=== PATIENT | female | born 1950 | race Caucasian/White ===

== ENCOUNTER → 2020-10-07 | Outpatient (CLI) | payer MEDICARE ==
--- NOTE | 2020-10-07 12:42 | US ---
EXAMINATION TYPE: US kidneys/renal and bladder DATE OF EXAM: 10/07/2020 COMPARISON: NONE CLINICAL HISTORY: R94.4 Abnormal results of kidney function studies. EXAM MEASUREMENTS: Right Kidney: 8.7 x 3.2 x 3.6 cm Left Kidney: 9.3 x 4.3 x 3.4 cm *Technical limitations due to large amount of overlying bowel content Right Kidney: atrophic, no evidence of hydronephrosis Left Kidney: no evidence of hydronephrosis Bladder: appears wnl Bilateral Jets seen: no There is no evidence for hydronephrosis at this point in time. No nephrolithiasis is seen. No tereso s are identified. The urinary bladder is anechoic. Bilateral ureteral jets are seen. IMPRESSION: Mild atrophic changes. No evidence for hydronephrosis or mass.
== END | disposition home or self-care (01) ==
LOC: RADUSWWP 11:47
PROVIDERS: ATTEND Family Medicine
DX: R94.4 Abnormal results of kidney function studies (principal)
CPT/HCPCS: 76770

== ENCOUNTER → 2020-12-06 | Outpatient (CLI) | payer MEDICARE ==
--- NOTE | 2020-12-06 10:51 | XR ---
EXAMINATION TYPE: XR lumbar spine 2 or 3V DATE OF EXAM: 12/06/2020 Comparison: 05/09/2015 Clinical History: 70-year-old female G89.29 chronic pain Findings: Moderately advanced disc/endplate degenerative change L4-S1 levels with disc space narrowing, endplat e sclerosis, and vacuum phenomenon. Facet arthropathy mid to lower lumbar spine. Trace grade 1 retrol isthesis L3-L4. There is inferior endplate deformity L1-L2 which was present back to 2016 as well. Atherosclerotic calcifications throughout the abdominal aorta and common iliac arteries. Impression: 1. Moderate to advanced disc/endplate degenerative change from L4 through S1 levels appears to have p rogressed from 2016. 2. Hypertrophic facet arthropathy mid to lower lumbar spine with degenerative trace grade 1 retrolist hesis L3-L4. 3. Unchanged, chronic inferior endplate compression deformity.
== END | disposition home or self-care (01) ==
LOC: RADXRMAIN 10:00
PROVIDERS: ATTEND Family Medicine
DX: M43.16 Spondylolisthesis, lumbar region (principal); M47.817 Spondylosis without myelopathy or radiculopathy, lumbosacral region
CPT/HCPCS: 72100

== ENCOUNTER → 2021-06-19 | Outpatient (CLI) | payer MEDICARE ==
--- NOTE | 2021-06-19 12:40 | CT ---
EXAMINATION TYPE: CT sinus wo con DATE OF EXAM: 06/19/2021 COMPARISON: None HISTORY: Sinusitis CT DLP: 515 mGycm. Automated Exposure Control for Dose Reduction was Utilized. TECHNIQUE: CT scan of the sinuses is performed without contrast, axial images are obtained, coronal r eformatted images are also reviewed. FINDINGS: The paranasal sinuses including the frontal, ethmoid, sphenoid, and maxillary sinuses bila terally are well-aerated mild mucosal thickening involving the right inferior maxillary sinus. There is a large jamie bullosa on the right is stable. Nasal septal deviation noted.. The ostiomeat al complex is patent bilaterally on the coronal images. Visualized portion of mastoid air cells show no abnormal opacification. The globes are intact bilate rally. IMPRESSION: 1. Mild left maxillary sinusitis.
== END | disposition home or self-care (01) ==
LOC: RADCTMAIN 11:26
PROVIDERS: ATTEND Otolaryngology
DX: J32.0 Chronic maxillary sinusitis (principal)
CPT/HCPCS: 70486

== ENCOUNTER → 2021-12-07 | Outpatient (CLI) | payer MEDICARE ==
[2021-12-07 11:30] LABS: African American GFR (CKD) 36 (>60 ml/min/1.73 sqM); Anion Gap 12 mmol/L; Blood Urea Nitrogen 35 mg/dL (7-17); Calcium 9.5 mg/dL (8.4-10.2); Carbon Dioxide 27 mmol/L (22-30); Chloride 102 mmol/L (98-107); Glucose 90 mg/dL (74-99); Non-African American GFR(CKD) 31 (>60 ml/min/1.73 sqM); Potassium 5.2 mmol/L (3.5-5.1); Sodium 141 mmol/L (137-145)
== END | disposition home or self-care (01) ==
LOC: RADCTMAIN 10:44
PROVIDERS: ATTEND Family Medicine
DX: I73.9 Peripheral vascular disease, unspecified (principal)
CPT/HCPCS: 80048

== ENCOUNTER → 2022-01-16 | Outpatient (CLI) | payer MEDICARE ==
--- NOTE | 2022-01-16 11:42 | MM ---
Reason for Exam: Hx of breast cancer, mastectomy. Last mammogram was performed 3 year(s) and 1 month(s) ago. Patient History: Menarche at age 15. First Full-Term at age 21. Postmenopausal. Breast cancer, right, age 50. 11/09/2000, Mastectomy on the Right side. Prior Study Comparison: 12/29/2018 Left MG diagnostic mammo LT w CAD - 2, Unknown. Tissue Density: Left: There are scattered fibroglandular densities. Findings: Analyzed By CAD. There is been a prior right mastectomy. Parenchymal pattern appears stable from comparison. No suspicious groups of microcalcifications, spiculated or lobular masses, architectural distortion or other secondary signs of malignancy are mammographically apparent. Overall Assessment: Benign, BI-RAD 2 Management: Screening Mammogram of the left breast in 1 year. A negative mammogram report should not preclude additional follow up of suspicious palpable abnormalities. Patient should continue monthly self breast exam. A clinical breast exam by your physician is recommended on an annual basis and results should be correlated with mammographic findings. Electronically signed and approved by: Julio César Zamarripa D.O. Radiologis
== END | disposition home or self-care (01) ==
LOC: RADMAMWWP 09:33
PROVIDERS: ATTEND Family Medicine
DX: N64.4 Mastodynia (principal); Z78.0 Asymptomatic menopausal state; Z85.3 Personal history of malignant neoplasm of breast; Z90.11 Acquired absence of right breast and nipple; C50.911 Malignant neoplasm of unspecified site of right female breast
CPT/HCPCS: 77065

== ENCOUNTER → 2022-07-04 | Outpatient (CLI) | payer MEDICARE, OTHER ==
--- NOTE | 2022-07-04 13:04 | CT ---
EXAMINATION TYPE: CT cervical spine wo con CT DLP: 281.7 mGycm, Automated exposure control for dose reduction was used. DATE OF EXAM: 07/04/2022 12:55 PM COMPARISON: MR 05/02/2022. CLINICAL INDICATION:Female, 72 years old with history of M54.12, neck pain TECHNIQUE: Axial CT images from the skull base to the inferior aspect of T2 we obtained without intra venous contrast. Coronal and sagittal reformatted images were also reviewed. FINDINGS: Fracture: None. Osseous structures: Multilevel degenerative disc disease changes with endplate spurring and disc oste ophyte complex's. Scattered disc space narrowing throughout the spine. Vertebral alignment: Alignment within normal limits. Spinal canal/Neural Foramina: Disc osteophyte complexes at C5-C6 and C6-C7 with at least mild spinal canal stenosis. Facet joint uncovertebral joint arthropathy scattered throughout the cervical spine w ith varying degrees of neural foraminal stenosis. Neck soft tissues: Prevertebral soft tissues are within normal limits. Bilateral carotid artery ather osclerosis at the bifurcations. Other: The airway is patent. Centrilobular emphysema changes in lung apices with some pleural calcifi cations.1 IMPRESSION: 1. No evidence of cervical spine fracture. 2. Moderate multilevel degenerative disc disease with associated arthropathy.
== END | disposition home or self-care (01) ==
LOC: RADCTMAIN 12:34
PROVIDERS: ATTEND Orthopaedic Surgery
DX: M43.12 Spondylolisthesis, cervical region (principal); M50.10 Cervical disc disorder with radiculopathy, unspecified cervical region; M47.22 Other spondylosis with radiculopathy, cervical region
CPT/HCPCS: 72125

== ENCOUNTER → 2022-08-13 | Outpatient (CLI) | payer MEDICARE, OTHER ==
--- NOTE | 2022-08-13 15:21 | NM ---
EXAMINATION TYPE: NM hepatobiliary w EF DATE OF EXAM: 08/13/2022 COMPARISON: NONE CLINICAL INDICATION: Female, 72 years old with history of R110; TECHNIQUE: After the intravenous administration of 5.2 mCi Tc 99m Mebrofenin hepatobiliary scintigrap hy is performed. Immediate images post injection. FINDINGS: There is satisfactory initial accumulation of tracer by the liver. The gallbladder is visualized wit hin 8 minutes. The small bowel activity is noted within 16 minutes. At one hour 8 ounces of oral en sure plus is given to mimic CCK and gallbladder ejection fraction is calculated at 83 %, in the kenny l range. Therefore there is no scintigraphic evidence of cystic or common bile duct obstruction to s uggest acute cholecystitis or gallbladder dyskinesia. IMPRESSION: Exam is within normal limits.
== END | disposition home or self-care (01) ==
LOC: RADNMMAIN 12:36
PROVIDERS: ATTEND Family Medicine
DX: R11.0 Nausea (principal)
CPT/HCPCS: 78226; A9537

== ENCOUNTER → 2022-09-06 | Outpatient (CLI) | payer MEDICARE, OTHER ==
[2022-09-06 12:02] LABS: INR 0.9 (<1.2)
[2022-09-06 17:10] LABS: BUN/Creat Ratio 20.38 Ratio (12.00-20.00); Blood Urea Nitrogen 26.5 mg/dL (9.0-27.0); Calcium 9.3 mg/dL (8.7-10.3); Carbon Dioxide 26.4 mmol/L (21.6-31.8); Chloride 105 mmol/L (96-109); Glucose 98 mg/dL (70-110); Potassium 4.5 mmol/L (3.5-5.5); Sodium 141 mmol/L (135-145)
[2022-09-06 17:17] LABS: Basophils # (A) 0.11 X 10*3/uL (0.00-0.10); Basophils % (A) 1.3 %; Eosinophils # (A) 0.14 X 10*3/uL (0.04-0.35); Eosinophils % (A) 1.7 %; HCT 41.2 % (37.2-46.3); HGB 12.6 d/dL (12.0-15.0); Lymphocytes # (A) 1.34 X 10*3/uL (0.90-5.00); MCH 30.7 pg (27.0-32.0); MCHC 30.6 d/dL (32.0-37.0); MCV 100.5 FL (80.0-97.0); Mean Platelet Volume 12.1 FL (9.5-12.2); Monocytes # (A) 0.53 X 10*3/uL (0.20-1.00); Monocytes % (A) 6.3 %; NRBC Per 100 WBC 0 X 10*3/uL (0.00-0.01); Neutrophils % (A) 74.3 %; Platelet Count 241 X 10*3/uL (140-440); RDW 15.1 % (11.5-14.5); WBC 8.35 X 10*3/uL (4.50-10.00)
== END | disposition home or self-care (01) ==
LOC: LABPAT 10:07
PROVIDERS: ATTEND Orthopaedic Surgery
DX: Z01.812 Encounter for preprocedural laboratory examination (principal); Z22.322 Carrier or suspected carrier of Methicillin resistant Staphylococcus aureus; R94.31 Abnormal electrocardiogram [ECG] [EKG]; I45.10 Unspecified right bundle-branch block
CPT/HCPCS: 80048; 85025; 85610; 87070; 93005

== ENCOUNTER → 2022-10-30 | Outpatient (CLI) | payer MEDICARE, OTHER ==
[2022-10-30 15:42] LABS: HCT 46.5 % (37.2-46.3); HGB 14.2 d/dL (12.0-15.0); MCH 30.5 pg (27.0-32.0); MCHC 30.5 d/dL (32.0-37.0); Mean Platelet Volume 11.5 FL (9.5-12.2); NRBC Per 100 WBC 0 X 10*3/uL (0.00-0.01); Platelet Count 257 X 10*3/uL (140-440); RBC 4.65 X 10*6/uL (4.10-5.20); RDW 14.6 % (11.5-14.5); WBC 3.79 X 10*3/uL (4.50-10.00)
[2022-10-30 16:16] LABS: % Iron Saturation 14.47 (12.00-45.00); ALT 16 U/L (8-44); AST 26 U/L (13-35); Albumin 4.1 d/dL (3.8-4.9); Albumin/Globulin Ratio 1.58 Ratio (1.60-3.17); Alkaline Phosphatase 66 U/L (41-126); BUN/Creat Ratio 15.15 Ratio (12.00-20.00); Blood Urea Nitrogen 19.7 mg/dL (9.0-27.0); Calcium 9.6 mg/dL (8.7-10.3); Carbon Dioxide 25.5 mmol/L (21.6-31.8); Chloride 106 mmol/L (96-109); Globulin 2.6 d/dL (1.6-3.3); Glucose 87 mg/dL (70-110); Iron 44 UG/DL (50-170); Magnesium 2.2 mg/dL (1.5-2.4); Phosphorus 3.1 mg/dL (2.4-5.1); Potassium 4.4 mmol/L (3.5-5.5); Sodium 142 mmol/L (135-145); Total Bilirubin 0.2 mg/dL (0.3-1.2); Total Iron Binding Capacity 304 UG/DL (228-460); Total Protein 6.7 d/dL (6.2-8.2); Uric Acid 5.6 mg/dL (2.9-7.7)
[2022-10-30 16:23] LABS: Appearance,Urine Cloudy (Clear); Bilirubin,Urine Small (Negative); Blood,Urine Trace (Negative); Color,Urine Dark Yellow (Yellow); Ketones,Urine Trace (Negative); Nitrite,Urine Negative (Negative); PH, Urine 5.5; Specific Gravity,Urine 1.021 (1.001-1.030)
[2022-10-30 16:48] LABS: Bacteria,Urine 3+ (None Seen)
== END | disposition home or self-care (01) ==
LOC: LABWHC1 08:57
PROVIDERS: ATTEND Internal Medicine
DX: E55.9 Vitamin D deficiency, unspecified (principal); N18.32 Chronic kidney disease, stage 3b; N39.0 Urinary tract infection, site not specified; N25.81 Secondary hyperparathyroidism of renal origin; D63.1 Anemia in chronic kidney disease; M10.9 Gout, unspecified; R80.9 Proteinuria, unspecified
CPT/HCPCS: 36415; 80053; 81001; 82043; 82306; 82570; 82728; 83540; 83550; 83735; 83970; 84100; 84550; 85027

== ENCOUNTER → 2022-10-31 | Outpatient (CLI) | payer MEDICARE, OTHER ==
--- NOTE | 2022-10-31 22:52 | US ---
EXAMINATION TYPE: US kidneys/renal and bladder DATE OF EXAM: 10/31/2022 COMPARISON: CLINICAL INDICATION: Female, 72 years old with history of N18.32 chronic kidney disease, stage 3b; Ab normal labs. No pain. EXAM MEASUREMENTS: Right Kidney: 8.1 x 3.5 x 3.4 cm Left Kidney: 9.0 x 4.1 x 4.8 cm Right Kidney: No hydronephrosis or masses seen. Renal cortex appears lobular in appearance. Left Kidney: No hydronephrosis or masses seen. Renal cortex appears lobular in appearance. Bladder: Not well distended Bilateral Jets not seen IMPRESSION: 1. No suspicious acute ultrasound abnormality bilateral kidneys.
== END | disposition home or self-care (01) ==
LOC: RADUSWWP 08:08
PROVIDERS: ATTEND Internal Medicine
DX: N18.32 Chronic kidney disease, stage 3b (principal)
CPT/HCPCS: 76770

== ENCOUNTER → 2022-10-31 | Outpatient (CLI) | payer MEDICARE, OTHER ==
[~2022-10-31] MED LIST: DENOSUMAB 60 MG/ML 1 ML SYRINGE SQ ONE
[2022-10-31 08:48] VITALS: BP 107/65; PULSE 67; RESP 15; TEMP 96
== END ==
LOC: PROCWHC3 08:31
PROVIDERS: ATTEND Family Medicine
DX: M81.0 Age-related osteoporosis without current pathological fracture (principal)
CPT/HCPCS: 96372; J0897

== ENCOUNTER → 2022-12-13 | Outpatient (CLI) | payer MEDICARE, OTHER ==
[2022-12-13 15:55] LABS: INR <0.93 sec (0.93-1.11); Prothrombin Time 10.2 sec (9.9-11.9)
[2022-12-13 16:34] LABS: BUN/Creat Ratio 11.21 Ratio (12.00-20.00); Blood Urea Nitrogen 15.7 mg/dL (9.0-27.0); Calcium 9.3 mg/dL (8.7-10.3); Carbon Dioxide 26.7 mmol/L (21.6-31.8); Chloride 104 mmol/L (96-109); Glucose 103 mg/dL (70-110); Potassium 4.5 mmol/L (3.5-5.5); Sodium 142 mmol/L (135-145)
[2022-12-13 17:13] LABS: Basophils # (A) 0.06 X 10*3/uL (0.00-0.10); Basophils % (A) 0.9 %; Eosinophils # (A) 0.18 X 10*3/uL (0.04-0.35); Eosinophils % (A) 2.7 %; HCT 43.8 % (37.2-46.3); HGB 13.5 d/dL (12.0-15.0); Lymphocytes # (A) 1.15 X 10*3/uL (0.90-5.00); Lymphocytes % (A) 17.2 %; MCH 30.5 pg (27.0-32.0); MCHC 30.8 d/dL (32.0-37.0); MCV 98.9 FL (80.0-97.0); Mean Platelet Volume 11.3 FL (9.5-12.2); Monocytes # (A) 0.38 X 10*3/uL (0.20-1.00); Monocytes % (A) 5.7 %; NRBC Per 100 WBC 0 X 10*3/uL (0.00-0.01); Neutrophils # (A) 4.91 X 10*3/uL (1.80-7.70); Neutrophils % (A) 73.2 %; Platelet Count 240 X 10*3/uL (140-440); RBC 4.43 X 10*6/uL (4.10-5.20); RDW 14.6 % (11.5-14.5)
== END | disposition home or self-care (01) ==
LOC: LABPAT 11:56
PROVIDERS: ATTEND Orthopaedic Surgery
DX: Z01.812 Encounter for preprocedural laboratory examination (principal); M48.02 Spinal stenosis, cervical region; M47.812 Spondylosis without myelopathy or radiculopathy, cervical region; M43.12 Spondylolisthesis, cervical region
CPT/HCPCS: 80048; 85025; 85610; 86850; 86900; 86901

== ENCOUNTER 2022-12-17 07:30 | Inpatient (IN) | payer MEDICARE, OTHER ==
--- NOTE | 2022-12-17 07:21 | P.HPOR ---
History of Present Illness H&P Date: 12/07/22 .D:Date: 12/07/22 : 12:52pm .T:Title: *[facility]... COPY... Date of :[birth year] R14 Allergies: Age: 72 year Height: 5' Weight: 143 lbs BP:/ BMI: 27.93 kg/m2 Occupation: Retired VAS: 6 CHIEF COMPLAINT: Pre-operative appointment for C2-T2 decompression and fusion DOS: n/a Duration of current treatment regiment:> 6 months HISTORY : Xrays New xrays taken in office Trauma or injury No Work-Related No Pain description Aching Location Posterior Patient notes that their pain radiates to left upper extremity Activity Modification Yes Hand Dominance Right TREATMENTS COMPLETED: 6 weeks of PT completed? Month and Year of last PT date? Yes, Cervical, completed 05/03 12 sessions temp relief Physician directed home exercise completed? Yes Medications Yes; List: Aspirin, Flexeril, & Gabapentin Alternative interventions Chiropractic:No Massage therapy: No R.I.C.E:Yes Brace:No Injections No RFA:No SUBJECTIVE: Ms. Reyes returns to the office today for a pre-operative appointment preceding her C2-T2 decompression and fusion. Since her last visit patient states she has been experiencing a whooshing/buzzing sound in her ears. The patient notes a continued ache-like neck pain that radiates down into the bilateral shoulders and upper extremities. The patient also notes continued pain into the mid back as well. The patient notes that her upper extremity pain is associated with numbness, tingling, and weakness. The patient also notes continued dizziness and imbalance. The patient states her symptoms have become debilitating. The patient notes that her symptoms are exacerbated by all activity, which makes it very difficult for her to complete her activities of daily living. The patient is having severe sleep disturbances due to her ongoing pain and associated symptoms . The patient has trialed conservative treatment in the form of at home stretches/exercises, at home heat/ice therapies, physical therapy, activity modification, and medication management, all with no significant relief. The patient is currently taking Flexeril, gabapentin, and Aspirin without resolution of symptoms. Otherwise the patient denies any f/c/sob/cp, perineal numbness or tingling, bladder or bowel incontinence and ambulates independently. HPI: Ms. Reyes returns to the office on 09/24/22 for a re-check on her neck pain and to reschedule surgical intervention in the form of a C2-T2 decompression and fusion. The patient decided to cancel surgery as she did not feel mentally prepared yet. The patient notes a continued ache-like neck pain that radiates down into the left shoulder and upper extremity. The patient notes pain radiating down into the mid back as well. The patient notes that her upper extremity pain is associated with numbness, tingling, and weakness. The patient also notes continued dizziness and imbalance. The patient states her symptoms have been worsening over the last several weeks and have become debilitating. The patient notes that her symptoms are exacerbated by all activity, which makes it very difficult for her to complete any of her activities of daily living. The patient is having severe sleep disturbances due to her ongoing pain and associated symptoms. The patient has trialed conservative treatment in the form of at home stretches/exercises, at home heat/ice therapies, physical therapy, activity modification, and medication management, all with no significant relief. The patient is currently taking Flexeril, gabapentin, and Tylenol, with minimal relief of pain. The patient is requesting to reschedule her previously scheduled C2-T2 decompression and fusion, due to her symptoms affecting her overall quality of life. Otherwise the patient denies any f/c/sob/cp, perineal numbness or tingling, bladder or bowel incontinence and ambulates independently. Ms. Reyes returns to the office on 09/06/2022 for a preoperative evaluation preceeding her previously scheduled C2-T2 decompression and fusion. The patient reports continued ache-like pain throughout the neck that radiates down into the left shoulder and upper extremity. The patient notes that their left upper extremity pain is associated with numbness and tingling. The patient notes a new onset of right upper extremity pain, also associated with mild numbness and tingling. She states that the left upper extremity pain is much more severe than the right at this time. The patient reports increased upper extremity weakness and issues with imbalance. The patient notes that her symptoms have continued to worsen over the last 2 months. The patient notes that her symptoms are exacerbated by all activity, which makes it very difficult for her to complete many of her daily tasks. Ms. Reyes notes severe sleep disturbances at this time due to her ongoing symptoms. The patient has trialed conservative treatment measures in the form of physical therapy, at home stretches/exercises, activity modification, at home heat/ice therapies, and medication management, all with no significant or sustained relief. The patient notes that her symptoms have become intractable. She is currently taking Tylenol Arthritis, Flexeril, and Gabapentin with very minimal relief. Otherwise the patient denies any f/c/sob/cp, perineal numbness or tingling, bladder or bowel incontinence and ambulates independently. Ms. Reyes presents to the office on 06/20/2022 for recheck of her cervical pain. Patient continues to report a cosmetic aching cervical pain that radiates into her left shoulder, associated with numbness and tingling.Patient also describes a constant throbbing lumbar pain that radiates into her bilateral lower extremities, associated with numbness and tingling. For her symptoms patient continues to take tylenol and Flexeril.Patient has done physical therapy with no relief. MRI results of that are reviewed and discussed. When asked patient which region is worse patient does state cervical due to the significant pain and burning radiating to her left shoulder. Otherwise the patient denies any f/c/sob/cp, perineal numbness or tingling, bladder or bowel incontinence and ambulates independently. Ms. Reyes presents to the office on 05/09/2022 for recheck of her cervical and lumbar pain and her MRI results. Since her last office visit patient states she had a fall down her stairs on 05/06/2022. She states she had landed on her tailbone. New x-rays obtained. Patient continues to report a cosmetic aching cervical pain that radiates into her left shoulder, associated without numbness and tingling. Patient also describes a constant throbbing lumbar pain that radiates into her bilateral lower extremities, associated with numbness and tingling. For her symptoms patient continues to take tylenol and Flexeril. When asked patient which region is worse patient does state cervical due to the significant pain and burning radiating to her left shoulder. Otherwise the patient denies any f/c/sob/cp, perineal numbness or tingling, bladder or bowel incontinence and ambulates independently. Ms. Reyes was last seen on 04/24/22 regarding a recheck of her cervical pain. Since the last office visit patient has completed physical therapy in which provided some relief. Patient continues to report a constant aching cervical pain that radiates into the left shoulder, associated with out numbness and tingling. Patient has completed a Medrol Dosepak with good relief. Patient would also like to be evaluated for her low back pain. Patient describes a constant throbbing lumbar pain that radiates into her bilateral lower extremities, associated with numbness and tingling. Patient states her symptoms are exacerbated with any activity. Patient is having moderate sleep disturbances. She states with her overall symptoms she is having difficulty completing her daily tasks. For her symptoms, patient is taking cyclobenzaprine and Tylenol. Patient again reports that she does have stage III chronic kidney disease, so she is limited in what medication she can take. Otherwise the patient denies any f/c/sob/cp, perineal numbness or tingling, bladder or bowel incontinence and ambulates independently. Ms. Reyes was last seen on 03/14/22 regarding an evaluation of their cervical pain. Patient reports a constant aching cervical pain ongoing for a few months, but has worsened over the past week with no known injury or trauma to indicate an exact onset of their symptoms. In addition to their cervicalpain, they do report that it radiates into the left shoulder blade, associatedwithout numbness and tingling. Patient states she is having frequent headaches and has grinding noises in her neck. Overall the patient has seen a progressive increase in symptoms since their onset. Ms. Reyes symptoms are exacerbated with over compensating, due to this they notes that it is increasingly difficult for Ms. Reyes to complete many of their daily tasks. Patient is having moderate sleep disturbances as well due to their ongoing pain and associated symptoms. Regarding treatments, the patient has previously trialed the above listed modalities. Patient denies trialing any other modalities at this time. For their symptoms, the patient has been taking Tylenol without relief. She reports that she does have stage 3 chronic kidney disease, so she is limited on what medications she can take. Otherwise the patient denies any f/c/sob/cp and ambulates independently. The patients' past social, medical, family, surgical history, as well as review of systems, have been reviewed. Please refer to the Neurosurgery History and Physical form that has been scanned in to our electronic medical record system. 14 points review of systems completed and as stated in HPI, all other systems reviewed are negative. Social History: Reviewed, see appropriate section of the chart for details. P3 Family History: Reviewed, see appropriate section of the chart for details. P2 Past Medical History: Reviewed, see appropriate section of the chart for details. [id number] Medications: Rx: aspirin 81 mg tablet,delayed release Ref: 0 Rx: atorvastatin 20 mg tablet Ref: 0 Rx: esomeprazole magnesium 40 mg capsule,delayed release Ref: 0 Rx: ferrous sulfate 325 mg (65 mg iron) tablet Ref: 0 Rx: ibandronate 150 mg tablet Ref: 0 Rx: metoprolol succinate ER 25 mg tablet,extended release 24 hr Ref: 0 Rx: montelukast 10 mg tablet Ref: 0 Rx: Trelegy Ellipta 200 mcg-62.5 mcg-25 mcg powder for inhalation Ref: 0 Rx: Vitamin D3 50 mcg (2,000 unit) tablet Ref: 0 Rx: cyclobenzaprine 5 mg tablet Ref: 0 Rx: TylenoL Ref: 0 Rx: gabapentin 100 mg capsule Ref: 0 P1 PHYSICAL EXAMINATION: General:Awake, alert, appropriate for age, in no acute distress. HEENT:No unusual neck masses around region of lateral neck triangle, thyroid, supraclavicular groove Extremities:Skin warm and dry without acute lesions, coloration, temperature, skin intact, no tenderness or erythema Integument: Hairy patches:ABSENT Dorsal skin dimples:ABSENT Cafe au lait spots:ABSENT Surgical incisions:n/a Palpation: Please see Pain drawing on Intake sheet for further detail. Midline spinal tenderness: No E6 Cervical Tenderness: Yes E6 Paralumbar tenderness:No E6 Parathoracic tenderness: No E6 Buttocks tenderness: No E6 POSTURAL and MUSCULO-SKELETAL EVALUATION: Coronal Balance: NEUTRAL Recumbent testing: Patient isable to lay flat on back Sagittal Balance: NEUTRAL Shoulder Profile: LEVEL Pelvic Girdle: LEVEL Neck ROM: RESTRICTED Lumbar ROM: RESTRICTED Shoulder ROM: Symmetrical Hip ROM: Symmetrical Knee ROM: Symmetrical Hands: Normal appearance, symmetrical Feet: Normal appearance, Symmetrical VASCULAR STATUS : LEFT RIGHT Wrist Pulses INTACT INTACT Pedal Pulses (Dors. pedis & post.tibialis) INTACT INTACT Color NORMAL NORMAL Edema Absent Absent NEUROLOGICEXAMINATION: Mental Status:Awake and alert, fully oriented, with normal attention, concentration and memory, and fluent, appropriate speech. Cranial Nerves: I: Olfactory not tested. II: Visual acuity normal, no visual field deficit noted with confrontation. III,IV: Normal pupillary reflexes & intact extraocular movements without nystagmus. V,: Intact symmetrical facial sensation. VII: Intact symmetrical facial motor movement VIII: Hearing intact. IX,X: Intact gag, swallow, & normal voice. XI: Sternocleidomastoid, trapezius function intact. XII: Tongue midline with normal movements. L'hermitte's Sign:Negative / absent Spurling'Sign:Absent bilaterally. Cubital percussion test:Absent bilaterally. Son-Tinel sign - Carpal region:Absent bilaterally. Straight Leg Raising:Absent bilaterally. Crossed straight leg raise:negative O8 MOTOR EXAM (0-5/5, N/T Muscle appearance: Symmetrical, without signs of atrophy or dystrophy UPPER EXTREMITY RIGHT LEFT Shoulder Abduction 4/5 4/5 Biceps 4/5 4/5 Triceps 4/5 4/5 Wrist Extension 4/5 4/5 Hand Intrinsic 4/5 4/5 Pile Driving Setter 4/5 4/5 Hand and finger dexterity intact bilaterally?NO Disdiadochokinesis examination negative bilaterally? NO LOWER EXTREMITY RIGHT LEFT Hip Flexion 5/5 5/5 Knee Extension 5/5 5/5 Knee Flexion 5/5 5/5 Dorsiflexion 5/5 5/5 Plantarflexion 5/5 5/5 EHL 5/5 5/5 FHL 5/5 5/5 Toe heel walk / heel-toe walk intact while maintaining satisfactory balance? NO Squatting/straightening w/o assistance to a min of 60 degree knee flexion? NO Single leg stance:intact Trendelenburg sign negative bilaterally REFLEXES(0-4/2, NT)Upper Extremity Lower Extremity Right 3 2 Left 3 2 Pathological Reflexes RIGHT LEFT Son's present present Clonus Absent Absent Babinski Absent Absent Sensory system (0-4, N/T) Test type RU VERNON RL LL Joint-Position 2 2 2 2 Vibration 2 2 2 2 Pain & LT sense 2 2 2 2 Dermatomal Deficit: Global C4-6 None None Gait and Functional Evaluation: Ambulatory aids:Independent Romberg's test:Intact bilaterally Unsteady Gait RADIOGRAPHIC STUDIES: XRay Lumbar AP/lateral 2 views taken at [facility] on 05/09/22 of Spine: - Reviewed with the patient today. No changes in lumbar compared to previous films taken on 04/24/22, stable chronic L1 compression fracture. Spondylosis with likely stenosis at multilevels noted. Overall alignment stable for age. No new fractures. No lesions. MRI of the Cervical and Lumbar Spine taken at [facility] on 05/02/22: Cervical spine: - Reviewed with the patient today. FINDINGS: Sagittal images of the cervical spine show the craniocervical junction to appear within normal limits. There is grade 1 retrolisthesis C3 on C4, C4 on C5, and C5 on C6. The cervical and upper thoracic spinal cord is normal in caliber and signal. The vertebral body height are normal. There is moderate disc space narrowing C3-C4 through the C5-C6 level and mild disc space narrowing C6- C7 level. The bone marrow signal intensity is within normal limits. Axial images show C2-C3 level to appear within normal limits. Axial images at C3-C4 level show broad-based posterior disc protrusion mildly effacing the anterior thecal sac, patent bilateral neural foramina. Axial images at C4-C5 level shows broad-based right paracentral disc protrusion effacing the anterolateral thecal sac and uncovertebral facet degenerative changes causing moderate bilateral neural foraminal narrowing. Axial images at C5-C6 level broad-based posterior disc protrusion effacing the anterior thecal sac and causing moderate to advanced left and [id number] right-sided neural foraminal narrowing. Axial images at C6-C7 levels with broad-based posterior disc protrusion effaces the anterior thecal sac and causing moderate left and mild right-sided neural foraminal narrowing. Axial images at C7-T1 level appear within normal limits. IMPRESSION: Multilevel spondylolisthesis and degenerative change in the cervical spine as detailed above. Lumbar spine: - Reviewed with the patient today. Sagittal images of the lumbar spine show moderate height loss estimated at just over 50% anterior L1 level. No suspicious edema to suggest acute compression typ e fracture. Persistent grade 1 retrolisthesis of L3 on L4. Multilevel disc desiccation redemonstrated. There is moderate to advanced disc space narrowing L4-L5 level more prominent from prior. There is moderate disc space narrowing L5-S1 level redemonstrated but stable. There is mild disc space narrowing with annular tear at the L3-L4 level on current study.. The conus medullaris remains normal in position and signal ending mid L1 level. Axial images show T12-L1 through the L2-L3 level to appear within normal limits. Axial images at L3-L4 level shows moderate broad-based disc bulge with posterior annular tear mildly effacing the anterior thecal sac with patent bilateral neural foramina. Axial images at L4-L5 level show mild broad disc bulge minimally effacing the anterior thecal sac and causing mild bilateral anterior inferior neural foraminal narrowing. Axial images at L5-S1 level shows moderate broad-based disc bulge and mild facet arthropathy bilaterally. Spinal canal is minimally effaced anteriorly. There is moderate bilateral neural foraminal narrowing noted. Some cortical thinning of both kidneys is seen. IMPRESSION: Moderate chronic compression type fracture at L1 level. Finding has been present since 2020 x-ray. Multilevel degenerative changes in lumbar spine as detailed above. IMPRESSION: It was my pleasure to have seen and examined Jessica. I reviewed the patient's clinical syndrome, physical findings, and imaging studies during the appointment today. It is my impression that the patient has a diagnosis of. 1. 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 Grade 1 retrolisthesis C3 onto C4, C4 onto C5, C5 onto C6 3. Bilateral upper extremity radiculopathy 4. Lumbar spondylosis with stenosis 5. Grade 1 retrolisthesis L3 onto L4 6. Chronic L1 compression fracture 7. Bilateral lower extremity radiculopathy 8. Bilateral upper extremity weakness I outlined the natural course history without intervention and various interventional options. PLAN All options were reviewed today, we decided the best course of action would be: -Advised patient to continue with supplements, health maintenance, and home exercise programs. Patient expressed understanding and will continue with these modalities. -I discussed treatment options with the patient, including operative and non- operative options, and they have elected to proceed with the following surgical procedure: C2-T2 decompression and fusion The indications, risks, benefits, and alternatives to surgery were discussed with the patient and family at length. Specifically (but not limited to) the ris ks of infection, stiffness, recurrence of symptoms, need for revision surgery, local numbness, neurovascular injury, and blood clots were discussed. The patient's questions were answered. The decision to proceed was made. Consent will be obtained for the procedure. - I have sent prescriptions to the patient's pharmacy today for Flexeril 5 mg, Gabapentin 300 mg, and a 4 mg Medrol Dosepak. - Ambulate daily. - Take pain medications and post op medications as needed and as directed. - Ice and rest for pain and swelling control. Spine Surgery Risk Review and Patient Summary Ms. Reyes is presenting for evaluation of Cervical pain, UE weakness, numbness, and tingling, unsteady gait, and dizziness. It was my pleasure to have seen and examined Ms. Reyes. In our visit today we have had a chance to go over subjective complaints, physical examination findings and treatments including the natural course history without intervention and various interventional options. The patients imaging demonstrates: XRay Lumbar AP/lateral 2 views taken at [facility] on 05/09/22 of Spine: No changes in lumbar compared to previous films taken on 04/24/22, stable chronic L1 compression fracture. MRI of the Cervical and Lumbar Spine taken at [facility] on 05/02/22: Cervical spine: FINDINGS: Sagittal images of the cervical spine show the craniocervical junction to appear within normal limits. There is grade 1 retrolisthesis C3 on C4, C4 on C5, and C5 on C6. The cervical and upper thoracic spinal cord is normal in caliber and signal. The vertebral body height are normal. There is moderate disc space narrowing C3-C4 through the C5-C6 level and mild disc space narrowing C6- C7 level. The bone marrow signal intensity is within normal limits. Axial images show C2-C3 level to appear within normal limits. Axial images at C3-C4 level show broad-based posterior disc protrusion mildly effacing the anterior thecal sac, patent bilateral neural foramina. Axial images at C4-C5 level shows broad-based right paracentral disc protrusion effacing the anterolateral thecal sac and uncovertebral facet degenerative changes causing moderate bilateral neural foraminal narrowing. Axial images at C5-C6 level broad-based posterior disc protrusion effacing the anterior thecal sac and causing moderate to advanced left and [id number] right-sided neural foraminal narrowing. Axial images at C6-C7 levels with broad-based posterior disc protrusion effaces the anterior thecal sac and causing moderate left and mild right-sided neural foraminal narrowing. Axial images at C7-T1 level appear within normal limits. IMPRESSION: Multilevel spondylolisthesis and degenerative change in the cervical spine as detailed above with stenosis moderate to severe. Lumbar spine: Sagittal images of the lumbar spine show moderate height loss estimated at just over 50% anterior L1 level. No suspicious edema to suggest acute compression type fracture. Persistent grade 1 retrolisthesis of L3 on L4. Multilevel disc desiccation redemonstrated. There is moderate to advanced disc space narrowing L4-L5 level more prominent from prior. There is moderate disc space narrowing L5-S1 level redemonstrated but stable. There is mild disc space narrowing with annular tear at the L3-L4 level on current study.. The conus medullaris remains normal in position and signal ending mid L1 level. Axial images show T12-L1 through the L2-L3 level to appear within normal limits. Axial images at L3-L4 level shows moderate broad-based disc bulge with posterior annular tear mildly effacing the anterior thecal sac with patent bilateral neural foramina. Axial images at L4-L5 level show mild broad disc bulge minimally effacing the anterior thecal sac and causing mild bilateral anterior inferior neural foraminal narrowing. Axial images at L5-S1 level shows moderate broad-based disc bulge and mild facet arthropathy bilaterally. Spinal canal is minimally effaced anteriorly. There is moderate bilateral neural foraminal narrowing noted. Some cortical thinning of both kidneys is seen. IMPRESSION: Moderate chronic compression type fracture at L1 level. Finding has been present since 2020 x-ray. Multilevel degenerative changes in lumbar spine as detailed above. On physical exam, Ms. Reyes demonstrates: The patient reports continued ache- like pain throughout the neck that radiates down into the left shoulder and uppe r extremity. The patient notes that their left upper extremity pain is associated with numbness and tingling. The patient notes a new onset of right upper extremity pain, also associated with mild numbness and tingling. She states that the left upper extremity pain is much more severe than the right at this time. The patient reports increased upper extremity weakness and issues with imbalance. The patient notes that her symptoms have continued to worsen over the last 2 months. The patient notes that her symptoms are exacerbated by all activity, which makes it very difficult for her to complete many of her daily tasks. Ms. Reyes notes severe sleep disturbances at this time due to her ongoing symptoms. I have explained to the patient that as their condition progresses it will cause further neurological deficits and eventual paralysis. Based on the patients imaging, physical exam, and the rapid progression and disabling nature of their symptoms, at this time I recommend surgery in the form of a: C2-T2 decompression and fusion . I discussed the risk and benefits of this procedure at length with Ms. Reyes. The patient He spouse agreed to considered pursuing the procedure above mentioned. Prior to surgery, she should follow up with her PCP (Cardio, ID, IM etc) for clearance. Questions were invited and answered, and the patient wishes to proceed as outlined below. Currently, I am recommendin. C2-T2 decompression and fusion 2.Follow up with PCP for surgical clearance 3.Review of surgical risks and benefits as well as an educational packet on the proposed surgical procedure. Risks: All surgical procedures come with inherent risks, including those related to positioning, anesthesia, intraoperative findings, and postoperative complications. It is important to understand that surgery does not come with any guarantee of a successful outcome as complications and adverse events are always possible. The patient was given a handout in office today discussing the surgical procedure and risks associated with the intervention, both of which were discussed with the patient. These risks include but are not limited to the following: * Experiencing same, different or even worse symptoms in back, neck, arms, or legs compared to before surgery. Requiring further surgery or other forms of treatment presently or at some time in the future at same or other levels of the intended spine surgery. On an extreme but fortunately relatively rare basis severe complication such as blindness, stroke, heart attack, temporary and/or permanent nerve injury, paralysis, coma, or may occur, sometimes without known explanat ion. Surgical complications may include but are not limited to risk of infection, fluid accumulation in the surgical dissection site, including a seroma or hematoma, that requires additional surgery, wound drainage, bleeding, new numbness or weakness, vision changes/loss, spinal fluid leakage, non-healing and/or infected incision, headaches, difficulty or inability to swallow, hoarseness, hemopneumothorax, pneumothorax, impotence, retrograde ejaculation, vaginal dryness; injury to nerves, spinal cord, blood vessels, lymphatics or other vital organs (i.e., bowel injury, injury to the great vessels); heterotopic bone formation; complications related to the hardware such as screws, rods, cages including misplaced hardware, device failure, instrumentation at the wrong spine level, hardware fracture/breakage, or hardware loosening; vertebral failure of the spinal column above or below the newly placed hardware; retained surgical instrumentations or devices and the need for further surgery. * Medical risks of the planned spine surgery include but are not limited to generalized Infections to the whole body or local areas outside of the surgical site (sepsis), heart attack, bleeding, anaphylaxis, meningitis, seizure, epilepsy, hearing loss, burn luna, laceration of the head or other areas of the body, bruising, hypersensitivity of the skin, bladder over distension; allergic reaction; shoulder injury related to positioning; fat, blood and air clots to other areas of the body like heart, lungs, brain; failure of internal organs such as lungs, kidneys, liver and excessive bleeding. If blood transfusions are necessary, note that transfusions may cause intolerance reactions such as anaphylaxis or other complex reactions. Despite best efforts, the results of spine surgery might not heal in terms of bone, soft tissues such as skin, fascia, ligaments, and joints. Additionally, in order to achieve best possible results, spine surgery may be carried out beyond the initially planned levels and involve decompression, fusion including insertion of hardware at levels other than the original intended area of surgical interest change some portions of the procedure in order to ensure the best possible outcomes. With spine surgery and spinal fusion, there are different off label uses of instrumentation (devices, implants and hardware) as well as biological substanc es (bone morphogenic proteins, demineralized bone matrix) as well as using extra bone from allograft sources (i.e. cadaver bone) or autograft (iliac crest bone, ribs, or the spine itself). The patient has been given information about these practices and their inherent risks and benefits. [facility] is an educational center that serves as a training facility for neurosurgical and orthopedic CHOIR DIRECTOR and Nursing students. Physician assistants are medically trained surgical providers who function in the outpatient, inpatient, and operating room setting under the direct supervision of the a ttending surgeon. [facility] has multiple operating rooms with single and overlapping rooms running daily. They currently function under the required guidelines as produced by the [facility] with regards to the overlapping rooms and will continue to comply with changes to this policy as they occur. The requirements include and are complied with as follows: (1) the critical portions of the overlapping rooms will not occur at the same time, (2) the attending physician will be physically present during the critical portions of the procedure and immediately available during the entire case, and (3) a back-up attending is designated should the primary attending not be immediately available. The patient has had a chance to review all the listed information, has been g iven print outs detailing this information, and has had all his/her questions answered to their satisfaction. It was my pleasure to have seen and examined Ms. Reyes. In our visit today we have had a chance to go over my understanding of our patient's current condition, the natural course history without intervention and various interventional options. Questions were invited and answered, and the patient wishes to proceed as outlined above. I have seen and examined the patient for 25 minutes and we have spent more than 50% of the time in repeat and detailed counseling about the patient's condition, its natural course history with out and as much as can be predicted with surgery and re-review of various surgical treatment options. In conclusion, Ms. Reyes and spouse requested we proceed with the above suggested surgery and are willing to accept risks and limitations of the suggested surgery as nature of the disease process and our best attempts at treatment for the condition. Thank you again for allowing us to be part of your patient's care. Please don't hesitate to contact me if you have any further questions. Follow- up: DEL Post procedure 1month 6wks 3 months 6 months 1 year Patient Education: (Informational booklet, instructions, etc) given at today's appointment: DEL Yes .ED:Patient Education: Y Medications Reviewed: YES In our visit today Ms. Reyes and I have had a chance to go over my understanding of the patient's current condition, the natural course history without intervention and various interventional options. Questions were invited and answered, and the patient wishes to proceed as outlined above. I will be sure to keep you updated afterMs. Reyes returns here for further follow-up. Thank you again for your referral. Please do not hesitate to contact me if you have any further questions. Signed and authenticated by: KAYLEE [facility] [address] [facility], [address] [address] This message is confidential, intended only for the named recipient(s) and may contain information that is privileged or exempt from disclosure under applicable law. If you are not the intended recipient(s), you are notified that the dissemination, distribution or copying of this information is strictly prohibited. If you received this message in error, please notify the sender then delete this message. Patient verbalizes understanding of the information discussed. The above note was initiated by Marty Chen, physician recording surgical assistant for Dr. Ravin Butt. This note has been reviewed by Dr. Butt, who has made his personal changes and impressions for this document. CC: Booker Ochoa D.O. Past Medical History Past Medical History: Cancer, GERD/Reflux, Hyperlipidemia, Hypertension, Musculoskeletal Disorder, Osteoarthritis (OA) Additional Past Medical History / Comment(s): Right breast cancer, back pain - steroid injections, hiatal hernia - not repaired. stage 3 vulva cancer-seeing oncologist in [facility]surg. could possibly be postponed, gets SOB w/exertion, stage 3 kidney disease History of Any Multi-Drug Resistant Organisms: None Reported Past Surgical History: Breast Surgery, Joint Replacement, Tonsillectomy, Tubal Ligation Additional Past Surgical History / Comment(s): Right breast mastectomy 2000, artificial vance. thumb joint (3 surgeries), left hand surgery, EGD 2010. back injections for pain, left cataract removed Past Anesthesia/Blood Transfusion Reactions: Postoperative Nausea & Vomiting (PONV) Additional Past Anesthesia/Blood Transfusion Reaction / Comment(s): only happened once years ago Smoking Status: Former smoker - Past Family History Mother Family Medical History: Cancer Additional Family Medical History / Comment(s): Stomach cancer Sister(s) Family Medical History: Cancer Additional Family Medical History / Comment(s): Lung cancer mets to brain Brother(s) Family Medical History: Cancer Additional Family Medical History / Comment(s): multiple cancers Medications and Allergies Home Medications Medication Instructions Recorded Confirmed Type Cholecalciferol [Vitamin D3] 2,000 unit PO DAILY 06/22/14 12/12/22 History Aspirin 81 mg PO DAILY 05/01/22 12/12/22 History Atorvastatin [Lipitor] 20 mg PO AC-SUPPER 05/01/22 12/11/22 History Ferrous Sulfate [Feosol] 325 mg PO DAILY 05/01/22 12/11/22 History Fluticasone/Umeclidin/Vilanter 200 mcg INHALATION DAILY 05/01/22 12/11/22 History [Trelegy Ellipta 100-62.5-25] Famotidine [Pepcid] 40 mg PO BID 09/04/22 12/11/22 History Prolia(Unk) 1 dose INJ DIRECTED 09/04/22 12/11/22 History Albuterol Inhaler [Ventolin Hfa 1 - 2 puff INHALATION Q6H PRN 10/31/22 12/11/22 History Inhaler] Metoprolol Succinate (ER) [Toprol 25 mg PO AC-SUPPER 10/31/22 12/11/22 History Xl] calcitrioL [Calcitriol] 0.25 mcg PO WEEKLY 10/31/22 12/11/22 History Loratadine [Claritin] 10 mg PO DAILY 12/12/22 12/12/22 History Allergies Allergy/AdvReac Type Severity Reaction Status Date / Time No Known Allergies Allergy Verified 12/11/22 12:19 Physical Examination Osteopathic Statement: *. No significant issues noted on an osteopathic structural exam other than those noted in the History and Physical/Consult.
[~2022-12-17 07:30] MED LIST changes: +ACETAMINOPHEN TAB 500 MG TAB PO PRN; -DENOSUMAB 60 MG/ML 1 ML SYRINGE SQ ONE; +GABAPENTIN 300 MG CAP PO PRN; +ONDANSETRON 4 MG/2 ML VIAL IVP PRN; +TRANEXAMIC 1,000 MG/100ML-NACL 1,000 MG in SALINE 1 100ML.BAG IVPB PRN
[2022-12-17] MEDS ORDERED: HYDROmorphone 0.5 MG/0.5 ML SYRINGE IVP PRN (08:09)
[2022-12-17] MEDS ORDERED: LIDOCAINE 1% (10MG/ML) FOR IV START INTRADERMA PRN (08:09)
[2022-12-17] MEDS ORDERED: DEXAMETHASONE SOD PHOSPHATE 4 MG/ML 1 ML VIAL IV ONE (08:09)
[2022-12-17] MEDS ORDERED: ONDANSETRON 4 MG/2 ML VIAL IVP ONE (08:09)
[2022-12-17] MEDS ORDERED: METOCLOPRAMIDE 5 MG/ML 2 ML VIAL IVP PRN (08:09)
[2022-12-17] MEDS: LACTATED RINGERS 1,000 ML IV SCH ×2 (11:47→12:45)
[2022-12-17] MEDS ORDERED: NEOSTIGMINE 1 MG/ML 10 ML VIAL ONE (12:45)
[2022-12-17] MEDS ORDERED: HYDROmorphone (PF) 1 MG/ML ONE (12:45)
[2022-12-17] MEDS ORDERED: MIDAZOLAM 2 MG/2 ML VIAL ONE (12:45)
[2022-12-17] MEDS ORDERED: ROCURONIUM 10 MG/ML (5 ML VIAL) IV ONE (12:45)
[2022-12-17] MEDS ORDERED: LIDOCAINE 1% INJ 10MG/ML (20 ML MDV) ONE (12:45)
[2022-12-17] MEDS ORDERED: PHENYLEPHRINE-0.9% NACL SYG 1,000 MCG/10 ML SYRINGE ONE (12:45)
[2022-12-17] MEDS ORDERED: GLYCOPYRROLATE 0.2 MG/ML 2 ML VIAL ONE (12:45)
[2022-12-17] MEDS ORDERED: fentaNYL (PF) 50 MCG/ML 2 ML AMP ONE (12:45)
[2022-12-17] MEDS ORDERED: PROPOFOL 10 MG/ML 20 ML VIAL IV ONE (12:45)
[2022-12-17] MEDS ORDERED: TRANEXAMIC 1,000 MG/100ML-NACL PREMIX BAG ONE (12:45)
[2022-12-17] MEDS ORDERED: SUCCINYLCHOLINE CHLORIDE 200 MG/10 ML VIAL IV ONE (12:45)
--- NOTE | 2022-12-17 13:24 | P.ANPRN ---
Procedure Note - Anesthesia - Invasive Line Left Arterial Line Time Out Performed: Yes (1231) Date of Procedure: 12/17/22 Time of Procedure: 12:32 Location of Patient: PreOp Preparation: Sterile Prep, Sterile Dressing Arterial Line Location: Radial (left) Ultrasound Used: No Purpose - Visualization and Identification of Vasculature: No Needle Guage: 20g Image Stored and Saved: No Narrative: Central line placement per sterile protocol utilized.
[2022-12-17] MEDS ORDERED: THROMBIN (BOVINE) 5,000 UNIT VIAL TOPICAL ONE (13:52)
[2022-12-17] MEDS ORDERED: VANCOMYCIN 1,000 MG VIAL MISCELLANE ONE ×2 (13:52→14:40)
[2022-12-17] MEDS ORDERED: GELATIN SPONGE,ABSORB (LARGE) 1 EACH SPONGE TOPICAL ONE (13:52)
[2022-12-17] MEDS ORDERED: MAGNESIUM HYDROXIDE 2,400 MG/30 ML CUP PO PRN (15:31)
[2022-12-17] MEDS ORDERED: HYDROcodone/APAP 10-325MG 1 EACH TAB PO PRN (15:31)
[2022-12-17] MEDS ORDERED: SENNOSIDES-DOCUSATE SODIUM 1 EACH TAB PO PRN (15:31)
--- NOTE | 2022-12-17 15:44 | XR ---
Intraoperative/procedural fluoroscopic services were provided for posterior cervical fusion. Total fl uoroscopy time is 38.3 seconds with a total of 11 submitted images to PACS. Total DAP 0.4355 Gycm2. Please see the operative note for further details. spine.
[2022-12-17] MEDS: HYDROmorphone 1 MG/ML 1 ML SYRINGE IVP PRN (18:09)
[2022-12-17] MEDS: ACETAMINOPHEN TAB 325 MG TAB PO SCH (18:14)
[2022-12-17] MEDS: GABAPENTIN 300 MG CAP PO SCH ×2 (18:14→22:49)
--- NOTE | 2022-12-17 20:14 | P.OP ---
Date of Procedure: 12/17/22 Preoperative Diagnosis: 1. CERVICAL STENOSIS WITH RADICULOPATHY 2. UE WEAKNESS 3. NECK PAIN 4. UE RADICULOPATHY Postoperative Diagnosis: 1. CERVICAL STENOSIS WITH RADICULOPATHY 2. UE WEAKNESS 3. NECK PAIN 4. UE RADICULOPATHY Procedure(s) Performed: 1. C2-T2 POSTERIOLATERAL ARTHRODESIS (76596, 12447, [id number]) 2. INSTRUMENTATION C2-T2 (67897) 3. BILATERAL LAMINECTOMY, PARTIAL MEDIAL FACETECTOMY AND FORAMINOTOMIES C2-T1 (70724, [id number]) USE OF IONM Implants: -ANDREY POSTERIOR CERVICAL SYSTEM -MAGNATOS, AUTOGRAFT Anesthesia: GETA Surgeon: Ravin Butt Supply Chain Consultant #1: Mac Shaw (EMBER Swift Was present and assisted with all aspects of the case from positioning to dressing placement) Estimated Blood Loss (ml): 100 IV fluids (ml): 1,200 Urine output (ml): 330 Pathology: none sent Condition: stable Disposition: PACU Indications for Procedure: Ms. Reyes is presenting for evaluation of Cervical pain, UE weakness, numbness, and tingling, unsteady gait, and dizziness. It was my pleasure to have seen and examined Ms. Reyes. In our visit today we have had a chance to go over subjective complaints, phy sical examination findings and treatments including the natural course history without intervention and various interventional options. The patients imaging demonstrates: XRay Lumbar AP/lateral 2 views taken at [facility] on 05/09/22 of Spine: No changes in lumbar compared to previous films taken on 04/24/22, stable chronic L1 compression fracture. MRI of the Cervical and Lumbar Spine taken at [facility] on 05/02/22: Cervical spine: FINDINGS: Sagittal images of the cervical spine show the craniocervical junction to appear within normal limits. There is grade 1 retrolisthesis C3 on C4, C4 on C5, and C5 on C6. The cervical and upper thoracic spinal cord is normal in caliber and signal. The vertebral body height are normal. There is moderate disc space narrowing C3-C4 through the C5-C6 level and mild disc space narrowing C6- C7 level. The bone marrow signal intensity is within normal limits. Axial images show C2-C3 level to appear within normal limits. Axial images at C3-C4 level show broad-based posterior disc protrusion mildly effacing the anterior thecal sac, patent bilateral neural foramina. Axial images at C4-C5 level shows broad-based right paracentral disc protrusion effacing the anterolateral thecal sac and uncovertebral facet degenerative changes causing moderate bilateral neural foraminal narrowing. Axial images at C5-C6 level broad-based posterior disc protrusion effacing the anterior thecal sac and causing moderate to advanced left and [id number] right-sided neural foraminal narrowing. Axial images at C6-C7 levels with broad-based posterior disc protrusion effaces the anterior thecal sac and causing moderate left and mild right-sided neural foraminal narrowing. Axial images at C7-T1 level appear within normal limits. IMPRESSION: Multilevel spondylolisthesis and degenerative change in the cervical spine as detailed above with stenosis moderate to severe. Lumbar spine: Sagittal images of the lumbar spine show moderate height loss estimated at just over 50% anterior L1 level. No suspicious edema to suggest acute compression type fracture. Persistent grade 1 retrolisthesis of L3 on L4. Multilevel disc desiccation redemonstrated. There is moderate to advanced disc space narrowing L4-L5 level more prominent from prior. There is moderate disc space narrowing L5-S1 level redemonstrated but stable. There is mild disc space narrowing with annular tear at the L3-L4 level on current study.. The conus medullaris remains normal in position and signal ending mid L1 level. Axial images show T12-L1 through the L2-L3 level to appear within normal limits. Axial images at L3-L4 level shows moderate broad-based disc bulge with posterior annular tear mildly effacing the anterior thecal sac with patent bilateral neural foramina. Axial images at L4-L5 level show mild broad disc bulge minimally effacing the anterior thecal sac and causing mild bilateral anterior inferior neural foraminal narrowing. Axial images at L5-S1 level shows moderate broad-based disc bulge and mild facet arthropathy bilaterally. Spinal canal is minimally effaced anteriorly. There is moderate bilateral neural foraminal narrowing noted. Some cortical thinning of both kidneys is seen. IMPRESSION: Moderate chronic compression type fracture at L1 level. Finding has been present since 2020 x-ray. Multilevel degenerative changes in lumbar spine as detailed above. On physical exam, Ms. Reyes demonstrates: The patient reports continued ache- like pain throughout the neck that radiates down into the left shoulder and upper extremity. The patient notes that their left upper extremity pain is associated with numbness and tingling. The patient notes a new onset of right upper extremity pain, also associated with mild numbness and tingling. She states that the left upper extremity pain is much more severe than the right at this time. The patient reports increased upper extremity weakness and issues with imbalance. The patient notes that her symptoms have continued to worsen over the last 2 months. The patient notes that her symptoms are exacerbated by all activity, which makes it very difficult for her to complete many of her daily tasks. Ms. Reyes notes severe sleep disturbances at this time due to her ongoing symptoms. I have explained to the patient that as their condition progresses it will cause further neurological deficits and eventual paralysis. Based on the patients imaging, physical exam, and the rapid progression and disabling nature of their symptoms, at this time I recommend surgery in the form of a: C2-T2 decompression and fusion . I discussed the risk and benefits of this procedure at length with Ms. Reyes. The patient He spouse agreed to considered pursuing the procedure above mentioned. Prior to surgery, she should follow up with her PCP (Cardio, ID, IM etc) for clearance. Questions were invited and answered, and the patient wishes to proceed as outlined below. Currently, I am recommendin. C2-T2 decompression and fusion Description of Procedure: C2-T2 decompression and fusion The patient was seen and examined in the preoperative area. All preoperative protocols were followed. Informed consent was obtained, risks and benefits of the procedure were discussed at length. Risks including bleeding infection damage to the surrounding tissue and risk of reoperation were discussed with the patient. Risk of anesthesia up to and including was discussed with the patient. These are outlined in the risk review. They were willing to accept these risks and all of the risks of surgery. The patient was given a weight- based dose of antibiotics in the form of 2 g Ancef. The patient was seen and evaluated by the anesthesia team who deemed them fit for surgery. The site was marked, the patient was willing to proceed with the procedure. The patient was transferred to the operative suite by the Department of anesthesia. They were then drifted off to sleep by the department anesthesia and GETA was performed. The patient tolerated this well. pre-positioning motors were obtained.Razo in place from the floor. Once confirmation of lines and ventilation Amin head clamp was placed on the patient and secured and the patient was transferred to a [prone Ian table very carefully] with the Amin headline writer the head was secured and placed into an optimal position x- ray confirmed this position. Post-positioning motors remained stable. All bony prominences including wrists, elbows, axilla, chest, hips, and thighs, and feet were padded very well. Special attention was paid to the genitalia and these were padded accordingly. SCDs were placed on bilateral lower extremities and were connected. Arms were well padded and placed tucked at his side thumbs down. Shoulders were gently taped down to the table.. Once in position, again we confirmed good ventilation capabilities and that lines were running appropriately. The patient's posterior cervical spine was then exposed. 1010s were placed outlining the incision site. Standard alcohol was used to clean the incision site and allowed to dry. C-arm was used to biomark the patient and confirm level for incision which was marked with a skin marker. Operative briefing was performed with all teams and everyone in agreement to proceed. The patient was then prepped and draped in a normal sterile fashion. Timeout was then performed and all parties were in agreement with the procedure to be performed. Midline skin incision made over the previously bio-marked area and dissection taken down midline to the SP of C2-T2. Subperiosteal dissection taken out over the lamina and lateral masses of C2-C7 and TVP of T1 and T2. Once exposure complete, the wound was irrigated and the C-arm brought in for imaging. A penfield 4 was used to bluntly dissect the medial border of C2 pedicle and placed for guidance. C arm used and a mohit hole made for the starting point. The C2 pedicle was then drilled in 2 mm increments to 18 mm using a ball tip feeler in between each drill session to make sure within the 4 bloom with a good bottom. Once this was accomplished a screw was selected and placed under lateral fluoroscopic guidance. Screw had a good purchase. This was then repeated on the contralateral side. AP confirmed good placement of both screws. We then proceeded to the T1 and T2 screws bilaterally; a mohit was used to remove the facet joint of C7 and to create a starting point for T1 and T2. Pedicle finder was then passed into T1 and T2 and imaging taken to confirm pl acement this was then removed and a tap placed ball-tipped probe was then placed and 4 bloom of pedicle fell with good bottom. Screw was then measured and placed intoT1 and T2. This is repeated on the contralateral side. The wound was then irrigated. Lateral mass screws were then drilled to 12 mm and placed at each level. Each had a good bite. Rods were then sized and selected and cut to length. They were bent accordingly and lordosis. There is secured into C2 bilaterally and then sequentially her diet reduced into T1 and T2. All set screws were placed and were then final tightened and the position. Laminectomy was then performed using Ronjair followed by mohit bilateral laminotomies and laminectomy was performed using high-speed bur Kerrison Rongeur and up-biting curette. Motors were run before and after decompression and they remain stable. Good pulsations of the cord were noted after decompression. The wound was then copiously irrigated with 3 L of Ancef irrigation followed by 3 L of gentamicin irrigation followed by 3 L of normal sterile saline. Facet joints were drilled at each level to allow for fusion Surgicel was placed over the dura. MagnetOs were placed in the posterior lateral gutters along with Nena and DBM. This was impacted into position for fusion. 2 g of powdered bank was not placed deep within the wound and a deep drain was placed. A cross-link was placed and final tightened. We then proceeded with layered closure first in the deep fascia with #1 PDS then in the middle fascia with 0 Vicryl superficial fascia was closed with 2-0 Vicryl and skin closed with skin alice. The wound edges approximated very well. The wound was then cleaned and dressed sterilely with an operative foam dressing 4 x 4 and Tegaderm. The drain had good suction. The patient was placed in a hard cervical collar. The patient was transferred back to their hospital bed atraumatically. Amin head clamp was removed and pin sites were clear. Drain continued to hold suction. Patient was then awakened and extubated by the department of anesthesia having tolerated the procedure very well with no complications. They were transferred to the postoperative care unit in stable condition.
[2022-12-18] MEDS: ACETAMINOPHEN TAB 325 MG TAB PO SCH ×5 (00:28→23:56)
--- NOTE | 2022-12-18 06:59 | CT ---
EXAMINATION TYPE: CT cervical spine wo con CT DLP: 311.8 mGycm, Automated exposure control for dose reduction was used. DATE OF EXAM: 12/17/2022 10:49 PM COMPARISON: 07/04/2022. CLINICAL INDICATION:Female, 72 years old with history of s/p C2-T2 decompr fusion; PHH, S/P C2-T2 DEC OMPRESSION FUSION TECHNIQUE: Axial CT images from the skull base to the inferior aspect of T2 we obtained without intra venous contrast. Coronal and sagittal reformatted images were also reviewed. Contrast used: mL of , (if blank None) Oral contrast used: (if blank None) FINDINGS: Postsurgical changes with hardware extending from C2 to T8 2. Hardware appears intact. No evidence of fracture. Drainage catheter terminates in the surgical bed. Skin alice and subcutaneous gas compat ible with recent surgery. Mild emphysema changes in lung apices. Streaky atelectasis along the left m ajor fissure. Retained secretions within the trachea along the nondependent portion. IMPRESSION: Postsurgical changes without evidence of immediate postsurgical complication.
[2022-12-18] MEDS: GABAPENTIN 300 MG CAP PO SCH ×3 (08:20→21:40)
[2022-12-18] MEDS: SENNOSIDES-DOCUSATE SODIUM 1 EACH TAB PO SCH (08:20)
[2022-12-18] MEDS: HYDROcodone/APAP 10-325MG 1 EACH TAB PO PRN ×2 (08:20→12:03)
[2022-12-18] MEDS: CYCLOBENZAPRINE 5 MG TAB PO PRN (08:28)
[2022-12-18] MEDS ORDERED: ALBUTEROL NEBULIZED 2.5 MG/3 ML INHALATION PRN (09:52)
[2022-12-18] MEDS ORDERED: NON FORMULARY DRUG (Fluticasone/Umeclidin/Vilanter [Trelegy Ellipta 100-62.5-25] 1 EACH Bl INHALATION SCH (10:00)
[2022-12-18] MEDS ORDERED: FAMOTIDINE 20 MG TAB PO SCH (10:00)
[2022-12-18] MEDS: CHOLECALCIFEROL 25 MCG (1000 IU) TABLET PO SCH (10:05)
[2022-12-18] MEDS: LORATADINE 10 MG TAB PO SCH (10:06)
[2022-12-18] MEDS: FERROUS SULFATE 325 MG TAB PO SCH (10:06)
[2022-12-18] MEDS: HYDROmorphone 1 MG/ML 1 ML SYRINGE IVP PRN (10:06)
--- NOTE | 2022-12-18 10:08 | P.PN ---
Subjective Progress Note Date: 12/18/22 Principal diagnosis: 1. 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 Grade 1 retrolisthesis C3 onto C4, C4 onto C5, C5 onto C6 3. Bilateral upper extremity radiculopathy 4. Lumbar spondylosis with stenosis 5. Grade 1 retrolisthesis L3 onto L4 6. Chronic L1 compression fracture 7. Bilateral lower extremity radiculopathy 8. Bilateral upper extremity weakness Patient seen and examined this morning. Patient is resting comfortably in bed. She does report that it is more comfortable for her to lay onto her right side. Patient does have complained of moderate amount of pain to the posterior cervical spine and across bilateral shoulders. She does report that she feels her pain could be managed a little better. Medications have been adjusted. Encouraged patient to utilize ice packs. Patient is looking forward to working with physical therapy later today. Surgical incision to the posterior cervical spine, dressing is clean dry and intact. Hemovac is present with 0 mL output overnight. Patient does report improved symptoms of her bilateral upper extremities. She states she continues to have some numbness to her bilateral hands which was present prior to procedure. No acute events or concerns. Objective - Vital Signs Vital signs: Vital Signs Temp 97.5 F L 12/18/22 01:44 Pulse 83 12/18/22 01:44 Resp 16 12/17/22 20:00 BP 158/79 12/18/22 01:44 Pulse Ox 100 12/18/22 01:44 FiO2 Intake & Output 12/17/22 12/18/22 12/18/22 18:59 06:59 18:59 Intake Total 1750 Output Total 300 500 Balance 1450 -500 Weight 64.5 kg Intake: IV 1750 Output: Drainage 0 Back 0 Urine 200 500 Estimated Blood Loss 100 Other: Voiding Method Indwelling Catheter - Exam Physical Examination General: The patient is awake and alert, in no acute distress Skin: Skin is warm and dry with no obvious rashes or lesions. Surgical incision to the posterior cervical spine, dressing is clean dry and intact with Hemovac present with 0 mL output overnight Eye: Pupils are equal, round and reactive to light, extra-ocular movements are intact; there is normal conjunctiva bilaterally. Neck: The neck is supple, there is no tenderness and ROM intact. Cardiovascular: There is a regular rate and rhythm. No murmur, rub or gallop is appreciated. Respiratory: Lungs are clear to auscultation, respirations are non-labored, breath sounds are equal. Gastrointestinal: Soft, non-distended, non-tender abdomen. Back: There is no tenderness to palpation in the midline, paralumbar, parathoracic or buttocks region. There is no obvious deformity . Musculoskeletal: ROM limited secondary to pain and stiffness from surgical procedure. Muscle strength in all major muscle groups of bilateral upper extremities 4/5, bilateral lower extremities 5/5. Neurological: CN 2-12 intact. There are no obvious motor or sensory deficits. Movement and coordination equal and intact. Sensory exam to light touch intact C5-T1 and intact from L2-S1. Reflexes 2/4 in bilateral upper and lower extremities. Negative Hoffmans, babinski, and clonus signs. Psychiatric: Cooperative, appropriate mood & affect, normal judgment. Assessment and Plan Assessment: Postop day 1: C2-T2 decompression and fusion 1. 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 Grade 1 retrolisthesis C3 onto C4, C4 onto C5, C5 onto C6 3. Bilateral upper extremity radiculopathy 4. Lumbar spondylosis with stenosis 5. Grade 1 retrolisthesis L3 onto L4 6. Chronic L1 compression fracture 7. Bilateral lower extremity radiculopathy 8. Bilateral upper extremity weakness Plan: -Appreciate hospice consultant and team management. -Activity: Ambulate QID, OOB all meals, up and about, limit lifting bending twisting to less than 5 lbs. Use walker or cane if needed for stability. -Daily PT/OT, increase ambulation strength and balance. -Hard cervical collar at all times, patient may remove for showers. -Pain control: Adequate at this time -Meds: reviewed -GI ppx: senna, Miralax -DC barboza when up and about, bedside commode if needed -DVT PPX: OK to restart Heparin tonight -Hygiene: Shower today. Maintain dressing clean and dry. -Drains: Maintain for now. Continue to monitor and record output q shift. -Encourage IS 10x/hr -Dispo: Clinically pending *I reviewed and discussed this case with my attending Dr. Butt, whom has reviewed this chart and films and is in agreement with assessment and plan of care as outlined above. I have personally seen and examined the patient, performed the documentation and the assessment and plan as written. Number of minutes spent on the visit: 10m.
--- NOTE | 2022-12-18 10:32 | XR ---
EXAMINATION TYPE: XR chest 1V DATE OF EXAM: 12/18/2022 10:28 AM COMPARISON: Chest radiographs from 06/29/2014 TECHNIQUE: XR chest 1V Frontal view of the chest. CLINICAL INDICATION:Female, 72 years old with history of Hypoxia; FINDINGS: Lungs/Pleura: There is flattening of the diaphragm with increased lucency of the lungs. Chronic senes cent parenchymal change. No evidence of pneumothorax, pleural effusion or focal consolidation. Pulmonary vascularity: Unremarkable. Heart/mediastinum: Cardiomediastinal silhouette is unremarkable. Atherosclerotic calcifications are seen in the aorta. Musculoskeletal: Postsurgical changes from posterior cervicothoracic fusion. Midline back skin staple s identified. IMPRESSION: 1. No acute cardiopulmonary disease/process. 2. COPD changes. 3. Postoperative changes of cervicothoracic fusion.
[2022-12-18 11:17] LABS: Basophils # (A) 0.04 X 10*3/uL (0.00-0.10); Basophils % (A) 0.3 %; Eosinophils # (A) 0 X 10*3/uL (0.04-0.35); Eosinophils % (A) 0 %; HCT 45.2 % (37.2-46.3); Lymphocytes # (A) 1.24 X 10*3/uL (0.90-5.00); Lymphocytes % (A) 8.7 %; MCH 30.7 pg (27.0-32.0); MCV 99.1 FL (80.0-97.0); Mean Platelet Volume 11.6 FL (9.5-12.2); Monocytes # (A) 0.88 X 10*3/uL (0.20-1.00); Monocytes % (A) 6.2 %; NRBC Per 100 WBC 0 X 10*3/uL (0.00-0.01); Neutrophils # (A) 11.97 X 10*3/uL (1.80-7.70); Neutrophils % (A) 84.2 %; Platelet Count 252 X 10*3/uL (140-440); RBC 4.56 X 10*6/uL (4.10-5.20); RDW 14.3 % (11.5-14.5); WBC 14.21 X 10*3/uL (4.50-10.00)
[2022-12-18 11:33] LABS: BUN/Creat Ratio 17.83 Ratio (12.00-20.00); Blood Urea Nitrogen 21.4 mg/dL (9.0-27.0); Calcium 9.4 mg/dL (8.7-10.3); Carbon Dioxide 25.4 mmol/L (21.6-31.8); Chloride 103 mmol/L (96-109); Glucose 93 mg/dL (70-110); Sodium 142 mmol/L (135-145)
[2022-12-18] MEDS: IPRATROPIUM 0.5 MG/2.5 ML NEBU INHALATION SCH ×3 (11:57→20:22)
[2022-12-18] MEDS: SYMBICORT 160-4.5 MCG INHALER INHALATION SCH ×2 (11:57→20:22)
--- NOTE | 2022-12-18 12:55 | P.CONS ---
History of Present Illness - Reason for Consult Consult date: 12/18/22 - Chief Complaint Cervical spine surgery medical management - History of Present Illness * 72-year-old patient with past medical history significant for hypertension, hyperlipidemia, COPD ,history of breast cancer, was admitted for C2-T2 decompression and fusion. Patient has been having back pain and paresthesia for which surgical team had planned intervention * Patient is seen postoperative day one, CT C-spine postprocedure completed which showed postsurgical changes without evidence of any acute complications * Postprocedure revealed mitral does show patient is hypoxic requiring 3 L of ox ygen * She denies chest pain, fever, chills, abdominal pain, paresthesia any focal deficits * Postprocedure chest x-ray obtained no acute cardiopulmonary process changes of COPD noted * Serum chemistry showed WBC of 14, hemoglobin 14 platelet count of 252. Serum chemistry shows sodium 142 potassium 5 chloride 103 BUN 21 1.2 REVIEW OF SYSTEMS: CONSTITUTIONAL: No fever, no malaise, no fatigue. HEENT: No recent visual problems or hearing problems. Denied any sore throat. CARDIOVASCULAR: No chest pain, orthopnea, PND, no palpitations, no syncope. PULMONARY: No shortness of breath, no cough, no hemoptysis. GASTROINTESTINAL: No diarrhea, no nausea, no vomiting, no abdominal pain. NEUROLOGICAL: No headaches, no weakness, no numbness. HEMATOLOGICAL: Denies any bleeding or petechiae. GENITOURINARY: Denies any burning micturition, frequency, or urgency. MUSCULOSKELETAL/RHEUMATOLOGICAL: Mild to comfort site of surgery ENDOCRINE: Denies any polyuria or polydipsia. PHYSICAL EXAMINATION: GENERAL: The patient is alert and oriented x3, nasal cannula in place, c-collar in place HEENT: Pupils are round and equally reacting to light. EOMI. CARDIOVASCULAR: S1 and S2 present. PULMONARY: Chest is clear to auscultation, no wheezing or crackles. ABDOMEN: Soft, nontender, nondistended, normoactive bowel sounds. No palpable organomegaly. MUSCULOSKELETAL: No joint swelling or deformity. EXTREMITIES: No cyanosis, clubbing, or pedal edema. NEUROLOGICAL: Gross neurological examination did not reveal any focal deficits. Motor strength is 5 x 5 bilateral upper and lower extremity Past Medical History Past Medical History: Cancer, GERD/Reflux, Hyperlipidemia, Hypertension, Musculoskeletal Disorder, Osteoarthritis (OA), Renal Disease Additional Past Medical History / Comment(s): Right breast cancer, back pain - steroid injections, hiatal hernia - not repaired. stage 3 vulva cancer-seeing oncologist in [facility].-surg. could possibly be postponed, gets SOB w/exertion, stage 3 kidney disease. History of Any Multi-Drug Resistant Organisms: None Reported Past Surgical History: Breast Surgery, Joint Replacement, Tonsillectomy, Tubal Ligation Additional Past Surgical History / Comment(s): Right breast mastectomy 2000, artificial vance. thumb joint (3 surgeries), left hand surgery, EGD 2010. back injections for pain, left cataract removed Past Anesthesia/Blood Transfusion Reactions: Postoperative Nausea & Vomiting (PONV) Additional Past Anesthesia/Blood Transfusion Reaction / Comm: only happened once years ago Past Psychological History: Depression Additional Psychological History / Comment(s): depressed due to back issue Smoking Status: Former smoker Past Alcohol Use History: Rare Additional Past Alcohol Use History / Comment(s): quit smoking 4 yrs. ago, smoked 20-30 yrs., 1ppd or more Past Drug Use History: None Reported Additional Drug Use History / Comment(s): occasional use - Past Family History Mother Family Medical History: Cancer Additional Family Medical History / Comment(s): Stomach cancer Sister(s) Family Medical History: Cancer Additional Family Medical History / Comment(s): Lung cancer mets to brain Brother(s) Family Medical History: Cancer Additional Family Medical History / Comment(s): multiple cancers Medications and Allergies Home Medications Medication Instructions Recorded Confirmed Type Cholecalciferol [Vitamin D3] 2,000 unit PO DAILY 06/22/14 12/12/22 History Aspirin 81 mg PO DAILY 05/01/22 12/12/22 History Atorvastatin [Lipitor] 20 mg PO AC-SUPPER 05/01/22 12/11/22 History Ferrous Sulfate [Feosol] 325 mg PO DAILY 05/01/22 12/11/22 History Fluticasone/Umeclidin/Vilanter 200 mcg INHALATION DAILY 05/01/22 12/11/22 History [Trelegy Ellipta 100-62.5-25] Famotidine [Pepcid] 40 mg PO BID 09/04/22 12/11/22 History Prolia(Unk) 1 dose INJ DIRECTED 09/04/22 12/11/22 History Albuterol Inhaler [Ventolin Hfa 1 - 2 puff INHALATION Q6H PRN 10/31/22 12/11/22 History Inhaler] Metoprolol Succinate (ER) [Toprol 25 mg PO AC-SUPPER 10/31/22 12/11/22 History Xl] calcitrioL [Calcitriol] 0.25 mcg PO WEEKLY 10/31/22 12/11/22 History Loratadine [Claritin] 10 mg PO DAILY 12/12/22 12/12/22 History Allergies Allergy/AdvReac Type Severity Reaction Status Date / Time No Known Allergies Allergy Verified 12/17/22 11:58 Physical Exam Vitals: Vital Signs Temp Pulse Resp BP Pulse Ox 12/18/22 06:07 98.0 F 68 16 137/76 90 L 12/18/22 01:44 97.5 F L 83 158/79 100 12/17/22 20:00 97.9 F 63 16 112/73 90 L 12/17/22 17:30 66 16 145/65 98 12/17/22 17:00 55 L 16 166/67 98 12/17/22 16:30 61 16 149/67 98 12/17/22 16:15 59 L 16 154/67 96 12/17/22 16:00 63 16 162/66 100 12/17/22 15:45 64 14 148/67 100 12/17/22 15:30 97 F L 59 L 12 139/63 100 12/17/22 11:48 97.1 F L 65 16 155/67 94 L Intake and Output 12/17/22 12/18/22 12/18/22 22:59 06:59 14:59 Intake Total 200 Output Total 300 500 Balance -100 -500 Intake: IV 200 Output: Drainage 0 0 Back 0 0 Urine 200 500 Estimated Blood Loss 100 Other: Voiding Method Indwelling Catheter Weight 64.5 kg Results CBC & Chem 7: 12/18/22 07:30 12/18/22 07:30 Assessment and Plan Assessment: Assessment and plan * Degenerative disease of cervical spine status post C2 T1 decompression and fusion * Acute on chronic hypoxic respiratory failure * Hypertension * History of COPD * Hyperlipidemia * History of vulvar lesion , high-grade vulvar intraepithelial neoplasia * Patient seen postoperatively, postoperative day one continue with pain control, use incentive spirometer * In regards to hypoxia, encourage use of incentive spirometer, chest x-ray negative, patient does have chronic hypoxia follows up with Dr. Dempsey, he is prescribed 2 L of oxygen at home however she has been noncompliant * In regards to hypertension continue patient on metoprolol * In regards to COPD continue breathing treatments, continue albuterol,trellegy * Regards to vulvar lesion will need outpatient follow-up with gynecology
[2022-12-18] MEDS: METOPROLOL SUCCINATE (ER) 25 MG TAB.ER.24H PO SCH (17:54)
[2022-12-18] MEDS: ATORVASTATIN 20 MG TAB PO SCH (17:55)
[2022-12-18] MEDS: polyethylene glycoL 3350 17 GM POWD.PACK PO SCH (21:40)
[2022-12-19] MEDS: HYDROcodone/APAP 10-325MG 1 EACH TAB PO PRN ×2 (01:52→08:51)
[2022-12-19] MEDS: HYDROmorphone 1 MG/ML 1 ML SYRINGE IVP PRN (04:45)
[2022-12-19] MEDS: ACETAMINOPHEN TAB 325 MG TAB PO SCH ×4 (05:46→23:55)
[2022-12-19] MEDS: SYMBICORT 160-4.5 MCG INHALER INHALATION SCH ×2 (08:02→20:53)
[2022-12-19] MEDS: IPRATROPIUM 0.5 MG/2.5 ML NEBU INHALATION SCH ×4 (08:02→20:53)
[2022-12-19] MEDS: FERROUS SULFATE 325 MG TAB PO SCH (08:51)
[2022-12-19] MEDS: CHOLECALCIFEROL 25 MCG (1000 IU) TABLET PO SCH (08:51)
[2022-12-19] MEDS: SENNOSIDES-DOCUSATE SODIUM 1 EACH TAB PO SCH (08:51)
[2022-12-19 08:52] LABS: African American GFR (CKD) 80 (>60 ml/min/1.73 sqM); Anion Gap 5 mmol/L; Blood Urea Nitrogen 23 mg/dL (7-17); Calcium 8.6 mg/dL (8.4-10.2); Carbon Dioxide 29 mmol/L (22-30); Chloride 103 mmol/L (98-107); Glucose 106 mg/dL (74-99); Non-African American GFR(CKD) 69 (>60 ml/min/1.73 sqM); Potassium 4.9 mmol/L (3.5-5.1); Sodium 137 mmol/L (137-145)
[2022-12-19] MEDS: LORATADINE 10 MG TAB PO SCH (08:55)
[2022-12-19] MEDS: FAMOTIDINE 20 MG TAB PO SCH (08:56)
[2022-12-19] MEDS: LACTATED RINGERS 1,000 ML IV SCH (08:56)
[2022-12-19] MEDS: GABAPENTIN 300 MG CAP PO SCH ×3 (08:56→21:50)
--- NOTE | 2022-12-19 09:08 | P.PN ---
Subjective Progress Note Date: 12/19/22 Principal diagnosis: 1. 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 Grade 1 retrolisthesis C3 onto C4, C4 onto C5, C5 onto C6 3. Bilateral upper extremity radiculopathy 4. Lumbar spondylosis with stenosis 5. Grade 1 retrolisthesis L3 onto L4 6. Chronic L1 compression fracture 7. Bilateral lower extremity radiculopathy 8. Bilateral upper extremity weakness Patient seen and examined this morning. Patient is resting comfortably in bed. Patient continues to have moderate amount of pain to the posterior cervical spine and across bilateral shoulders. Medications have been adjusted. Assisted patient to sit at bedside. Patient was moderate assist from supine to sitting position. Surgical incision to the posterior cervical spine is well approximated with alice intact. Hemovac drain has been removed with 0 mL output overnight. New dressing has been applied. Hard cervical collar is not properly fitting the patient, soft cervical collar has been ordered. Patient is to wear soft collar at all times, may remove for showers. Patient was assisted to chair for breakfast, x1 assist with walker. Patient tolerated activity well. No acute events or concerns. Objective - Vital Signs Vital signs: Vital Signs Temp 98.3 F 12/19/22 07:12 Pulse 87 12/19/22 07:12 Resp 15 12/19/22 07:12 BP 100/62 12/19/22 07:12 Pulse Ox 100 12/19/22 08:04 FiO2 Intake & Output 12/18/22 12/19/22 12/19/22 18:59 06:59 18:59 Output Total 350 380 Balance -350 -380 Output: Drainage 0 0 Back 0 0 Urine 350 380 Other: Voiding Method Indwelling Catheter Indwelling Catheter - Exam Physical Examination General: The patient is awake and alert, in no acute distress Skin: Skin is warm and dry with no obvious rashes or lesions. Surgical incision to the posterior cervical spine as well as approximately with alice intact. Hemovac drain has been removed. New dressing applied. Eye: Pupils are equal, round and reactive to light, extra-ocular movements are intact; there is normal conjunctiva bilaterally. Neck: The neck is supple, there is no tenderness and ROM intact. Cardiovascular: There is a regular rate and rhythm. No murmur, rub or gallop is appreciated. Respiratory: Lungs are clear to auscultation, respirations are non-labored, breath sounds are equal. Gastrointestinal: Soft, non-distended, non-tender abdomen. Back: There is no tenderness to palpation in the midline, paralumbar, parathoracic or buttocks region. There is no obvious deformity . Musculoskeletal: ROM limited secondary to pain and stiffness from surgical procedure. Muscle strength in all major muscle groups of bilateral upper extremities 4/5, bilateral lower extremities 5/5. Neurological: CN 2-12 intact. There are no obvious motor or sensory deficits. Movement and coordination equal and intact. Sensory exam to light touch intact C5-T1 and intact from L2-S1. Reflexes 2/4 in bilateral upper and lower extremities. Negative Hoffmans, babinski, and clonus signs. Psychiatric: Cooperative, appropriate mood & affect, normal judgment. - Labs CBC & Chem 7: 12/18/22 07:30 12/19/22 07:37 Labs: Abnormal Lab Results - Last 24 Hours (Table) 12/18/22 12/18/22 Range/Units 07:30 07:30 WBC 14.21 H (4.50-10.00) X 10*3/uL MCV 99.1 H (80.0-97.0) FL MCHC 31.0 L (32.0-37.0) d/dL Neutrophils # 11.97 H (1.80-7.70) X 10*3/uL Eosinophils # 0 L (0.04-0.35) X 10*3/uL Anion Gap 13.60 H (4.00-12.00) mmol/L Est GFR (CKD-EPI) 49 L (>=60) Assessment and Plan Assessment: Postop day 2: C2-T2 decompression and fusion 1. 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 Grade 1 retrolisthesis C3 onto C4, C4 onto C5, C5 onto C6 3. Bilateral upper extremity radiculopathy 4. Lumbar spondylosis with stenosis 5. Grade 1 retrolisthesis L3 onto L4 6. Chronic L1 compression fracture 7. Bilateral lower extremity radiculopathy 8. Bilateral upper extremity weakness Plan: -Appreciate dairy consultant and team management. -Activity: Ambulate QID, OOB all meals, up and about, limit lifting bending twisting to less than 5 lbs. Use walker or cane if needed for stability. -Daily PT/OT, increase ambulation strength and balance. -Soft cervical collar at all times, patient may remove for showers. -Order placed for soft cervical collar -Pain control: Adequate at this time -Meds: reviewed -GI ppx: senna, Miralax -DC barboza -DVT PPX: Heparin -Hygiene: Shower today. Maintain dressing clean and dry. -Encourage IS 10x/hr -Dispo: Clinically pending *I reviewed and discussed this case with my attending Dr. Butt, whom has reviewed this chart and films and is in agreement with assessment and plan of care as outlined above. I have personally seen and examined the patient, performed the documentation and the assessment and plan as written. Number of minutes spent on the visit: 10m.
[2022-12-19] MEDS: CYCLOBENZAPRINE 5 MG TAB PO PRN (11:01)
[2022-12-19] MEDS: HEPARIN SODIUM,PORCINE 5,000 UNIT/ML 1 ML VIAL SQ SCH ×2 (11:10→21:50)
[2022-12-19 11:11] LABS: HCT 40.6 % (37.2-46.3); HGB 12.3 d/dL (12.0-15.0); MCH 31.1 pg (27.0-32.0); MCHC 30.3 d/dL (32.0-37.0); MCV 102.8 FL (80.0-97.0); NRBC Per 100 WBC 0 X 10*3/uL (0.00-0.01); Platelet Count 194 X 10*3/uL (140-440); RBC 3.95 X 10*6/uL (4.10-5.20); RDW 14.6 % (11.5-14.5); WBC 11.49 X 10*3/uL (4.50-10.00)
--- NOTE | 2022-12-19 13:33 | P.PN ---
Subjective Progress Note Date: 12/19/22 72-year-old patient with past medical history significant for hypertension, hyperlipidemia, COPD ,history of breast cancer, was admitted for C2-T2 decompression and fusion. Patient has been having back pain and paresthesia for which surgical team had planned intervention * Patient is seen postoperative day one, CT C-spine postprocedure completed which showed postsurgical changes without evidence of any acute complications * Postprocedure revealed mitral does show patient is hypoxic requiring 3 L of ox ygen * She denies chest pain, fever, chills, abdominal pain, paresthesia any focal deficits * Postprocedure chest x-ray obtained no acute cardiopulmonary process changes of COPD noted * Serum chemistry showed WBC of 14, hemoglobin 14 platelet count of 252. Serum chemistry shows sodium 142 potassium 5 chloride 103 BUN 21 1.2 12/19. Patient seen and examined. Patient stated she has having increased weakness of his upper extremities, states she is unable to hold objects. Has a hard time feeding herself. REVIEW OF SYSTEMS: CONSTITUTIONAL: No fever, no malaise,. CARDIOVASCULAR: No chest pain, no palpitations, no syncope. PULMONARY: No shortness of breath, no cough, GASTROINTESTINAL: No diarrhea, no nausea, no vomiting, no abdominal pain. NEUROLOGICAL: No headaches, no weakness, PHYSICAL EXAMINATION: GENERAL: The patient is alert and oriented x3, not in any acute distress. Well developed, well nourished. HEENT: Pupils are round and equally reacting to light. EOMI. No scleral icterus. No conjunctival pallor. Normocephalic, atraumatic. No pharyngeal erythema. No thyromegaly. CARDIOVASCULAR: S1 and S2 present. No murmurs, rubs, or gallops. PULMONARY: Chest is clear to auscultation, no wheezing or crackles. ABDOMEN: Soft, nontender, nondistended, normoactive bowel sounds. No palpable organomegaly. MUSCULOSKELETAL: No joint swelling or deformity. EXTREMITIES: No cyanosis, clubbing, or pedal edema. NEUROLOGICAL: Gross neurological examination did not reveal any focal deficits. SKIN: Cervical area surgical incision seen Assessment and plan * Degenerative disease of cervical spine status post C2 T1 decompression and fusion * Acute on chronic hypoxic respiratory failure * Hypertension * History of COPD * Hyperlipidemia * History of vulvar lesion , high-grade vulvar intraepithelial neoplasia * Continue postop care per orthopedics. Discussed with nursing staff, orthopedics will decide about ordering further imaging * In regards to hypoxia, encourage use of incentive spirometer, chest x-ray negative, patient does have chronic hypoxia follows up with Dr. Dempsey, he is prescribed 2 L of oxygen at home however she has been noncompliant * In regards to hypertension continue patient on metoprolol * In regards to COPD continue breathing treatments, continue albuterol,trellegy * Regards to vulvar lesion will need outpatient follow-up with gynecology * Labs and medication were reviewed.. Continue same treatment. Continue with symptomatic treatment. Resume home medication. Monitor labs and vitals. DVT and GI prophylaxis. Further recommendations as per clinical course of the patient Dictation was produced using [employer] dictation software. please excuse any grammatical, word or spelling errors. Objective - Vital Signs Vital signs: Vital Signs Temp 98.6 F 12/19/22 13:25 Pulse 90 12/19/22 13:25 Resp 15 12/19/22 13:25 BP 100/61 12/19/22 13:25 Pulse Ox 100 12/19/22 08:04 FiO2 Intake & Output 12/18/22 12/19/22 12/19/22 18:59 06:59 18:59 Output Total 350 380 325 Balance -350 -380 -325 Output: Drainage 0 0 Back 0 0 Urine 350 380 325 Uretheral (Razo) 75 Other: Voiding Method Indwelling Catheter Indwelling Catheter Indwelling Catheter - Labs CBC & Chem 7: 12/19/22 07:37 12/19/22 07:37 Labs: Abnormal Lab Results - Last 24 Hours (Table) 12/19/22 12/19/22 Range/Units 07:37 07:37 WBC 11.49 H (4.50-10.00) X 10*3/uL RBC 3.95 L (4.10-5.20) X 10*6/uL MCV 102.8 H (80.0-97.0) FL MCHC 30.3 L (32.0-37.0) d/dL RDW 14.6 H (11.5-14.5) % BUN 23 H (7-17) mg/dL Glucose 106 H (74-99) mg/dL
[2022-12-19] MEDS: METOPROLOL SUCCINATE (ER) 25 MG TAB.ER.24H PO SCH (17:59)
[2022-12-19] MEDS: ATORVASTATIN 20 MG TAB PO SCH (18:00)
[2022-12-19] MEDS: polyethylene glycoL 3350 17 GM POWD.PACK PO SCH (21:50)
[2022-12-20] MEDS: HYDROcodone/APAP 5-325MG 1 EACH TAB PO PRN ×2 (01:15→06:35)
[2022-12-20] MEDS: ACETAMINOPHEN TAB 325 MG TAB PO SCH ×2 (05:34→11:48)
[2022-12-20 07:26] VITALS: BP 119/70; PULSE 83; RESP 17; TEMP 98.2
[2022-12-20] MEDS: IPRATROPIUM 0.5 MG/2.5 ML NEBU INHALATION SCH ×3 (08:45→16:39)
[2022-12-20] MEDS: SYMBICORT 160-4.5 MCG INHALER INHALATION SCH (08:45)
[2022-12-20] MEDS: LORATADINE 10 MG TAB PO SCH (08:51)
[2022-12-20] MEDS: CHOLECALCIFEROL 25 MCG (1000 IU) TABLET PO SCH (08:51)
[2022-12-20] MEDS: SENNOSIDES-DOCUSATE SODIUM 1 EACH TAB PO SCH (08:51)
[2022-12-20] MEDS: GABAPENTIN 300 MG CAP PO SCH ×2 (08:51→16:35)
[2022-12-20] MEDS: HYDROcodone/APAP 7.5-325MG 1 EACH TAB PO SCH ×3 (08:51→16:35)
[2022-12-20] MEDS: FERROUS SULFATE 325 MG TAB PO SCH (08:51)
[2022-12-20] MEDS: HEPARIN SODIUM,PORCINE 5,000 UNIT/ML 1 ML VIAL SQ SCH (08:51)
[2022-12-20] MEDS: FAMOTIDINE 20 MG TAB PO SCH (08:51)
[2022-12-20] MEDS: LACTATED RINGERS 1,000 ML IV SCH (08:52)
--- NOTE | 2022-12-20 09:09 | P.PN ---
Subjective Progress Note Date: 12/20/22 Principal diagnosis: 1. 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 Grade 1 retrolisthesis C3 onto C4, C4 onto C5, C5 onto C6 3. Bilateral upper extremity radiculopathy 4. Lumbar spondylosis with stenosis 5. Grade 1 retrolisthesis L3 onto L4 6. Chronic L1 compression fracture 7. Bilateral lower extremity radiculopathy 8. Bilateral upper extremity weakness Patient seen and examined this morning. Patient is resting comfortably in bed. Patient reports that her pain is managed on current regimen. Encourage patient to be up in chair for all meals. Surgical incision to the posterior cervical spine, dressing is clean dry and intact. Soft cervical collar is present. Patient reports that she is having some mild difficulty with maintaining her balance and ambulating independently with walker. Patient is in agreement to subacute rehab at discharge. Patient is cleared from orthopedic standpoint for discharge when bed available. Objective - Vital Signs Vital signs: Vital Signs Temp 98.2 F 12/20/22 07:20 Pulse 83 12/20/22 07:20 Resp 17 12/20/22 07:20 BP 119/70 12/20/22 07:20 Pulse Ox 97 12/20/22 07:20 FiO2 Intake & Output 12/19/22 12/20/22 12/20/22 18:59 06:59 18:59 Output Total 325 Balance -325 Output: Urine 325 Uretheral (Razo) 75 Other: Voiding Method Indwelling Catheter # Voids 4 - Exam Physical Examination General: The patient is awake and alert, in no acute distress Skin: Skin is warm and dry with no obvious rashes or lesions. Surgical incision to the posterior cervical spine, dressing is clean dry and intact. Eye: Pupils are equal, round and reactive to light, extra-ocular movements are intact; there is normal conjunctiva bilaterally. Neck: The neck is supple, there is no tenderness and ROM intact. Cardiovascular: There is a regular rate and rhythm. No murmur, rub or gallop is appreciated. Respiratory: Lungs are clear to auscultation, respirations are non-labored, breath sounds are equal. Gastrointestinal: Soft, non-distended, non-tender abdomen. Back: There is no tenderness to palpation in the midline, paralumbar, parathoracic or buttocks region. There is no obvious deformity . Musculoskeletal: ROM limited secondary to pain and stiffness from surgical procedure. Muscle strength in all major muscle groups of bilateral upper extremities 4/5, bilateral lower extremities 5/5. Neurological: CN 2-12 intact. There are no obvious motor or sensory deficits. Movement and coordination equal and intact. Sensory exam to light touch intact C5-T1 and intact from L2-S1. Reflexes 2/4 in bilateral upper and lower extremities. Negative Hoffmans, babinski, and clonus signs. Psychiatric: Cooperative, appropriate mood & affect, normal judgment. - Labs CBC & Chem 7: 12/19/22 07:37 12/19/22 07:37 Labs: Abnormal Lab Results - Last 24 Hours (Table) 12/19/22 12/19/22 Range/Units 07:37 07:37 WBC 11.49 H (4.50-10.00) X 10*3/uL RBC 3.95 L (4.10-5.20) X 10*6/uL MCV 102.8 H (80.0-97.0) FL MCHC 30.3 L (32.0-37.0) d/dL RDW 14.6 H (11.5-14.5) % BUN 23 H (7-17) mg/dL Glucose 106 H (74-99) mg/dL Assessment and Plan Assessment: Postop day 3: C2-T2 decompression and fusion 1. 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 Grade 1 retrolisthesis C3 onto C4, C4 onto C5, C5 onto C6 3. Bilateral upper extremity radiculopathy 4. Lumbar spondylosis with stenosis 5. Grade 1 retrolisthesis L3 onto L4 6. Chronic L1 compression fracture 7. Bilateral lower extremity radiculopathy 8. Bilateral upper extremity weakness Plan: -Appreciate identity management consultant and team management. -Activity: Ambulate QID, OOB all meals, up and about, limit lifting bending twisting to less than 5 lbs. Use walker or cane if needed for stability. -Daily PT/OT, increase ambulation strength and balance. -Soft cervical collar at all times, patient may remove for showers. -Pain control: Adequate at this time -Meds: reviewed -GI ppx: senna, Miralax -DVT PPX: Heparin -Hygiene: Shower today. Maintain dressing clean and dry. -Encourage IS 10x/hr -Dispo: Patient is cleared from orthopedic standpoint for discharge to subacute rehab when available *I reviewed and discussed this case with my attending Dr. Butt, whom has reviewed this chart and films and is in agreement with assessment and plan of care as outlined above. I have personally seen and examined the patient, performed the documentation and the assessment and plan as written. Number of minutes spent on the visit: 10m.
--- NOTE | 2022-12-20 13:43 | P.PN ---
Subjective Progress Note Date: 12/20/22 * 72-year-old patient with past medical history significant for hypertension, hyperlipidemia, COPD ,history of breast cancer, was admitted for C2-T2 decompression and fusion. Patient has been having back pain and paresthesia for which surgical team had planned intervention * Patient is seen postoperative day one, CT C-spine postprocedure completed which showed postsurgical changes without evidence of any acute complications * Postprocedure revealed mitral does show patient is hypoxic requiring 3 L of oxygen * She denies chest pain, fever, chills, abdominal pain, paresthesia any focal deficits * Postprocedure chest x-ray obtained no acute cardiopulmonary process changes of COPD noted * Serum chemistry showed WBC of 14, hemoglobin 14 platelet count of 252. Serum chemistry shows sodium 142 potassium 5 chloride 103 BUN 21 1.2 * 12/19. Patient seen and examined. Patient stated she has having increased weakness of his upper extremities, states she is unable to hold objects. Has a hard time feeding herself. * 12/20: Patient seen and evaluated bedside, daughter at bedside patient in soft collar does complain of occasional weakness in upper extremities however during my exam strength was at least 4 x 5 bilateral upper extremity does complain of constipation on bowel regimen already Objective - Vital Signs Vital signs: Vital Signs Temp 98.2 F 12/20/22 07:20 Pulse 83 12/20/22 12:30 Resp 17 12/20/22 07:20 BP 119/70 12/20/22 07:20 Pulse Ox 97 12/20/22 08:45 FiO2 Intake & Output 12/19/22 12/20/22 12/20/22 18:59 06:59 18:59 Output Total 325 Balance -325 Output: Urine 325 Uretheral (Razo) 75 Other: Voiding Method Indwelling Catheter # Voids 4 - Exam PHYSICAL EXAMINATION: PHYSICAL EXAMINATION: GENERAL: The patient is alert and oriented x3, nasal cannula in place, c-collar in place HEENT: Pupils are round and equally reacting to light. EOMI. CARDIOVASCULAR: S1 and S2 present. PULMONARY: Chest is clear to auscultation, no wheezing or crackles. ABDOMEN: Soft, nontender, nondistended, normoactive bowel sounds. No palpable organomegaly. MUSCULOSKELETAL: No joint swelling or deformity. EXTREMITIES: No cyanosis, clubbing, or pedal edema. NEUROLOGICAL: Gross neurological examination did not reveal any focal deficits. Motor strength is 5 x 5 bilateral upper and lower extremity - Labs CBC & Chem 7: 12/19/22 07:37 12/19/22 07:37 Assessment and Plan Assessment: Assessment and plan * Degenerative disease of cervical spine status post C2 T1 decompression and fusion * Acute on chronic hypoxic respiratory failure * Hypertension * History of COPD * Hyperlipidemia * History of vulvar lesion , high-grade vulvar intraepithelial neoplasia * Patient seen postoperatively, postoperative day 3 continue with pain control, use incentive spirometer * In regards to hypoxia, encourage use of incentive spirometer, chest x-ray negative, patient does have chronic hypoxia follows up with Dr. Dempsey, he is prescribed 2 L of oxygen at home however she has been noncompliant * In regards to hypertension continue patient on metoprolol * In regards to COPD continue breathing treatments, continue albuterol,trellegy * Regards to vulvar lesion will need outpatient follow-up with gynecology * Plan to discharge to rehab
--- NOTE | 2022-12-20 13:59 | P.DS ---
Providers Date of admission: 12/17/22 10:29 Expected date of discharge: 12/20/22 Attending physician: Ravin Butt DO Consults: 12/17/22 18:20 Consult Physician Routine Consulting Provider: Damaso Santiago Reason/Comments: Medical Management s/p C2-T2 decompr fusion Do you want consulting provider notified?: Yes Primary care physician: [facility] Course: Hospital Course: The patient was evaluated preoperatively and found to have the diagnosis of cervical spondylosis with stenosis, bilateral upper extremity radiculopathy with weakness. They underwent appropriate preoperative care and were willing to undergo the intended procedure. They underwent a successful C2-T2 decompression and fusion, were recovered appropriately and sent to the floor. While on the floor they worked with physical therapy, occupational therapy and nursing to enhance their recovery experience. Their pain was well controlled through their stay and they were started on appropriate medications, DVT ppx modalities, activity and dietary needs. Daily labs were monitored closely, and transfusions were only used when necessary. Medicine as well as other consulting services have made their input and have helped with our team approach and multidisciplinary care. PT milestones have been met and passed and they have made the recommendation of subacute rehab for this patient and treating providers agree with this care path. The patient will be discharged home with appropriate medications, instructions and follow-up information and in stable condition. Patient Condition at Discharge: Stable Plan - Discharge Summary Discharge Rx Participant: Yes New Discharge Prescriptions: New Gabapentin 300 mg PO TID 3 Days #90 cap HYDROcodone/APAP 7.5-325MG [Timewell 7.5] 1 each PO Q4HR PRN #42 tab PRN Reason: Pain Sennosides/Docusate Sodium [Senna Plus 8.6-50 mg Tablet] 1 each PO DAILY PRN #20 tablet PRN Reason: Constipation cefaDROXiL [Duricef] 500 mg PO Q12HR #10 cap Cyclobenzaprine [Flexeril] 5 mg PO TID PRN #40 tablet PRN Reason: Muscle Spasm No Action Cholecalciferol [Vitamin D3] 2,000 unit PO DAILY Ferrous Sulfate [Feosol] 325 mg PO DAILY Aspirin 81 mg PO DAILY Fluticasone/Umeclidin/Vilanter [Trelegy Ellipta 100-62.5-25] 200 mcg INHALATION DAILY Prolia(Unk) 1 dose INJ DIRECTED Metoprolol Succinate (ER) [Toprol Xl] 25 mg PO AC-SUPPER Albuterol Inhaler [Ventolin Hfa Inhaler] 1 - 2 puff INHALATION Q6H PRN PRN Reason: Bronchodilation Loratadine [Claritin] 10 mg PO DAILY Atorvastatin [Lipitor] 20 mg PO AC-SUPPER Famotidine [Pepcid] 40 mg PO BID calcitrioL [Calcitriol] 0.25 mcg PO WEEKLY Discharge Medication List Cholecalciferol [Vitamin D3] 2,000 unit PO DAILY 06/22/14 [History] Aspirin 81 mg PO DAILY 05/01/22 [History] Atorvastatin [Lipitor] 20 mg PO AC-SUPPER 05/01/22 [History] Ferrous Sulfate [Feosol] 325 mg PO DAILY 05/01/22 [History] Fluticasone/Umeclidin/Vilanter [Trelegy Ellipta 100-62.5-25] 200 mcg INHALATION DAILY 05/01/22 [History] Famotidine [Pepcid] 40 mg PO BID 09/04/22 [History] Prolia(Unk) 1 dose INJ DIRECTED 09/04/22 [History] Albuterol Inhaler [Ventolin Hfa Inhaler] 1 - 2 puff INHALATION Q6H PRN 10/31/22 [History] Metoprolol Succinate (ER) [Toprol Xl] 25 mg PO AC-SUPPER 10/31/22 [History] calcitrioL [Calcitriol] 0.25 mcg PO WEEKLY 10/31/22 [History] Loratadine [Claritin] 10 mg PO DAILY 12/12/22 [History] Cyclobenzaprine [Flexeril] 5 mg PO TID PRN #40 tablet 12/20/22 [Rx] Gabapentin 300 mg PO TID 3 Days #90 cap 12/20/22 [Rx] HYDROcodone/APAP 7.5-325MG [Timewell 7.5] 1 each PO Q4HR PRN #42 tab 12/20/22 [Rx] Sennosides/Docusate Sodium [Senna Plus 8.6-50 mg Tablet] 1 each PO DAILY PRN #20 tablet 12/20/22 [Rx] cefaDROXiL [Duricef] 500 mg PO Q12HR #10 cap 12/20/22 [Rx] Follow up Appointment(s)/Referral(s): Ravin Butt DO [Doctor of Osteopathic Medicine] - 10 Days Activity/Diet/Wound Care/Special Instructions: Spine Discharge and Recovery Instructions Date of Surgery: 12/17/2022 Diagnosis: Cervical spondylosis with stenosis Procedure: C2-T2 decompression and fusion Medications: See medication list All medication refills should be obtained through your primary care doctor or your clinic spine surgeon. Please discuss prescription refills at your follow up appointment. Do not call the hospital for medication refills. Dressing: Leave your dressing in place for a total of 5 days post operatively. Then you may remove your dressing and leave open to air. Keep the area clean and if not able to keep area clean, then cover with sterile gauze and tape. Showering: You may shower 3 days after your procedure allowing soap and water to run over incision. Do not scrub. Do not soak. Blot dry. Follow up: Please confirm a follow up appointment with your surgeon 3 weeks post operatively. Please make an appointment to follow up with your PCP in 1-2 weeks after surgery for evaluation 3 phase, 3-week plan POST OP WEEKS 1-3 1. Lifting/carrying/pushing/pulling limited to less than 5 pounds. 2. Do not sit for longer than 15 minutes at one time. Get up and walk around. Prolonged sitting is NOT advised. If you lay down, see if you can tolerate laying down on you front (belly side) 3. Walk for periods of 15 minutes = 1 mile but no longer; do it multiple times times each day. 4. Ice your low back after activity. POST OP WEEKS 3-6 1. Lifting limited to less than 20 pounds. 2. Do not sit for longer than 30 minutes at a time. Frequently change positions. Use a sit-to stand workstation or take frequent breaks from sitting if you have returned to work. 3. Walk for 30 minutes each day. If possible, do these three or more times a day POST OP WEEKS 6+ At your 6-week appointment we will give you a physical therapy referral to focus on a core stabilization and strengthening program. You should also work on leg & buttock strengthening, hamstring & quadriceps stretching, and continue a low impact aerobic activity program such as swimming, walking, or riding a stationary bicycle. During the initial 6 weeks after your surgery, you are at the highest risk of re-injuring your spine. You should generally avoid BLTs (bending, lifting and twisting combination motions) and follow the above guidelines to reduce the chance of reinjury. You can anticipate post op appointments in our office at approximately 3 weeks and 6 weeks after your surgery. INCISION CARE: If your incision is not draining you do NOT need to cover it with a dressing. Keep your incision clean, dry and intact. In most cases, we apply skin glue, alice or sutures to the incision at the time of surgery. This will be like a crust or have the appearance of a scab and will fall off in time on its own. The stitches or alice need to be removed at 3 weeks post op appointment. You may begin to shower 3 days after surgery (this allows the glue to lopes well). However, please avoid scrubbing the incision site or peeling off any of the skin glue. This will ensure optimal healing of your incision. Also, during this time avoid soaking the incision area in water - this includes swimming pools, hot tubs or baths. No ointments, lotions or oils on the incision until your surgeon allows. Leave alice, sutures or glue in place. Neurological dysfunction that comes on suddenly can also be a sign of a stroke. Below some common symptoms of a stroke are listed: B - balance difficulty such as sudden onset walking or leaning to one side - NEW E - eye problem such as sudden double vision or trouble seeing on one side - NEW F - Facial weakness or numbness on one side - NEW A - Arm or leg weakness or numbness on one side - NEW S - Slurred speech or difficulty with word finding - NEW T - Time is BRAIN! Call 911 as soon as you recognize these symptoms Diet: Consume a regular diet rich in vegetables and lean protein such as chicken or fish. You should consume in a ratio of approximately 20% fats|40% carbohydrates|40%protein. Vegetables, sweet potatoes, brown rice or quinoa are examples of good carbohydrates. Chips, white bread, cookies and sweets/sugar are examples of bad carbohydrates. Limit your bad carbs, go wild with good carbs. "Life's Simple 7" Guidelines as per [place] [employer] These will help you reclaim your life after surgery and brass molder helper in your recovery, keeping in mind your restrictions. (1) Get Active. Physical activity can help people lose weight, control high blood pressure and cholesterol, feel emotionally better, and sleep better. (2) Control Cholesterol. Avoid a diet high in saturated fat, trans fat, & cholesterol. Limit whole milk & cream, ice cream, butter, egg yolks, processed meats (like sausage and hot dogs), and fatty meats. Choose healthy foods that are low in saturated fat, trans fat and cholesterol which include: Fruits and vegetables, fiber rich grain products (like whole grain pasta and brown rice), lean meat such as chicken, fish, nuts, seeds, and legumes. (3) Eat Better. Eat small portions. Shop at the grocery with a list and do not stray from it. Tips for a healthy diet include: Limit sodium intake to less than 1500mg daily, avoid prepackaged, processed, and fast foods, choose a diet rich in fruits, vegetables, and whole grain, high fiber foods, and limit saturated & cholesterol in your diet. (4) Manage Blood Pressure. If you have high blood pressure, you should have a cuff at home so that you can check your blood pressure regularly. Be sure you have a good cuff. An arm one is generally better than a wrist one. Bring the cuff to a doctor's appointment to validate that the measurements that your cuff are taking are accurate. Take your blood pressure twice daily when you are sitting down and relaxing. Record the numbers in a log and bring this log with you to your doctors' appointments. (5) Lose Weight if your BMI is above 25. A healthy BMI is between 19-25. To calculate Your BMI, you may use a Standard BMI Calculator on the NIH BMI website: <www.nhlbi.nih.gov/guidelines/obesity/BMI/bmicalc.htm>. Weigh oneself daily. If you are overweight, set a goal to lose weight. A pound a week loss if needed is a good target. (6) Reduce Blood Sugar. Limit foods and liquids with "added sugars." (Added sugars include sucrose, fructose, glucose, maltose, dextrose, high fructose corn syrup, corn syrup, concentrated fruit juice and honey). (7) Stop Smoking. If you smoke, quitting smoking is one of the best things that you can do for your health. Smoking increases your risk of heart attack, stroke, and peripheral vascular disease, which is a build-up of plaque in your arteries. Please discard all the cigarettes and lighters in your house. Have a plan for what you will do when you have the urge to smoke. Direct and second- hand smoke shortens your life as well as the lives of your family, friends and others around you. For your health and the health of those around you, please consider quitting! Proper Bending Body Mechanics: Maintain a wide stance with one foot slightly in front of the other. Keep your back straight. Bend utilizing the strength in your hips and knees. Do not bend at the waist. Maintain the lifted object at your waist-level close to your body. Avoid lifting weight that causes immediately pain or pain anywhere in the body afterwards. Smoking/Nicotine If there was ever one thing that you could do to increase your overall health, decrease your risk of cardiovascular problems by about 39% the second you make the choice, it is to STOP SMOKING. Your body's most instant gratification is the second you stop smoking. We have all heard the studies, read the articles but it is true, smoking is extremely bad for your overall health, and moreover it is detrimental to your bone health. Nicotine, IN ANY FORM, kills bone cells, prevents your body from healing fractures, and significantly prolongs healing after surgery. In spine surgery specifically, it increases your risk of not healing your bones to create a fusion and increases your risk of having a revision surgery due to this up to 60%. I know it is hard. I know it feels impossible. But there are ways. Take control of your life. We are here to help you through it. And when you are donald dy, ask us and we can direct you to help if you desire. Use the START Plan to Quit Smoking (please visit the Helpguide.org website listed below for more information): S = Set a quit date. Choose a date within the next 2 weeks, so you have enough time to prepare without losing your motivation to quit. If you mainly smoke at work, quit on the weekend, so you have a few days to adjust to the change. T = Tell family, friends, and co-workers that you plan to quit. Let your friends and family in on your plan to quit smoking and tell them you need their support and encouragement to stop. Look for a quit valentina who wants to stop smoking as well. You can help each other get through the rough times. A = Anticipate and plan for the challenges you'll face while quitting. Most people who begin smoking again do so within the first 3 months. You can help yourself make it through by preparing ahead for common challenges, such as nicotine withdrawal and cigarette cravings. R = Remove cigarettes and other tobacco products from your home, car, and work. Throw away all your cigarettes (no emergency pack!), lighters, ashtrays, and matches. Wash your clothes and freshen up anything that smells like smoke. Shampoo your car, clean your drapes and carpet, and steam your furniture. T = Talk to your doctor about getting help to quit. Your doctor can prescribe medication to help with withdrawal and suggest other alternatives. If you can't see a doctor, you can get many products over the counter at your local pharmacy or grocery store, including the nicotine patch, nicotine lozenges, and nicotine gum. Resources for Quitting Smoking: <https://www.[place].gov/documents/[facility]/Quit_Tobacco_Resources_for_patients_313 480_7.pdf> Supplementation: Take recommended dosages of Vitamin D and Calcium to help fortify your bones and help them to heal. See your health maintenance packet for dosages and recommended levels. DVT/VTE prophylaxis: You will be given compression stockings from the hospital. Wear these daily for the first two weeks after surgery. You may take them off at night. You may be prescribed a medication to help thin your blood. Take this as directed. If you are not prescribed this medication, early and frequent ambulation has been shown to be the best prophylaxis to deep vein thrombosis and sequelae related to this event. Discharge Disposition: TRANSFER TO SNF/ECF
--- NOTE | 2023-01-02 05:55 | CDI ---
Documentation Clarification Form Date: 01/02/23 From: Anastasia Zacarias Admit Date: 12/17/2022 10:29:00 AM Patient Name: Jessica Reyes Visit Number: [id number] Discharge Date: 12/20/2022 04:41:00 PM ATTENTION: The Clinical Documentation Specialists (CDI) and [facility] Coding Staff appreciate your assistance in clarifying documentation. Please respond to the clarification below the line at the bottom and electronically sign. The CDI & [facility] Coding staff will review the response and follow-up if needed. Please note: Queries are made part of the Legal Health Record. If you have any questions, please contact the author of this message via ITS. Dr. Jesus Pennington, Conflicting documentation has been found in the medical record. As attending physician, please provide clarification. 12/18 Consult: In regards tohypoxia, encourage use of incentive spirometer,chest x-ray negative, patient does have chronichypoxiafollows up with Dr. Dempsey, he is prescribed 2 L of oxygen at home howevershe has been noncompliant 12/18 Consult: Acute on chronic hypoxic respiratory failure History/Risk Factors: Hx of chronic hypoxic respiratory failure on 2L at home, but has been noncompliant, COPD, HTN w CKD 3, Cervical stenosis with radiculopathy Clinical Indicators: O2 sats: 12/17-94 (RA), 90 NC 2L; 12/18-90, 94 NC 3L; 12/19- 91 NC 2L, 91 NC 2L, 91 NC 2L Per Vital signs documentation on 12/19- shortness of breath with activity Treatment: Oxygen NC 2 to 3L, incentive spirometry, albuterol, Symbicort, Trelegy Ellipta Please clarify which diagnosis is most appropriate: [ ] Acute on Chronic Hypoxic Respiratory Failure [ y ] Chronic Hypoxic Respiratory Failure [ ] Other (please specify) [ ] Unable to determine MTDD
== END 2022-12-20 16:41 | DRG 472 ==
LOC: 2ORMAIN 10:29 → 4SSUR 17:44
PROVIDERS: ADMIT Orthopaedic Surgery; ATTEND Orthopaedic Surgery
PROC: 01N10ZZ Release Cervical Nerve, Open Approach (ICD-10-PCS; principal; 2022-12-17 12:45)
PROC: 01N80ZZ Release Thoracic Nerve, Open Approach (ICD-10-PCS; principal; 2022-12-17 12:45)
PROC: 0RG2071 Fusion of 2 or more Cervical Vertebral Joints with Autologous Tissue Substitute, Posterior Approach, Posterior Column, Open Approach (ICD-10-PCS; principal; 2022-12-17 12:45)
PROC: 0RG4071 Fusion of Cervicothoracic Vertebral Joint with Autologous Tissue Substitute, Posterior Approach, Posterior Column, Open Approach (ICD-10-PCS; principal; 2022-12-17 12:45)
PROC: 4A11X4G Monitoring of Peripheral Nervous Electrical Activity, Intraoperative, External Approach (ICD-10-PCS; principal; 2022-12-17 12:45)
DX: M48.02 Spinal stenosis, cervical region (principal); J96.11 Chronic respiratory failure with hypoxia; J44.9 Chronic obstructive pulmonary disease, unspecified; N18.30 Chronic kidney disease, stage 3 unspecified; M47.22 Other spondylosis with radiculopathy, cervical region; I12.9 Hypertensive chronic kidney disease with stage 1 through stage 4 chronic kidney disease, or unspecified chronic kidney disease; M43.16 Spondylolisthesis, lumbar region; M47.816 Spondylosis without myelopathy or radiculopathy, lumbar region; M50.122 Cervical disc disorder at C5-C6 level with radiculopathy; M50.123 Cervical disc disorder at C6-C7 level with radiculopathy; M48.061 Spinal stenosis, lumbar region without neurogenic claudication; M48.56XD Collapsed vertebra, not elsewhere classified, lumbar region, subsequent encounter for fracture with routine healing; F32.A Depression, unspecified; K44.9 Diaphragmatic hernia without obstruction or gangrene; E78.5 Hyperlipidemia, unspecified; K59.00 Constipation, unspecified; K21.9 Gastro-esophageal reflux disease without esophagitis; M19.90 Unspecified osteoarthritis, unspecified site; G47.9 Sleep disorder, unspecified; R26.81 Unsteadiness on feet; Z79.82 Long term (current) use of aspirin; Z79.51 Long term (current) use of inhaled steroids; Z79.899 Other long term (current) drug therapy; Z87.412 Personal history of vulvar dysplasia; Z85.3 Personal history of malignant neoplasm of breast; Z87.891 Personal history of nicotine dependence; Z91.81 History of falling
CPT/HCPCS: 71045; 72040; 72125; 80048; 85025; 85027; 86891; 94640; 94760

== ENCOUNTER 2022-12-21 13:12 | Inpatient (IN) | payer MEDICARE, OTHER ==
[2022-12-21] MEDS ORDERED: SODIUM CHLORIDE 0.9% 1,000 ML IV STA (13:54)
[2022-12-21] MEDS ORDERED: SODIUM CHLORIDE 0.9% 500 ML 500 ML IV STA (13:54)
[2022-12-21] MEDS ORDERED: MORPHINE SULFATE 4 MG/ML SYRINGE IV STA (13:54)
--- NOTE | 2022-12-21 13:55 | ED ---
Weakness HPI - General Chief complaint: Weakness Stated complaint: Weakness Time Seen by Provider: 12/21/22 13:14 Source: patient, EMS, RN notes reviewed, old records reviewed Mode of arrival: EMS Limitations: no limitations, physical limitation - History of Present Illness Initial comments: This is a 72-year-old female to the emergency department today. Patient presents today for evaluation regards to not feeling well. Patient is postop postop of neck surgery. Patient comes from [facility] for evaluation of some paresthesias numbness tingling maybe an increased altered mental status from prior. Patient is found to have fever on arrival denies complaints of runny nose cough congestion or shortness of breath. MD Complaint: generalized weakness, lack of energy -: days(s) Location: generalized Severity: moderate Severity scale (1-10): 6 Consistency: constant Improves with: none Worsens with: none Context: recent illness, recent surgery, history of similar Associated Symptoms: denies other symptoms - Related Data Home Medications Medication Instructions Recorded Confirmed Aspirin 81 mg PO DAILY@0800 05/01/22 12/21/22 Atorvastatin [Lipitor] 20 mg PO DAILY@1630 05/01/22 12/21/22 Ferrous Sulfate [Feosol] 325 mg PO DAILY@0800 05/01/22 12/21/22 Fluticasone/Umeclidin/Vilanter 1 puff INHALATION RT-DAILY@0800 05/01/22 12/21/22 [Roman Zamarripa 100-62.5-25] Famotidine [Pepcid] 40 mg PO BID@0800,1700 09/04/22 12/21/22 Albuterol Inhaler [Ventolin Hfa 1 - 2 puff INHALATION RT-Q6H PRN 10/31/22 12/21/22 Inhaler] Metoprolol Succinate (ER) [Toprol 25 mg PO DAILY@1630 10/31/22 12/21/22 XL] calcitrioL [Calcitriol] 0.25 mcg PO HERRERA@0800 10/31/22 12/21/22 Loratadine [Claritin] 10 mg PO DAILY@0800 12/12/22 12/21/22 Cholecalciferol [Vitamin D3 (25 50 mcg PO DAILY@0800 12/21/22 12/21/22 Mcg = 1000 Iu)] Denosumab [Prolia] 1 dose SQ Q18D 10/13/23 10/13/23 Magnesium Hydroxide [Milk of 7,200 mg PO DAILY PRN 12/21/22 12/21/22 Magnesia Concentrate] Na Phos,M-B/Na Phos,Di-Ba [Fleet 133 ml RECTAL DAILY PRN 12/21/22 12/21/22 Adult] Sennosides/Docusate Sodium [Senna 1 tab PO DAILY PRN 12/21/22 12/21/22 Plus 8.6-50 mg Tablet] bisacodyL [Dulcolax] 10 mg RECTAL DAILY PRN 12/21/22 12/21/22 Previous Rx's Medication Instructions Recorded Cyclobenzaprine [Flexeril] 5 mg PO TID PRN #40 tablet 12/20/22 Gabapentin 300 mg PO TID@,, #6 cap 12/25/22 HYDROcodone/APAP 7.5-325MG [[place] 1 tab PO Q4HR PRN #4 tab 12/25/22 7.5-325] Allergies Allergy/AdvReac Type Severity Reaction Status Date / Time No Known Allergies Allergy Verified 12/21/22 14:38 Review of Systems ROS Statement: Those systems with pertinent positive or pertinent negative responses have been documented in the HPI. ROS Other: All systems not noted in ROS Statement are negative. Past Medical History Past Medical History: Cancer, GERD/Reflux, Hyperlipidemia, Hypertension, Musculoskeletal Disorder, Osteoarthritis (OA), Renal Disease Additional Past Medical History / Comment(s): Right breast cancer, back pain - steroid injections, hiatal hernia - not repaired. stage 3 vulva cancer-seeing oncologist in [facility].-surg. could possibly be postponed, gets SOB w/exertion, stage 3 kidney disease. History of Any Multi-Drug Resistant Organisms: None Reported Past Surgical History: Breast Surgery, Joint Replacement, Tonsillectomy, Tubal Ligation Additional Past Surgical History / Comment(s): Right breast mastectomy 2000, artificial vance. thumb joint (3 surgeries), left hand surgery, EGD 2010. back injections for pain, left cataract removed Past Anesthesia/Blood Transfusion Reactions: Postoperative Nausea & Vomiting (PONV) Additional Past Anesthesia/Blood Transfusion Reaction / Comment(s): only tracy ppened once years ago Past Psychological History: Depression Smoking Status: Former smoker Past Alcohol Use History: Rare Past Drug Use History: None Reported - Past Family History Mother Family Medical History: Cancer Additional Family Medical History / Comment(s): Stomach cancer Sister(s) Family Medical History: Cancer Additional Family Medical History / Comment(s): Lung cancer mets to brain Brother(s) Family Medical History: Cancer Additional Family Medical History / Comment(s): multiple cancers General Exam Limitations: no limitations, physical limitation General appearance: alert, in no apparent distress Head exam: Present: atraumatic, normocephalic, normal inspection Eye exam: Present: normal appearance, PERRL, EOMI. Absent: scleral icterus, conjunctival injection, periorbital swelling ENT exam: Present: normal exam, mucous membranes moist Neck exam: Present: normal inspection. Absent: tenderness, meningismus, lymphadenopathy Respiratory exam: Present: normal lung sounds bilaterally. Absent: respiratory distress, wheezes, rales, rhonchi, stridor Cardiovascular Exam: Present: regular rate, normal rhythm, normal heart sounds. Absent: systolic murmur, diastolic murmur, rubs, gallop, clicks GI/Abdominal exam: Present: soft, normal bowel sounds. Absent: distended, tenderness, guarding, rebound, rigid Extremities exam: Present: normal inspection, full ROM, normal capillary refill. Absent: tenderness, pedal edema, joint swelling, calf tenderness Back exam: Present: normal inspection Neurological exam: Present: alert, oriented X3, CN II-XII intact Psychiatric exam: Present: normal affect, normal mood Skin exam: Present: warm, dry, intact, normal color. Absent: rash Course Vital Signs 12/21/22 12/21/22 12/21/22 13:19 14:49 16:09 Temperature 100.6 F H 101.4 F H 100.2 F H Pulse Rate 105 H 91 86 Respiratory 20 18 Rate Blood Pressure 161/99 134/65 114/55 O2 Sat by Pulse 94 L 97 98 Oximetry 12/21/22 12/21/22 12/21/22 18:51 21:01 23:28 Temperature 100.1 F H 98.4 F Pulse Rate 81 77 92 Respiratory 18 18 18 Rate Blood Pressure 114/55 112/54 123/68 O2 Sat by Pulse 94 L 94 L 94 L Oximetry 12/22/22 12/22/22 12/22/22 02:48 06:25 09:45 Temperature 98 F 98.8 F 101.1 F H Pulse Rate 82 98 112 H Respiratory 16 18 16 Rate Blood Pressure 140/88 156/82 137/68 O2 Sat by Pulse 98 96 95 Oximetry 12/22/22 12:00 Temperature 100.4 F H Pulse Rate 89 Respiratory 19 Rate Blood Pressure 113/64 O2 Sat by Pulse 95 Oximetry - Reevaluation(s) Reevaluation #1: 12/21/22 18:03 Medical records reviewed Reevaluation #2: 12/21/22 18:03 Patient is found to have fever here in the ER, symptoms unchanged Reevaluation #3: 12/21/22 18:03 Patient informed results questions answered Reevaluation #4: 12/21/22 15:31 Was pt. sent in by a medical professional or institution ([facility], [facility], urgent care, hospital, or fdc...) When possible be specific @ -no Did you speak to anyone other than the patient for history (EMS, parent, family, police, friend...)? What history was obtained from this source @ -no Did you review nursing and triage notes (agree or disagree)? Why? @ -agree Are old charts reviewed (outside hosp., previous admission, EMS record, old EKG, old radiological studies, urgent care reports/EKG's, fdc records)? Report findings @ -yes Differential Diagnosis (chest pain, altered mental status, abdominal pain women, abdominal pain men, vaginal bleeding, weakness, fever, dyspnea, syncope, headache, dizziness, GI bleed, back pain, seizure, CVA, palpatations, mental health, musculoskeletal)? @ -prior EKG interpreted by me (3pts min.). @ -yes X-rays interpreted by me (1pt min.). @ -yes CT interpreted by me (1pt min.). @ -yes U/S interpreted by me (1pt. min.). @ -no What testing was considered but not performed or refused? (CT, X-rays, U/S, labs)? Why? @ -none What meds were considered but not given or refused? Why? @ -none Did you discuss the management of the patient with other professionals (professionals i.e. [facility], [facility], lab, RT, psych nurse, social services specialist, undertaker assistant, teacher, media liaison officer, field case manager)? Give summary @ -no Was smoking cessation discussed for >3mins.? @ -no Was critical care preformed (if so, how long)? @ -no Were there social determinants of health that impacted care today? How? (Lilia elessness, low income, unemployed, alcoholism, drug addiction, transportation, low edu. Level, literacy, decrease access to med. care, retirement, rehab)? @ -none Was there de-escalation of care discussed even if they declined (Discuss DNR or withdrawal of care, Hospice)? DNR status @ -no What co-morbidities impacted this encounter? (DM, HTN, Smoking, COPD, CAD, Cancer, CVA, ARF, Chemo, Hep., AIDS, mental health diagnosis, sleep apnea, morbid obesity)? @ -none Was patient admitted / discharged? Hospital course, mention meds given and route, prescriptions, significant lab abnormalities, going to OR and other pertinent info. @ - 72 female to the emergency department for evaluation postoperative complaints. Pain numbness tingling and weakness patient is found to have fever will admit for possibly an eye tract infection IV antibiotics and further monitoring and supportive care Admitted Undiagnosed new problem with uncertain prognosis? @ -no Drug Therapy requiring intensive monitoring for toxicity (Heparin, Nitro, Insulin, Cardizem)? @ -no Were any procedures done? @ -no Diagnosis/symptom? @ -Fever, postoperative infection, fever Acute, or Chronic, or Acute on Chronic? @ -Acute Uncomplicated (without systemic symptoms) or Complicated (systemic symptoms)? @ -Complicated Side effects of treatment? @ -no Exacerbation, Progression, or Severe Exacerbation? @ -exacerbation Poses a threat to life or bodily function? How? (Chest pain, USA, NC, pneumonia, PE, COPD, DKA, ARF, appy, cholecystitis, CVA, Diverticulitis, Homicidal, Suicidal, threat to staff... and all critical care pts) @ -yes with sepsis and fever, postoperative pain Reevaluation #5: 12/21/22 18:03 Differential Weakness: Hypoglycemia, shock, sepsis, hyponatremia, anemia, infection, NC, ETOH, adverse medicine reaction, overdose, stroke, this is not meant to be an all-inclusive list. Differential Fever: Pneumonia, viral URI, endocarditis, myocarditis, pericarditis, otitis, sinusitis, peritonsillar Abscess, retropharyngeal Abscess, epiglottitis, peritonitis, appendicitis, Aimee cystitis, diverticulitis, hepatitis, colitis, UTI, PID, TOA, pyelonephritis, prostatitis, epididymitis, meningitis, encephalitis, pulmonary embolism, CVA, thyroid storm, pancreatitis, adrenal crisis, cavernous sinus thrombosis, this is not meant to be an all-inclusive list. - Consultations Consultation #1: Spoke with Dr. Chauhan who did see this patient in the emergency department Consultation #2: ERICKA to agrees to admit the patient EKG Findings - EKG Comments: EKG Findings:: EKG shows sinus 90 TN 124 QRS 87 QTC 406 - EKG Results: EKG: interpreted by MARINA Medical Decision Making - Medical Decision Making 72 female to the emergency department for evaluation postoperative complaints. Pain numbness tingling and weakness patient is found to have fever will admit for possibly an eye tract infection IV antibiotics and further monitoring and supportive care - Lab Data Result diagrams: 12/23/22 08:57 12/23/22 08:57 Lab Results 12/21/22 12/21/22 12/21/22 Range/Units 13:54 14:06 14:06 WBC 11.0 H (3.8-10.6) k/uL RBC 3.68 L (3.80-5.40) m/uL Hgb 11.7 (11.4-16.0) gm/dL Hct 36.2 (34.0-46.0) % MCV 98.3 (80.0-100.0) fL MCH 31.9 (25.0-35.0) pg MCHC 32.4 (31.0-37.0) g/dL RDW 13.7 (11.5-15.5) % Plt Count 236 (150-450) k/uL MPV 9.2 Neutrophils % 85 % Lymphocytes % 6 % Monocytes % 5 % Eosinophils % 2 % Basophils % 0 % Neutrophils # 9.3 H (1.3-7.7) k/uL Lymphocytes # 0.7 L (1.0-4.8) k/uL Monocytes # 0.6 (0-1.0) k/uL Eosinophils # 0.2 (0-0.7) k/uL Basophils # 0.0 (0-0.2) k/uL PT 9.5 L (10.0-12.5) sec INR 0.8 (<1.2) APTT 22.2 (22.0-30.0) sec Sodium 136 L (137-145) mmol/L Potassium 4.4 (3.5-5.1) mmol/L Chloride 97 L (98-107) mmol/L Carbon Dioxide 37 H (22-30) mmol/L Anion Gap 2 mmol/L BUN 21 H (7-17) mg/dL Creatinine 0.81 (0.52-1.04) mg/dL Est GFR (CKD-EPI)AfAm 86 (>60 ml/min/1.73 sqM) Est GFR (CKD-EPI)NonAf 74 (>60 ml/min/1.73 sqM) Glucose 109 H (74-99) mg/dL Plasma Lactic Acid Robson (0.7-2.0) mmol/L Calcium 8.6 (8.4-10.2) mg/dL Phosphorus 2.4 L (2.5-4.5) mg/dL Magnesium 2.1 (1.6-2.3) mg/dL Total Bilirubin 0.6 (0.2-1.3) mg/dL AST 53 H (14-36) U/L ALT 13 (4-34) U/L Alkaline Phosphatase 75 (38-126) U/L Troponin I (0.000-0.034) ng/mL NT-Pro-B Natriuret Pep 4740 pg/mL Total Protein 6.1 L (6.3-8.2) g/dL Albumin 3.1 L (3.5-5.0) g/dL TSH 0.134 L (0.465-4.680) mIU/L Urine Color Urine Appearance (Clear) Urine pH (5.0-8.0) Ur Specific [place] (1.001-1.035) Urine Protein (Negative) Urine Glucose (UA) (Negative) Urine Ketones (Negative) Urine Blood (Negative) Urine Nitrite (Negative) Urine Bilirubin (Negative) Urine Urobilinogen (<2.0) mg/dL Ur Leukocyte Esterase (Negative) Urine RBC (0-5) /hpf Urine WBC (0-5) /hpf Ur Squamous Epith Cells (0-4) /hpf Urine Bacteria (None) /hpf Urine Mucus (None) /hpf Coronavirus (PCR) (Not Detectd) 12/21/22 12/21/22 12/21/22 Range/Units 14:06 14:06 15:12 WBC (3.8-10.6) k/uL RBC (3.80-5.40) m/uL Hgb (11.4-16.0) gm/dL Hct (34.0-46.0) % MCV (80.0-100.0) fL MCH (25.0-35.0) pg MCHC (31.0-37.0) g/dL RDW (11.5-15.5) % Plt Count (150-450) k/uL MPV Neutrophils % % Lymphocytes % % Monocytes % % Eosinophils % % Basophils % % Neutrophils # (1.3-7.7) k/uL Lymphocytes # (1.0-4.8) k/uL Monocytes # (0-1.0) k/uL Eosinophils # (0-0.7) k/uL Basophils # (0-0.2) k/uL PT (10.0-12.5) sec INR (<1.2) APTT (22.0-30.0) sec Sodium (137-145) mmol/L Potassium (3.5-5.1) mmol/L Chloride (98-107) mmol/L Carbon Dioxide (22-30) mmol/L Anion Gap mmol/L BUN (7-17) mg/dL Creatinine (0.52-1.04) mg/dL Est GFR (CKD-EPI)AfAm (>60 ml/min/1.73 sqM) Est GFR (CKD-EPI)NonAf (>60 ml/min/1.73 sqM) Glucose (74-99) mg/dL Plasma Lactic Acid Robson 1.0 (0.7-2.0) mmol/L Calcium (8.4-10.2) mg/dL Phosphorus (2.5-4.5) mg/dL Magnesium (1.6-2.3) mg/dL Total Bilirubin (0.2-1.3) mg/dL AST (14-36) U/L ALT (4-34) U/L Alkaline Phosphatase (38-126) U/L Troponin I 0.088 H* (0.000-0.034) ng/mL NT-Pro-B Natriuret Pep pg/mL Total Protein (6.3-8.2) g/dL Albumin (3.5-5.0) g/dL TSH (0.465-4.680) mIU/L Urine Color Light Yellow Urine Appearance Clear (Clear) Urine pH 6.5 (5.0-8.0) Ur Specific [place] 1.017 (1.001-1.035) Urine Protein Trace H (Negative) Urine Glucose (UA) Negative (Negative) Urine Ketones Negative (Negative) Urine Blood Trace H (Negative) Urine Nitrite Negative (Negative) Urine Bilirubin Negative (Negative) Urine Urobilinogen <2.0 (<2.0) mg/dL Ur Leukocyte Esterase Large H (Negative) Urine RBC 3 (0-5) /hpf Urine WBC 22 H (0-5) /hpf Ur Squamous Epith Cells 6 H (0-4) /hpf Urine Bacteria Rare H (None) /hpf Urine Mucus Rare H (None) /hpf Coronavirus (PCR) (Not Detectd) 12/21/22 Range/Units 15:37 WBC (3.8-10.6) k/uL RBC (3.80-5.40) m/uL Hgb (11.4-16.0) gm/dL Hct (34.0-46.0) % MCV (80.0-100.0) fL MCH (25.0-35.0) pg MCHC (31.0-37.0) g/dL RDW (11.5-15.5) % Plt Count (150-450) k/uL MPV Neutrophils % % Lymphocytes % % Monocytes % % Eosinophils % % Basophils % % Neutrophils # (1.3-7.7) k/uL Lymphocytes # (1.0-4.8) k/uL Monocytes # (0-1.0) k/uL Eosinophils # (0-0.7) k/uL Basophils # (0-0.2) k/uL PT (10.0-12.5) sec INR (<1.2) APTT (22.0-30.0) sec Sodium (137-145) mmol/L Potassium (3.5-5.1) mmol/L Chloride (98-107) mmol/L Carbon Dioxide (22-30) mmol/L Anion Gap mmol/L BUN (7-17) mg/dL Creatinine (0.52-1.04) mg/dL Est GFR (CKD-EPI)AfAm (>60 ml/min/1.73 sqM) Est GFR (CKD-EPI)NonAf (>60 ml/min/1.73 sqM) Glucose (74-99) mg/dL Plasma Lactic Acid Robson (0.7-2.0) mmol/L Calcium (8.4-10.2) mg/dL Phosphorus (2.5-4.5) mg/dL Magnesium (1.6-2.3) mg/dL Total Bilirubin (0.2-1.3) mg/dL AST (14-36) U/L ALT (4-34) U/L Alkaline Phosphatase (38-126) U/L Troponin I (0.000-0.034) ng/mL NT-Pro-B Natriuret Pep pg/mL Total Protein (6.3-8.2) g/dL Albumin (3.5-5.0) g/dL TSH (0.465-4.680) mIU/L Urine Color Urine Appearance (Clear) Urine pH (5.0-8.0) Ur Specific [place] (1.001-1.035) Urine Protein (Negative) Urine Glucose (UA) (Negative) Urine Ketones (Negative) Urine Blood (Negative) Urine Nitrite (Negative) Urine Bilirubin (Negative) Urine Urobilinogen (<2.0) mg/dL Ur Leukocyte Esterase (Negative) Urine RBC (0-5) /hpf Urine WBC (0-5) /hpf Ur Squamous Epith Cells (0-4) /hpf Urine Bacteria (None) /hpf Urine Mucus (None) /hpf Coronavirus (PCR) Not Detected (Not Detectd) - EKG Data -: EKG Interpreted by Me - Radiology Data Radiology results: report reviewed (Chest x-rays negative for acute disease, CT brain C-spine negative for acute disease), image reviewed Disposition Clinical Impression: Fever, UTI (urinary tract infection), Postoperative pain Disposition: ADMITTED IP TO THIS HOSP Condition: Fair Is patient prescribed a controlled substance at d/c from ED?: No Time of Disposition: 17:35
[2022-12-21 14:09] LABS: Basophils % (A) 0 %; Eosinophils # (A) 0.2 k/uL (0-0.7); Eosinophils % (A) 2 %; HCT 36.2 % (34.0-46.0); HGB 11.7 gm/dL (11.4-16.0); Lymphocytes # (A) 0.7 k/uL (1.0-4.8); Lymphocytes % (A) 6 %; MCH 31.9 pg (25.0-35.0); MCHC 32.4 g/dL (31.0-37.0); MCV 98.3 fL (80.0-100.0); Mean Platelet Volume 9.2; Monocytes # (A) 0.6 k/uL (0-1.0); Monocytes % (A) 5 %; Neutrophils # (A) 9.3 k/uL (1.3-7.7); Neutrophils % (A) 85 %; Platelet Count 236 k/uL (150-450); RBC 3.68 m/uL (3.80-5.40); RDW 13.7 % (11.5-15.5)
--- NOTE | 2022-12-21 14:33 | XR ---
EXAMINATION TYPE: XR chest 1V portable DATE OF EXAM: 12/21/2022 HISTORY: Shortness of breath. COMPARISON: 12/18/2022 TECHNIQUE: Single view of the chest is submitted. FINDINGS: Demonstrated are scattered senescent parenchymal change. There is no evidence for focal infiltrate. The heart is stable. Hilar and mediastinal structures are within normal limits. Degenerative changes are seen of the dorsal spine. IMPRESSION: 1. Chronic changes without evidence for acute pulmonary disease.
[2022-12-21 14:36] LABS: ALT 13 U/L (4-34); AST 53 U/L (14-36); African American GFR (CKD) 86 (>60 ml/min/1.73 sqM); Albumin 3.1 g/dL (3.5-5.0); Alkaline Phosphatase 75 U/L (38-126); Anion Gap 2 mmol/L; Blood Urea Nitrogen 21 mg/dL (7-17); Calcium 8.6 mg/dL (8.4-10.2); Carbon Dioxide 37 mmol/L (22-30); Chloride 97 mmol/L (98-107); Glucose 109 mg/dL (74-99); Magnesium 2.1 mg/dL (1.6-2.3); Non-African American GFR(CKD) 74 (>60 ml/min/1.73 sqM); Phosphorus 2.4 mg/dL (2.5-4.5); Potassium 4.4 mmol/L (3.5-5.1); Sodium 136 mmol/L (137-145); Total Bilirubin 0.6 mg/dL (0.2-1.3); Total Protein 6.1 g/dL (6.3-8.2)
[2022-12-21 14:45] LABS: NT-Pro-B-Type Natriuretic Pept 4740 pg/mL
--- NOTE | 2022-12-21 14:53 | CT ---
EXAMINATION TYPE: CT brain cspine wo con DATE OF EXAM: 12/21/2022 COMPARISON: CT cervical spine dated 12/17/2022 HISTORY: weakness CT DLP: 1282 mGycm Automated exposure control for dose reduction was used. TECHNIQUE: CT scan of the head and cervical spine are performed without contrast. FINDINGS: Head CT: Ventricles, basal cisterns and sulci over convexities within normal limits and there is no mass, mass effect or shift of midline structures. There is ill-defined area of decreased density in the region of the left basal ganglia consistent wit h an infarct of indeterminate age. There is no prior brain CT for comparison. There is no acute intra or extra-axial hemorrhage. Posterior fossa including the brainstem, fourth ventricle and cerebellar pontine angles are grossly n ormal. The intraorbital contents appear normal and symmetric. Visualized paranasal sinuses and mastoid air cells are well aerated. CT cervical spine: There is extensive recent postsurgical changes with wide laminectomy from C2-3 through C7/T1 with pos terior metallic fusion from C2 through T2. There are surgical alice in the posterior soft tissues i ndicating recent surgery. The craniovertebral junction relationships and prevertebral soft tissues are normal. There is moderate degenerative disc disease at the C3-4, C4-5, C5-6 and C6-7 levels. There is moderate degenerative change of the uncovertebral joints in the mid lower cervical spine. There is no bony protrusion of the cervical canal. Impression: 1. 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 No acute bleed or mass effect . 2. Extensive recent postsurgical changes in the cervical spine as described above.
[2022-12-21 15:08] LABS: INR 0.8 (<1.2); Partial Thromboplastin Time 22.2 sec (22.0-30.0); Prothrombin Time 9.5 sec (10.0-12.5)
[2022-12-21] MEDS ORDERED: ACETAMINOPHEN IV (For NPO) 1,000 MG in EMPTY BAG 1 BAG IVPB ONE (15:15)
[2022-12-21] MEDS ORDERED: IBUPROFEN IV 800 MG in SODIUM CHLORIDE 0.9% 250 ML IV ONE (15:30)
[2022-12-21 15:55] LABS: Appearance,Urine Clear (Clear); Bacteria,Urine Rare /hpf; Bilirubin,Urine Negative (Negative); Blood,Urine Trace (Negative); Color,Urine Light Yellow; Glucose,Urine (UA) Negative (Negative); Ketones,Urine Negative (Negative); Leukocyte Esterase,Urine Large (Negative); Mucus,Urine Rare /hpf; Nitrite,Urine Negative (Negative); PH, Urine 6.5 (5.0-8.0); Protein,Urine Trace (Negative); RBC,Urine 3 /hpf (0-5); Specific Gravity,Urine 1.017 (1.001-1.035); Squamous Epithelial Cell,Urine 6 /hpf (0-4); Urobilinogen,Urine <2.0 mg/dL (<2.0); WBC,Urine 22 /hpf (0-5)
[2022-12-21] MEDS ORDERED: ONDANSETRON 4 MG/2 ML VIAL IVP PRN ×2 (17:44→18:35)
[2022-12-21] MEDS ORDERED: NALOXONE 0.4 MG/ML 1 ML VIAL IV PRN ×2 (17:44→18:35)
--- NOTE | 2022-12-21 18:21 | P.CNOR ---
History of Present Illness - [facility] Consult date: 12/21/22 Consult reason: neck pain History of present illness: patient seen and evaluated in the emergency department 72-year-old female who underwent a posterior C2 to T2 decompression fusion 4 days ago was discharged to rehab yesterday was doing very well. The COORDINATOR SKILL TRAINING PROGRAM at the rehab then contacted us in the office today stating the patient was complaining of increased weakness in her arms as well as pain in her neck the daughter was in the room apparently staying the patient was not like this before surgery and that she demanded the patient be evaluated. The patient stated set back then to the emergency department for evaluation. We were able to see and evaluate the patient in the emergency department. She plays of neck pain which is normal after operative intervention. She complains of some numbness tingling in her ulnar 3 fingers on the right-hand side. She complains of weakness however she is moving her arms all over. She denies any fevers chills friends of breath or chest pain at this time. She denies any bowel or bladder issues. Review of Systems 14 points review of systems completed and as stated in HPI, all other systems reviewed are negative. Past Medical History Past Medical History: Cancer, GERD/Reflux, Hyperlipidemia, Hypertension, Musculoskeletal Disorder, Osteoarthritis (OA), Renal Disease Additional Past Medical History / Comment(s): Right breast cancer, back pain - steroid injections, hiatal hernia - not repaired. stage 3 vulva cancer-seeing oncologist in [facility].-surg. could possibly be postponed, gets SOB w/exertion, stage 3 kidney disease. History of Any Multi-Drug Resistant Organisms: None Reported Past Surgical History: Breast Surgery, Joint Replacement, Tonsillectomy, Tubal Ligation Additional Past Surgical History / Comment(s): Right breast mastectomy 2000, artificial vance. thumb joint (3 surgeries), left hand surgery, EGD 2010. back injections for pain, left cataract removed Past Anesthesia/Blood Transfusion Reactions: Postoperative Nausea & Vomiting (PONV) Additional Past Anesthesia/Blood Transfusion Reaction / Comm: only happened once years ago Past Psychological History: Depression Smoking Status: Former smoker Past Alcohol Use History: Rare Past Drug Use History: None Reported - Past Family History Mother Family Medical History: Cancer Additional Family Medical History / Comment(s): Stomach cancer Sister(s) Family Medical History: Cancer Additional Family Medical History / Comment(s): Lung cancer mets to brain Brother(s) Family Medical History: Cancer Additional Family Medical History / Comment(s): multiple cancers Medications and Allergies Home Medications Medication Instructions Recorded Confirmed Type Aspirin 81 mg PO DAILY@0800 05/01/22 12/21/22 History Atorvastatin [Lipitor] 20 mg PO DAILY@1630 05/01/22 12/21/22 History Ferrous Sulfate [Feosol] 325 mg PO DAILY@0800 05/01/22 12/21/22 History Fluticasone/Umeclidin/Vilanter 1 puff INHALATION RT-DAILY@0800 05/01/22 12/21/22 History [Trelegy Ellipta 100-62.5-25] Famotidine [Pepcid] 40 mg PO BID@0800,1700 09/04/22 12/21/22 History Albuterol Inhaler [Ventolin Hfa 1 - 2 puff INHALATION RT-Q6H PRN 10/31/22 12/21/22 History Inhaler] Metoprolol Succinate (ER) [Toprol 25 mg PO DAILY@1630 10/31/22 12/21/22 History XL] calcitrioL [Calcitriol] 0.25 mcg PO HERRERA@0800 10/31/22 12/21/22 History Loratadine [Claritin] 10 mg PO DAILY@0800 12/12/22 12/21/22 History Cyclobenzaprine [Flexeril] 5 mg PO TID PRN #40 tablet 12/20/22 12/21/22 Rx Cholecalciferol [Vitamin D3 (25 50 mcg PO DAILY@0800 12/21/22 12/21/22 History Mcg = 1000 Iu)] Denosumab [Prolia] 1 dose SQ Q18D 12/21/22 12/21/22 History Gabapentin 300 mg PO TID@08,12,17 12/21/22 12/21/22 History HYDROcodone/APAP 7.5-325MG [[place] 1 tab PO Q4HR PRN 12/21/22 12/21/22 History 7.5] Magnesium Hydroxide [Milk of 7,200 mg PO DAILY PRN 12/21/22 12/21/22 History Magnesia Concentrate] Na Phos,M-B/Na Phos,Di-Ba [Fleet 133 ml RECTAL DAILY PRN 12/21/22 12/21/22 History Adult] Sennosides/Docusate Sodium [Senna 1 tab PO DAILY PRN 12/21/22 12/21/22 History Plus 8.6-50 mg Tablet] bisacodyL [Dulcolax] 10 mg RECTAL DAILY PRN 12/21/22 12/21/22 History cefaDROXiL [Duricef] 500 mg PO BID@0800,2100 12/21/22 12/21/22 History Allergies Allergy/AdvReac Type Severity Reaction Status Date / Time No Known Allergies Allergy Verified 12/21/22 14:38 Physical Examination Osteopathic Statement: *. No significant issues noted on an osteopathic structural exam other than those noted in the History and Physical/Consult. Physical Exam: -Patient is alert and oriented 3 appears well-nourished well-hydrated is in no acute distress. They do not appear septic. -There is TTP About the incision site posteriorly which is healing well [-Incision is CDI, no EEE, no drainage] -Upper extremities show 4+ out of 5 strength in all major muscle groups. no focal deficits no evidence of side to side differences -Lower extremities with4+out of 5 strength in all major muscle groups no focal deficits no evidence of [id number] differences -There is [FROM] that is [painless] of the b/l UE and LE in all major joints. [log roll] [SLR] [EXCEPT] -They are intact to light touch sensation in C5 to T1 and L2 to S1 nerve distribution. -DTR [2]/4 all upper and lower extremities -Patient has palpable distal pulses all 4 ext -Compartments are soft and compressible. -Patient shows a negative Rubina's - mildly positive Josette's on the left [-Neg Clonus b/l] [-Neg babinski b/l] Cranial nerves II through XII are grossly intact. Results CT of the head and neck was reviewed and demonstrates postsurgical changes without evidence of interval change from previous post operative computed tomography scan of the neck. Hardware still in position evidence of fracture failure dislocation. No large fluid collections. No evidence of any stroke or hematoma noted. - Labs Labs: Abnormal Lab Results - Last 24 Hours (Table) 12/21/22 12/21/22 12/21/22 Range/Units 13:54 14:06 14:06 WBC 11.0 H (3.8-10.6) k/uL RBC 3.68 L (3.80-5.40) m/uL Neutrophils # 9.3 H (1.3-7.7) k/uL Lymphocytes # 0.7 L (1.0-4.8) k/uL PT 9.5 L (10.0-12.5) sec Sodium 136 L (137-145) mmol/L Chloride 97 L (98-107) mmol/L Carbon Dioxide 37 H (22-30) mmol/L BUN 21 H (7-17) mg/dL Glucose 109 H (74-99) mg/dL Phosphorus 2.4 L (2.5-4.5) mg/dL AST 53 H (14-36) U/L Troponin I (0.000-0.034) ng/mL Total Protein 6.1 L (6.3-8.2) g/dL Albumin 3.1 L (3.5-5.0) g/dL TSH 0.134 L (0.465-4.680) mIU/L Urine Protein (Negative) Urine Blood (Negative) Ur Leukocyte Esterase (Negative) Urine WBC (0-5) /hpf Ur Squamous Epith Cells (0-4) /hpf Urine Bacteria (None) /hpf Urine Mucus (None) /hpf 12/21/22 12/21/22 Range/Units 14:06 15:12 WBC (3.8-10.6) k/uL RBC (3.80-5.40) m/uL Neutrophils # (1.3-7.7) k/uL Lymphocytes # (1.0-4.8) k/uL PT (10.0-12.5) sec Sodium (137-145) mmol/L Chloride (98-107) mmol/L Carbon Dioxide (22-30) mmol/L BUN (7-17) mg/dL Glucose (74-99) mg/dL Phosphorus (2.5-4.5) mg/dL AST (14-36) U/L Troponin I 0.088 H* (0.000-0.034) ng/mL Total Protein (6.3-8.2) g/dL Albumin (3.5-5.0) g/dL TSH (0.465-4.680) mIU/L Urine Protein Trace H (Negative) Urine Blood Trace H (Negative) Ur Leukocyte Esterase Large H (Negative) Urine WBC 22 H (0-5) /hpf Ur Squamous Epith Cells 6 H (0-4) /hpf Urine Bacteria Rare H (None) /hpf Urine Mucus Rare H (None) /hpf H & H 12/21/22 Range/Units 13:54 Hgb 11.7 (11.4-16.0) gm/dL Hct 36.2 (34.0-46.0) % Coagulation 12/21/22 Range/Units 14:06 INR 0.8 (<1.2) Result Diagrams: 12/21/22 13:54 12/21/22 14:06 Assessment and Plan Assessment: 72-year-old female status post C2 to T2 decompression fusion postoperative pain complex medical patient complex social patient Plan: -Appreciate home planning consultant salesperson and team management. -Activity: Ambulate QID, OOB all meals, up and about, limit lifting bending twisting to less than 5 lbs. Use walker or cane if needed for stability. -Daily PT/OT, increase ambulation strength and balance. - soft cervical collar at all times when up and about -Pain control: [Adequate at this time] -Meds: [reviewed] -GI ppx: senna, Miralax -DVT PPX: mechanical okay as well as chemoprophylaxis -Hygiene: Shower today. Maintain dressing clean and dry. Meticulous cleaning after BMs away from incision site -Encourage IS 10x/hr -Dispo: [Pending] no orthopedic surgical intervention at this time. If needed recommend admit to medicine for evaluation. Time with Patient: Greater than 30
[2022-12-21] MEDS: SODIUM CHLORIDE 0.9% 1,000 ML IV SCH (19:02)
[2022-12-22] MEDS: MORPHINE SULFATE 4 MG/ML SYRINGE IV PRN ×2 (00:07→06:27)
[2022-12-22] MEDS: SODIUM CHLORIDE 0.9% 1,000 ML IV SCH ×2 (01:48→09:47)
[2022-12-22] MEDS ORDERED: bisacodyL 10 MG SUPP RECTAL PRN (06:44)
[2022-12-22 08:53] LABS: ALT 11 U/L (4-34); AST 39 U/L (14-36); African American GFR (CKD) >90 (>60 ml/min/1.73 sqM); Albumin 2.8 g/dL (3.5-5.0); Alkaline Phosphatase 66 U/L (38-126); Anion Gap 7 mmol/L; Blood Urea Nitrogen 18 mg/dL (7-17); Carbon Dioxide 25 mmol/L (22-30); Chloride 105 mmol/L (98-107); Glucose 78 mg/dL (74-99); Non-African American GFR(CKD) >90 (>60 ml/min/1.73 sqM); Phosphorus 2.4 mg/dL (2.5-4.5); Potassium 4.5 mmol/L (3.5-5.1); Sodium 137 mmol/L (137-145); Total Bilirubin 0.6 mg/dL (0.2-1.3); Total Protein 5.7 g/dL (6.3-8.2)
--- NOTE | 2022-12-22 08:53 | P.HPIM ---
History of Present Illness this is a pleasant 72 f with past medical history of GERD/Reflux, Hyperlipidemia, Hypertension, Osteoarthritis , Right breast cancer, back pain - steroid injections, hiatal hernia - stage 3 vulva cancer-, SOB w/exertion, stage 3 kidney disease., Right breast mastectomy 2000, Depression Patient states she came from [facility] after she had recent surgery at her neck, currently she had a hard collar in a Place, she looks tired and pain in her neck. Also states that she's been complaining of from numbness in both hands and fingers since after surgery. Patient was talking to herself, she's been hearing voices from people she see them while her eyes closed including her son but she cannot remember what they told her. She still complaining from significant pain after her neck. However patient denies abdominal pain diarrhea. No vomiting. Not sure if we have any urinary symptoms. She has little dry cough but no dyspnea. She denies weakness or dizziness. He denies previous history of stroke and she does not follow up with the neurologist. On admission patient had fever over 100.1. Rest of vitals looks stable. Showing mild leukocytosis of 11,000, rest of CBC is unremarkable INR 0.8. Creatinine is normal 0.8. Sodium 136. Liver enzymes not elevated. ProBNP is 4740, troponin elevated 0.08, 0.05 and 0.04. TSH is low 0.23 Urine analysis is suspicious for infection with large leukocyte esterase. Coronavirus not detected EKG showed normal sinus rhythm at 90 with T-wave inversion in V2 and V3 CT of the head and cervical spine: Showed small infarct in the region of the left basal ganglia of indeterminant age. No acute bleed or mass effect. Extensive recent postsurgical changes cervical spine Chest x-ray: Chronic changes without evidence of acute pulmonary process, I reviewed the chest x-ray as well Patient was started on ceftriaxone, normal saline and admitted with cardiology and orthopedic team consult Review of Systems Review of systems CONSTITUTIONAL: No fever, no malaise, no fatigue. HEENT: No recent visual problems or hearing problems. Denied any sore throat. CARDIOVASCULAR: No orthopnea, PND, no palpitations, no syncope. PULMONARY: No chest wall tenderness, no hemoptysis. GASTROINTESTINAL: No diarrhea, no nausea, no vomiting, no abdominal pain. Normoactive bowel sounds. NEUROLOGICAL: No headaches, no weakness, no numbness. HEMATOLOGICAL: Denies any bleeding or petechiae. GENITOURINARY: Denies any burning micturition, frequency, or urgency. MUSCULOSKELETAL/RHEUMATOLOGICAL: Denies any joint pain, swelling, or any muscle pain. ENDOCRINE: Denies any polyuria or polydipsia. Past Medical History Past Medical History: Cancer, GERD/Reflux, Hyperlipidemia, Hypertension, Musculoskeletal Disorder, Osteoarthritis (OA), Renal Disease Additional Past Medical History / Comment(s): Right breast cancer, back pain - steroid injections, hiatal hernia - not repaired. stage 3 vulva cancer-seeing o ncologist in [facility].-surg. could possibly be postponed, gets SOB w/exertion, stage 3 kidney disease. History of Any Multi-Drug Resistant Organisms: None Reported Past Surgical History: Breast Surgery, Joint Replacement, Tonsillectomy, Tubal Ligation Additional Past Surgical History / Comment(s): Right breast mastectomy 2000, artificial vance. thumb joint (3 surgeries), left hand surgery, EGD 2010. back injections for pain, left cataract removed Past Anesthesia/Blood Transfusion Reactions: Postoperative Nausea & Vomiting (PONV) Additional Past Anesthesia/Blood Transfusion Reaction / Comment(s): only happened once years ago Past Psychological History: Depression Smoking Status: Former smoker Past Alcohol Use History: Rare Past Drug Use History: None Reported - Past Family History Mother Family Medical History: Cancer Additional Family Medical History / Comment(s): Stomach cancer Sister(s) Family Medical History: Cancer Additional Family Medical History / Comment(s): Lung cancer mets to brain Brother(s) Family Medical History: Cancer Additional Family Medical History / Comment(s): multiple cancers Medications and Allergies Home Medications Medication Instructions Recorded Confirmed Type Aspirin 81 mg PO DAILY@0800 05/01/22 12/21/22 History Atorvastatin [Lipitor] 20 mg PO DAILY@1630 05/01/22 12/21/22 History Ferrous Sulfate [Feosol] 325 mg PO DAILY@0800 05/01/22 12/21/22 History Fluticasone/Umeclidin/Vilanter 1 puff INHALATION RT-DAILY@0800 05/01/22 12/21/22 History [Trelegy Ellipta 100-62.5-25] Famotidine [Pepcid] 40 mg PO BID@0800,1700 09/04/22 12/21/22 History Albuterol Inhaler [Ventolin Hfa 1 - 2 puff INHALATION RT-Q6H PRN 10/31/22 12/21/22 History Inhaler] Metoprolol Succinate (ER) [Toprol 25 mg PO DAILY@1630 10/31/22 12/21/22 History XL] calcitrioL [Calcitriol] 0.25 mcg PO HERRERA@0800 10/31/22 12/21/22 History Loratadine [Claritin] 10 mg PO DAILY@0800 12/12/22 12/21/22 History Cyclobenzaprine [Flexeril] 5 mg PO TID PRN #40 tablet 12/20/22 12/21/22 Rx Cholecalciferol [Vitamin D3 (25 50 mcg PO DAILY@0800 12/21/22 12/21/22 History Mcg = 1000 Iu)] Denosumab [Prolia] 1 dose SQ Q18D 12/21/22 12/21/22 History Gabapentin 300 mg PO TID@08,12,17 12/21/22 12/21/22 History HYDROcodone/APAP 7.5-325MG [[place] 1 tab PO Q4HR PRN 12/21/22 12/21/22 History 7.5] Magnesium Hydroxide [Milk of 7,200 mg PO DAILY PRN 12/21/22 12/21/22 History Magnesia Concentrate] Na Phos,M-B/Na Phos,Di-Ba [Fleet 133 ml RECTAL DAILY PRN 12/21/22 12/21/22 History Adult] Sennosides/Docusate Sodium [Senna 1 tab PO DAILY PRN 12/21/22 12/21/22 History Plus 8.6-50 mg Tablet] bisacodyL [Dulcolax] 10 mg RECTAL DAILY PRN 12/21/22 12/21/22 History cefaDROXiL [Duricef] 500 mg PO BID@0800,2100 12/21/22 12/21/22 History Allergies Allergy/AdvReac Type Severity Reaction Status Date / Time No Known Allergies Allergy Verified 12/21/22 14:38 Physical Exam Vitals: Vital Signs Temp Pulse Resp BP Pulse Ox 12/22/22 02:48 98 F 82 16 140/88 98 12/21/22 23:28 92 18 123/68 94 L 12/21/22 21:01 98.4 F 77 18 112/54 94 L 12/21/22 18:51 100.1 F H 81 18 114/55 94 L 12/21/22 16:09 100.2 F H 86 114/55 98 12/21/22 14:49 101.4 F H 91 18 134/65 97 12/21/22 13:19 100.6 F H 105 H 20 161/99 94 L Intake and Output 12/21/22 12/21/22 12/22/22 14:59 22:59 06:59 Other: Weight 67.585 kg GENERAL: The patient is alert and oriented x3, not in any acute distress. Well developed, well nourished. HEENT: Pupils are round and equally reacting to light. EOMI. No scleral icterus. No conjunctival pallor. Normocephalic, atraumatic. No pharyngeal erythema. No thyromegaly. CARDIOVASCULAR: S1 and S2 present. No murmurs, rubs, or gallops. PULMONARY: Chest is clear to auscultation, no wheezing , no crackles. ABDOMEN: Soft, nontender, nondistended, normoactive bowel sounds. No palpable organomegaly. MUSCULOSKELETAL: No joint swelling or deformity. EXTREMITIES: No cyanosis, clubbing, or pedal edema. NEUROLOGICAL: Gross neurological examination did not reveal any focal deficits. SKIN: No rashes. no petechiae. Results CBC & Chem 7: 12/21/22 13:54 12/21/22 14:06 Labs: Abnormal Lab Results - Last 24 Hours (Table) 12/21/22 12/21/22 12/21/22 Range/Units 13:54 14:06 14:06 WBC 11.0 H (3.8-10.6) k/uL RBC 3.68 L (3.80-5.40) m/uL Neutrophils # 9.3 H (1.3-7.7) k/uL Lymphocytes # 0.7 L (1.0-4.8) k/uL PT 9.5 L (10.0-12.5) sec Sodium 136 L (137-145) mmol/L Chloride 97 L (98-107) mmol/L Carbon Dioxide 37 H (22-30) mmol/L BUN 21 H (7-17) mg/dL Glucose 109 H (74-99) mg/dL Phosphorus 2.4 L (2.5-4.5) mg/dL AST 53 H (14-36) U/L Troponin I (0.000-0.034) ng/mL Total Protein 6.1 L (6.3-8.2) g/dL Albumin 3.1 L (3.5-5.0) g/dL TSH 0.134 L (0.465-4.680) mIU/L Urine Protein (Negative) Urine Blood (Negative) Ur Leukocyte Esterase (Negative) Urine WBC (0-5) /hpf Ur Squamous Epith Cells (0-4) /hpf Urine Bacteria (None) /hpf Urine Mucus (None) /hpf 12/21/22 12/21/22 12/21/22 Range/Units 14:06 15:12 20:33 WBC (3.8-10.6) k/uL RBC (3.80-5.40) m/uL Neutrophils # (1.3-7.7) k/uL Lymphocytes # (1.0-4.8) k/uL PT (10.0-12.5) sec Sodium (137-145) mmol/L Chloride (98-107) mmol/L Carbon Dioxide (22-30) mmol/L BUN (7-17) mg/dL Glucose (74-99) mg/dL Phosphorus (2.5-4.5) mg/dL AST (14-36) U/L Troponin I 0.088 H* 0.054 H* (0.000-0.034) ng/mL Total Protein (6.3-8.2) g/dL Albumin (3.5-5.0) g/dL TSH (0.465-4.680) mIU/L Urine Protein Trace H (Negative) Urine Blood Trace H (Negative) Ur Leukocyte Esterase Large H (Negative) Urine WBC 22 H (0-5) /hpf Ur Squamous Epith Cells 6 H (0-4) /hpf Urine Bacteria Rare H (None) /hpf Urine Mucus Rare H (None) /hpf 12/21/22 Range/Units 23:57 WBC (3.8-10.6) k/uL RBC (3.80-5.40) m/uL Neutrophils # (1.3-7.7) k/uL Lymphocytes # (1.0-4.8) k/uL PT (10.0-12.5) sec Sodium (137-145) mmol/L Chloride (98-107) mmol/L Carbon Dioxide (22-30) mmol/L BUN (7-17) mg/dL Glucose (74-99) mg/dL Phosphorus (2.5-4.5) mg/dL AST (14-36) U/L Troponin I 0.040 H* (0.000-0.034) ng/mL Total Protein (6.3-8.2) g/dL Albumin (3.5-5.0) g/dL TSH (0.465-4.680) mIU/L Urine Protein (Negative) Urine Blood (Negative) Ur Leukocyte Esterase (Negative) Urine WBC (0-5) /hpf Ur Squamous Epith Cells (0-4) /hpf Urine Bacteria (None) /hpf Urine Mucus (None) /hpf Assessment and Plan Assessment: acute urinary tract infection mild sepsis with Fever and mild leukocytosis Visual and auditory hallucinations elevated troponin Severe osteoarthritis with recent history of neck pain and weakness in the arms, status post C2 to T2 decompression fusion postoperative pain Patient presents with weakness and CT of the brain showing left basal ganglia stroke INDETERMINANT age GERD/Reflux Hyperlipidemia Hypertension Osteoarthritis Right breast cancer chronic back pain - steroid injections h/o hiatal hernia h/o stage 3 vulva cancer- h/o SOB w/exertion stage 3 kidney disease h/oRight breast mastectomy 2000 Depression, not active issue currently Plan: Continue with ceftriaxone Continue with IV hydration Follow-up urine culture Pain management Orthopedic team on the case Consults cardiology service Consult neurology service Labs and medication were reviewed.. Continue same treatment. Continue with symptomatic treatment. Resume home medication. Monitor labs and vitals. DVT and GI prophylaxis. Further recommendations as per clinical course of the patient DVT prophylaxis: SCD GI Prophylaxis: Pepcid PT/OT: Pending Prognosis is guarded
[2022-12-22 09:02] LABS: Basophils # (A) 0.1 k/uL (0-0.2); Basophils % (A) 1 %; Eosinophils # (A) 0.2 k/uL (0-0.7); Eosinophils % (A) 2 %; HCT 36.1 % (34.0-46.0); HGB 11.4 gm/dL (11.4-16.0); Hypochromasia Marked; Lymphocytes # (A) 0.5 k/uL (1.0-4.8); Lymphocytes % (A) 4 %; MCH 32.1 pg (25.0-35.0); MCHC 31.6 g/dL (31.0-37.0); MCV 101.6 fL (80.0-100.0); Macrocytosis Slight; Mean Platelet Volume 9.4; Monocytes # (A) 0.5 k/uL (0-1.0); Monocytes % (A) 4 %; Neutrophils # (A) 10.5 k/uL (1.3-7.7); Neutrophils % (A) 89 %; Platelet Count 180 k/uL (150-450); RBC 3.55 m/uL (3.80-5.40); RDW 13.8 % (11.5-15.5); WBC 11.8 k/uL (3.8-10.6)
[2022-12-22] MEDS: GABAPENTIN 300 MG CAP PO SCH ×3 (09:28→17:26)
[2022-12-22] MEDS: ASPIRIN 81 MG PO SCH (09:28)
[2022-12-22] MEDS: FAMOTIDINE 20 MG/2 ML VIAL IV SCH ×2 (09:28→20:19)
[2022-12-22] MEDS: PANTOPRAZOLE 40 MG/10 ML VIAL IV SCH (09:29)
--- NOTE | 2022-12-22 10:22 | P.PN ---
Progress Note - Text Progress Note Date: 12/22/22 patient and he still waiting bed no interval changes. CT is negative for large fluid collection hematoma stroke or compression the nerves. The patient's exam remains stable. There is no interval changes. Patient is in pain. No orthopedic surgical intervention at this time.
[2022-12-22] MEDS ORDERED: ACETAMINOPHEN TAB 325 MG TAB PO PRN (10:32)
[2022-12-22] MEDS ORDERED: ACETAMINOPHEN TAB 500 MG TAB PO STA (10:33)
[2022-12-22] MEDS: HYDROcodone/APAP 7.5-325MG 1 EACH TAB PO PRN ×2 (10:38→20:20)
--- NOTE | 2022-12-22 14:07 | P.CRDCN ---
History of Present Illness Consult date: 12/22/22 History of present illness: HISTORY OF PRESENTING ILLNESS 72-year-old female who underwent decompression fracture surgery 4 days ago AT the rehab and was not doing well. She was complaining of bilateral arm numbing and tingling sensation and generalized pain due to which she came to the ER. Cardiology was consulted to evaluate for difficulty breathing and chest pain. Next On evaluating her bedside this morning she denies any chest pain or chest pressure. She reports that her breathing is back to her baseline. She complains of numbness and tingling in bilateral upper extremities. Her labs showed a troponin of 0.05, 0.04. Her kidney function is normal with creatinine of 0.6, hemoglobin is 11.4 Her ECG shows sinus rhythm with incomplete right bundle branch block with nonspecific ST changes. This ECGs similar to her ECG prior to her surgery with no changes. REVIEW OF SYSTEMS 14 point review of system is negative except what is mentioned above in HPI. PHYSICAL EXAMINATION Vital signs reviewed. Head: Normocephalic. Eyes: Sclerae nonicteric. Neck: Brisk carotid upstroke, no jugular venous distention. Lungs: Clear to auscultation. Heart: Regular rate and rhythm, S1-S2, no S3, no murmur or rub. Abdomen: Soft nontender, positive bowel sounds no organomegaly. Extremities: No edema, intact distal pulses. ASSESSMENT Severe osteoporosis with recent spinal decompression surgery postop day 5 Bilateral upper extremity numbness and sensation Noncardiac chest pain, rule out of ACS. Mild downtrending elevation of troponin likely due to recent surgery and appears to be noncardiac Other comorbidities PLAN Obtain an echocardiogram Continue her home medications No concerns of acute coronary syndrome We will follow echo results and make further recommendations. Past Medical History Past Medical History: Cancer, GERD/Reflux, Hyperlipidemia, Hypertension, Musculoskeletal Disorder, Osteoarthritis (OA), Renal Disease Additional Past Medical History / Comment(s): Right breast cancer, back pain - steroid injections, hiatal hernia - not repaired. stage 3 vulva cancer-seeing oncologist in [facility].-surg. could possibly be postponed, gets SOB w/exertion, stage 3 kidney disease. History of Any Multi-Drug Resistant Organisms: None Reported Past Surgical History: Breast Surgery, Joint Replacement, Tonsillectomy, Tubal Ligation Additional Past Surgical History / Comment(s): Right breast mastectomy 2000, artificial vance. thumb joint (3 surgeries), left hand surgery, EGD 2010. back injections for pain, left cataract removed Past Anesthesia/Blood Transfusion Reactions: Postoperative Nausea & Vomiting (PONV) Additional Past Anesthesia/Blood Transfusion Reaction / Comment(s): only happened once years ago Past Psychological History: Depression Smoking Status: Former smoker Past Alcohol Use History: Rare Past Drug Use History: None Reported - Past Family History Mother Family Medical History: Cancer Additional Family Medical History / Comment(s): Stomach cancer Sister(s) Family Medical History: Cancer Additional Family Medical History / Comment(s): Lung cancer mets to brain Brother(s) Family Medical History: Cancer Additional Family Medical History / Comment(s): multiple cancers Medications and Allergies Home Medications Medication Instructions Recorded Confirmed Type Aspirin 81 mg PO DAILY@0800 05/01/22 12/21/22 History Atorvastatin [Lipitor] 20 mg PO DAILY@1630 05/01/22 12/21/22 History Ferrous Sulfate [Feosol] 325 mg PO DAILY@0800 05/01/22 12/21/22 History Fluticasone/Umeclidin/Vilanter 1 puff INHALATION RT-DAILY@0800 05/01/22 12/21/22 History [Trelegy Ellipta 100-62.5-25] Famotidine [Pepcid] 40 mg PO BID@0800,1700 09/04/22 12/21/22 History Albuterol Inhaler [Ventolin Hfa 1 - 2 puff INHALATION RT-Q6H PRN 10/31/22 12/21/22 History Inhaler] Metoprolol Succinate (ER) [Toprol 25 mg PO DAILY@1630 10/31/22 12/21/22 History XL] calcitrioL [Calcitriol] 0.25 mcg PO HERRERA@0800 10/31/22 12/21/22 History Loratadine [Claritin] 10 mg PO DAILY@0800 12/12/22 12/21/22 History Cyclobenzaprine [Flexeril] 5 mg PO TID PRN #40 tablet 12/20/22 12/21/22 Rx Cholecalciferol [Vitamin D3 (25 50 mcg PO DAILY@0800 12/21/22 12/21/22 History Mcg = 1000 Iu)] Denosumab [Prolia] 1 dose SQ Q18D 12/21/22 12/21/22 History Gabapentin 300 mg PO TID@08,12,17 12/21/22 12/21/22 History HYDROcodone/APAP 7.5-325MG [[place] 1 tab PO Q4HR PRN 12/21/22 12/21/22 History 7.5] Magnesium Hydroxide [Milk of 7,200 mg PO DAILY PRN 12/21/22 12/21/22 History Magnesia Concentrate] Na Phos,M-B/Na Phos,Di-Ba [Fleet 133 ml RECTAL DAILY PRN 12/21/22 12/21/22 History Adult] Sennosides/Docusate Sodium [Senna 1 tab PO DAILY PRN 12/21/22 12/21/22 History Plus 8.6-50 mg Tablet] bisacodyL [Dulcolax] 10 mg RECTAL DAILY PRN 12/21/22 12/21/22 History cefaDROXiL [Duricef] 500 mg PO BID@0800,2100 12/21/22 12/21/22 History Allergies Allergy/AdvReac Type Severity Reaction Status Date / Time No Known Allergies Allergy Verified 12/21/22 14:38 Physical Exam Vitals: Vital Signs Temp Pulse Resp BP Pulse Ox 12/22/22 12:00 100.4 F H 89 19 113/64 95 12/22/22 09:45 101.1 F H 112 H 16 137/68 95 12/22/22 06:25 98.8 F 98 18 156/82 96 12/22/22 02:48 98 F 82 16 140/88 98 12/21/22 23:28 92 18 123/68 94 L 12/21/22 21:01 98.4 F 77 18 112/54 94 L 12/21/22 18:51 100.1 F H 81 18 114/55 94 L 12/21/22 16:09 100.2 F H 86 114/55 98 12/21/22 14:49 101.4 F H 91 18 134/65 97 Results 12/22/22 07:35 12/22/22 07:35 Cardiac Enzymes 12/21/22 12/21/22 12/21/22 Range/Units 14:06 14:06 20:33 AST 53 H (14-36) U/L Troponin I 0.088 H* 0.054 H* (0.000-0.034) ng/mL 12/21/22 12/22/22 Range/Units 23:57 07:35 AST 39 H (14-36) U/L Troponin I 0.040 H* (0.000-0.034) ng/mL Coagulation 12/21/22 Range/Units 14:06 PT 9.5 L (10.0-12.5) sec APTT 22.2 (22.0-30.0) sec CBC 12/21/22 12/22/22 Range/Units 13:54 07:35 WBC 11.0 H 11.8 H (3.8-10.6) k/uL RBC 3.68 L 3.55 L (3.80-5.40) m/uL Hgb 11.7 11.4 (11.4-16.0) gm/dL Hct 36.2 36.1 (34.0-46.0) % Plt Count 236 180 (150-450) k/uL Comprehensive Metabolic Panel 12/21/22 12/22/22 Range/Units 14:06 07:35 Sodium 136 L 137 (137-145) mmol/L Potassium 4.4 4.5 (3.5-5.1) mmol/L Chloride 97 L 105 (98-107) mmol/L Carbon Dioxide 37 H 25 (22-30) mmol/L BUN 21 H 18 H (7-17) mg/dL Creatinine 0.81 0.61 (0.52-1.04) mg/dL Glucose 109 H 78 (74-99) mg/dL Calcium 8.6 8.0 L (8.4-10.2) mg/dL AST 53 H 39 H (14-36) U/L ALT 13 11 (4-34) U/L Alkaline Phosphatase 75 66 (38-126) U/L Total Protein 6.1 L 5.7 L (6.3-8.2) g/dL Albumin 3.1 L 2.8 L (3.5-5.0) g/dL Current Medications Generic Name Dose Route Start Last Admin Trade Name Freq PRN Reason Stop Dose Admin Acetaminophen 325 mg 12/22/22 10:32 Acetaminophen Tab 325 Mg Tab PO Q6HR PRN Fever and/ or Pain Hydrocodone Bitart/Acetaminophen 1 each 12/22/22 06:44 12/22/22 10:38 Hydrocodone/Apap 7.5-325mg 1 Each Tab PO 1 each Q4HR PRN Administration Pain Aspirin 81 mg 12/22/22 08:00 12/22/22 09:28 Aspirin 81 Mg PO 81 mg DAILY@0800 [facility] Administration Atorvastatin Calcium 20 mg 12/22/22 16:30 Atorvastatin 20 Mg Tab PO DAILY@1630 [facility] Bisacodyl 10 mg 12/22/22 06:44 Bisacodyl 10 Mg Supp RECTAL DAILY PRN Constipation Calcitriol 0.25 mcg 12/23/22 08:00 Calcitriol 0.25 Mcg Cap PO HERRERA@0800 [facility] Cyclobenzaprine HCl 5 mg 12/22/22 06:44 Cyclobenzaprine 5 Mg Tab PO TID PRN Muscle Spasm Famotidine 20 mg 12/22/22 09:00 12/22/22 09:28 Famotidine 20 Mg/2 Ml Vial IV 20 mg Q12HR LUIS E Administration Gabapentin 300 mg 12/22/22 08:00 12/22/22 09:28 Gabapentin 300 Mg Cap PO 300 mg TID@ [facility] Administration Sodium Chloride 1,000 mls @ 75 mls/hr 12/21/22 17:45 12/22/22 09:47 Saline 0.9% IV Not Given .[id number] [facility] Ceftriaxone Sodium 2 gm/ 50 mls @ 100 mls/hr 12/22/22 09:00 12/22/22 09:30 Sodium Chloride IVPB 100 mls/hr Q24HR [facility] Administration Protocol Metoprolol Succinate 25 mg 12/22/22 16:30 Metoprolol Succinate (Er) 25 Mg Tab.Er.24h PO DAILY@1630 [facility] Morphine Sulfate 4 mg 12/21/22 17:44 12/22/22 06:27 Morphine Sulfate 4 Mg/Ml Syringe IV 4 mg Q4HR PRN Administration Severe Pain (Scale 7 to 10) Naloxone HCl 0.2 mg 12/21/22 18:35 Naloxone 0.4 Mg/Ml 1 Ml Vial IV Q2M PRN Opioid Reversal Ondansetron HCl 4 mg 12/21/22 18:35 Ondansetron 4 Mg/2 Ml Vial IVP Q8HR PRN Nausea And Vomiting Pantoprazole Sodium 40 mg 12/22/22 09:00 12/22/22 09:29 Pantoprazole 40 Mg/10 Ml Vial IV 40 mg DAILY LUIS E Administration Senna/Docusate Sodium 1 each 12/22/22 06:44 Sennosides-Docusate Sodium 1 Each Tab PO DAILY PRN Constipation 12/22/22 07:35 12/22/22 07:35
--- NOTE | 2022-12-22 14:12 | P.CRDCN ---
History of Present Illness Consult date: 12/22/22 History of present illness: HISTORY OF PRESENTING ILLNESS Patient is a 89-year-old male with past medical history of CAD status post CABG in 1996, PPM, HTN, hyperlipidemia, type 2 diabetes, diabetic neuropathy, CKD stage IV, spondylosis with chronic back pain, squamous cell cancer. In April 2022 was admitted with NSTEMI and he was managed medically at that time. He has been followed up with Dr. Richmond who has been managing his heart failure with additional diuretic and Jardiance. Time patient present to the hospital because of significant shortness of breath and feeling weak and dizzy. On admission his chest x-ray shows evidence of pulmonary congestion. His labs showed albumin of 82, creatinine of 2.18, troponin of 0.118, hemoglobin 13.9 ECG showed atrial fibrillation with paced rhythm and PVCs REVIEW OF SYSTEMS 14 point review of system is negative except what is mentioned above in HPI. PHYSICAL EXAMINATION Vital signs reviewed. Head: Normocephalic. Eyes: Sclerae nonicteric. Neck: Brisk carotid upstroke, elevated JVD Lungs: Crackles in bilateral lungs. Heart: Irregularly irregular pulse. Abdomen: Soft nontender, positive bowel sounds no organomegaly. Extremities: 2+ pitting edema in bilateral lower extremity ASSESSMENT Acute on chronic systolic congestive heart failure exacerbation Ischemic cardiac myopathy with HFrEF LASHAWN with uremia CKD Atrial fibrillation chronic CAD status post CABG PLAN Continue aspirin and atorvastatin and Farxiga Agree with IV Lasix 40 mg to 8 hours Continue metoprolol 12.5 mg twice a day. Uptitrated as tolerated. Past Medical History Past Medical History: Cancer, GERD/Reflux, Hyperlipidemia, Hypertension, Musculoskeletal Disorder, Osteoarthritis (OA), Renal Disease Additional Past Medical History / Comment(s): Right breast cancer, back pain - steroid injections, hiatal hernia - not repaired. stage 3 vulva cancer-seeing oncologist in [facility].-surg. could possibly be postponed, gets SOB w/exertion, stage 3 kidney disease. History of Any Multi-Drug Resistant Organisms: None Reported Past Surgical History: Breast Surgery, Joint Replacement, Tonsillectomy, Tubal Ligation Additional Past Surgical History / Comment(s): Right breast mastectomy 2000, artificial vance. thumb joint (3 surgeries), left hand surgery, EGD 2010. back injections for pain, left cataract removed Past Anesthesia/Blood Transfusion Reactions: Postoperative Nausea & Vomiting (PONV) Additional Past Anesthesia/Blood Transfusion Reaction / Comment(s): only happened once years ago Past Psychological History: Depression Smoking Status: Former smoker Past Alcohol Use History: Rare Past Drug Use History: None Reported - Past Family History Mother Family Medical History: Cancer Additional Family Medical History / Comment(s): Stomach cancer Sister(s) Family Medical History: Cancer Additional Family Medical History / Comment(s): Lung cancer mets to brain Brother(s) Family Medical History: Cancer Additional Family Medical History / Comment(s): multiple cancers Medications and Allergies Home Medications Medication Instructions Recorded Confirmed Type Aspirin 81 mg PO DAILY@0800 05/01/22 12/21/22 History Atorvastatin [Lipitor] 20 mg PO DAILY@1630 05/01/22 12/21/22 History Ferrous Sulfate [Feosol] 325 mg PO DAILY@0800 05/01/22 12/21/22 History Fluticasone/Umeclidin/Vilanter 1 puff INHALATION RT-DAILY@0800 05/01/22 12/21/22 History [Treesme Ellipta 100-62.5-25] Famotidine [Pepcid] 40 mg PO BID@0800,1700 09/04/22 12/21/22 History Albuterol Inhaler [Ventolin Hfa 1 - 2 puff INHALATION RT-Q6H PRN 10/31/22 12/21/22 History Inhaler] Metoprolol Succinate (ER) [Toprol 25 mg PO DAILY@1630 10/31/22 12/21/22 History XL] calcitrioL [Calcitriol] 0.25 mcg PO HERRERA@0800 10/31/22 12/21/22 History Loratadine [Claritin] 10 mg PO DAILY@0800 12/12/22 12/21/22 History Cyclobenzaprine [Flexeril] 5 mg PO TID PRN #40 tablet 12/20/22 12/21/22 Rx Cholecalciferol [Vitamin D3 (25 50 mcg PO DAILY@0800 12/21/22 12/21/22 History Mcg = 1000 Iu)] Denosumab [Prolia] 1 dose SQ Q18D 12/21/22 12/21/22 History Gabapentin 300 mg PO TID@,,12/21/22 12/21/22 History HYDROcodone/APAP 7.5-325MG [[place] 1 tab PO Q4HR PRN 12/21/22 12/21/22 History 7.5] Magnesium Hydroxide [Milk of 7,200 mg PO DAILY PRN 12/21/22 12/21/22 History Magnesia Concentrate] Na Phos,M-B/Na Phos,Di-Ba [Fleet 133 ml RECTAL DAILY PRN 12/21/22 12/21/22 History Adult] Sennosides/Docusate Sodium [Senna 1 tab PO DAILY PRN 12/21/22 12/21/22 History Plus 8.6-50 mg Tablet] bisacodyL [Dulcolax] 10 mg RECTAL DAILY PRN 12/21/22 12/21/22 History cefaDROXiL [Duricef] 500 mg PO BID@0800,2100 12/21/22 12/21/22 History Allergies Allergy/AdvReac Type Severity Reaction Status Date / Time No Known Allergies Allergy Verified 12/21/22 14:38 Physical Exam Vitals: Vital Signs Temp Pulse Resp BP Pulse Ox 12/22/22 12:00 100.4 F H 89 19 113/64 95 12/22/22 09:45 101.1 F H 112 H 16 137/68 95 12/22/22 06:25 98.8 F 98 18 156/82 96 12/22/22 02:48 98 F 82 16 140/88 98 12/21/22 23:28 92 18 123/68 94 L 12/21/22 21:01 98.4 F 77 18 112/54 94 L 12/21/22 18:51 100.1 F H 81 18 114/55 94 L 12/21/22 16:09 100.2 F H 86 114/55 98 12/21/22 14:49 101.4 F H 91 18 134/65 97 Results 12/22/22 07:35 12/22/22 07:35 Cardiac Enzymes 12/21/22 12/21/22 12/21/22 Range/Units 14:06 14:06 20:33 AST 53 H (14-36) U/L Troponin I 0.088 H* 0.054 H* (0.000-0.034) ng/mL 12/21/22 12/22/22 Range/Units 23:57 07:35 AST 39 H (14-36) U/L Troponin I 0.040 H* (0.000-0.034) ng/mL Coagulation 12/21/22 Range/Units 14:06 PT 9.5 L (10.0-12.5) sec APTT 22.2 (22.0-30.0) sec CBC 12/21/22 12/22/22 Range/Units 13:54 07:35 WBC 11.0 H 11.8 H (3.8-10.6) k/uL RBC 3.68 L 3.55 L (3.80-5.40) m/uL Hgb 11.7 11.4 (11.4-16.0) gm/dL Hct 36.2 36.1 (34.0-46.0) % Plt Count 236 180 (150-450) k/uL Comprehensive Metabolic Panel 12/21/22 12/22/22 Range/Units 14:06 07:35 Sodium 136 L 137 (137-145) mmol/L Potassium 4.4 4.5 (3.5-5.1) mmol/L Chloride 97 L 105 (98-107) mmol/L Carbon Dioxide 37 H 25 (22-30) mmol/L BUN 21 H 18 H (7-17) mg/dL Creatinine 0.81 0.61 (0.52-1.04) mg/dL Glucose 109 H 78 (74-99) mg/dL Calcium 8.6 8.0 L (8.4-10.2) mg/dL AST 53 H 39 H (14-36) U/L ALT 13 11 (4-34) U/L Alkaline Phosphatase 75 66 (38-126) U/L Total Protein 6.1 L 5.7 L (6.3-8.2) g/dL Albumin 3.1 L 2.8 L (3.5-5.0) g/dL Current Medications Generic Name Dose Route Start Last Admin Trade Name Freq PRN Reason Stop Dose Admin Acetaminophen 325 mg 12/22/22 10:32 Acetaminophen Tab 325 Mg Tab PO Q6HR PRN Fever and/ or Pain Hydrocodone Bitart/Acetaminophen 1 each 12/22/22 06:44 12/22/22 10:38 Hydrocodone/Apap 7.5-325mg 1 Each Tab PO 1 each Q4HR PRN Administration Pain Aspirin 81 mg 10/14/23 08:00 12/22/22 09:28 Aspirin 81 Mg PO 81 mg DAILY@0800 [facility] Administration Atorvastatin Calcium 20 mg 12/22/22 16:30 Atorvastatin 20 Mg Tab PO DAILY@1630 [facility] Bisacodyl 10 mg 12/22/22 06:44 Bisacodyl 10 Mg Supp RECTAL DAILY PRN Constipation Calcitriol 0.25 mcg 12/23/22 08:00 Calcitriol 0.25 Mcg Cap PO HERRERA@0800 [facility] Cyclobenzaprine HCl 5 mg 12/22/22 06:44 Cyclobenzaprine 5 Mg Tab PO TID PRN Muscle Spasm Famotidine 20 mg 12/22/22 09:00 12/22/22 09:28 Famotidine 20 Mg/2 Ml Vial IV 20 mg Q12HR [facility] Administration Gabapentin 300 mg 12/22/22 08:00 12/22/22 09:28 Gabapentin 300 Mg Cap PO 300 mg TID@08,,17 [facility] Administration Sodium Chloride 1,000 mls @ 75 mls/hr 12/21/22 17:45 12/22/22 09:47 Saline 0.9% IV Not Given .[id number] [facility] Ceftriaxone Sodium 2 gm/ 50 mls @ 100 mls/hr 12/22/22 09:00 12/22/22 09:30 Sodium Chloride IVPB 100 mls/hr Q24HR [facility] Administration Protocol Metoprolol Succinate 25 mg 12/22/22 16:30 Metoprolol Succinate (Er) 25 Mg Tab.Er.24h PO DAILY@1630 [facility] Morphine Sulfate 4 mg 12/21/22 17:44 12/22/22 06:27 Morphine Sulfate 4 Mg/Ml Syringe IV 4 mg Q4HR PRN Administration Severe Pain (Scale 7 to 10) Naloxone HCl 0.2 mg 12/21/22 18:35 Naloxone 0.4 Mg/Ml 1 Ml Vial IV Q2M PRN Opioid Reversal Ondansetron HCl 4 mg 12/21/22 18:35 Ondansetron 4 Mg/2 Ml Vial IVP Q8HR PRN Nausea And Vomiting Pantoprazole Sodium 40 mg 12/22/22 09:00 12/22/22 09:29 Pantoprazole 40 Mg/10 Ml Vial IV 40 mg DAILY [facility] Administration Senna/Docusate Sodium 1 each 12/22/22 06:44 Sennosides-Docusate Sodium 1 Each Tab PO DAILY PRN Constipation 12/22/22 07:35 12/22/22 07:35
--- NOTE | 2022-12-22 15:40 | XR ---
EXAMINATION TYPE: XR chest 2V DATE OF EXAM: 12/22/2022 2:13 PM CLINICAL INDICATION:Female, 72 years old with history of previous abnormal xray; [facility] COMPARISON: Chest radiographs from 12/21/2022 TECHNIQUE: XR chest 2V Frontal and lateral views of the chest. FINDINGS: Lungs/Pleura: Prominent interstitial lung markings are seen scattered throughout the lungs with jimenez ening of the diaphragm and increased lucency of the lung apices. No evidence of focal consolidation, pneumothorax or pleural effusion. Pulmonary vascularity: Unremarkable. Heart/mediastinum: Cardiomediastinal silhouette is unremarkable. Musculoskeletal: No acute osseous pathology. Surgical skins clips are projecting over the neck. Here is fixation hardware in the lower cervical spine. IMPRESSION: Chronic fibrotic change COPD similar to most recent prior..
[2022-12-22] MEDS: ATORVASTATIN 20 MG TAB PO SCH (17:26)
[2022-12-22] MEDS: METOPROLOL SUCCINATE (ER) 25 MG TAB.ER.24H PO SCH (17:26)
[2022-12-22] MEDS: CYCLOBENZAPRINE 5 MG TAB PO PRN (20:21)
[2022-12-23] MEDS: SODIUM CHLORIDE 0.9% 1,000 ML IV SCH ×2 (04:09→17:17)
[2022-12-23] MEDS: HYDROcodone/APAP 7.5-325MG 1 EACH TAB PO PRN ×2 (04:10→09:19)
[2022-12-23] MEDS: CYCLOBENZAPRINE 5 MG TAB PO PRN ×2 (04:10→09:20)
--- NOTE | 2022-12-23 09:18 | P.CNNES ---
History of Present Illness Consult date: 12/22/22 History of Present Illness: The patient is a 72 y/o female who is seen in neurologic consultation on , in collaboration with Clarissa Canela, via teleneurology. History is obtained from review of the chart, the RN at the bedside and the pt. The pt reports that she had surgery on her neck on 2022. She was subsequently discharged to [facility], for rehab. She reports that she began to experience weakness and numbness and tingling in all 4 extremities, especially her hands. In addition, the pt reports that she started hearing voices and seeing things that were not there. The pt denies headache and urinary symptoms. The pt reports severe neck pain. the pt reports that she has been unable to eat, because of the neck brace. She does report difficulty swallowing. She also says that her hands feel cold to her. The pt was febrile when she came into the hospital. In the ER, CT scan of the brain revealed left basal ganglia infarct of "indeterminent" age. Past Medical History Past Medical History: Cancer, GERD/Reflux, Hyperlipidemia, Hypertension, Musculoskeletal Disorder, Osteoarthritis (OA), Renal Disease Additional Past Medical History / Comment(s): Right breast cancer, back pain - steroid injections, hiatal hernia - not repaired. stage 3 vulva cancer-seeing oncologist in [facility].-surg. could possibly be postponed, gets SOB w/exertion, stage 3 kidney disease. History of Any Multi-Drug Resistant Organisms: None Reported Past Surgical History: Breast Surgery, Joint Replacement, Tonsillectomy, Tubal Ligation Additional Past Surgical History / Comment(s): Right breast mastectomy 2000, artificial vance. thumb joint (3 surgeries), left hand surgery, EGD 2010. back injections for pain, left cataract removed 12/18/2022 C2-T2 fusion. Past Anesthesia/Blood Transfusion Reactions: Postoperative Nausea & Vomiting (PONV) Additional Past Anesthesia/Blood Transfusion Reaction / Comment(s): only happened once years ago Past Psychological History: Depression Additional Psychological History / Comment(s): depressed due to back issue Smoking Status: Former smoker Past Alcohol Use History: Rare Additional Past Alcohol Use History / Comment(s): quit smoking 4 yrs. ago, smoked 20-30 yrs., 1ppd or more Past Drug Use History: None Reported Additional Drug Use History / Comment(s): occasional use - Past Family History Mother Family Medical History: Cancer Additional Family Medical History / Comment(s): Stomach cancer Sister(s) Family Medical History: Cancer Additional Family Medical History / Comment(s): Lung cancer mets to brain Brother(s) Family Medical History: Cancer Additional Family Medical History / Comment(s): multiple cancers Medications and Allergies Home Medications Medication Instructions Recorded Confirmed Type Aspirin 81 mg PO DAILY@0800 05/01/22 12/21/22 History Atorvastatin [Lipitor] 20 mg PO DAILY@1630 05/01/22 12/21/22 History Ferrous Sulfate [Feosol] 325 mg PO DAILY@0800 05/01/22 12/21/22 History Fluticasone/Umeclidin/Vilanter 1 puff INHALATION RT-DAILY@0800 05/01/22 12/21/22 History [Trelegy Ellipta 100-62.5-25] Famotidine [Pepcid] 40 mg PO BID@0800,1700 09/04/22 12/21/22 History Albuterol Inhaler [Ventolin Hfa 1 - 2 puff INHALATION RT-Q6H PRN 10/31/22 12/21/22 History Inhaler] Metoprolol Succinate (ER) [Toprol 25 mg PO DAILY@1630 10/31/22 12/21/22 History XL] calcitrioL [Calcitriol] 0.25 mcg PO HERRERA@0800 10/31/22 12/21/22 History Loratadine [Claritin] 10 mg PO DAILY@0800 12/12/22 12/21/22 History Cyclobenzaprine [Flexeril] 5 mg PO TID PRN #40 tablet 12/20/22 12/21/22 Rx Cholecalciferol [Vitamin D3 (25 50 mcg PO DAILY@0800 12/21/22 12/21/22 History Mcg = 1000 Iu)] Denosumab [Prolia] 1 dose SQ Q18D 12/21/22 12/21/22 History Gabapentin 300 mg PO TID@08,12,17 12/21/22 12/21/22 History HYDROcodone/APAP 7.5-325MG [[place] 1 tab PO Q4HR PRN 12/21/22 12/21/22 History 7.5] Magnesium Hydroxide [Milk of 7,200 mg PO DAILY PRN 12/21/22 12/21/22 History Magnesia Concentrate] Na Phos,M-B/Na Phos,Di-Ba [Fleet 133 ml RECTAL DAILY PRN 12/21/22 12/21/22 History Adult] Sennosides/Docusate Sodium [Senna 1 tab PO DAILY PRN 12/21/22 12/21/22 History Plus 8.6-50 mg Tablet] bisacodyL [Dulcolax] 10 mg RECTAL DAILY PRN 12/21/22 12/21/22 History cefaDROXiL [Duricef] 500 mg PO BID@0800,2100 12/21/22 12/21/22 History Allergies Allergy/AdvReac Type Severity Reaction Status Date / Time No Known Allergies Allergy Verified 12/21/22 14:38 Physical Examination - Vital Signs Vital Signs: Vital Signs Temp Pulse Pulse Resp BP BP Pulse Ox 12/23/22 04:15 98.7 F 94 17 129/62 94 L 12/23/22 00:00 98.4 F 91 17 114/69 94 L 12/22/22 20:15 100.3 F H 89 18 120/66 99 12/22/22 18:13 16 12/22/22 16:00 99 F 105 H 16 148/80 91 L 12/22/22 12:00 100.4 F H 89 19 113/64 95 12/22/22 09:45 101.1 F H 112 H 16 137/68 95 Intake and Output 12/22/22 12/23/22 12/23/22 22:59 06:59 14:59 Intake Total 50 Balance 50 Intake: Oral 50 Other: Voiding Method Bedpan Bedpan # Voids 1 1 Weight 67.585 kg 69.5 kg General: The pt is reclining in the bed. She well-nourished. She is in moderate distress HEENT: Head is atraumatic, normocephalic. Fundus not visualized. There is no scleral icterus. Mucous membranes moist. Neck: Cervical collar in place. Heart: Regular rate and rhythm, without murmur Lungs: Essentially clear to auscultation. the pt has a wet cough Extremities: Without edema, warm to touch. Strong pulses Neurological Examination Mental status: The pt is awake, alert and oriented x3. Speech is clear, without dysarthria. There is no anomia. The pt is able to repeat phrases Cranial Nerves: Pupils are equal at 2mm and reactive. Visual márquez are full. Extraocular movements intact. No nystagmus. Facial sensation intact. No facial asymmetry. Hearing grossly intact. Uvula and palate midline. Shoulder shrug symmetric. Tongue protrudes midline. 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 The pt was able to move bilateral lower extremities. Sensation: Reports decreased touch to the left upper extremity Coordination: Not assessed. Deep tendon reflexes: Absent throughout. The pt was unable to relax her extremities. Gait: Not assessed Results - Laboratory Findings CBC and BMP: 12/22/22 07:35 12/22/22 07:35 Abnormal Lab Findings: Abnormal Labs 12/21/22 12/21/22 12/21/22 13:54 14:06 14:06 WBC 11.0 H RBC 3.68 L MCV Neutrophils # 9.3 H Lymphocytes # 0.7 L PT 9.5 L Sodium 136 L Chloride 97 L Carbon Dioxide 37 H BUN 21 H Glucose 109 H Calcium Phosphorus 2.4 L AST 53 H Troponin I Total Protein 6.1 L Albumin 3.1 L TSH 0.134 L Urine Protein Urine Blood Ur Leukocyte Esterase Urine WBC Ur Squamous Epith Cells Urine Bacteria Urine Mucus 12/21/22 12/21/22 12/21/22 14:06 15:12 20:33 WBC RBC MCV Neutrophils # Lymphocytes # PT Sodium Chloride Carbon Dioxide BUN Glucose Calcium Phosphorus AST Troponin I 0.088 H* 0.054 H* Total Protein Albumin TSH Urine Protein Trace H Urine Blood Trace H Ur Leukocyte Esterase Large H Urine WBC 22 H Ur Squamous Epith Cells 6 H Urine Bacteria Rare H Urine Mucus Rare H 12/21/22 12/22/22 12/22/22 23:57 07:35 07:35 WBC 11.8 H RBC 3.55 L MCV 101.6 H Neutrophils # 10.5 H Lymphocytes # 0.5 L PT Sodium Chloride Carbon Dioxide BUN 18 H Glucose Calcium 8.0 L Phosphorus 2.4 L AST 39 H Troponin I 0.040 H* Total Protein 5.7 L Albumin 2.8 L TSH Urine Protein Urine Blood Ur Leukocyte Esterase Urine WBC Ur Squamous Epith Cells Urine Bacteria Urine Mucus - Diagnostic Findings Comments: CT brain images have been personally reviewed Assessment and Plan Assessment: 1. Delirium: Reported confusion, hallucinations, likley secondary to urinary tract infection 2. Reported left basal ganglia infarct, per CT brain, unknown age-would not explain pt's symptoms 3. Recent cervical spine surgery with possible swelling of surrounding tissue, resulting in increased paresthesias and weakness Plan: 1. MRI brain has been ordered to further clarify age of stroke 2. Consult PT and OT 3. Repeat CXR in light of pt's cough 4. Treat UTI thank you for allowing us to participate in the care of this pt. Time with Patient: Greater than 30 (spent 50 minutes caring for this pt)
[2022-12-23] MEDS: PANTOPRAZOLE 40 MG/10 ML VIAL IV SCH (09:19)
[2022-12-23] MEDS: ASPIRIN 81 MG PO SCH (09:20)
[2022-12-23] MEDS: GABAPENTIN 300 MG CAP PO SCH ×3 (09:20→17:18)
[2022-12-23 09:30] LABS: Basophils % (A) 0 %; Eosinophils # (A) 0.3 k/uL (0-0.7); Eosinophils % (A) 4 %; HCT 33.3 % (34.0-46.0); HGB 10.4 gm/dL (11.4-16.0); Hypochromasia Slight; Lymphocytes # (A) 1.1 k/uL (1.0-4.8); Lymphocytes % (A) 14 %; MCH 31.3 pg (25.0-35.0); MCHC 31.2 g/dL (31.0-37.0); Mean Platelet Volume 8.6; Monocytes # (A) 0.4 k/uL (0-1.0); Monocytes % (A) 5 %; Neutrophils # (A) 6.2 k/uL (1.3-7.7); Neutrophils % (A) 75 %; Platelet Count 265 k/uL (150-450); RBC 3.33 m/uL (3.80-5.40); RDW 13.7 % (11.5-15.5); WBC 8.2 k/uL (3.8-10.6)
[2022-12-23 09:41] LABS: African American GFR (CKD) >90 (>60 ml/min/1.73 sqM); Anion Gap 6 mmol/L; Blood Urea Nitrogen 19 mg/dL (7-17); Calcium 7.8 mg/dL (8.4-10.2); Carbon Dioxide 30 mmol/L (22-30); Chloride 102 mmol/L (98-107); Glucose 80 mg/dL (74-99); Non-African American GFR(CKD) 78 (>60 ml/min/1.73 sqM); Sodium 138 mmol/L (137-145)
--- NOTE | 2022-12-23 09:49 | CA ---
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 Ivory Mack [facility] Procedure CPT: Indications: sob Cardiac Hx: Technical Quality: Technically difficult study Contrast 1: Lumason Total Dose (mL): 5 Contrast 2: Total Dose (mL): MEASUREMENTS (Male / Female) Normal Values DOPPLER AV Peak Velocity 132.8 cm/s AV Peak Gradient 7.1 mmHg AV Mean Velocity 99.3 cm/s AV Mean Gradient 4.2 mmHg AV Velocity Time Integral 23.4 cm LVOT Peak Velocity 99.8 cm/s LVOT Peak Gradient 4.0 mmHg LVOT Velocity Time Integral 17.5 cm Mitral E Point Velocity 67.3 cm/s Mitral A Point Velocity 73.0 cm/s Mitral E to A Ratio 0.9 MV Deceleration Time 204.9 ms LV E' Lateral Velocity 6.5 cm/s Mitral E to LV E' Lateral Ratio 10.4 LV E' Septal Velocity 7.5 cm/s Mitral E to LV E' Septal Ratio 8.9 TR Peak Velocity 336.7 cm/s TR Peak Gradient 45.3 mmHg Right Atrial Pressure 3.0 mmHg Pulmonary Artery Systolic Pressu 48.3 mmHg Right Ventricular Systolic Press 48.3 mmHg FINDINGS Left Ventricle Left ventricular wall thickness normal. Left ventricular cavity size normal. Normal left ventricular systolic function with no obvious regional wall motion abnormalities. Left ventricular ejection fraction is estimated at 55-60%. Right Ventricle Normal right ventricular size. Moderate pulmonary hypertension. Right Atrium Normal right atrial size. Left Atrium Normal left atrial size. Mitral Valve Structurally normal mitral valve. Trace mitral regurgitation. Aortic Valve Aortic valve not well visualized. No aortic valve stenosis or regurgitation. Tricuspid Valve Structurally normal tricuspid valve. Moderate tricuspid regurgitation. Pulmonic Valve Pulmonic valve not well visualized. Pericardium Small pericardial effusion with no evidence of tamponade Aorta Normal size aortic root and proximal ascending aorta. CONCLUSIONS Technically difficult study. Left ventricular ejection fraction is estimated at 55-60%. No obvious regional wall motion abnormalities. Small pericardial effusion with no evidence of tamponade. Previewed by: Dr Betito Reardon (Electronically Signed) Final Date: 23 December 2022 09:48
[2022-12-23 09:58] LABS: T4, Free (Free Thyroxine) 1.51 ng/dL (0.78-2.19)
--- NOTE | 2022-12-23 11:59 | P.PN ---
Subjective this is a pleasant 72 f with past medical history of GERD/Reflux, Hyperlipidemia, Hypertension, Osteoarthritis , Right breast cancer, back pain - steroid injections, hiatal hernia - stage 3 vulva cancer-, SOB w/exertion, stage 3 kidney disease., Right breast mastectomy 2000, Depression Patient states she came from [facility] after she had recent surgery at her neck, currently she had a hard collar in a Place, she looks tired and pain in her neck. Also states that she's been complaining of from numbness in both hands and fingers since after surgery. Patient was talking to herself, she's been hearing voices from people she see them while her eyes closed including her son but she cannot remember what they told her. She still complaining from significant pain after her neck. However patient denies abdominal pain diarrhea. No vomiting. Not sure if we have any urinary symptoms. She has little dry cough but no dyspnea. She denies weakness or dizziness. He denies previous history of stroke and she does not follow up with the neurologist. On admission patient had fever over 100.1. Rest of vitals looks stable. Showing mild leukocytosis of 11,000, rest of CBC is unremarkable INR 0.8. Creatinine is normal 0.8. Sodium 136. Liver enzymes not elevated. ProBNP is 4740, troponin elevated 0.08, 0.05 and 0.04. TSH is low 0.23 Urine analysis is suspicious for infection with large leukocyte esterase. Coronavirus not detected EKG showed normal sinus rhythm at 90 with T-wave inversion in V2 and V3 CT of the head and cervical spine: Showed small infarct in the region of the left basal ganglia of indeterminant age. No acute bleed or mass effect. 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 Patient currently on baby aspirin 81 mg She had a fever of 101 yesterday, no more fever today, she is on ceftriaxone 2 g for UTI versus other blood culture and urine culture are pending Also she is on normal saline 75 mL/h Neurologist requested MRI of the brain which is pending assessment for her stroke of undetermined age in the basal ganglia. Heart, place and patient is being followed also by orthopedic team Active Medications Generic Name Dose Route Start Last Admin Trade Name Freq PRN Reason Stop Dose Admin Acetaminophen 325 mg 12/22/22 10:32 Acetaminophen Tab 325 Mg Tab PO Q6HR PRN Fever and/ or Pain Hydrocodone Bitart/Acetaminophen 1 each 12/22/22 06:44 12/23/22 09:19 Hydrocodone/Apap 7.5-325mg 1 Each Tab PO 1 each Q4HR PRN Administration Pain Aspirin 81 mg 12/22/22 08:00 12/23/22 09:20 Aspirin 81 Mg PO 81 mg DAILY@0800 LUIS E Administration Atorvastatin Calcium 20 mg 12/22/22 16:30 12/22/22 17:26 Atorvastatin 20 Mg Tab PO 20 mg DAILY@1630 LUIS E Administration Bisacodyl 10 mg 12/22/22 06:44 Bisacodyl 10 Mg Supp RECTAL DAILY PRN Constipation Calcitriol 0.25 mcg 12/23/22 08:00 12/23/22 09:20 Calcitriol 0.25 Mcg Cap PO 0.25 mcg HERRERA@0800 LUIS E Administration Cyclobenzaprine HCl 5 mg 12/22/22 06:44 12/23/22 09:20 Cyclobenzaprine 5 Mg Tab PO 5 mg TID PRN Administration Muscle Spasm Gabapentin 300 mg 12/22/22 08:00 12/23/22 09:20 Gabapentin 300 Mg Cap PO 300 mg TID@08,12,17 LUIS E Administration Sodium Chloride 1,000 mls @ 75 mls/hr 12/21/22 17:45 12/23/22 04:09 Saline 0.9% IV 75 mls/hr .[id number] LUIS E Administration Ceftriaxone Sodium 2 gm/ 50 mls @ 100 mls/hr 12/22/22 09:00 12/23/22 09:19 Sodium Chloride IVPB 100 mls/hr Q24HR LUIS E Administration Protocol Metoprolol Succinate 25 mg 12/22/22 16:30 12/22/22 17:26 Metoprolol Succinate (Er) 25 Mg Tab.Er.24h PO 25 mg DAILY@1630 LUIS E Administration Morphine Sulfate 4 mg 12/21/22 17:44 12/22/22 06:27 Morphine Sulfate 4 Mg/Ml Syringe IV 4 mg Q4HR PRN Administration Severe Pain (Scale 7 to 10) Naloxone HCl 0.2 mg 12/21/22 18:35 Naloxone 0.4 Mg/Ml 1 Ml Vial IV Q2M PRN Opioid Reversal Ondansetron HCl 4 mg 12/21/22 18:35 Ondansetron 4 Mg/2 Ml Vial IVP Q8HR PRN Nausea And Vomiting Pantoprazole Sodium 40 mg 12/22/22 09:00 12/23/22 09:19 Pantoprazole 40 Mg/10 Ml Vial IV 40 mg DAILY LUIS E Administration Senna/Docusate Sodium 1 each 12/22/22 06:44 Sennosides-Docusate Sodium 1 Each Tab PO DAILY PRN Constipation Objective - Vital Signs Vital signs: Vital Signs Temp 98.6 F 12/23/22 08:00 Pulse 89 12/23/22 08:00 Resp 16 12/23/22 08:00 BP 129/81 12/23/22 08:00 Pulse Ox 97 12/23/22 09:25 FiO2 Intake & Output 12/22/22 12/23/22 12/23/22 18:59 06:59 18:59 Intake Total 50 Balance 50 Weight 67.585 kg 69.5 kg Intake: Oral 50 Other: Voiding Method Bedpan Bedpan Bedpan # Voids 1 - Exam GENERAL: The patient is alert and oriented x3, not in any acute distress. Well developed, well nourished. HEENT: Pupils are round and equally reacting to light. EOMI. No scleral icterus. No conjunctival pallor. Normocephalic, atraumatic. No pharyngeal erythema. No thyromegaly. CARDIOVASCULAR: S1 and S2 present. No murmurs, rubs, or gallops. PULMONARY: Chest is clear to auscultation, no wheezing , no crackles. ABDOMEN: Soft, nontender, nondistended, normoactive bowel sounds. No palpable organomegaly. MUSCULOSKELETAL: No joint swelling or deformity. EXTREMITIES: No cyanosis, clubbing, or pedal edema. NEUROLOGICAL: Gross neurological examination did not reveal any focal deficits. SKIN: No rashes. no petechiae. - Labs CBC & Chem 7: 12/23/22 08:57 12/23/22 08:57 Labs: Abnormal Lab Results - Last 24 Hours (Table) 12/23/22 12/23/22 Range/Units 08:57 08:57 RBC 3.33 L (3.80-5.40) m/uL Hgb 10.4 L (11.4-16.0) gm/dL Hct 33.3 L (34.0-46.0) % BUN 19 H (7-17) mg/dL Calcium 7.8 L (8.4-10.2) mg/dL TSH 0.290 L (0.465-4.680) mIU/L Microbiology - Last 24 Hours (Table) 12/21/22 15:00 Blood Culture - Preliminary Blood 12/21/22 14:45 Blood Culture - Preliminary Blood Assessment and Plan Assessment: acute urinary tract infection mild sepsis with Fever and mild leukocytosis Visual and auditory hallucinations, improved elevated troponin Severe osteoarthritis with recent history of neck pain and weakness in the arms, status post C2 to T2 decompression fusion postoperative pain Patient presents with weakness and CT of the brain showing left basal ganglia stroke INDETERMINANT age GERD/Reflux Hyperlipidemia Hypertension Osteoarthritis Right breast cancer chronic back pain - steroid injections h/o hiatal hernia h/o stage 3 vulva cancer- h/o SOB w/exertion stage 3 kidney disease h/oRight breast mastectomy 2000 Depression, not active issue currently Plan: Continue with ceftriaxone Continue with IV hydration Follow-up urine culture Pain management Follow-up MRI of the brain Orthopedic team on the case Consults cardiology service Consult neurology service Labs and medication were reviewed.. Continue same treatment. Continue with symptomatic treatment. Resume home medication. Monitor labs and vitals. DVT and GI prophylaxis. Further recommendations as per clinical course of the patient DVT prophylaxis: SCD GI Prophylaxis: Pepcid PT/OT: Pending Prognosis is guarded
[2022-12-23] MEDS: SENNOSIDES-DOCUSATE SODIUM 1 EACH TAB PO PRN (12:09)
--- NOTE | 2022-12-23 12:23 | P.PN ---
Subjective Progress Note Date: 12/23/22 Progress note: She was doing well from cardiac vessel standpoint. No concerns of active ischemia or pericarditis. Echo does show small pericardial effusion but no evidence of tamponade physiology. Her ECG is not system off pericarditis. She does not have any symptoms of pericarditis. HISTORY OF PRESENTING ILLNESS 72-year-old female who underwent decompression fracture surgery 4 days ago AT the rehab and was not doing well. She was complaining of bilateral arm numbing and tingling sensation and generalized pain due to which she came to the ER. Cardiology was consulted to evaluate for difficulty breathing and chest pain. Next On evaluating her bedside this morning she denies any chest pain or chest pressure. She reports that her breathing is back to her baseline. She complains of numbness and tingling in bilateral upper extremities. Her labs showed a troponin of 0.05, 0.04. Her kidney function is normal with creatinine of 0.6, hemoglobin is 11.4 Her ECG shows sinus rhythm with incomplete right bundle branch block with nonspecific ST changes. This ECGs similar to her ECG prior to her surgery with no changes. REVIEW OF SYSTEMS 14 point review of system is negative except what is mentioned above in HPI. PHYSICAL EXAMINATION Vital signs reviewed. Head: Normocephalic. Eyes: Sclerae nonicteric. Neck: Brisk carotid upstroke, no jugular venous distention. Lungs: Clear to auscultation. Heart: Regular rate and rhythm, S1-S2, no S3, no murmur or rub. Abdomen: Soft nontender, positive bowel sounds no organomegaly. Extremities: No edema, intact distal pulses. ASSESSMENT Severe osteoporosis with recent spinal decompression surgery postop day 5 Bilateral upper extremity numbness and sensation Noncardiac chest pain, rule out of ACS. Mild downtrending elevation of troponin likely due to recent surgery and appears to be noncardiac Other comorbidities Small pericardial effusion PLAN Continue her home medications No concerns of acute coronary syndrome Small pericardial effusion, no evidence of tamponade physiology. No evidence of pericardial chest pain. Recommend repeating echocardiogram as an outpatient in next 1 month. Cardiology team will sign off. Objective - Vital Signs Vital signs: Vital Signs Temp 98.6 F 12/23/22 08:00 Pulse 87 12/23/22 12:00 Resp 16 12/23/22 12:00 BP 110/69 12/23/22 12:00 Pulse Ox 96 12/23/22 12:00 FiO2 Intake & Output 12/22/22 12/23/22 12/23/22 18:59 06:59 18:59 Intake Total 50 Balance 50 Weight 67.585 kg 69.5 kg Intake: Oral 50 Other: Voiding Method Bedpan Bedpan Bedpan # Voids 1 - Labs CBC & Chem 7: 12/23/22 08:57 12/23/22 08:57 Labs: Abnormal Lab Results - Last 24 Hours (Table) 12/23/22 12/23/22 Range/Units 08:57 08:57 RBC 3.33 L (3.80-5.40) m/uL Hgb 10.4 L (11.4-16.0) gm/dL Hct 33.3 L (34.0-46.0) % BUN 19 H (7-17) mg/dL Calcium 7.8 L (8.4-10.2) mg/dL TSH 0.290 L (0.465-4.680) mIU/L Microbiology - Last 24 Hours (Table) 12/21/22 15:00 Blood Culture - Preliminary Blood 12/21/22 14:45 Blood Culture - Preliminary Blood
--- NOTE | 2022-12-23 15:24 | P.PN ---
Subjective Progress Note Date: 12/23/22 The pt is seen in neurologic follow up on 2022, in collaboration with Clarissa Canela, via teleneurology. The pt reports feeling slightly better today. She continues to have neck pain, however it is improved with the pain medication. Her mental status has improved. She reports continued numbness and tingling of her hands. Objective - Vital Signs Vital signs: Vital Signs Temp 98.6 F 12/23/22 08:00 Pulse 87 12/23/22 12:00 Resp 16 12/23/22 12:00 BP 110/69 12/23/22 12:00 Pulse Ox 96 12/23/22 12:00 FiO2 Intake & Output 12/22/22 12/23/22 12/23/22 18:59 06:59 18:59 Intake Total 50 Balance 50 Weight 67.585 kg 69.5 kg Intake: Oral 50 Other: Voiding Method Bedpan Bedpan Bedpan # Voids 1 - Exam General: The pt is reclining in the bed. She has a soft cervical collar in place. She is in no acute distress. HEENT: Head is atraumatic, normocephalic. Neurologic examination Mental status: The pt is awake, alert and oriented x3. Speech is clear. Cranial nerves: 2-12 grossly intact Motor: Strength (right listed first) hip flexors 4/4, ankle plantar flexors 4/4, tree warden 5/5, biceps 4/4, triceps 5/4 Coordination: Heel to de la paz testing intact bilaterally Deep tendon reflexes: 3+/4+ at the bilateral uppers, 2+/4+ at the right knee and 1+/4+ at the left knee - Labs CBC & Chem 7: 12/23/22 08:57 12/23/22 08:57 Labs: Abnormal Lab Results - Last 24 Hours (Table) 12/23/22 12/23/22 Range/Units 08:57 08:57 RBC 3.33 L (3.80-5.40) m/uL Hgb 10.4 L (11.4-16.0) gm/dL Hct 33.3 L (34.0-46.0) % BUN 19 H (7-17) mg/dL Calcium 7.8 L (8.4-10.2) mg/dL TSH 0.290 L (0.465-4.680) mIU/L Microbiology - Last 24 Hours (Table) 12/21/22 15:00 Blood Culture - Preliminary Blood 12/21/22 14:45 Blood Culture - Preliminary Blood Assessment and Plan Assessment: 1. Delirium: Reported confusion, hallucinations, likley secondary to urinary tract infection-mental status changes have resolved 2. Reported left basal ganglia infarct, per CT brain, unknown age-would not explain pt's symptoms 3. Recent cervical spine surgery with possible swelling of surrounding tissue, resulting in increased paresthesias and weakness Plan: 1. MRI brain has been ordered to further clarify age of stroke 2. Consult PT and OT 3. Treat UTI thank you for allowing us to participate in the care of this pt. Time with Patient: Less than 30
[2022-12-23] MEDS: ATORVASTATIN 20 MG TAB PO SCH (17:18)
[2022-12-23] MEDS: METOPROLOL SUCCINATE (ER) 25 MG TAB.ER.24H PO SCH (17:18)
[2022-12-24] MEDS: SODIUM CHLORIDE 0.9% 1,000 ML IV SCH ×2 (04:13→19:34)
[2022-12-24] MEDS: MORPHINE SULFATE 4 MG/ML SYRINGE IV PRN ×2 (07:54→17:20)
[2022-12-24] MEDS: GABAPENTIN 300 MG CAP PO SCH ×3 (07:56→17:08)
[2022-12-24] MEDS: PANTOPRAZOLE 40 MG/10 ML VIAL IV SCH (07:56)
[2022-12-24] MEDS: ASPIRIN 81 MG PO SCH (07:57)
--- NOTE | 2022-12-24 08:39 | P.PN ---
Subjective Progress Note Date: 12/24/22 Principal diagnosis: increased neck pain s/p C2-T2 decompression and fusion Patient seen and examined this morning. Patient is resting currently in bed. Soft cervical collar is in place. He does have complaint of posterior cervical pain, RN his present providing medication. Patient was assisted to bedside for dressing change, patient tolerated well. Surgical incision to the posterior cervical spine, edges are well approximated with alice intact. New dressing applied. Patient continues to have complaint of numbness and tingling into the bilateral upper extremities, this was symptoms prior to procedure. Patient may remove soft cervical collar for eating. Patient is cleared from orthopedic standpoint for discharge when medically stable. No further recommendations. Objective - Vital Signs Vital signs: Vital Signs Temp 98.7 F 12/24/22 04:00 Pulse 98 12/24/22 04:00 Resp 17 12/24/22 04:00 BP 120/68 12/24/22 04:00 Pulse Ox 95 12/24/22 04:00 FiO2 Intake & Output 12/23/22 12/24/22 12/24/22 18:59 06:59 18:59 Output Total 800 Balance -800 Output: Urine 800 Other: Voiding Method Bedpan Bedpan # Voids 1 - Exam Inspection: Surgical incision to the posterior cervical spine, edges are well approximated with alice intact. New dressing applied. Sensation: Sensation is equal, symmetric, bilaterally intact throughout the upper and lower extremities Palpation: Nontender to palpation throughout bilateral upper and lower extremities and throughout spine exam Range of motion: Patient does have full range of motion bilateral upper and lower extremities on exam Motor: 4/5 in all major motor groups in the bilateral upper and 5/5 in lower extremities. Special tests: Negative Homans bilaterally. Negative Josette bilaterally. Negative clonus bilaterally. Neurovascular: Radial pulse intact, 2+ bilaterally. Cap refill under 3 seconds in digits upper extremities. - Labs CBC & Chem 7: 12/23/22 08:57 12/23/22 08:57 Labs: Abnormal Lab Results - Last 24 Hours (Table) 12/23/22 12/23/22 Range/Units 08:57 08:57 RBC 3.33 L (3.80-5.40) m/uL Hgb 10.4 L (11.4-16.0) gm/dL Hct 33.3 L (34.0-46.0) % BUN 19 H (7-17) mg/dL Calcium 7.8 L (8.4-10.2) mg/dL TSH 0.290 L (0.465-4.680) mIU/L Microbiology - Last 24 Hours (Table) 12/21/22 15:00 Blood Culture - Preliminary Blood 12/21/22 14:45 Blood Culture - Preliminary Blood Assessment and Plan Assessment: status post C2 to T2 decompression fusion postoperative pain Plan: -Appreciate natural remedy consultant and team management. -Activity: Ambulate QID, OOB all meals, up and about, limit lifting bending twisting to less than 5 lbs. Use walker or cane if needed for stability. -Daily PT/OT, increase ambulation strength and balance. -Soft cervical collar when up and about, patient may remove to eat and to shower. -Pain control: Adequate at this time -Meds: reviewed -GI ppx: senna, Miralax -Hygiene: Shower today. Maintain dressing clean and dry. -Encourage IS 10x/hr -Dispo: Patient is cleared from orthopedic standpoint for discharge when medically stable. No further recommendations. Our services are signing off at this time, please feel free to reach out with any questions or concerns. *I reviewed and discussed this case with my attending Dr. Butt, whom has reviewed this chart and films and is in agreement with assessment and plan of care as outlined above. I have personally seen and examined the patient, performed the documentation and the assessment and plan as written. Number of minutes spent on the visit: 20m.
[2022-12-24] MEDS: HYDROcodone/APAP 7.5-325MG 1 EACH TAB PO PRN ×2 (12:11→17:15)
--- NOTE | 2022-12-24 14:52 | P.PN ---
Subjective this is a pleasant 72 f with past medical history of GERD/Reflux, Hyperlipidemia, Hypertension, Osteoarthritis , Right breast cancer, back pain - steroid injections, hiatal hernia - stage 3 vulva cancer-, SOB w/exertion, stage 3 kidney disease., Right breast mastectomy 2000, Depression Patient states she came from [facility] after she had recent surgery at her neck, currently she had a hard collar in a Place, she looks tired and pain in her neck. Also states that she's been complaining of from numbness in both hands and fingers since after surgery. Patient was talking to herself, she's been hearing voices from people she see them while her eyes closed including her son but she cannot remember what they told her. She still complaining from significant pain after her neck. However patient denies abdominal pain diarrhea. No vomiting. Not sure if we have any urinary symptoms. She has little dry cough but no dyspnea. She denies weakness or dizziness. He denies previous history of stroke and she does not follow up with the neurologist. On admission patient had fever over 100.1. Rest of vitals looks stable. Showing mild leukocytosis of 11,000, rest of CBC is unremarkable INR 0.8. Creatinine is normal 0.8. Sodium 136. Liver enzymes not elevated. ProBNP is 4740, troponin elevated 0.08, 0.05 and 0.04. TSH is low 0.23 Urine analysis is suspicious for infection with large leukocyte esterase. Coronavirus not detected EKG showed normal sinus rhythm at 90 with T-wave inversion in V2 and V3 CT of the head and cervical spine: Showed small infarct in the region of the left basal ganglia of indeterminant age. No acute bleed or mass effect. Extensive recent postsurgical changes cervical spine Chest x-ray: Chronic changes without evidence of acute pulmonary process, I reviewed the chest x-ray as well Patient was started on ceftriaxone, normal saline and admitted with cardiology and orthopedic team consult 12/23/2022 Patient still feels weak and tired Her breathing is better and chest x-ray showing chronic changes without acute process Patient denies chest pain, ejection fraction is 55-60%, handtools repairer on the case. Patient currently on baby aspirin 81 mg She had a fever of 101 yesterday, no more fever today, she is on ceftriaxone 2 g for UTI versus other blood culture and urine culture are pending Also she is on normal saline 75 mL/h Neurologist requested MRI of the brain which is pending assessment for her stroke of undetermined age in the basal ganglia. Heart, place and patient is being followed also by orthopedic team 12/24/2022 Patient sitting up in chair is more awake and alert. Hard collar in place and orthopedic team cleared her for discharge today. She still complaining from weakness and numbness in both fingers, she refers to weakness as more in her arms but also her legs, more of like generalized weakness. She moves both upper extremities symmetrically. However CAT scan showed left basal ganglia stroke of undetermined age, neurologist recommended an MRI of the brain which is pending. Fever subsided and she is currently on 2 L oxygen via nasal cannula. She still on Rocephin for UTI. No culture available. As for repeat urine analysis. She is also on gentle hydration on aspirin 81 mg. No evidence of ischemic changes, echocardiogram showed ejection fraction of 55- 60%, handtools repairer recommended to repeat echocardiogram in 1 month Physical therapist recommended subacute rehab and geriatric social worker was consulted Case was discussed in details with the patient and she verbalized understanding and acceptance to the treatment plan This also was discussed with the staff. Review of systems CONSTITUTIONAL: No fever, no malaise, no fatigue. HEENT: No recent visual problems or hearing problems. Denied any sore throat. CARDIOVASCULAR: No orthopnea, PND, no palpitations, no syncope. PULMONARY: No shortness of breath, no cough, no hemoptysis. GASTROINTESTINAL: No diarrhea, no nausea, no vomiting, no abdominal pain. Normoactive bowel sounds. NEUROLOGICAL: No headaches, no weakness, no numbness. HEMATOLOGICAL: Denies any bleeding or petechiae. Active Medications Generic Name Dose Route Start Last Admin Trade Name Freq PRN Reason Stop Dose Admin Acetaminophen 325 mg 12/22/22 10:32 12/24/22 01:30 Acetaminophen Tab 325 Mg Tab PO 325 mg Q6HR PRN Administration Fever and/ or Pain Hydrocodone Bitart/Acetaminophen 1 each 12/22/22 06:44 12/24/22 12:11 Hydrocodone/Apap 7.5-325mg 1 Each Tab PO 1 each Q4HR PRN Administration Pain Aspirin 81 mg 12/22/22 08:00 12/24/22 07:57 Aspirin 81 Mg PO 81 mg DAILY@0800 LUIS E Administration Atorvastatin Calcium 20 mg 12/22/22 16:30 12/23/22 17:18 Atorvastatin 20 Mg Tab PO 20 mg DAILY@1630 LUIS E Administration Bisacodyl 10 mg 12/22/22 06:44 Bisacodyl 10 Mg Supp RECTAL DAILY PRN Constipation Calcitriol 0.25 mcg 12/23/22 08:00 12/23/22 09:20 Calcitriol 0.25 Mcg Cap PO 0.25 mcg HERRERA@0800 LUIS E Administration Cyclobenzaprine HCl 5 mg 12/22/22 06:44 12/23/22 09:20 Cyclobenzaprine 5 Mg Tab PO 5 mg TID PRN Administration Muscle Spasm Gabapentin 300 mg 12/22/22 08:00 12/24/22 12:12 Gabapentin 300 Mg Cap PO 300 mg TID@, [facility] Administration Sodium Chloride 1,000 mls @ 75 mls/hr 12/21/22 17:45 12/24/22 04:13 Saline 0.9% IV Not Given .[id number] [facility] Ceftriaxone Sodium 2 gm/ 50 mls @ 100 mls/hr 12/22/22 09:00 12/24/22 07:57 Sodium Chloride IVPB 100 mls/hr Q24HR LUIS E Administration Protocol Metoprolol Succinate 25 mg 12/22/22 16:30 12/23/22 17:18 Metoprolol Succinate (Er) 25 Mg Tab.Er.24h PO 25 mg DAILY@1630 [facility] Administration Morphine Sulfate 4 mg 12/21/22 17:44 12/24/22 07:54 Morphine Sulfate 4 Mg/Ml Syringe IV 4 mg Q4HR PRN Administration Severe Pain (Scale 7 to 10) Naloxone HCl 0.2 mg 12/21/22 18:35 Naloxone 0.4 Mg/Ml 1 Ml Vial IV Q2M PRN Opioid Reversal Ondansetron HCl 4 mg 12/21/22 18:35 Ondansetron 4 Mg/2 Ml Vial IVP Q8HR PRN Nausea And Vomiting Pantoprazole Sodium 40 mg 12/22/22 09:00 12/24/22 07:56 Pantoprazole 40 Mg/10 Ml Vial IV 40 mg DAILY LUIS E Administration Senna/Docusate Sodium 1 each 12/22/22 06:44 12/23/22 12:09 Sennosides-Docusate Sodium 1 Each Tab PO 1 each DAILY PRN Administration Constipation Objective - Vital Signs Vital signs: Vital Signs Temp 99 F 12/24/22 12:00 Pulse 81 12/24/22 12:00 Resp 20 12/24/22 12:00 BP 123/75 12/24/22 12:00 Pulse Ox 95 12/24/22 12:00 FiO2 Intake & Output 12/23/22 12/24/22 12/24/22 18:59 06:59 18:59 Output Total 800 Balance -800 Output: Urine 800 Other: Voiding Method Bedpan Bedpan External Catheter # Voids 1 - Exam GENERAL: The patient is alert and oriented x3, not in any acute distress. Well developed, well nourished. HEENT: Pupils are round and equally reacting to light. EOMI. No scleral icterus. No conjunctival pallor. Normocephalic, atraumatic. No pharyngeal erythema. No thyromegaly. CARDIOVASCULAR: S1 and S2 present. No murmurs, rubs, or gallops. PULMONARY: Chest is clear to auscultation, no wheezing , no crackles. ABDOMEN: Soft, nontender, nondistended, normoactive bowel sounds. No palpable organomegaly. -MUSCULOSKELETAL: No joint swelling or deformity. Hard collar is in place EXTREMITIES: No cyanosis, clubbing, or pedal edema. NEUROLOGICAL: Gross neurological examination did not reveal any focal deficits. SKIN: No rashes. no petechiae. - Labs CBC & Chem 7: 12/23/22 08:57 12/23/22 08:57 Labs: Microbiology - Last 24 Hours (Table) 12/21/22 15:00 Blood Culture - Preliminary Blood 12/21/22 14:45 Blood Culture - Preliminary Blood Assessment and Plan Assessment: acute urinary tract infection mild sepsis with Fever and mild leukocytosis Visual and auditory hallucinations, improved elevated troponin Severe osteoarthritis with recent history of neck pain and weakness in the arms, status post C2 to T2 decompression fusion postoperative pain Patient presents with weakness and CT of the brain showing left basal ganglia stroke INDETERMINANT age GERD/Reflux Hyperlipidemia Hypertension Osteoarthritis Right breast cancer chronic back pain - steroid injections h/o hiatal hernia h/o stage 3 vulva cancer- h/o SOB w/exertion stage 3 kidney disease h/oRight breast mastectomy 2000 Depression, not active issue currently Plan: Continue with ceftriaxone Continue with IV hydration Follow-up urine culture. Repeat urinalysis Pain management Follow-up MRI of the brain we recommended to repeat echocardiogram in 1 month Orthopedic team on the case Consults cardiology service Consult neurology service Labs and medication were reviewed.. Continue same treatment. Continue with symptomatic treatment. Resume home medication. Monitor labs and vitals. DVT and GI prophylaxis. Further recommendations as per clinical course of the patient DVT prophylaxis: SCD GI Prophylaxis: Pepcid PT/OT: Pending Prognosis is guarded
[2022-12-24] MEDS: METOPROLOL SUCCINATE (ER) 25 MG TAB.ER.24H PO SCH (17:08)
[2022-12-24] MEDS: ATORVASTATIN 20 MG TAB PO SCH (17:09)
[2022-12-24] MEDS: SENNOSIDES-DOCUSATE SODIUM 1 EACH TAB PO PRN (17:15)
--- NOTE | 2022-12-24 18:23 | MR ---
EXAMINATION TYPE: MR brain wo con DATE OF EXAM: 12/24/2022 4:47 PM CLINICAL INDICATION:Female, 72 years old with history of stroke per CT, unknown age, Stroke per CT. COMPARISON: 12/21/2022. TECHNIQUE: Multi planar, multi sequence imaging was performed through the brain including: T1, T2, In version recovery, Diffusion weighted imaging, and gradient echo imaging. No gadolinium was given. FINDINGS: The hoover-white junctions, ventricular system, and cisterns appear unremarkable. Scattered foci of hi gh T2 signal intensity are seen within the periventricular white matter. Midline structures show no a bnormality. Diffusion-weighted imaging shows no evidence of restricted diffusion. The susceptibility weighted images do not reveal any evidence for micro-hemorrhage. The bone marrow signal is within normal limits. Paranasal sinuses and mastoid air cells: No significant paranasal sinus disease. Visualized orbits: Left aphakia. Upper spine susceptibility artifact for partially visualized. IMPRESSION: 1. No evidence of intracranial mass or acute/subacute infarct. 2. Nonspecific white matter changes, likely secondary to small vessel ischemic disease.
--- NOTE | 2022-12-24 18:25 | P.PN ---
Subjective Progress Note Date: 12/24/22 Patient was initially seen by Dr. Zazueta. Please refer to her note for details. Patient came with altered mental status. Patient has a positive urinalysis for possible UTI. CT head showed left basal ganglia infarct. MRI was ordered. Patient says that she still feels slightly confused. She does not remember if she had dinner last night or not. Patient's daughter was also present today. Patient has history of smoking 1-1/2 pack per day for 30-40 years, quit 4 years ago. Patient does take aspirin and Lipitor. Objective - Vital Signs Vital signs: Vital Signs Temp 98.3 F 12/24/22 16:00 Pulse 79 12/24/22 16:00 Resp 24 12/24/22 16:00 BP 120/60 12/24/22 16:00 Pulse Ox 96 12/24/22 16:00 FiO2 Intake & Output 12/23/22 12/24/22 12/24/22 18:59 06:59 18:59 Output Total 800 Balance -800 Output: Urine 800 Other: Voiding Method Bedpan Bedpan External Catheter # Voids 1 - Exam Patient appears slightly delirious. Slightly restless, shaky. Patient had very sporadic, minimal myoclonic jerks noted of outstretched hands. Patient knows it is 12/24/2022 and that she is in [facility] in [place]. Speech and language functions are normal. Cranial nerves are normal. Visual márquez are full, extraocular muscles are intact, face is symmetric. Pupils are equal. Tongue protrudes to the midline. On muscle strength testing there is no pronator drift and the strength is normal in arms and legs. - Labs CBC & Chem 7: 12/23/22 08:57 12/23/22 08:57 Labs: Microbiology - Last 24 Hours (Table) 12/21/22 15:00 Blood Culture - Preliminary Blood 12/21/22 14:45 Blood Culture - Preliminary Blood Assessment and Plan Assessment: 1. Delirium: Reported confusion, hallucinations, likley secondary to urinary tract infection-mental status changes have resolved 2. Reported left basal ganglia infarct, per CT brain, unknown age-would not explain pt's symptoms 3. Recent cervical spine surgery with possible swelling of surrounding tissue, resulting in increased paresthesias and weakness 4. X tobacco use. 5. Macrocytosis, no history of alcoholism. 6. Possible UTI. Plan: 1. MRI brain revealed no evidence of intracranial mass or acute/subacute infar ct. Nonspecific white matter changes, likely secondary to small vessel ischemic disease. I personally reviewed MRI. On my review, there is no evidence of an acute stroke. No mass or midline shift. No acute process. Possible some small vessel disease. 2. Consult PT and OT 3. Patient on ceftriaxone 2 g every 24 hours for UTI. Blood cultures so far negative. 4. Patient had a carotid Doppler performed recently at Dr. Hernandez office (per family report), and according to the family was normal. No need to repeat. 5. May consider checking hemoglobin A1c, fasting lipid panel to assess for va scular risk factors. 6. Check B12, folate for macrocytosis. Patient denies alcoholism. 7. Continue aspirin 81 mg daily and Lipitor 20 mg. Neurologically, no other workup indicated.
--- NOTE | 2022-12-24 19:24 | CDI ---
Documentation Clarification Form Date: 12/24/2022 06:11:51 PM From: Tawana Carrillo RN, CCDS Admit Date: 12/21/2022 05:44:00 PM Patient Name: Jessica Reyes Visit Number: [id number] Discharge Date: ATTENTION: The Clinical Documentation Specialists (CDI) and [facility] Coding Staff appreciate your assistance in clarifying documentation. Please respond to the clarification below the line at the bottom and electronically sign. The CDI & [facility] Coding staff will review the response and follow-up if needed. Please note: Queries are made part of the Legal Health Record. If you have any questions, please contact the author of this message via ITS. Dr. Lauren Zazueta Your patient has the documented symptom of delirium: confusion, hallucinations, likely secondary to urinary tract infection. Additional clarification regarding the etiology/cause of this symptom is requested. History/Risk Factors: GERD/Reflux, Hyperlipidemia, Hypertension, Musculoskeletal Disorder, Osteoarthritis (OA), stage 3 kidney disease., Right breast cancer Clinical Indicators: 72-year-old female found to have fever on arrival, ruled in for UTI. 12/21 VS: 134/65 [address]% [address] scan of the brain revealed left basal ganglia infarct of "indeterminant" age. 12/24 Brain MRI: No evidence of intracranial mass or acute/subacute infarct. Nonspecific white matter changes, likely secondary to small vessel ischemic disease. Labs: WBC 11.0 Na 136, BUN 21 CR 0.81 trop 0.088 Ua Lg Leukocyte esterase; lactic acid 1.0 12/21: CXR: Chronic changes without evidence for acute pulmonary disease Treatment: Blood cultures: Pending (No growth after 48 hours) Rocephin 2 GM IVPB Q 24 HRS .9NS 500 ML Bolus 12/21 Please clarify the etiology of the symptom of Altered Mental Status: [ x ] Metabolic encephalopathy due to UTI [ ] Delirium: due to UTI [ ] Other condition (please specify) [ ] Unable to determine (Template Last Revised: April 2020) MTDD
[2022-12-25] MEDS: SODIUM CHLORIDE 0.9% 1,000 ML IV SCH ×2 (06:22→16:43)
[2022-12-25] MEDS: ASPIRIN 81 MG PO SCH (08:08)
[2022-12-25] MEDS: GABAPENTIN 300 MG CAP PO SCH ×3 (08:08→17:25)
[2022-12-25] MEDS: PANTOPRAZOLE 40 MG/10 ML VIAL IV SCH (08:09)
[2022-12-25] MEDS: MORPHINE SULFATE 4 MG/ML SYRINGE IV PRN ×2 (08:09→17:25)
[2022-12-25 09:06] LABS: Appearance,Urine Clear (Clear); Bilirubin,Urine Negative (Negative); Blood,Urine Negative (Negative); Color,Urine Light Yellow; Glucose,Urine (UA) Negative (Negative); Ketones,Urine Negative (Negative); Leukocyte Esterase,Urine Moderate (Negative); Nitrite,Urine Negative (Negative); Protein,Urine Trace (Negative); RBC,Urine 2 /hpf (0-5); Specific Gravity,Urine 1.015 (1.001-1.035); Squamous Epithelial Cell,Urine 1 /hpf (0-4); Urobilinogen,Urine <2.0 mg/dL (<2.0); WBC,Urine 2 /hpf (0-5)
[2022-12-25] MEDS: HYDROcodone/APAP 7.5-325MG 1 EACH TAB PO PRN (11:11)
--- NOTE | 2022-12-25 12:53 | P.PN ---
Subjective Progress Note Date: 12/25/22 12/25/2022: Patient was seen for a follow-up. Patient is laying comfortably in the bed. Patient's general physical appearance appears to be better, not as shaky. Patient denies any headache. Patient does admit to having soreness in the neck and shoulder from recent neck surgery. 12/24/2022: Patient was initially seen by Dr. Zazueta. Please refer to her note for details. Patient came with altered mental status. Patient has a positive urinalysis for possible UTI. CT head showed left basal ganglia infarct. MRI was ordered. Patient says that she still feels slightly confused. She does not remember if she had dinner last night or not. Patient's daughter was also present today. Patient has history of smoking 1-1/2 pack per day for 30-40 years, quit 4 years ago. Patient does take aspirin and Lipitor. Objective - Vital Signs Vital signs: Vital Signs Temp 98.1 F 12/25/22 08:00 Pulse 89 12/25/22 08:00 Resp 18 12/25/22 08:00 BP 152/70 12/25/22 08:00 Pulse Ox 98 12/25/22 08:51 FiO2 Intake & Output 12/24/22 12/25/22 12/25/22 18:59 06:59 18:59 Intake Total 540 240 Output Total 200 400 Balance 540 -200 -160 Intake: Oral 540 240 Output: Urine 200 400 Other: Voiding Method External Catheter Bedpan External Catheter # Voids 1 - Exam Patient appears more calm today. Patient has a neck collar in place. Also has oxygen by nasal cannular running. No myoclonic jerks of outstretched hands. Patient knows it is 12/25/2022 and that she is in [facility] in [place]. Speech and language functions are normal. Cranial nerves are normal. Visual márquez are full, extraocular muscles are intact, face is symmetric. Pupils are equal. Tongue protrudes to the midline. On muscle strength testing there is no pronator drift and the strength is normal in arms and legs. - Labs CBC & Chem 7: 12/23/22 08:57 12/23/22 08:57 Labs: Abnormal Lab Results - Last 24 Hours (Table) 12/25/22 Range/Units 08:15 Urine Protein Trace H (Negative) Ur Leukocyte Esterase Moderate H (Negative) Microbiology - Last 24 Hours (Table) 12/21/22 15:00 Blood Culture - Preliminary Blood 12/21/22 14:45 Blood Culture - Preliminary Blood Assessment and Plan Assessment: 1. Delirium: Reported confusion, hallucinations, likley secondary to urinary tract infection-mental status changes have resolved 2. Reported left basal ganglia infarct, per CT brain, unknown age-would not explain pt's symptoms. MRI ruled out any acute or remote stroke. 3. Recent cervical spine surgery with possible swelling of surrounding tissue, resulting in increased paresthesias and weakness 4. X tobacco use. 5. Macrocytosis, no history of alcoholism. 6. Possible UTI. Plan: 1. MRI brain revealed no evidence of intracranial mass or acute/subacute infarct. Nonspecific white matter changes, likely secondary to small vessel ischemic disease. I personally reviewed MRI. On my review, there is no evidence of an acute stroke. No mass or midline shift. No acute process. Possible some small vessel disease. 2. Consult PT and OT 3. Patient on ceftriaxone 2 g every 24 hours for UTI. Blood cultures so far negative. 4. Patient had a carotid Doppler performed recently at Dr. Hernandez office (per family report), and according to the family was normal. No need to repeat. 5. May consider checking hemoglobin A1c, fasting lipid panel to assess for vascular risk factors. 6. B12 1031, folate 8.8. We will start folic acid because of borderline level. Patient does have macrocytosis. Patient denies alcoholism. 7. Telemetry monitoring showing sinus rhythm in the 70s with some PVCs and PACs. 8. Continue aspirin 81 mg daily and Lipitor 20 mg. Neurologically, no other workup indicated. Neurologically clear.
--- NOTE | 2022-12-25 14:02 | P.DS ---
Providers Date of admission: 12/21/22 17:44 Attending physician: Damaso Santiago Consults: 12/21/22 17:44 Consult Physician Routine Consulting Provider: Ravin Butt Consult Reason/Comments: known Do you want consulting provider notified?: Yes 12/22/22 06:42 Consult Physician Routine Consulting Provider: Lauren Zazueta Consult Reason/Comments: basal ganglia stroke with weakness and hallucination Do you want consulting provider notified?: Yes, Notify in am Primary care physician: Booker [place] Hospital Course: Final Diagnosis Abnormal urinalysis UTI felt unlikely this is likely from dehydration, UA improved after hydration Mild sepsis with Fever and mild leukocytosis possibly viral etiology, unable to complete rule out UTI; urine culture note done. Clinically patient improved. Visual and auditory hallucinations, improved Elevated troponin cardiology felt not due to ACS Severe osteoarthritis with recent history of neck pain and weakness in the arms, status post C2 to T2 decompression fusion postoperative pain Cervicalgia postoperatively Patient presents with weakness and CT of the brain showing left basal ganglia stroke INDETERMINANT age GERD/Reflux Hyperlipidemia Hypertension Osteoarthritis Right breast cancer chronic back pain - steroid injections h/o hiatal hernia h/o stage 3 vulva cancer- h/o SOB w/exertion stage 3 kidney disease h/oRight breast mastectomy 2000 Depression, not active issue currently GI prophylaxis Full Code Discharge Disposition Patient is stable for return to the subacute rehab. Recommend conservative management of patient's pain if possible and to avoid narcotics use Tylenol mostly. Continue with recommendations per orthopedics to continue a soft collar when up and about and patient may remove to eat and to shower. Patient is to ambulate 4 times a day and should be up out of bed for all meals. Patient needs to limit lifting bending twisting to less than 5 pounds. Patient will be discharged back to subacute rehab to continue. Also needs to continue with incentive spirometer 10 times an hour while awake. Cardiology is recommending to repeat the echocardiogram in 1 month's time. Patient should repeat labs in 2 to 3 days and also recommend to follow up with PCP and to check lipid panel and hemoglobin A1C outpatient. Follow up with Dr. Butt, Dr Reardon with cardiology associates and also should establish care with a neurologist. Also would recommend to take ensure protein supplements with meals to increase protein intake. Patients oral antibiotic Duracef has been stopped. This was a 10 day supply to be taken post surgically back in September of 2022 Patient should not have been continued on this medication. Hospital Course This is a pleasant 72 f with past medical history of GERD/Reflux, Hyperlipidemia, Hypertension, Osteoarthritis , Right breast cancer, back pain - steroid injections, hiatal hernia, stage 3 vulva cancer, SOB w/exertion, stage 3 kidney disease., Right breast mastectomy 2000, Depression. Patient has been at [facility] following cervical surgery she had back in September. Patient was wearing a hard collar when she came in. patient has been reporting numbness in her hands and fingers after surgery. Patient was having auditory and visual hallucinations. Patient had no nausea vomiting or diarrhea. Had no chest pain or shortness of breath. Patient is having no urinary symptoms. She was recently diagnosed with stage 3 vulvar cancer. Patient has no history of stroke. Was found to be febrile on admission, and also had mild troponin elevation which was trending down. COVID negative. EKG showed normal sinus rhythm at 90 with T-wave inversion in V2 and V3. CT of the head and cervical spine: Showed small infarct in the region of the left basal ganglia of indeterminant age. No acute bleed or mass effect. Extensive recent postsurgical changes cervical spine. Chest x-ray: Chronic changes without evidence of acute pulmonary process. Patient was started on ceftriaxone, normal saline and admitted with cardiology and orthopedic team consult. Neurology was also consulted. Stroke work up initiated. Had echocardiogram done showing normal LV function. Brain MRI reveals no acute stroke. Orthopedics has given recommendations for soft collar as above and patient cleared for DC from their standpoint. There was concern for abnormal urinalysis as the cause for the altered mentation. No urine culture was done. Blood culture was negative. Patients mentation did improve while on the antibiotics IV ceftriaxone which patient did receive 3 days worth and no further antibiotics needed on DC. Patients white count has normalized down to 8.2. Folate checked 8.80, Vitamin B12 1031.0. TSH 0.290, Free T4 1.51. Patient had a follow up urinalysis done which is essentially normal trace protein and moderate luekocyte esterase. Mentation did improved now alert x 3 patient was adequately hydrated and suspect a component of polypharmacy with poor oral intake. Currently having no chest pain, no shortness of breath. No nausea vomiting or diarrhea. Lungs are clear S1 S2 auscultated abdomen soft and nontender. Patient is denying dysuria urgency frequency. Hemodynamically stable and cleared for DC. Please see medication reconciliation for list of current medications. Thank you for allowing us participate in the care of this patient. The impression and plan of care has been dictated by Aliyah Ayala, Nurse Practitioner as directed. Dr. Graciela MD I have performed a history and physical examination and medical decision making of this patient, discussed the same with the dictator, and agree with the dictators assessment and plan as written, documented as a scribe. Based on total visit time, I have performed more than 50% of this visit. Patient Condition at Discharge: Fair Plan - Discharge Summary Discharge Rx Participant: No New Discharge Prescriptions: Continue Ferrous Sulfate [Feosol] 325 mg PO DAILY@0800 Aspirin 81 mg PO DAILY@0800 Fluticasone/Umeclidin/Vilanter [Trelegy Ellipta 100-62.5-25] 1 puff INHALATION RT-DAILY@0800 Metoprolol Succinate (ER) [Toprol XL] 25 mg PO DAILY@1630 Albuterol Inhaler [Ventolin Hfa Inhaler] 1 - 2 puff INHALATION RT-Q6H PRN PRN Reason: Shortness Of Breath Loratadine [Claritin] 10 mg PO DAILY@0800 bisacodyL [Dulcolax] 10 mg RECTAL DAILY PRN PRN Reason: Constipation Denosumab [Prolia] 1 dose SQ Q18D Sennosides/Docusate Sodium [Senna Plus 8.6-50 mg Tablet] 1 tab PO DAILY PRN PRN Reason: Constipation Atorvastatin [Lipitor] 20 mg PO DAILY@1630 Famotidine [Pepcid] 40 mg PO BID@0800,1700 calcitrioL [Calcitriol] 0.25 mcg PO HERRERA@0800 Cyclobenzaprine [Flexeril] 5 mg PO TID PRN #40 tablet PRN Reason: Muscle Spasm Magnesium Hydroxide [Milk of Magnesia Concentrate] 7,200 mg PO DAILY PRN PRN Reason: Constipation cefaDROXiL [Duricef] 500 mg PO BID@0800,2100 Na Phos,M-B/Na Phos,Di-Ba [Fleet Adult] 133 ml RECTAL DAILY PRN PRN Reason: Constipation Cholecalciferol [Vitamin D3 (25 Mcg = 1000 Iu)] 50 mcg PO DAILY@0800 Changed Gabapentin 300 mg PO TID@08,12, #6 cap HYDROcodone/APAP 7.5-325MG [Junction 7.5-325] 1 tab PO Q4HR PRN #4 tab PRN Reason: Pain Discharge Medication List Aspirin 81 mg PO DAILY@0800 05/01/22 [History] Atorvastatin [Lipitor] 20 mg PO DAILY@1630 05/01/22 [History] Ferrous Sulfate [Feosol] 325 mg PO DAILY@0800 05/01/22 [History] Fluticasone/Umeclidin/Vilanter [Trelegy Ellipta 100-62.5-25] 1 puff INHALATION RT-DAILY@0800 05/01/22 [History] Famotidine [Pepcid] 40 mg PO BID@0800,1700 09/04/22 [History] Albuterol Inhaler [Ventolin Hfa Inhaler] 1 - 2 puff INHALATION RT-Q6H PRN 10/31/22 [History] Metoprolol Succinate (ER) [Toprol XL] 25 mg PO DAILY@1630 10/31/22 [History] calcitrioL [Calcitriol] 0.25 mcg PO HERRERA@0810/31/22 [History] Loratadine [Claritin] 10 mg PO DAILY@0800 12/12/22 [History] Cyclobenzaprine [Flexeril] 5 mg PO TID PRN #40 tablet 12/20/22 [Rx] Cholecalciferol [Vitamin D3 (25 Mcg = 1000 Iu)] 50 mcg PO DAILY@0800 12/21/22 [History] Denosumab [Prolia] 1 dose SQ Q18D 12/21/22 [History] Magnesium Hydroxide [Milk of Magnesia Concentrate] 7,200 mg PO DAILY PRN 12/21/22 [History] Na Phos,M-B/Na Phos,Di-Ba [Fleet Adult] 133 ml RECTAL DAILY PRN 12/21/22 [History] Sennosides/Docusate Sodium [Senna Plus 8.6-50 mg Tablet] 1 tab PO DAILY PRN 12/21/22 [History] bisacodyL [Dulcolax] 10 mg RECTAL DAILY PRN 12/21/22 [History] cefaDROXiL [Duricef] 500 mg PO BID@0800,2100 12/21/22 [History] Gabapentin 300 mg PO TID@08,12,17 #6 cap 12/25/22 [Rx] HYDROcodone/APAP 7.5-325MG [Junction 7.5-325] 1 tab PO Q4HR PRN #4 tab 12/25/22 [Rx] Follow up Appointment(s)/Referral(s): Booker Ochoa DO [Primary Care Provider] - 1-2 days Ravin Butt DO [Doctor of Osteopathic Medicine] - 1 Week Heather Damon MD [STAFF PHYSICIAN] - As Needed Cm Dallas MD [Medical Doctor] - 1 Week Betito Reardon MD [Medical Doctor] - 1 Week Ambulatory/Diagnostic Orders: Basic Metabolic Panel [LAB.AMB] Time Frame: 3 Days, Location: None Selected Complete Blood Count w/diff [LAB.AMB] Time Frame: 3 Days, Location: None Selected Activity/Diet/Wound Care/Special Instructions: Activity: Ambulate QID, OOB all meals, up and about, limit lifting bending twisting to less than 5 lbs. Use walker or cane if needed for stability. -Daily PT/OT, increase ambulation strength and balance. -Soft cervical collar when up and about, patient may remove to eat and to shower. Continue with incentive spirometer 10 x an hour while awake Cardiology recommending to repeat echocardiogram in 1 month time, follow up with Dr. Reardon in the office. Recommend to follow up outpatient with PCP and check lipid panel and hemoglobin A1C. Discharge Disposition: TRANSFER TO SNF/ECF
[2022-12-25] MEDS: SENNOSIDES-DOCUSATE SODIUM 1 EACH TAB PO PRN (15:30)
[2022-12-25] MEDS: ATORVASTATIN 20 MG TAB PO SCH (17:26)
[2022-12-25] MEDS: METOPROLOL SUCCINATE (ER) 25 MG TAB.ER.24H PO SCH (17:26)
[2022-12-25] MEDS: FOLIC ACID 1 MG TAB PO SCH (18:07)
[2022-12-26] MEDS: HYDROcodone/APAP 7.5-325MG 1 EACH TAB PO PRN ×2 (05:35→13:20)
[2022-12-26] MEDS: SODIUM CHLORIDE 0.9% 1,000 ML IV SCH (05:36)
[2022-12-26] MEDS: ASPIRIN 81 MG PO SCH (08:26)
[2022-12-26] MEDS: GABAPENTIN 300 MG CAP PO SCH ×2 (08:26→11:00)
[2022-12-26] MEDS: FOLIC ACID 1 MG TAB PO SCH (08:26)
[2022-12-26] MEDS: PANTOPRAZOLE 40 MG/10 ML VIAL IV SCH (08:26)
[2022-12-26] MEDS: MORPHINE SULFATE 4 MG/ML SYRINGE IV PRN (08:27)
[2022-12-26 10:09] VITALS: RESP 18
[2022-12-26] MEDS ORDERED: LORATADINE 10 MG TAB PO STA (10:23)
[2022-12-26] MEDS ORDERED: IPRATROPIUM-ALBUTEROL 3 ML NEB INHALATION STA (11:19)
[2022-12-26 12:03] VITALS: BP 94/52; PULSE 76; TEMP 97.8
== END 2022-12-26 13:46 | DRG 871 ==
LOC: EC 13:12 → 3SCARD 17:44
PROVIDERS: ADMIT Hospitalist; ATTEND Hospitalist
DX: A41.9 Sepsis, unspecified organism (principal); I50.23 Acute on chronic systolic (congestive) heart failure; I63.81 Other cerebral infarction due to occlusion or stenosis of small artery; I13.0 Hypertensive heart and chronic kidney disease with heart failure and stage 1 through stage 4 chronic kidney disease, or unspecified chronic kidney disease; I31.39 Other pericardial effusion (noninflammatory); I48.20 Chronic atrial fibrillation, unspecified; N17.9 Acute kidney failure, unspecified; N18.4 Chronic kidney disease, stage 4 (severe); T85.840A Pain due to nervous system prosthetic devices, implants and grafts, initial encounter; R44.0 Auditory hallucinations; C50.911 Malignant neoplasm of unspecified site of right female breast; C51.9 Malignant neoplasm of vulva, unspecified; D75.89 Other specified diseases of blood and blood-forming organs; E11.22 Type 2 diabetes mellitus with diabetic chronic kidney disease; E11.40 Type 2 diabetes mellitus with diabetic neuropathy, unspecified; E78.5 Hyperlipidemia, unspecified; F32.A Depression, unspecified; G89.29 Other chronic pain; I25.10 Atherosclerotic heart disease of native coronary artery without angina pectoris; I25.2 Old myocardial infarction; K44.9 Diaphragmatic hernia without obstruction or gangrene; M47.9 Spondylosis, unspecified; R44.1 Visual hallucinations; R07.89 Other chest pain; I45.10 Unspecified right bundle-branch block; M62.838 Other muscle spasm; K21.9 Gastro-esophageal reflux disease without esophagitis; K59.00 Constipation, unspecified; M19.90 Unspecified osteoarthritis, unspecified site; M81.0 Age-related osteoporosis without current pathological fracture; R13.10 Dysphagia, unspecified; Z79.82 Long term (current) use of aspirin; Z79.899 Other long term (current) drug therapy; Z87.891 Personal history of nicotine dependence; Z90.11 Acquired absence of right breast and nipple; Z95.1 Presence of aortocoronary bypass graft; Z98.1 Arthrodesis status; Z96.693 Finger-joint replacement, bilateral; Z95.0 Presence of cardiac pacemaker
CPT/HCPCS: 36415; 70450; 70551; 71045; 71046; 72125; 80048; 80053; 81001; 82607; 82746; 83605; 83735; 83880; 84100; 84439; 84443; 84484; 85025; 85610; 85730; 87040; 87635; 93005; 93306; 94640; 94760; 96361; 96365; 96366; 96367; 96375; 96376; 99285

== ENCOUNTER 2023-01-04 14:56 | Inpatient (IN) | payer MEDICARE, OTHER ==
[2023-01-04] MEDS ORDERED: IPRATROPIUM-ALBUTEROL 3 ML NEB INHALATION STA (15:53)
[2023-01-04] MEDS ORDERED: SODIUM CHLORIDE 0.9% 1,000 ML IV STA (15:53)
--- NOTE | 2023-01-04 15:54 | ED ---
SOB HPI - General Chief Complaint: Arrhythmia/Palpitations Stated Complaint: heart is racing Time Seen by Provider: 01/04/23 15:18 Source: patient, RN notes reviewed, old records reviewed Mode of arrival: wheelchair Limitations: no limitations - History of Present Illness Initial Comments: This is a 73-year-old female to the emergency department today for evaluation today. Patient presents today for evaluation of shortness of breath weakness and elevated heart rate. Patient was sent in by her nursing home aide for evaluation of possibility of PE. Patient has significant shortness of breath with low oxygen here in the ER MD Complaint: shortness of breath, chest pain, anxiety -: days(s) Severity: severe Consistency: constant Improves With: nothing Worsens With: nothing Context: recent URI, anxiety, recent illness Associated Symptoms: chest pain, cough Treatments Prior to Arrival: oxygen - Related Data Home Medications Medication Instructions Recorded Confirmed Aspirin 81 mg PO DAILY@0800 05/01/22 01/04/23 Atorvastatin [Lipitor] 20 mg PO DAILY@1630 05/01/22 01/04/23 Ferrous Sulfate [Feosol] 325 mg PO DAILY@0800 05/01/22 01/04/23 Fluticasone/Umeclidin/Vilanter 1 puff INHALATION RT-DAILY@0800 05/01/22 01/04/23 [Roman Zamarripa 100-62.5-25] Famotidine [Pepcid] 40 mg PO BID@0800,1700 09/04/22 01/04/23 Albuterol Inhaler [Ventolin Hfa 1 - 2 puff INHALATION RT-Q6H PRN 10/31/22 01/04/23 Inhaler] Metoprolol Succinate (ER) [Toprol 25 mg PO DAILY@1630 10/31/22 01/04/23 XL] calcitrioL [Calcitriol] 0.25 mcg PO HERRERA@0800 10/31/22 01/04/23 Loratadine [Claritin] 10 mg PO DAILY@0800 12/12/22 01/04/23 Cholecalciferol [Vitamin D3 (25 50 mcg PO DAILY@0800 12/21/22 01/04/23 Mcg = 1000 Iu)] Magnesium Hydroxide [Milk of 7,200 mg PO DAILY PRN 12/21/22 01/04/23 Magnesia Concentrate] Na Phos,M-B/Na Phos,Di-Ba [Fleet 133 ml RECTAL DAILY PRN 12/21/22 01/04/23 Adult] Sennosides/Docusate Sodium [Senna 1 tab PO BID@0800,1700 12/21/22 01/04/23 Plus 8.6-50 mg Tablet] bisacodyL [Dulcolax] 10 mg RECTAL DAILY PRN 12/21/22 01/04/23 Acetaminophen [Tylenol Arthritis] 650 mg PO Q4H PRN 01/04/23 01/04/23 Budesonide [Pulmicort] 1 mg INHALATION RT-DAILY@0600 01/04/23 01/04/23 Ipratropium-Albuterol Nebulize 3 ml INHALATION RT-Q6H PRN 01/04/23 01/04/23 [Duoneb 0.5 mg-3 mg/3 ml Soln] polyethylene glycoL 3350 [Miralax] 17 gm PO DAILY@0800 01/04/23 01/04/23 Previous Rx's Medication Instructions Recorded Cyclobenzaprine [Flexeril] 5 mg PO TID PRN #40 tablet 12/20/22 Amoxic-Pot Clav 875-125Mg 1 each PO Q12HR 7 Days #14 tab 01/10/23 [Augmentin 875-125] Gabapentin 300 mg PO TID@0800,1400,2100 #18 01/10/23 cap HYDROcodone/APAP 7.5-325MG [Heartwell 1 tab PO Q4HR PRN #12 tab 01/10/23 7.5-325] Ipratropium-Albuterol Nebulize 3 ml INHALATION RT-QID 30 Days 01/10/23 [Duoneb 0.5 mg-3 mg/3 ml Soln] #120 each guaiFENesin [Mucinex] 1,200 mg PO BID 7 Days #14 tab 01/10/23 Allergies Allergy/AdvReac Type Severity Reaction Status Date / Time No Known Allergies Allergy Verified 01/04/23 17:07 Review of Systems ROS Statement: Those systems with pertinent positive or pertinent negative responses have been documented in the HPI. ROS Other: All systems not noted in ROS Statement are negative. Past Medical History Past Medical History: Cancer, GERD/Reflux, Hyperlipidemia, Hypertension, Musculoskeletal Disorder, Osteoarthritis (OA), Renal Disease Additional Past Medical History / Comment(s): Right breast cancer, back pain - steroid injections, hiatal hernia - not repaired. stage 3 vulva cancer-seeing oncologist in [facility].-surg. could possibly be postponed, gets SOB w/exertion, stage 3 kidney disease. History of Any Multi-Drug Resistant Organisms: None Reported Past Surgical History: Back Surgery, Breast Surgery, Joint Replacement, Tonsillectomy, Tubal Ligation Additional Past Surgical History / Comment(s): Right breast mastectomy 2000, artificial vance. thumb joint (3 surgeries), left hand surgery, EGD 2010. back injections for pain, left cataract removed, C2 to T2 fusion 12/17/2022 Past Anesthesia/Blood Transfusion Reactions: Postoperative Nausea & Vomiting (PONV) Additional Past Anesthesia/Blood Transfusion Reaction / Comment(s): only happened once years ago Past Psychological History: Depression Smoking Status: Former smoker Past Alcohol Use History: Rare Past Drug Use History: None Reported - Past Family History Mother Family Medical History: Cancer Additional Family Medical History / Comment(s): Stomach cancer Sister(s) Family Medical History: Cancer Additional Family Medical History / Comment(s): Lung cancer mets to brain Brother(s) Family Medical History: Cancer Additional Family Medical History / Comment(s): multiple cancers General Exam Limitations: no limitations General appearance: alert, in no apparent distress, anxious Head exam: Present: atraumatic, normocephalic, normal inspection Eye exam: Present: normal appearance, PERRL, EOMI. Absent: scleral icterus, conjunctival injection, periorbital swelling ENT exam: Present: normal exam, mucous membranes moist Neck exam: Present: normal inspection. Absent: tenderness, meningismus, lymphadenopathy Respiratory exam: Present: normal lung sounds bilaterally, wheezes. Absent: respiratory distress, rales, rhonchi, stridor Cardiovascular Exam: Present: normal rhythm, tachycardia, normal heart sounds. Absent: systolic murmur, diastolic murmur, rubs, gallop, clicks GI/Abdominal exam: Present: soft, normal bowel sounds. Absent: distended, tenderness, guarding, rebound, rigid Extremities exam: Present: normal inspection, full ROM, normal capillary refill. Absent: tenderness, pedal edema, joint swelling, calf tenderness Back exam: Present: normal inspection Neurological exam: Present: alert, oriented X3, CN II-XII intact Psychiatric exam: Present: normal affect, normal mood Skin exam: Present: warm, dry, intact, normal color. Absent: rash Course Vital Signs 01/04/23 01/04/23 01/04/23 15:02 16:35 16:54 Temperature 99.3 F Pulse Rate 105 H 100 Respiratory 18 24 Rate Blood Pressure 149/61 O2 Sat by Pulse 88 L Oximetry 01/04/23 01/04/23 17:12 22:21 Temperature Pulse Rate 97 99 Respiratory 18 Rate Blood Pressure 143/66 O2 Sat by Pulse 98 Oximetry - Reevaluation(s) Reevaluation #1: 01/04/23 17:19 Medical records are reviewed Reevaluation #2: 01/04/23 22:09 Patient symptoms are unchanged, oxygen is improved with supplemental O2 Reevaluation #3: 01/04/23 22:09 Patient informed results and questions answered Reevaluation #4: 01/04/23 17:20 Was pt. sent in by a medical professional or institution (, PA, COOKER MECHANIC, urgent care, hospital, or assisted...) When possible be specific @ -no Did you speak to anyone other than the patient for history (EMS, parent, family, police, friend...)? What history was obtained from this source @ -no Did you review nursing and triage notes (agree or disagree)? Why? @ -agree Are old charts reviewed (outside hosp., previous admission, EMS record, old EKG, old radiological studies, urgent care reports/EKG's, assisted records)? Report findings @ -yes Differential Diagnosis (chest pain, altered mental status, abdominal pain women, abdominal pain men, vaginal bleeding, weakness, fever, dyspnea, syncope, headache, dizziness, GI bleed, back pain, seizure, CVA, palpatations, mental health, musculoskeletal)? @ -prior EKG interpreted by me (3pts min.). @ -yes X-rays interpreted by me (1pt min.). @ -no CT interpreted by me (1pt min.). @ -yes U/S interpreted by me (1pt. min.). @ -no What testing was considered but not performed or refused? (CT, X-rays, U/S, labs)? Why? @ -none What meds were considered but not given or refused? Why? @ -none Did you discuss the management of the patient with other professionals (professionals i.e. , PA, COOKER MECHANIC, lab, RT, psych nurse, social science research assistant, brick setter, teacher, vice squad police officer, hims manager)? Give summary @ -no Was smoking cessation discussed for >3mins.? @ -no Was critical care preformed (if so, how long)? @ -no Were there social determinants of health that impacted care today? How? (Homelessness, low income, unemployed, alcoholism, drug addiction, transportation, low edu. Level, literacy, decrease access to med. care, alf, rehab)? @ -none Was there de-escalation of care discussed even if they declined (Discuss DNR or withdrawal of care, Hospice)? DNR status @ -no What co-morbidities impacted this encounter? (DM, HTN, Smoking, COPD, CAD, Cancer, CVA, ARF, Chemo, Hep., AIDS, mental health diagnosis, sleep apnea, morbid obesity)? @ -none Was patient admitted / discharged? Hospital course, mention meds given and route, prescriptions, significant lab abnormalities, going to OR and other pertinent info. @ - 73 female to the emergency department for evaluation of significant short ness of breath and palpitations came from cardiology office for PE rule out. CT is negative for PE positive for pneumonia we'll admit for supportive care supplemental O2 and IV antibiotics Admitted Undiagnosed new problem with uncertain prognosis? @ -no Drug Therapy requiring intensive monitoring for toxicity (Heparin, Nitro, Insulin, Cardizem)? @ -no Were any procedures done? @ -no Diagnosis/symptom? @ -Pneumonia and tachycardia Acute, or Chronic, or Acute on Chronic? @ -Acute Uncomplicated (without systemic symptoms) or Complicated (systemic symptoms)? @ -Complicated Side effects of treatment? @ -no Exacerbation, Progression, or Severe Exacerbation? @ -exacerbation Poses a threat to life or bodily function? How? (Chest pain, [place], [place], pneumonia, PE, COPD, DKA, ARF, appy, cholecystitis, CVA, Diverticulitis, Homicidal, Suicidal, threat to staff... and all critical care pts) @ -yes pneumonia and tachycardia Reevaluation #5: 01/04/23 22:09 Differential Dyspnea: Coronary syndrome, arrhythmia, tamponade, asthma, COPD, pulmonary embolism, pneumonia, pneumothorax, pulmonary effusion, anaphylaxis, diabetic ketoacidosis, flailed chest, pulmonary contusion, diaphragmatic rupture, anemia, neuromuscular, this is not meant to be an all-inclusive list. - Consultations Consultation #1: Spoke with [facility] were agrees to admit this patient Medical Decision Making - Medical Decision Making 73 female to the emergency department for evaluation of significant shortness of breath and palpitations came from cardiology office for PE rule out. CT is negative for PE positive for pneumonia we'll admit for supportive care supplemental O2 and IV antibiotics - Lab Data Result diagrams: 01/10/23 06:15 01/10/23 06:15 Lab Results 01/04/23 01/04/23 01/04/23 Range/Units 16:10 16:10 16:10 WBC 16.3 H (3.8-10.6) k/uL RBC 3.11 L (3.80-5.40) m/uL Hgb 10.1 L (11.4-16.0) gm/dL Hct 30.5 L (34.0-46.0) % MCV 97.9 (80.0-100.0) fL MCH 32.3 (25.0-35.0) pg MCHC 33.0 (31.0-37.0) g/dL RDW 14.7 (11.5-15.5) % Plt Count 449 (150-450) k/uL MPV 9.5 Neutrophils % 77 % Lymphocytes % 13 % Monocytes % 10 % Eosinophils % 0 % Basophils % 0 % Neutrophils # 12.5 H (1.3-7.7) k/uL Lymphocytes # 2.1 (1.0-4.8) k/uL Monocytes # 1.5 H (0-1.0) k/uL Eosinophils # 0.1 (0-0.7) k/uL Basophils # 0.0 (0-0.2) k/uL Manual Slide Review Performed Hypochromasia Slight PT (10.0-12.5) sec INR (<1.2) APTT (22.0-30.0) sec D-Dimer (<0.60) mg/L FEU Sodium 138 (137-145) mmol/L Potassium 5.0 (3.5-5.1) mmol/L Chloride 100 (98-107) mmol/L Carbon Dioxide 26 (22-30) mmol/L Anion Gap 12 mmol/L BUN 22 H (7-17) mg/dL Creatinine 0.71 (0.52-1.04) mg/dL Est GFR (CKD-EPI)AfAm >90 (>60 ml/min/1.73 sqM) Est GFR (CKD-EPI)NonAf 86 (>60 ml/min/1.73 sqM) Glucose 151 H (74-99) mg/dL Lactic Ac Sepsis Rflx Plasma Lactic Acid Robson 2.2 H* (0.7-2.0) mmol/L Calcium 8.8 (8.4-10.2) mg/dL Magnesium 1.9 (1.6-2.3) mg/dL Total Bilirubin 0.6 (0.2-1.3) mg/dL AST 30 (14-36) U/L ALT 17 (4-34) U/L Alkaline Phosphatase 57 (38-126) U/L Troponin I (0.000-0.034) ng/mL NT-Pro-B Natriuret Pep 2620 pg/mL Total Protein 6.0 L (6.3-8.2) g/dL Albumin 3.3 L (3.5-5.0) g/dL 01/04/23 01/04/23 01/04/23 Range/Units 16:10 20:16 20:29 WBC (3.8-10.6) k/uL RBC (3.80-5.40) m/uL Hgb (11.4-16.0) gm/dL Hct (34.0-46.0) % MCV (80.0-100.0) fL MCH (25.0-35.0) pg MCHC (31.0-37.0) g/dL RDW (11.5-15.5) % Plt Count (150-450) k/uL MPV Neutrophils % % Lymphocytes % % Monocytes % % Eosinophils % % Basophils % % Neutrophils # (1.3-7.7) k/uL Lymphocytes # (1.0-4.8) k/uL Monocytes # (0-1.0) k/uL Eosinophils # (0-0.7) k/uL Basophils # (0-0.2) k/uL Manual Slide Review Hypochromasia PT 10.3 (10.0-12.5) sec INR 0.9 (<1.2) APTT 24.1 (22.0-30.0) sec D-Dimer 2.98 H (<0.60) mg/L FEU Sodium (137-145) mmol/L Potassium (3.5-5.1) mmol/L Chloride (98-107) mmol/L Carbon Dioxide (22-30) mmol/L Anion Gap mmol/L BUN (7-17) mg/dL Creatinine (0.52-1.04) mg/dL Est GFR (CKD-EPI)AfAm (>60 ml/min/1.73 sqM) Est GFR (CKD-EPI)NonAf (>60 ml/min/1.73 sqM) Glucose (74-99) mg/dL Lactic Ac Sepsis Rflx Y Plasma Lactic Acid Robson (0.7-2.0) mmol/L Calcium (8.4-10.2) mg/dL Magnesium (1.6-2.3) mg/dL Total Bilirubin (0.2-1.3) mg/dL AST (14-36) U/L ALT (4-34) U/L Alkaline Phosphatase (38-126) U/L Troponin I <0.012 (0.000-0.034) ng/mL NT-Pro-B Natriuret Pep pg/mL Total Protein (6.3-8.2) g/dL Albumin (3.5-5.0) g/dL - EKG Data -: EKG Interpreted by Me (EKG is sinus tachycardia 102 PA 150 QRS 82 QTC 400) - Radiology Data Radiology results: report reviewed (Chest x-ray CT chest negative for PE positive for pneumonia), image reviewed Disposition Clinical Impression: Fever, Palpitations, Tachycardia, Pneumonia, Hypoxia Disposition: ADMITTED IP TO THIS HOSP Condition: Fair Is patient prescribed a controlled substance at d/c from ED?: No Time of Disposition: 22:10
[2023-01-04 16:50] LABS: ALT 17 U/L (4-34); AST 30 U/L (14-36); African American GFR (CKD) >90 (>60 ml/min/1.73 sqM); Albumin 3.3 g/dL (3.5-5.0); Alkaline Phosphatase 57 U/L (38-126); Anion Gap 12 mmol/L; Blood Urea Nitrogen 22 mg/dL (7-17); Calcium 8.8 mg/dL (8.4-10.2); Carbon Dioxide 26 mmol/L (22-30); Chloride 100 mmol/L (98-107); Glucose 151 mg/dL (74-99); Magnesium 1.9 mg/dL (1.6-2.3); Non-African American GFR(CKD) 86 (>60 ml/min/1.73 sqM); Sodium 138 mmol/L (137-145); Total Bilirubin 0.6 mg/dL (0.2-1.3)
--- NOTE | 2023-01-04 16:50 | XR ---
EXAM: XR chest 1V portable CLINICAL INDICATION:Female, 73 years old with history of sob; [facility] COMPARISON: None. TECHNIQUE: Chest single view. FINDINGS: Lines/tubes/devices: None. Cardiomediastinum: Cardiac silhouette appears normal in size. Unremarkable mediastinal silhouette. Vasculature: No increased pulmonary vasculature. Lungs/pleura: No consolidation, sizeable effusion, or visible pneumothorax. Bones/soft tissues: Bony thorax appears grossly intact as seen. Regional soft tissues appear unremarkable. IMPRESSION: No acute cardiopulmonary findings.
[2023-01-04 16:59] LABS: NT-Pro-B-Type Natriuretic Pept 2620 pg/mL
[2023-01-04 17:14] LABS: Basophils % (A) 0 %; Eosinophils # (A) 0.1 k/uL (0-0.7); Eosinophils % (A) 0 %; HCT 30.5 % (34.0-46.0); HGB 10.1 gm/dL (11.4-16.0); Hypochromasia Slight; Lymphocytes # (A) 2.1 k/uL (1.0-4.8); Lymphocytes % (A) 13 %; MCH 32.3 pg (25.0-35.0); MCV 97.9 fL (80.0-100.0); Mean Platelet Volume 9.5; Monocytes # (A) 1.5 k/uL (0-1.0); Monocytes % (A) 10 %; Neutrophils # (A) 12.5 k/uL (1.3-7.7); Neutrophils % (A) 77 %; RBC 3.11 m/uL (3.80-5.40); RDW 14.7 % (11.5-15.5); WBC 16.3 k/uL (3.8-10.6)
[2023-01-04 17:44] LABS: Platelet Count 449 k/uL (150-450)
[2023-01-04 21:17] LABS: INR 0.9 (<1.2); Partial Thromboplastin Time 24.1 sec (22.0-30.0); Prothrombin Time 10.3 sec (10.0-12.5)
--- NOTE | 2023-01-04 21:47 | CT ---
EXAMINATION TYPE: CT angio chest CT DLP: 340.7 mGycm, Automated exposure control for dose reduction was used. DATE OF EXAM: 01/04/2023 6:59 PM COMPARISON: Chest x-ray earlier today CLINICAL INDICATION:Female, 73 years old with history of PE; racing heart and chest pain TECHNIQUE/CONTRAST: CTA scan of the thorax is performed with IV Contrast, patient injected with 66ml mL of Isovue 370, LA P images are created and reviewed these are created on a separate workstation.. FINDINGS: Pulmonary Artery: There is no appreciable filling defect within the pulmonary vasculature to suggest acute pulmonary embolism. The pulmonary artery is of normal size. Lungs/Pleura: Small to moderate right and small left pleural effusions. There is what appears to be c ompressive atelectasis adjacent to the effusions. There is also more prominent consolidative opacity in the right lower lobe near the effusion, which appears more like pneumonia with underlying mass not excludable. Small area of consolidation also suggested in the left lower lobe. There are moderate pu lmonary emphysematous changes bilaterally. Small lung nodules cannot be excluded in this setting. No evidence of pneumothorax. Airway: Large airways are patent. Heart: Heart size appears within normal limits. Mild/moderate atherosclerotic calcifications of the c oronary arteries. Vasculature: Moderate mixed, dominantly calcified atherosclerotic disease of the aorta with mild narr owing of the branch vessels along the arch suggested. No evidence for thoracic aortic aneurysm or dis section flap. Mediastinum: No gross evidence of adenopathy. Musculoskeletal: No definite acute bony abnormalities. Partially seen cervical laminectomies and post erior fusion hardware extending from the cervical spine to the T1 and T2 levels. Generally mild multi level degenerative disc disease. Mild anterior wedging of the L1 vertebral body without definite frac ture lucency seen is favored to be chronic. Mild degenerative disc disease L1-L2 with small disc oste ophyte complex causing mild canal stenosis. Soft Tissues: Unremarkable. Lower neck: No significant findings. Upper Abdomen: No definite acute abnormalities. Mild reflux of contrast to the hepatic level IVC and hepatic veins. A couple of punctate nonobstructing calculi in the lower pole left kidney. Possible sm all sliding hiatal hernia. Mild/moderate stenoses of the proximal celiac more so than superior mesent venkatesh arteries. Mild narrowing of the proximal main renal arteries bilaterally. There are a couple of small accessory right renal arteries suggested. IMPRESSION: 1. No evidence of pulmonary arterial embolus. 2. Small to moderate right and small left pleural effusions. 3. Compressive atelectasis adjacent to the effusions, as well as additional consolidation in the rig ht more so than left lower lobes suggesting infectious/inflammatory process such as pneumonia. Follow -up recommended to exclude any underlying neoplasm. 4. Moderate bilateral pulmonary emphysematous changes. 5. Moderate atherosclerotic disease of the aorta and major branches including the coronary arteries. 6. Mild reflux of contrast to the liver, could be from vigorous contrast injection with an element o f right heart insufficiency possible.
[2023-01-04] MEDS ORDERED: AZITHROMYCIN 500 MG in SODIUM CHLORIDE 0.9% 250 ML IVPB STA (22:04)
[2023-01-04] MEDS ORDERED: PNEUMONIA PROTOCOL UTILIZED 1 EACH MISC PO PRN (22:04)
[2023-01-04] MEDS ORDERED: IPRATROPIUM-ALBUTEROL 3 ML NEB INHALATION PRN (22:04)
[2023-01-04] MEDS: SODIUM CHLORIDE 0.9% 1,000 ML IV SCH (23:41)
[2023-01-05] MEDS: ACETAMINOPHEN TAB 325 MG TAB PO PRN ×2 (04:36→15:31)
[2023-01-05] MEDS ORDERED: bisacodyL 10 MG SUPP RECTAL PRN (07:57)
[2023-01-05] MEDS ORDERED: IPRATROPIUM-ALBUTEROL 3 ML NEB INHALATION PRN (07:57)
[2023-01-05] MEDS ORDERED: NA PHOS,M-B/NA PHOS,DI-BA 133 ML ENEMA RECTAL PRN (07:57)
[2023-01-05] MEDS ORDERED: ALBUTEROL NEBULIZED 2.5 MG/3 ML INHALATION PRN (07:57)
[2023-01-05] MEDS ORDERED: MAGNESIUM HYDROXIDE 2,400 MG/30 ML CUP PO PRN (07:57)
[2023-01-05] MEDS ORDERED: BUDESONIDE 1 MG/2 ML NEBU INHALATION SCH (07:58)
--- NOTE | 2023-01-05 08:13 | P.HPIM ---
History of Present Illness This is a pleasant 73 years old female with past medical history of GERD/Reflux, Hyperlipidemia, Hypertension, Osteoarthritis , Right breast cancer, status post mastectomy in 2000 back pain - steroid injections, hiatal hernia - not repaired. stage 3 vulva cancer-seeing oncologist in [facility].-surg. stage 3 kidney disease. Patient was recently in the hospital and 12/22-12/25 for acute urinary tract infection abscess. Also she had MRI of the brain which was negative for infarct. The previously on 12/17-12/20 she was in the hospital for her cervical stenosis status post compression and fusion with Dr. Butt , she wants to see Dr. Butt last Saturday and he checked her alice and tolerating everything okay. 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 Pham for follow-up. And Dr. Rios the patient has been tachycardic, she does not know how high was her heart rate so he referred her to the hospital. As there was a concerns about PE. Patient says that she's been having dyspnea for the last few days but no chest pain no coughing and she does not use oxygen at home. She has history of COPD and she follow up with hvac estimator Dr. Dempsey. She denies GI urinary symptoms. She has mild headache from her next surgery and currently she has soft collar in place. No dizziness or new weakness or numbness. She is known to have weakness in both upper extremities more on the right side since before the surgery to her cervical spine. Also patient complaining from right leg swelling but no pain. Echo from 12/22/2022: Ejection fraction 55-60% Vitas looks stable and patient is afebrile. Oxygen on the presentation was 88 on room air, currently saturating 97% on 2 L oxygen nasal cannula Labs showing leukocytosis of 16.3, hemoglobin 10.1. D-dimer is 2.9. INR 0.9. Creatinine 0.7 and potassium 5. Trace of BMP is unremarkable. Lactic acid came back to normal. Liver enzymes not elevated. Troponin is negative. ProBNP 2620. EKG showing sinus tachycardia at [address]-T changes CT of the chest: No acute pulmonary embolism. Bilateral pleural effusion with moderate on the right and small on the left with adjacent compressive atelectasis. Consolidation on the right more than the left suggesting of infectious/inflammatory process such as pneumonia. Moderate bilateral emphysematous changes. Patient already started on Zithromax and ceftriaxone Review of Systems Review of systems CONSTITUTIONAL: No fever, no malaise, no fatigue. HEENT: No recent visual problems or hearing problems. Denied any sore throat. CARDIOVASCULAR: No orthopnea, PND, no palpitations, no syncope. PULMONARY: No chest wall tenderness, no hemoptysis. GASTROINTESTINAL: No diarrhea, no nausea, no vomiting, no abdominal pain. Normoactive bowel sounds. NEUROLOGICAL: No headaches, no weakness, no numbness. HEMATOLOGICAL: Denies any bleeding or petechiae. GENITOURINARY: Denies any burning micturition, frequency, or urgency. MUSCULOSKELETAL/RHEUMATOLOGICAL: Denies any joint pain, swelling, or any muscle pain. ENDOCRINE: Denies any polyuria or polydipsia. Past Medical History Past Medical History: Cancer, GERD/Reflux, Hyperlipidemia, Hypertension, Musc uloskeletal Disorder, Osteoarthritis (OA), Renal Disease Additional Past Medical History / Comment(s): Right breast cancer, back pain - steroid injections, hiatal hernia - not repaired. stage 3 vulva cancer-seeing oncologist in [facility].-surg. could possibly be postponed, gets SOB w/exertion, stage 3 kidney disease. History of Any Multi-Drug Resistant Organisms: None Reported Past Surgical History: Back Surgery, Breast Surgery, Joint Replacement, Tonsillectomy, Tubal Ligation Additional Past Surgical History / Comment(s): Right breast mastectomy 2000, artificial vance. thumb joint (3 surgeries), left hand surgery, EGD 2010. back injections for pain, left cataract removed, C2 to T2 fusion 12/17/2022 Past Anesthesia/Blood Transfusion Reactions: Postoperative Nausea & Vomiting (PONV) Additional Past Anesthesia/Blood Transfusion Reaction / Comment(s): only happened once years ago Past Psychological History: Depression Additional Psychological History / Comment(s): depressed due to back issue Smoking Status: Former smoker Past Alcohol Use History: Rare Additional Past Alcohol Use History / Comment(s): quit smoking 4 yrs. ago, smoked 20-30 yrs., 1ppd or more Past Drug Use History: None Reported Additional Drug Use History / Comment(s): occasional use - Past Family History Mother Family Medical History: Cancer Additional Family Medical History / Comment(s): Stomach cancer Sister(s) Family Medical History: Cancer Additional Family Medical History / Comment(s): Lung cancer mets to brain Brother(s) Family Medical History: Cancer Additional Family Medical History / Comment(s): multiple cancers Medications and Allergies Home Medications Medication Instructions Recorded Confirmed Type Aspirin 81 mg PO DAILY@0800 05/01/22 01/04/23 History Atorvastatin [Lipitor] 20 mg PO DAILY@1630 05/01/22 01/04/23 History Ferrous Sulfate [Feosol] 325 mg PO DAILY@0800 05/01/22 01/04/23 History Fluticasone/Umeclidin/Vilanter 1 puff INHALATION RT-DAILY@0800 05/01/22 01/04/23 History [Roman Ellipta 100-62.5-25] Famotidine [Pepcid] 40 mg PO BID@0800,1700 09/04/22 01/04/23 History Albuterol Inhaler [Ventolin Hfa 1 - 2 puff INHALATION RT-Q6H PRN 10/31/22 01/04/23 History Inhaler] Metoprolol Succinate (ER) [Toprol 25 mg PO DAILY@1630 10/31/22 01/04/23 History XL] calcitrioL [Calcitriol] 0.25 mcg PO HERRERA@0800 10/31/22 01/04/23 History Loratadine [Claritin] 10 mg PO DAILY@0800 12/12/22 01/04/23 History Cyclobenzaprine [Flexeril] 5 mg PO TID PRN #40 tablet 12/20/22 01/04/23 Rx Cholecalciferol [Vitamin D3 (25 50 mcg PO DAILY@0800 12/21/22 01/04/23 History Mcg = 1000 Iu)] Magnesium Hydroxide [Milk of 7,200 mg PO DAILY PRN 12/21/22 01/04/23 History Magnesia Concentrate] Na Phos,M-B/Na Phos,Di-Ba [Fleet 133 ml RECTAL DAILY PRN 12/21/22 01/04/23 History Adult] Sennosides/Docusate Sodium [Senna 1 tab PO BID@0800,1700 12/21/22 01/04/23 History Plus 8.6-50 mg Tablet] bisacodyL [Dulcolax] 10 mg RECTAL DAILY PRN 12/21/22 01/04/23 History HYDROcodone/APAP 7.5-325MG [[place] 1 tab PO Q4HR PRN #4 tab 12/25/22 01/04/23 Rx 7.5-325] Acetaminophen [Tylenol Arthritis] 650 mg PO Q4H PRN 01/04/23 01/04/23 History Budesonide [Pulmicort] 1 mg INHALATION RT-DAILY@0600 01/04/23 01/04/23 History Depo-Medrol 80mg 80 mg IM ONETIME 01/04/23 01/04/23 History Gabapentin 300 mg PO TID@0800,1400,2100 01/04/23 01/04/23 History Ipratropium-Albuterol Nebulize 3 ml INHALATION RT-Q6H PRN 01/04/23 01/04/23 History [Duoneb 0.5 mg-3 mg/3 ml Soln] Ipratropium-Albuterol Nebulize 3 ml INHALATION RT-QID 01/04/23 01/04/23 History [Duoneb 0.5 mg-3 mg/3 ml Soln] polyethylene glycoL 3350 [Miralax] 17 gm PO DAILY@0800 01/04/23 01/04/23 History predniSONE See Taper PO DIRECTED 01/04/23 01/04/23 History Allergies Allergy/AdvReac Type Severity Reaction Status Date / Time No Known Allergies Allergy Verified 01/04/23 17:07 Physical Exam Vitals: Vital Signs Temp Pulse Pulse Resp BP BP Pulse Ox 01/05/23 00:15 98.0 F 89 18 137/64 97 01/04/23 23:11 98.2 F 98 19 167/65 97 01/04/23 22:21 99 18 143/66 98 01/04/23 17:12 97 01/04/23 16:54 100 01/04/23 16:35 24 01/04/23 15:02 99.3 F 105 H 18 149/61 88 L Intake and Output 01/04/23 01/04/23 01/05/23 14:59 22:59 06:59 Output Total 251 Balance -251 Output: Urine 250 Stool 1 Other: # Voids 1 Weight 71.668 kg 71.668 kg GENERAL: The patient is alert and oriented x3, not in any acute distress. Well developed, well nourished. -HEENT: Pupils are round and equally reacting to light. EOMI. No scleral icterus. No conjunctival pallor. Normocephalic, atraumatic. No pharyngeal erythema. No thyromegaly. Soft collar in place, surgical wound in the midline upper back with dressing in place CARDIOVASCULAR: S1 and S2 present. No murmurs, rubs, or gallops. PULMONARY: Chest is clear to auscultation, no wheezing , no crackles. ABDOMEN: Soft, nontender, nondistended, normoactive bowel sounds. No palpable organomegaly. MUSCULOSKELETAL: No joint swelling or deformity. -EXTREMITIES: No cyanosis, clubbing, , bilateral pitting leg edema 1+ NEUROLOGICAL: Gross neurological examination did not reveal any focal deficits. SKIN: No rashes. no petechiae. Results CBC & Chem 7: 01/04/23 16:10 01/04/23 16:10 Labs: Abnormal Lab Results - Last 24 Hours (Table) 01/04/23 01/04/23 01/04/23 Range/Units 16:10 16:10 16:10 WBC 16.3 H (3.8-10.6) k/uL RBC 3.11 L (3.80-5.40) m/uL Hgb 10.1 L (11.4-16.0) gm/dL Hct 30.5 L (34.0-46.0) % Neutrophils # 12.5 H (1.3-7.7) k/uL Monocytes # 1.5 H (0-1.0) k/uL D-Dimer (<0.60) mg/L FEU BUN 22 H (7-17) mg/dL Glucose 151 H (74-99) mg/dL Plasma Lactic Acid Robson 2.2 H* (0.7-2.0) mmol/L Total Protein 6.0 L (6.3-8.2) g/dL Albumin 3.3 L (3.5-5.0) g/dL 01/04/23 Range/Units 20:29 WBC (3.8-10.6) k/uL RBC (3.80-5.40) m/uL Hgb (11.4-16.0) gm/dL Hct (34.0-46.0) % Neutrophils # (1.3-7.7) k/uL Monocytes # (0-1.0) k/uL D-Dimer 2.98 H (<0.60) mg/L FEU BUN (7-17) mg/dL Glucose (74-99) mg/dL Plasma Lactic Acid Robson (0.7-2.0) mmol/L Total Protein (6.3-8.2) g/dL Albumin (3.5-5.0) g/dL Assessment and Plan Assessment: Right lower lobe pneumonia Bilateral pleural effusion, more on the right. Secondary to above Mild COPD exacerbation Mild acute diastolic CHF with EF 55% to 60% Severe osteoarthritis with recent history of neck pain and weakness in the arms, status post C2 to T2 decompression fusion postoperative pain Hypertension Hyperlipidemia History of osteoarthritis Hypothyroidism History of GERD History of hiatal hernia History of right breast cancer status post mastectomy in 2000 Chronic kidney disease stage III Plan: Check venous ultrasound start Lasix 1 Continue with antibiotics and currently she is on Zithromax and ceftriaxone Consult pulmonary service Labs and medication were reviewed.. Continue same treatment. Continue with symptomatic treatment. Resume home medication. Monitor lytes and vitals. DVT and GI prophylaxis. Further recommendations depends on the clinical course of the patient DVT prophylaxis: Subcutaneous heparin GI Prophylaxis: Pepcid prognosis is guarded Possible discharge in 24-48 hours
[2023-01-05] MEDS: FUROSEMIDE 10 MG/ML 4 ML VIAL IV SCH ×2 (08:42→21:55)
[2023-01-05] MEDS: SENNOSIDES-DOCUSATE SODIUM 1 EACH TAB PO SCH ×2 (08:42→17:04)
[2023-01-05] MEDS: CHOLECALCIFEROL 25 MCG (1000 IU) TABLET PO SCH (08:42)
[2023-01-05] MEDS: FERROUS SULFATE 325 MG TAB PO SCH (08:42)
[2023-01-05] MEDS: ASPIRIN 81 MG PO SCH (08:42)
[2023-01-05] MEDS: FAMOTIDINE 20 MG TAB PO SCH ×2 (08:42→17:04)
[2023-01-05] MEDS: GABAPENTIN 300 MG CAP PO SCH ×3 (08:42→21:56)
[2023-01-05] MEDS: LORATADINE 10 MG TAB PO SCH (08:42)
[2023-01-05] MEDS: polyethylene glycoL 3350 17 GM POWD.PACK PO SCH (08:43)
[2023-01-05] MEDS: SYMBICORT 80-4.5 MCG INHALER INHALATION SCH ×2 (08:46→20:02)
[2023-01-05] MEDS: IPRATROPIUM-ALBUTEROL 3 ML NEB INHALATION SCH ×4 (08:47→20:02)
[2023-01-05] MEDS: SODIUM CHLORIDE 0.9% 1,000 ML IV SCH ×2 (09:59→17:44)
[2023-01-05] MEDS: PIPERACILLIN-TAZOBACTAM 3.375 GM in SODIUM CHLORIDE 0.9% 100 ML IVPB SCH ×2 (12:14→16:19)
--- NOTE | 2023-01-05 12:38 | P.CNPUL ---
History of Present Illness Consult date: 01/05/23 Reason for consult: dyspnea, pneumonia, pleural effusion History of present illness: This is a 73-year-old female patient was hospitalized for shortness of breath and pneumonia. The patient presented emergency department with increasing dyspnea and tachycardia. In fact, the patient was sent over for evaluation of pulmonary embolism. CT antigram of the chest was done and the patient was found to have a small right-sided pleural effusion with compressive atelectasis. Underlying pneumonia cannot be completely excluded. Noted the patient has had several hospitalizations. Initially, the patient had a cervical decompression and fusion for a cervical spine stenosis and the patient was asked blood between and 12/20/2022 and the patient was discharged to rehab. Subsequently she was admitted for Urine checked infection. She was given IV antibiotics and she was discharged. At that time, the patient was hospitalized for UTI and altered mentation. MRI of the brain was done and it was negative. Following her discharge, the patient was readmitted again for shortness of breath. She is currently on 2 L of oxygen by nasal cannula. White cycles of 16.3. BUN is at 22 with a creatinine of 0.7. Sodium was at 138. Potassium level is at 5. Hemoglobin is at 10.1. The patient was started on Rocephin and Zithromax. EKG showed sinus tachycardia without any acute ST segment abnormalities. No reported aspiration. No pleurisy. No hemoptysis. She is currently on oxygen and she is on 4 L to maintain a saturation above 90%. The current pulse ox is 98%. Review of Systems Constitutional: Reports fatigue, Reports lethargy Eyes: denies as per HPI, denies blurred vision, denies bulging eye, denies decreased vision, denies diplopia, denies discharge, denies dry eye, denies irritation, denies itching, denies pain, denies photophobia, denies loss of peripheral vision, denies loss of vision, denies tunnel vision/blind spots Ears: deny: decreased hearing, ear discharge, earache, tinnitus Ears, nose, mouth and throat: Reports as per HPI Breasts: absent: as per HPI, change in shape, gynecomastia, masses, nipple discharge, pain, skin changes, swelling Cardiovascular: Reports decreased exercise tolerance Respiratory: Reports dyspnea Gastrointestinal: Reports as per HPI Genitourinary: Reports as per HPI Menstruation: Reports as per HPI Musculoskeletal: Reports as per HPI (Neck pain post-cervical decompression the patient is awaiting a soft collar) Musculoskeletal: absent: ankle pain, ankle stiffness, ankle swelling Integumentary: Reports as per HPI Neurological: Reports as per HPI Psychiatric: Reports as per HPI Endocrine: Reports as per HPI Hematologic/Lymphatic: Reports as per HPI Allergic/Immunologic: Reports as per HPI Past Medical History Past Medical History: Cancer, GERD/Reflux, Hyperlipidemia, Hypertension, Musculoskeletal Disorder, Osteoarthritis (OA), Renal Disease Additional Past Medical History / Comment(s): Right breast cancer, back pain - steroid injections, hiatal hernia - not repaired. stage 3 vulva cancer-seeing oncologist in [facility]-surg. could possibly be postponed, gets SOB w/exertion, stage 3 kidney disease. History of Any Multi-Drug Resistant Organisms: None Reported Past Surgical History: Back Surgery, Breast Surgery, Joint Replacement, Tonsillectomy, Tubal Ligation Additional Past Surgical History / Comment(s): Right breast mastectomy 2000, artificial vance. thumb joint (3 surgeries), left hand surgery, EGD 2010. back injections for pain, left cataract removed, C2 to T2 fusion 12/17/2022 Past Anesthesia/Blood Transfusion Reactions: Postoperative Nausea & Vomiting (PONV) Additional Past Anesthesia/Blood Transfusion Reaction / Comment(s): only happened once years ago Past Psychological History: Depression Additional Psychological History / Comment(s): depressed due to back issue Smoking Status: Former smoker Past Alcohol Use History: Rare Additional Past Alcohol Use History / Comment(s): quit smoking 4 yrs. ago, smoked 20-30 yrs., 1ppd or more Past Drug Use History: None Reported Additional Drug Use History / Comment(s): occasional use - Past Family History Mother Family Medical History: Cancer Additional Family Medical History / Comment(s): Stomach cancer Sister(s) Family Medical History: Cancer Additional Family Medical History / Comment(s): Lung cancer mets to brain Brother(s) Family Medical History: Cancer Additional Family Medical History / Comment(s): multiple cancers Medications and Allergies Home Medications Medication Instructions Recorded Confirmed Type Aspirin 81 mg PO DAILY@0800 05/01/22 01/04/23 History Atorvastatin [Lipitor] 20 mg PO DAILY@1630 05/01/22 01/04/23 History Ferrous Sulfate [Feosol] 325 mg PO DAILY@0800 05/01/22 01/04/23 History Fluticasone/Umeclidin/Vilanter 1 puff INHALATION RT-DAILY@0800 05/01/22 01/04/23 History [Roman Ellipta 100-62.5-25] Famotidine [Pepcid] 40 mg PO BID@0800,1700 09/04/22 01/04/23 History Albuterol Inhaler [Ventolin Hfa 1 - 2 puff INHALATION RT-Q6H PRN 10/31/22 01/04/23 History Inhaler] Metoprolol Succinate (ER) [Toprol 25 mg PO DAILY@1630 10/31/22 01/04/23 History XL] calcitrioL [Calcitriol] 0.25 mcg PO HERRERA@0800 10/31/22 01/04/23 History Loratadine [Claritin] 10 mg PO DAILY@0800 12/12/22 01/04/23 History Cyclobenzaprine [Flexeril] 5 mg PO TID PRN #40 tablet 12/20/22 01/04/23 Rx Cholecalciferol [Vitamin D3 (25 50 mcg PO DAILY@0800 12/21/22 01/04/23 History Mcg = 1000 Iu)] Magnesium Hydroxide [Milk of 7,200 mg PO DAILY PRN 12/21/22 01/04/23 History Magnesia Concentrate] Na Phos,M-B/Na Phos,Di-Ba [Fleet 133 ml RECTAL DAILY PRN 12/21/22 01/04/23 History Adult] Sennosides/Docusate Sodium [Senna 1 tab PO BID@0800,1700 12/21/22 01/04/23 History Plus 8.6-50 mg Tablet] bisacodyL [Dulcolax] 10 mg RECTAL DAILY PRN 12/21/22 01/04/23 History HYDROcodone/APAP 7.5-325MG [[place] 1 tab PO Q4HR PRN #4 tab 12/25/22 01/04/23 Rx 7.5-325] Acetaminophen [Tylenol Arthritis] 650 mg PO Q4H PRN 01/04/23 01/04/23 History Budesonide [Pulmicort] 1 mg INHALATION RT-DAILY@0600 01/04/23 01/04/23 History Depo-Medrol 80mg 80 mg IM ONETIME 01/04/23 01/04/23 History Gabapentin 300 mg PO TID@0800,1400,2100 01/04/23 01/04/23 History Ipratropium-Albuterol Nebulize 3 ml INHALATION RT-Q6H PRN 01/04/23 01/04/23 History [Duoneb 0.5 mg-3 mg/3 ml Soln] Ipratropium-Albuterol Nebulize 3 ml INHALATION RT-QID 01/04/23 01/04/23 History [Duoneb 0.5 mg-3 mg/3 ml Soln] polyethylene glycoL 3350 [Miralax] 17 gm PO DAILY@0800 01/04/23 01/04/23 History predniSONE See Taper PO DIRECTED 01/04/23 01/04/23 History Allergies Allergy/AdvReac Type Severity Reaction Status Date / Time No Known Allergies Allergy Verified 01/04/23 17:07 Physical Exam Vitals: Vital Signs Temp Pulse Pulse Resp BP BP Pulse Ox 01/05/23 11:25 99 16 01/05/23 11:18 99 18 98 01/05/23 06:57 98.3 F 88 20 146/76 98 01/05/23 00:15 98.0 F 89 18 137/64 97 01/04/23 23:11 98.2 F 98 19 167/65 97 01/04/23 22:21 99 18 143/66 98 01/04/23 17:12 97 01/04/23 16:54 100 01/04/23 16:35 24 01/04/23 15:02 99.3 F 105 H 18 149/61 88 L Intake and Output 01/04/23 01/05/23 01/05/23 22:59 06:59 14:59 Output Total 251 Balance -251 Output: Urine 250 Stool 1 Other: # Voids 1 Weight 71.668 kg 71.668 kg GENERAL: The patient is alert and oriented x3, not in any acute distress. Well developed, well nourished. The patient is currently on oral liters of Oxymizer nasal cannula. Breathing is nonlabored. Head exam was generally normal. There was no scleral icterus or corneal arcus. Mucous membranes were moist. -HEENT: Pupils are round and equally reacting to light. EOMI. No scleral icterus. No conjunctival pallor. Normocephalic, atraumatic. No pharyngeal erythema. No thyromegaly. Soft collar in place, surgical wound in the midline upper back with dressing in place CARDIOVASCULAR: S1 and S2 present. No murmurs, rubs, or gallops. PULMONARY: Chest is clear to auscultation, no wheezing , no crackles. There is diminished breath on the lung bases bilaterally more so on the right along with some limited crackles ABDOMEN: Soft, nontender, nondistended, normoactive bowel sounds. No palpable organomegaly. MUSCULOSKELETAL: No joint swelling or deformity. -EXTREMITIES: No cyanosis, clubbing, , bilateral pitting leg edema 1+ NEUROLOGICAL: Gross neurological examination did not reveal any focal deficits. SKIN: No rashes. no petechiae. Results - Laboratory Findings CBC and BMP: 01/04/23 16:10 01/04/23 16:10 PT/INR, D-dimer PT 10.3 sec (10.0-12.5) 01/04/23 20:29 INR 0.9 (<1.2) 01/04/23 20:29 D-Dimer 2.98 mg/L FEU (<0.60) H 01/04/23 20:29 Abnormal lab findings: Abnormal Labs 01/04/23 01/04/23 01/04/23 16:10 16:10 16:10 WBC 16.3 H RBC 3.11 L Hgb 10.1 L Hct 30.5 L Neutrophils # 12.5 H Monocytes # 1.5 H D-Dimer BUN 22 H Glucose 151 H Plasma Lactic Acid Robson 2.2 H* Total Protein 6.0 L Albumin 3.3 L 01/04/23 20:29 WBC RBC Hgb Hct Neutrophils # Monocytes # D-Dimer 2.98 H BUN Glucose Plasma Lactic Acid Robson Total Protein Albumin - Diagnostic Findings Chest x-ray: image reviewed CT scan - chest: image reviewed Assessment and Plan Plan: Right lower lobe pneumonia with a small effusion, likely parapneumonic. Consider possibility of a hospital-acquired pneumonia. Consider aspiration. Patient has been hospitalized on 2 separate occasions, initially for a cervical spine surgery/decompression/laminectomy and subsequently she was hospitalized for underlying urinary tract infection. As such, hospital-acquired pneumonia cannot be completely excluded. Acute hypoxic respiratory failure currently on 4 L of oxygen by nasal cannula Acute leukocytosis Recent hospitalization for UTI/sepsis, treated Altered mental status, recovered COPD , inactive and stable Diastolic CHF with EF 55% to 60% Severe osteoarthritis with recent history of neck pain and weakness in the arms, status post C2 to T2 decompression fusion postoperative pain Hypertension Hyperlipidemia History of osteoarthritis Hypothyroidism History of GERD History of hiatal hernia History of right breast cancer status post mastectomy in 2000 Plan Titrate FiO2 to maintain an oxygen saturation of above 90%, currently on 4 L Check pro calcitonin level Monitor for antibiotics and utilize Zosyn covering for hospital-acquired pathogens. Continue Zithromax We'll dropped Rocephin Continue Symbicort as maintenance for COPD DuShalini richardsraanali 4 times a day IV Lasix for the next 24 hours Repeat chest x-ray in the morning Monitor mentation Keep the soft neck collar We'll continue to follow. Home medications have been resumed.
--- NOTE | 2023-01-05 16:33 | XR ---
EXAM: XR chest 1V portable CLINICAL INDICATION:Female, 73 years old with history of pneumonia; PH COMPARISON: 01/04/2023 chest x-ray and CTA TECHNIQUE: Chest single view. FINDINGS: Lines/tubes/devices: None. Cardiomediastinum: Cardiac silhouette appears mildly enlarged. Unremarkable mediastinal silhouette. Atherosclerotic calcifications of the aorta. Mildly prominent ri ght hilum likely combination of vascular shadows and mildly enlarged lymphatic tissue compared to shirley or CTA. Vasculature: No increased pulmonary vasculature. Lungs/pleura: Background chronic lung changes of COPD. Decreased bibasilar pleural/parenchymal opacities, with mild residual pulmonary opacities and trace residual pleural effusions suspected. No visualized pneumotho rax. Bones/soft tissues: Bony thorax appears grossly intact as seen. Partially imaged multilevel cervical fixation hardware. R egional soft tissues appear unremarkable. IMPRESSION: Interval improvement since 01/04/2023, with decreased bibasilar pleural/parenchymal opacities with mi ld residual. Continued follow-up.
--- NOTE | 2023-01-05 17:02 | US ---
EXAMINATION TYPE: US venous doppler duplex LE BI DATE OF EXAM: 01/05/2023 10:52 AM COMPARISON: NONE CLINICAL INDICATION: Female, 73 years old with history of leg swelling; edema SIDE PERFORMED: Bilateral TECHNIQUE: Grayscale, color doppler, spectral doppler imaging performed of the deep veins of the vance ateral lower extremities. VESSELS IMAGED: Common Femoral Vein Deep Femoral Vein Greater Saphenous Vein * Femoral Vein Popliteal Vein Small Saphenous Vein * Proximal Calf Veins (* superficial vessels) There is normal flow, compressibility, and vascular waveforms demonstrated, without evidence to sugge st DVT. Right Leg: Negative for DVT Left Leg: Negative for DVT IMPRESSION: No evidence of DVT in the bilateral lower extremities.
[2023-01-05] MEDS: ATORVASTATIN 20 MG TAB PO SCH (17:04)
[2023-01-05] MEDS: METOPROLOL SUCCINATE (ER) 25 MG TAB.ER.24H PO SCH (17:04)
[2023-01-05] MEDS: AZITHROMYCIN 500 MG TAB PO SCH (21:55)
[2023-01-05] MEDS: CYCLOBENZAPRINE 5 MG TAB PO PRN (21:59)
[2023-01-06] MEDS: PIPERACILLIN-TAZOBACTAM 3.375 GM in SODIUM CHLORIDE 0.9% 100 ML IVPB SCH ×4 (00:50→23:50)
[2023-01-06] MEDS: SODIUM CHLORIDE 0.9% 1,000 ML IV SCH (04:17)
[2023-01-06] MEDS: FAMOTIDINE 20 MG TAB PO SCH ×2 (07:07→16:04)
[2023-01-06] MEDS: GABAPENTIN 300 MG CAP PO SCH ×3 (07:07→20:23)
[2023-01-06] MEDS: LORATADINE 10 MG TAB PO SCH (07:07)
[2023-01-06] MEDS: SENNOSIDES-DOCUSATE SODIUM 1 EACH TAB PO SCH ×2 (07:07→16:04)
[2023-01-06] MEDS: CHOLECALCIFEROL 25 MCG (1000 IU) TABLET PO SCH (07:07)
[2023-01-06] MEDS: ASPIRIN 81 MG PO SCH (07:07)
[2023-01-06] MEDS: polyethylene glycoL 3350 17 GM POWD.PACK PO SCH (07:08)
[2023-01-06] MEDS: FERROUS SULFATE 325 MG TAB PO SCH (07:08)
[2023-01-06] MEDS: FUROSEMIDE 10 MG/ML 4 ML VIAL IV SCH (07:48)
[2023-01-06] MEDS: IPRATROPIUM-ALBUTEROL 3 ML NEB INHALATION SCH ×4 (07:49→21:19)
[2023-01-06] MEDS: SYMBICORT 80-4.5 MCG INHALER INHALATION SCH ×2 (07:49→21:19)
--- NOTE | 2023-01-06 11:20 | P.PN ---
Subjective This is a pleasant 73 years old female with past medical history of GERD/Reflux, Hyperlipidemia, Hypertension, Osteoarthritis , Right breast cancer, status post mastectomy in 2000 back pain - steroid injections, hiatal hernia - not repaired. stage 3 vulva cancer-seeing oncologist in [facility].-surg. stage 3 kidney disease. Patient was recently in the hospital and 12/22-12/25 for acute urinary tract infection abscess. Also she had MRI of the brain which was negative for infarct. The previously on 12/17-12/20 she was in the hospital for her cervical stenosis status post compression and fusion with Dr. Butt , she wants to see Dr. Butt last Saturday and he checked her alice and tolerating everything okay. Since surgery also is receiving hospice nurse practitioner and yesterday she was going to see Dr. Pham for follow-up. And Dr. Rios the patient has been tachycardic, she does not know how high was her heart rate so he referred her to the hospital. As there was a concerns about PE. Patient says that she's been having dyspnea for the last few days but no chest pain no coughing and she does not use oxygen at home. She has history of COPD and she follow up with inverter and clipper Dr. Dempsey. She denies GI urinary symptoms. She has mild headache from her next surgery and currently she has soft collar in place. No dizziness or new weakness or numbness. She is known to have weakness in both upper extremities more on the r ight side since before the surgery to her cervical spine. Also patient complaining from right leg swelling but no pain. Echo from 12/22/2022: Ejection fraction 55-60% Vitas looks stable and patient is afebrile. Oxygen on the presentation was 88 on room air, currently saturating 97% on 2 L oxygen nasal cannula Labs showing leukocytosis of 16.3, hemoglobin 10.1. D-dimer is 2.9. INR 0.9. Creatinine 0.7 and potassium 5. Trace of BMP is unremarkable. Lactic acid came back to normal. Liver enzymes not elevated. Troponin is negative. ProBNP 2620. EKG showing sinus tachycardia at [address]-T changes CT of the chest: No acute pulmonary embolism. Bilateral pleural effusion with moderate on the right and small on the left with adjacent compressive atelectasis. Consolidation on the right more than the left suggesting of infectious/inflammatory process such as pneumonia. Moderate bilateral emphysematous changes. Patient already started on Zithromax and ceftriaxone 01/06/2023 Patient states that her breathing is mildly better, cough better when she has chest pain with coughing only, she is currently saturating 95% on 4 L oxygen via nasal cannula She remains on Zosyn. Chest x-ray from yesterday showed mild interval improvement DC IV Lasix, continue with normal saline 100 mL per hour Her pain in her surgical site is the same when she saw Dr. Chauhan'son last time, soft collar is in place Objective - Vital Signs Vital signs: Vital Signs Temp 98.2 F 01/06/23 07:15 Pulse 92 01/06/23 08:01 Resp 16 01/06/23 07:15 BP 131/65 01/06/23 07:15 Pulse Ox 95 01/06/23 07:51 FiO2 Intake & Output 01/05/23 01/06/23 01/06/23 18:59 06:59 18:59 Intake Total 1080 Output Total 2100 2440 Balance -1020 -2440 Intake: Oral 1080 Output: Urine 2100 2440 Other: Voiding Method External Catheter # Voids 3 - Exam GENERAL: The patient is alert and oriented x3, not in any acute distress. Well developed, well nourished. -HEENT: Pupils are round and equally reacting to light. EOMI. No scleral icterus. No conjunctival pallor. Normocephalic, atraumatic. No pharyngeal erythema. No thyromegaly. Soft collar in place soft collar is in place CARDIOVASCULAR: S1 and S2 present. No murmurs, rubs, or gallops. PULMONARY: Chest is clear to auscultation, no wheezing , no crackles. ABDOMEN: Soft, nontender, nondistended, normoactive bowel sounds. No palpable organomegaly. MUSCULOSKELETAL: No joint swelling or deformity. EXTREMITIES: No cyanosis, clubbing, or pedal edema. NEUROLOGICAL: Gross neurological examination did not reveal any focal deficits. SKIN: No rashes. no petechiae. - Labs CBC & Chem 7: 01/04/23 16:10 01/04/23 16:10 Labs: Microbiology - Last 24 Hours (Table) 01/05/23 16:15 Gram Stain - Preliminary Sputum Assessment and Plan Assessment: Right lower lobe pneumonia, suspicious for hospital acquired pneumonia Bilateral pleural effusion, more on the right. Secondary to above Mild COPD exacerbation Mild acute diastolic CHF with EF 55% to 60% Severe osteoarthritis with recent history of neck pain and weakness in the arms, status post C2 to T2 decompression fusion postoperative pain Hypertension Hyperlipidemia History of osteoarthritis Hypothyroidism History of GERD History of hiatal hernia History of right breast cancer status post mastectomy in 2000 Chronic kidney disease stage III Plan: Continue with Zosyn antibiotic Continue with IV fluid Consult pulmonary service Labs and medication were reviewed.. Continue same treatment. Continue with symptomatic treatment. Resume home medication. Monitor lytes and vitals. DVT and GI prophylaxis. Further recommendations depends on the clinical course of the patient DVT prophylaxis: Subcutaneous heparin GI Prophylaxis: Pepcid prognosis is guarded Possible discharge in 24-48 hours
--- NOTE | 2023-01-06 12:46 | P.PN ---
Subjective Progress Note Date: 01/06/23 This is a 73-year-old female patient was hospitalized for shortness of breath and pneumonia. The patient presented emergency department with increasing dyspnea and tachycardia. In fact, the patient was sent over for evaluation of pulmonary embolism. CT antigram of the chest was done and the patient was found to have a small right-sided pleural effusion with compressive atelectasis. Underlying pneumonia cannot be completely excluded. Noted the patient has had several hospitalizations. Initially, the patient had a cervical decompression and fusion for a cervical spine stenosis and the patient was asked blood between and 12/20/2022 and the patient was discharged to rehab. Subsequently she was admitted for Urine checked infection. She was given IV antibiotics and she was discharged. At that time, the patient was hospitalized for UTI and altered mentation. MRI of the brain was done and it was negative. Following her discharge, the patient was readmitted again for shortness of breath. She is currently on 2 L of oxygen by nasal cannula. White cycles of 16.3. BUN is at 22 with a creatinine of 0.7. Sodium was at 138. Potassium level is at 5. Hemoglobin is at 10.1. The patient was started on Rocephin and Zithromax. EKG showed sinus tachycardia without any acute ST segment abnormalities. No reported aspiration. No pleurisy. No hemoptysis. She is currently on oxygen and she is on 4 L to maintain a saturation above 90%. The current pulse ox is 98%. On today's evaluation of 01/06/2023, the patient is a stable on 40 of Oxymizer nasal cannula. She is receiving a combination of Zosyn and Zithromax regarding the right lower lobe pneumonia. To my surprise, the pro calcitonin level was low 0.04. Nevertheless, the presentation is typical for right lower lobe pneumonia with a small parapneumonic effusion. She remains on IV fluids at 100 mL an hour of normal saline. She still awaiting a soft collar. Legionella urine antigen was negative. No other new complaints otherwise for now. Objective - Vital Signs Vital signs: Vital Signs Temp 98.2 F 01/06/23 07:15 Pulse 92 01/06/23 08:01 Resp 16 01/06/23 07:15 BP 131/65 01/06/23 07:15 Pulse Ox 95 01/06/23 07:51 FiO2 Intake & Output 01/05/23 01/06/23 01/06/23 18:59 06:59 18:59 Intake Total 1080 Output Total 2100 2440 Balance -1020 -2440 Intake: Oral 1080 Output: Urine 2099 2440 Other: Voiding Method External Catheter # Voids 3 - Exam GENERAL: The patient is alert and oriented x3, not in any acute distress. Well developed, well nourished. The patient is currently on oral liters of Oxymizer nasal cannula. Breathing is nonlabored. Head exam was generally normal. There was no scleral icterus or corneal arcus. Mucous membranes were moist. -HEENT: Pupils are round and equally reacting to light. EOMI. No scleral icterus. No conjunctival pallor. Normocephalic, atraumatic. No pharyngeal erythema. No thyromegaly. Soft collar in place, surgical wound in the midline upper back with dressing in place CARDIOVASCULAR: S1 and S2 present. No murmurs, rubs, or gallops. PULMONARY: Chest is clear to auscultation, no wheezing , no crackles. There is diminished breath on the lung bases bilaterally more so on the right along with some limited crackles ABDOMEN: Soft, nontender, nondistended, normoactive bowel sounds. No palpable organomegaly. MUSCULOSKELETAL: No joint swelling or deformity. -EXTREMITIES: No cyanosis, clubbing, , bilateral pitting leg edema 1+ NEUROLOGICAL: Gross neurological examination did not reveal any focal deficits. SKIN: No rashes. no petechiae. - Labs CBC & Chem 7: 01/04/23 16:10 01/04/23 16:10 Labs: Microbiology - Last 24 Hours (Table) 01/05/23 16:15 Gram Stain - Preliminary Sputum Assessment and Plan Plan: Right lower lobe pneumonia with a small effusion, likely parapneumonic. Consider possibility of a hospital-acquired pneumonia. Consider aspiration. Patient has been hospitalized on 2 separate occasions, initially for a cervical spine surgery/decompression/laminectomy and subsequently she was hospitalized for underlying urinary tract infection. As such, hospital-acquired pneumonia cannot be completely excluded. Acute hypoxic respiratory failure currently on 4 L of oxygen by nasal cannula Acute leukocytosis Recent hospitalization for UTI/sepsis, treated Altered mental status, recovered COPD , inactive and stable Diastolic CHF with EF 55% to 60% Severe osteoarthritis with recent history of neck pain and weakness in the arms, status post C2 to T2 decompression fusion postoperative pain Hypertension Hyperlipidemia History of osteoarthritis Hypothyroidism History of GERD History of hiatal hernia History of right breast cancer status post mastectomy in 2000 Plan Continue the current antibiotic coverage Titrate FiO2 to maintain an oxygen saturation of above 90%, currently on 4 L Check pro calcitonin level and the level was low Monitor for antibiotics and utilize Zosyn covering for hospital-acquired pathogens. Continue Zithromax Continue Symbicort as maintenance for COPD DuoNeb updrafts 4 times a day IV fluids to KVO Repeat chest x-ray in the morning Monitor mentation Keep the soft neck collar We'll continue to follow. Home medications have been resumed.
[2023-01-06] MEDS: ATORVASTATIN 20 MG TAB PO SCH (16:04)
[2023-01-06] MEDS: METOPROLOL SUCCINATE (ER) 25 MG TAB.ER.24H PO SCH (16:04)
[2023-01-06] MEDS: CYCLOBENZAPRINE 5 MG TAB PO PRN ×2 (16:08→23:34)
[2023-01-06] MEDS: AZITHROMYCIN 500 MG TAB PO SCH (20:22)
[2023-01-06] MEDS: HYDROcodone/APAP 7.5-325MG 1 EACH TAB PO PRN (20:23)
[2023-01-07] MEDS: SODIUM CHLORIDE 0.9% 1,000 ML IV SCH (07:23)
[2023-01-07] MEDS: ASPIRIN 81 MG PO SCH (08:07)
[2023-01-07] MEDS: LORATADINE 10 MG TAB PO SCH (08:07)
[2023-01-07] MEDS: SENNOSIDES-DOCUSATE SODIUM 1 EACH TAB PO SCH ×2 (08:07→17:08)
[2023-01-07] MEDS: FAMOTIDINE 20 MG TAB PO SCH ×2 (08:07→17:08)
[2023-01-07] MEDS: CHOLECALCIFEROL 25 MCG (1000 IU) TABLET PO SCH (08:07)
[2023-01-07] MEDS: FERROUS SULFATE 325 MG TAB PO SCH (08:07)
[2023-01-07] MEDS: GABAPENTIN 300 MG CAP PO SCH ×3 (08:07→20:20)
[2023-01-07] MEDS: PIPERACILLIN-TAZOBACTAM 3.375 GM in SODIUM CHLORIDE 0.9% 100 ML IVPB SCH ×3 (08:08→23:25)
[2023-01-07] MEDS: polyethylene glycoL 3350 17 GM POWD.PACK PO SCH (08:08)
[2023-01-07] MEDS: HYDROcodone/APAP 7.5-325MG 1 EACH TAB PO PRN (09:00)
[2023-01-07 09:02] LABS: Basophils # (A) 0.06 X 10*3/uL (0.00-0.10); Basophils % (A) 0.8 %; Eosinophils # (A) 0.26 X 10*3/uL (0.04-0.35); Eosinophils % (A) 3.5 %; HCT 32.4 % (37.2-46.3); HGB 9.8 d/dL (12.0-15.0); Lymphocytes # (A) 1.25 X 10*3/uL (0.90-5.00); Lymphocytes % (A) 16.7 %; MCH 30.6 pg (27.0-32.0); MCHC 30.2 d/dL (32.0-37.0); MCV 101.3 FL (80.0-97.0); Mean Platelet Volume 10.3 FL (9.5-12.2); Monocytes # (A) 0.62 X 10*3/uL (0.20-1.00); Monocytes % (A) 8.3 %; NRBC Per 100 WBC 0 X 10*3/uL (0.00-0.01); Neutrophils # (A) 5.25 X 10*3/uL (1.80-7.70); Neutrophils % (A) 70.3 %; Platelet Count 507 X 10*3/uL (140-440); RDW 15.2 % (11.5-14.5); WBC 7.47 X 10*3/uL (4.50-10.00)
[2023-01-07 09:05] LABS: Blood Urea Nitrogen 21.8 mg/dL (9.0-27.0); Calcium 9.1 mg/dL (8.7-10.3); Carbon Dioxide 35.7 mmol/L (21.6-31.8); Chloride 98 mmol/L (96-109); Glucose 86 mg/dL (70-110); Potassium 4.1 mmol/L (3.5-5.5); Sodium 144 mmol/L (135-145)
[2023-01-07] MEDS: SYMBICORT 80-4.5 MCG INHALER INHALATION SCH ×2 (09:10→20:40)
[2023-01-07] MEDS: IPRATROPIUM-ALBUTEROL 3 ML NEB INHALATION SCH ×4 (09:10→20:40)
--- NOTE | 2023-01-07 10:33 | P.PN ---
Subjective This is a pleasant 73 years old female with past medical history of GERD/Reflux, Hyperlipidemia, Hypertension, Osteoarthritis , Right breast cancer, status post mastectomy in 2000 back pain - steroid injections, hiatal hernia - not repaired. stage 3 vulva cancer-seeing oncologist in [facility].-surg. stage 3 kidney disease. Patient was recently in the hospital and 12/22-12/25 for acute urinary tract infection abscess. Also she had MRI of the brain which was negative for infarct. The previously on 12/17-12/20 she was in the hospital for her cervical stenosis status post compression and fusion with Dr. Butt , she wants to see Dr. Butt last Saturday and he checked her alice and tolerating everything okay. Since surgery also is receiving industrial maintenance tech and yesterday she was going to see Dr. Pham for follow-up. And Dr. Rios the patient has been tachycardic, she does not know how high was her heart rate so he referred her to the hospital. As there was a concerns about PE. Patient says that she's been having dyspnea for the last few days but no chest pain no coughing and she does not use oxygen at home. She has history of COPD and she follow up with pantry chef Dr. Dempsey. She denies GI urinary symptoms. She has mild headache from her next surgery and currently she has soft collar in place. No dizziness or new weakness or numbness. She is known to have weakness in both upper extremities more on the r ight side since before the surgery to her cervical spine. Also patient complaining from right leg swelling but no pain. Echo from 12/22/2022: Ejection fraction 55-60% Vitas looks stable and patient is afebrile. Oxygen on the presentation was 88 on room air, currently saturating 97% on 2 L oxygen nasal cannula Labs showing leukocytosis of 16.3, hemoglobin 10.1. D-dimer is 2.9. INR 0.9. Creatinine 0.7 and potassium 5. Trace of BMP is unremarkable. Lactic acid came back to normal. Liver enzymes not elevated. Troponin is negative. ProBNP 2620. EKG showing sinus tachycardia at [address]-T changes CT of the chest: No acute pulmonary embolism. Bilateral pleural effusion with moderate on the right and small on the left with adjacent compressive atelectasis. Consolidation on the right more than the left suggesting of infectious/inflammatory process such as pneumonia. Moderate bilateral emphysematous changes. Patient already started on Zithromax and ceftriaxone 01/06/2023 Patient states that her breathing is mildly better, cough better when she has chest pain with coughing only, she is currently saturating 95% on 4 L oxygen via nasal cannula She remains on Zosyn. Chest x-ray from yesterday showed mild interval improvement DC IV Lasix, continue with normal saline 100 mL per hour Her pain in her surgical site is the same when she saw Dr. Chauhan'son last time, soft collar is in place 01/07/2023 Patient still has exertional dyspnea. No much coughing or chest pain. She is on 3 L oxygen via nasal cannula Her pain at the surgical site looks the same and she has follow-up appointment with Dr. Butt in 3 wk as per patient Leukocytosis resolved She remains on Zosyn. iv fl is discontinued Objective - Vital Signs Vital signs: Vital Signs Temp 98.5 F 01/07/23 06:47 Pulse 72 01/07/23 09:24 Resp 16 01/07/23 06:47 BP 94/55 01/07/23 06:47 Pulse Ox 95 01/07/23 09:10 FiO2 Intake & Output 01/06/23 01/07/23 01/07/23 18:59 06:59 18:59 Intake Total 1080 Output Total 500 300 Balance 580 -300 Intake: Oral 1080 Output: Urine 500 300 Other: # Voids 3 1 # Bowel Movements 1 - Exam GENERAL: The patient is alert and oriented x3, not in any acute distress. Well developed, well nourished. -HEENT: Pupils are round and equally reacting to light. EOMI. No scleral icteru s. No conjunctival pallor. Normocephalic, atraumatic. No pharyngeal erythema. No thyromegaly. Soft collar in place soft collar is in place CARDIOVASCULAR: S1 and S2 present. No murmurs, rubs, or gallops. PULMONARY: Chest is clear to auscultation, no wheezing , no crackles. ABDOMEN: Soft, nontender, nondistended, normoactive bowel sounds. No palpable organomegaly. MUSCULOSKELETAL: No joint swelling or deformity. EXTREMITIES: No cyanosis, clubbing, or pedal edema. NEUROLOGICAL: Gross neurological examination did not reveal any focal deficits. SKIN: No rashes. no petechiae. - Labs CBC & Chem 7: 01/07/23 05:05 01/07/23 05:05 Labs: Abnormal Lab Results - Last 24 Hours (Table) 01/07/23 01/07/23 Range/Units 05:05 05:05 RBC 3.20 L (4.10-5.20) X 10*6/uL Hgb 9.8 L (12.0-15.0) d/dL Hct 32.4 L (37.2-46.3) % MCV 101.3 H (80.0-97.0) FL MCHC 30.2 L (32.0-37.0) d/dL RDW 15.2 H (11.5-14.5) % Plt Count 507 H (140-440) X 10*3/uL Carbon Dioxide 35.7 H (21.6-31.8) mmol/L BUN/Creatinine Ratio 21.80 H (12.00-20.00) Ratio Microbiology - Last 24 Hours (Table) 01/05/23 16:15 Gram Stain - Final Sputum Sputum Culture - Final Assessment and Plan Assessment: Right lower lobe pneumonia, suspicious for hospital acquired pneumonia Bilateral pleural effusion, more on the right. Secondary to above Mild COPD exacerbation Mild acute diastolic CHF with EF 55% to 60% Severe osteoarthritis with recent history of neck pain and weakness in the arms, status post C2 to T2 decompression fusion postoperative pain Hypertension Hyperlipidemia History of osteoarthritis Hypothyroidism History of GERD History of hiatal hernia History of right breast cancer status post mastectomy in 2000 Chronic kidney disease stage III Plan: Continue with Zosyn antibiotic dc IV fluid Consult pulmonary service Labs and medication were reviewed.. Continue same treatment. Continue with symptomatic treatment. Resume home medication. Monitor lytes and vitals. DVT and GI prophylaxis. Further recommendations depends on the clinical course of the patient DVT prophylaxis: Subcutaneous heparin GI Prophylaxis: Pepcid prognosis is guarded Possible discharge in 24-48 hours
[2023-01-07] MEDS: guaiFENesin 600 MG TABLET.ER PO SCH ×2 (11:16→20:20)
--- NOTE | 2023-01-07 16:02 | P.PN ---
Subjective Progress Note Date: 01/07/23 This is a 73-year-old female patient was hospitalized for shortness of breath and pneumonia. The patient presented emergency department with increasing dyspnea and tachycardia. In fact, the patient was sent over for evaluation of pulmonary embolism. CT antigram of the chest was done and the patient was found to have a small right-sided pleural effusion with compressive atelectasis. Underlying pneumonia cannot be completely excluded. Noted the patient has had several hospitalizations. Initially, the patient had a cervical decompression and fusion for a cervical spine stenosis and the patient was asked blood between and 12/20/2022 and the patient was discharged to rehab. Subsequently she was admitted for Urine checked infection. She was given IV antibiotics and she was discharged. At that time, the patient was hospitalized for UTI and altered mentation. MRI of the brain was done and it was negative. Following her discharge, the patient was readmitted again for shortness of breath. She is currently on 2 L of oxygen by nasal cannula. White cycles of 16.3. BUN is at 22 with a creatinine of 0.7. Sodium was at 138. Potassium level is at 5. Hemoglobin is at 10.1. The patient was started on Rocephin and Zithromax. EKG showed sinus tachycardia without any acute ST segment abnormalities. No reported aspiration. No pleurisy. No hemoptysis. She is currently on oxygen and she is on 4 L to maintain a saturation above 90%. The current pulse ox is 98%. On today's evaluation of 01/06/2023, the patient is a stable on 40 of Oxymizer nasal cannula. She is receiving a combination of Zosyn and Zithromax regarding the right lower lobe pneumonia. To my surprise, the pro calcitonin level was low 0.04. Nevertheless, the presentation is typical for right lower lobe pneumonia with a small parapneumonic effusion. She remains on IV fluids at 100 mL an hour of normal saline. She still awaiting a soft collar. Legionella urine antigen was negative. No other new complaints otherwise for now. The patient is seen today 01/07/2023 in follow-up on the regular medical floor. She is currently sitting up in a chair at the bedside. Awake and alert in no acute distress. She is maintaining O2 saturations in the 90s on 3 L/m per nasal cannula. C-collar is in place. Sputum culture reveals no growth. White count 7.4. Hemoglobin 9.8. MCV 101.3. Platelets 507. Sodium 144. Potassium 4.1. Bicarb 36. BUN 20. Creatinine 1.0. Glucose 86. Pro calcitonin was 0.04. Legionella ruled out. Currently on Zosyn. Objective - Vital Signs Vital signs: Vital Signs Temp 98.1 F 01/07/23 13:24 Pulse 83 01/07/23 13:24 Resp 18 01/07/23 13:24 BP 92/55 01/07/23 13:24 Pulse Ox 95 01/07/23 13:24 FiO2 Intake & Output 01/06/23 01/07/23 01/07/23 18:59 06:59 18:59 Intake Total 1080 Output Total 500 300 Balance 580 -300 Intake: Oral 1080 Output: Urine 500 300 Other: # Voids 3 1 # Bowel Movements 1 - Exam GENERAL EXAM: Alert, pleasant 73-year-old female, up in a chair, on 3 L nasal ca nnula, comfortable in no apparent distress. HEAD: Normocephalic. EYES: Normal reaction of pupils, equal size. NOSE: Clear with pink turbinates. THROAT: C-collar in place. No erythema or exudates. NECK: No masses, no JVD. CHEST: No chest wall deformity. LUNGS: Equal air entry with crackles in the right lung base. CVS: S1 and S2 normal with no audible murmur, regular rhythm. ABDOMEN: No hepatosplenomegaly, normal bowel sounds, no guarding or rigidity. SPINE: Dressing dry and intact. No scoliosis or deformity SKIN: No rashes CENTRAL NERVOUS SYSTEM: No focal deficits, tone is normal in all 4 extremities. EXTREMITIES: There is 1+ peripheral edema. No clubbing, no cyanosis. Peripheral pulses are intact. - Labs CBC & Chem 7: 01/07/23 05:05 01/07/23 05:05 Labs: Abnormal Lab Results - Last 24 Hours (Table) 01/07/23 01/07/23 Range/Units 05:05 05:05 RBC 3.20 L (4.10-5.20) X 10*6/uL Hgb 9.8 L (12.0-15.0) d/dL Hct 32.4 L (37.2-46.3) % MCV 101.3 H (80.0-97.0) FL MCHC 30.2 L (32.0-37.0) d/dL RDW 15.2 H (11.5-14.5) % Plt Count 507 H (140-440) X 10*3/uL Carbon Dioxide 35.7 H (21.6-31.8) mmol/L BUN/Creatinine Ratio 21.80 H (12.00-20.00) Ratio Microbiology - Last 24 Hours (Table) 01/05/23 16:15 Gram Stain - Final Sputum Sputum Culture - Final Assessment and Plan Assessment: Right lower lobe pneumonia with a small effusion, likely parapneumonic. Consider possibility of a hospital-acquired pneumonia. Consider aspiration. Patient has been hospitalized on 2 separate occasions, initially for a cervical spine surgery/decompression/laminectomy and subsequently she was hospitalized for underlying urinary tract infection. As such, hospital-acquired pneumonia cannot be completely excluded. Pro-calcitonin 0.04. Currently on Zosyn Acute hypoxic respiratory failure currently on 3 L of oxygen by nasal cannula Acute leukocytosis, recovered Recent hospitalization for UTI/sepsis, treated Altered mental status, recovered COPD , inactive and stable Diastolic CHF with EF 55% to 60% Severe osteoarthritis with recent history of neck pain and weakness in the arms, status post C2 to T2 decompression fusion postoperative pain Hypertension Hyperlipidemia History of osteoarthritis Hypothyroidism History of GERD History of hiatal hernia History of right breast cancer status post mastectomy in 2000 Plan: The patient was seen and evaluated Labs and medications reviewed Continue the current treatment plan Titrate down the FiO2 as tolerated Increase her activity as tolerated We will continue to follow I have personally seen and examined the patient, performed the documentation and the assessment and plan as written. Number of minutes spent on the visit: 10.
[2023-01-07] MEDS: ATORVASTATIN 20 MG TAB PO SCH (17:08)
[2023-01-07] MEDS: METOPROLOL SUCCINATE (ER) 25 MG TAB.ER.24H PO SCH (17:08)
[2023-01-07] MEDS: CYCLOBENZAPRINE 5 MG TAB PO PRN (20:20)
[2023-01-08] MEDS: SODIUM CHLORIDE 0.9% 1,000 ML IV SCH (05:35)
[2023-01-08] MEDS: polyethylene glycoL 3350 17 GM POWD.PACK PO SCH (07:46)
[2023-01-08] MEDS: PIPERACILLIN-TAZOBACTAM 3.375 GM in SODIUM CHLORIDE 0.9% 100 ML IVPB SCH ×3 (07:50→23:49)
[2023-01-08] MEDS: ASPIRIN 81 MG PO SCH (07:51)
[2023-01-08] MEDS: FERROUS SULFATE 325 MG TAB PO SCH (07:52)
[2023-01-08] MEDS: FAMOTIDINE 20 MG TAB PO SCH ×2 (07:52→16:15)
[2023-01-08] MEDS: guaiFENesin 600 MG TABLET.ER PO SCH ×2 (07:52→20:53)
[2023-01-08] MEDS: CHOLECALCIFEROL 25 MCG (1000 IU) TABLET PO SCH (07:52)
[2023-01-08] MEDS: LORATADINE 10 MG TAB PO SCH (07:52)
[2023-01-08] MEDS: GABAPENTIN 300 MG CAP PO SCH ×3 (07:52→20:53)
[2023-01-08] MEDS: HYDROcodone/APAP 7.5-325MG 1 EACH TAB PO PRN ×2 (08:01→20:51)
[2023-01-08] MEDS: SYMBICORT 80-4.5 MCG INHALER INHALATION SCH ×2 (08:24→20:11)
[2023-01-08] MEDS: IPRATROPIUM-ALBUTEROL 3 ML NEB INHALATION SCH ×4 (08:24→20:11)
[2023-01-08] MEDS: SENNOSIDES-DOCUSATE SODIUM 1 EACH TAB PO SCH ×2 (09:05→15:26)
--- NOTE | 2023-01-08 11:31 | P.PN ---
Subjective This is a pleasant 73 years old female with past medical history of GERD/Reflux, Hyperlipidemia, Hypertension, Osteoarthritis , Right breast cancer, status post mastectomy in 2000 back pain - steroid injections, hiatal hernia - not repaired. stage 3 vulva cancer-seeing oncologist in [facility].-surg. stage 3 kidney disease. Patient was recently in the hospital and 12/22-12/25 for acute urinary tract infection abscess. Also she had MRI of the brain which was negative for infarct. The previously on 12/17-12/20 she was in the hospital for her cervical stenosis status post compression and fusion with Dr. Butt , she wants to see Dr. Butt last Saturday and he checked her alice and tolerating everything okay. 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 Pham for follow-up. And Dr. Rios the patient has been tachycardic, she does not know how high was her heart rate so he referred her to the hospital. As there was a concerns about PE. Patient says that she's been having dyspnea for the last few days but no chest pain no coughing and she does not use oxygen at home. She has history of COPD and she follow up with family practitioner Dr. Dempsey. She denies GI urinary symptoms. She has mild headache from her next surgery and currently she has soft collar in place. No dizziness or new weakness or numbness. She is known to have weakness in both upper extremities more on the r ight side since before the surgery to her cervical spine. Also patient complaining from right leg swelling but no pain. Echo from 12/22/2022: Ejection fraction 55-60% Vitas looks stable and patient is afebrile. Oxygen on the presentation was 88 on room air, currently saturating 97% on 2 L oxygen nasal cannula Labs showing leukocytosis of 16.3, hemoglobin 10.1. D-dimer is 2.9. INR 0.9. Creatinine 0.7 and potassium 5. Trace of BMP is unremarkable. Lactic acid came back to normal. Liver enzymes not elevated. Troponin is negative. ProBNP 2620. EKG showing sinus tachycardia at [address]-T changes CT of the chest: No acute pulmonary embolism. Bilateral pleural effusion with moderate on the right and small on the left with adjacent compressive atelectasis. Consolidation on the right more than the left suggesting of infectious/inflammatory process such as pneumonia. Moderate bilateral emphysematous changes. Patient already started on Zithromax and ceftriaxone 01/06/2023 Patient states that her breathing is mildly better, cough better when she has chest pain with coughing only, she is currently saturating 95% on 4 L oxygen via nasal cannula She remains on Zosyn. Chest x-ray from yesterday showed mild interval improvement DC IV Lasix, continue with normal saline 100 mL per hour Her pain in her surgical site is the same when she saw Dr. Chauhan'son last time, soft collar is in place 01/07/2023 Patient still has exertional dyspnea. No much coughing or chest pain. She is on 3 L oxygen via nasal cannula Her pain at the surgical site looks the same and she has follow-up appointment with Dr. Butt in 3 wk as per patient Leukocytosis resolved She remains on Zosyn. iv fl is discontinued 01/08/2023 Patient sitting in chair, with mild tachypnea. No other specific complaints. She is on 3 L oxygen off in his cannula saturating more than 95%. No diarrhea no other complaint. No labs from today. Patient remains on Zosyn. Objective - Vital Signs Vital signs: Vital Signs Temp 98.7 F 01/08/23 07:09 Pulse 76 01/08/23 08:33 Resp 17 01/08/23 07:09 BP 102/57 01/08/23 07:09 Pulse Ox 99 01/08/23 07:09 FiO2 Intake & Output 01/07/23 01/08/23 01/08/23 18:59 06:59 18:59 Intake Total 1080 Balance 1080 Intake: Oral 1080 Other: # Voids 3 2 1 # Bowel Movements 2 - Exam GENERAL: The patient is alert and oriented x3, not in any acute distress. Well developed, well nourished. -HEENT: Pupils are round and equally reacting to light. EOMI. No scleral icterus. No conjunctival pallor. Normocephalic, atraumatic. No pharyngeal erythema. No thyromegaly. Soft collar in place soft collar is in place CARDIOVASCULAR: S1 and S2 present. No murmurs, rubs, or gallops. PULMONARY: Chest is clear to auscultation, no wheezing , no crackles. ABDOMEN: Soft, nontender, nondistended, normoactive bowel sounds. No palpable organomegaly. MUSCULOSKELETAL: No joint swelling or deformity. EXTREMITIES: No cyanosis, clubbing, or pedal edema. NEUROLOGICAL: Gross neurological examination did not reveal any focal deficits. SKIN: No rashes. no petechiae. - Labs CBC & Chem 7: 01/07/23 05:05 01/07/23 05:05 Labs: Microbiology - Last 24 Hours (Table) 01/05/23 16:15 Gram Stain - Final Sputum Sputum Culture - Final Assessment and Plan Assessment: Right lower lobe pneumonia, suspicious for hospital acquired pneumonia Bilateral pleural effusion, more on the right. Secondary to above Mild COPD exacerbation Mild acute diastolic CHF with EF 55% to 60% Severe osteoarthritis with recent history of neck pain and weakness in the arms, status post C2 to T2 decompression fusion postoperative pain Hypertension Hyperlipidemia History of osteoarthritis Hypothyroidism History of GERD History of hiatal hernia History of right breast cancer status post mastectomy in 2000 Chronic kidney disease stage III Plan: Continue with Zosyn antibiotic dc IV fluid Consult pulmonary service Labs and medication were reviewed.. Continue same treatment. Continue with symptomatic treatment. Resume home medication. Monitor lytes and vitals. DVT and GI prophylaxis. Further recommendations depends on the clinical course of the patient DVT prophylaxis: Subcutaneous heparin GI Prophylaxis: Pepcid prognosis is guarded Possible discharge in 24-48 hours
--- NOTE | 2023-01-08 14:10 | P.PN ---
Subjective Progress Note Date: 01/08/23 This is a 73-year-old female patient was hospitalized for shortness of breath and pneumonia. The patient presented emergency department with increasing dyspnea and tachycardia. In fact, the patient was sent over for evaluation of pulmonary embolism. CT antigram of the chest was done and the patient was found to have a small right-sided pleural effusion with compressive atelectasis. Underlying pneumonia cannot be completely excluded. Noted the patient has had several hospitalizations. Initially, the patient had a cervical decompression and fusion for a cervical spine stenosis and the patient was asked blood between and 12/20/2022 and the patient was discharged to rehab. Subsequently she was admitted for Urine checked infection. She was given IV antibiotics and she was discharged. At that time, the patient was hospitalized for UTI and altered mentation. MRI of the brain was done and it was negative. Following her discharge, the patient was readmitted again for shortness of breath. She is currently on 2 L of oxygen by nasal cannula. White cycles of 16.3. BUN is at 22 with a creatinine of 0.7. Sodium was at 138. Potassium level is at 5. Hemoglobin is at 10.1. The patient was started on Rocephin and Zithromax. EKG showed sinus tachycardia without any acute ST segment abnormalities. No reported aspiration. No pleurisy. No hemoptysis. She is currently on oxygen and she is on 4 L to maintain a saturation above 90%. The current pulse ox is 98%. On today's evaluation of 01/06/2023, the patient is a stable on 40 of Oxymizer nasal cannula. She is receiving a combination of Zosyn and Zithromax regarding the right lower lobe pneumonia. To my surprise, the pro calcitonin level was low 0.04. Nevertheless, the presentation is typical for right lower lobe pneumonia with a small parapneumonic effusion. She remains on IV fluids at 100 mL an hour of normal saline. She still awaiting a soft collar. Legionella urine antigen was negative. No other new complaints otherwise for now. The patient is seen today 01/07/2023 in follow-up on the regular medical floor. She is currently sitting up in a chair at the bedside. Awake and alert in no acute distress. She is maintaining O2 saturations in the 90s on 3 L/m per nasal cannula. C-collar is in place. Sputum culture reveals no growth. White count 7.4. Hemoglobin 9.8. MCV 101.3. Platelets 507. Sodium 144. Potassium 4.1. Bicarb 36. BUN 20. Creatinine 1.0. Glucose 86. Pro calcitonin was 0.04. Legionella ruled out. Currently on Zosyn. The patient is seen today 01/08/2023 in follow-up on the regular medical floor. She is currently resting comfortably in bed. She is maintaining good O2 saturations in the 90s on 3 L/m per nasal cannula. Her pro calcitonin was 0.04 however there is still some concern regarding aspiration based on her right lower lobe infiltrate. She remains on Zosyn for now. Patient and she is continued on DuoNeb inhalations, Symbicort, Mucinex. Sputum cultures revealed no growth. Objective - Vital Signs Vital signs: Vital Signs Temp 98.7 F 01/08/23 07:09 Pulse 80 01/08/23 11:44 Resp 17 01/08/23 07:09 BP 102/57 01/08/23 07:09 Pulse Ox 99 01/08/23 07:09 FiO2 Intake & Output 01/07/23 01/08/23 01/08/23 18:59 06:59 18:59 Intake Total 1080 Balance 1080 Intake: Oral 1080 Other: # Voids 3 2 1 # Bowel Movements 2 - Exam GENERAL EXAM: Alert, 73-year-old female, resting in bed, on 3 L nasal cannula, comfortable in no apparent distress. HEAD: Normocephalic. EYES: Normal reaction of pupils, equal size. NOSE: Clear with pink turbinates. THROAT: C-collar in place. No erythema or exudates. NECK: No masses, no JVD. CHEST: No chest wall deformity. LUNGS: Equal air entry with crackles in the right lung base. CVS: S1 and S2 normal with no audible murmur, regular rhythm. ABDOMEN: No hepatosplenomegaly, normal bowel sounds, no guarding or rigidity. SPINE: Dressing dry and intact. No scoliosis or deformity SKIN: No rashes CENTRAL NERVOUS SYSTEM: No focal deficits, tone is normal in all 4 extremities. EXTREMITIES: There is 1+ peripheral edema. No clubbing, no cyanosis. Periphera l pulses are intact. - Labs CBC & Chem 7: 01/07/23 05:05 01/07/23 05:05 Assessment and Plan Assessment: Right lower lobe pneumonia with a small effusion, likely parapneumonic. Consider possibility of a hospital-acquired pneumonia. Consider aspiration. Patient has been hospitalized on 2 separate occasions, initially for a cervical spine surgery/decompression/laminectomy and subsequently she was hospitalized fo r underlying urinary tract infection. As such, hospital-acquired pneumonia cannot be completely excluded. Currently on Zosyn Acute hypoxic respiratory failure currently on 3 L of oxygen by nasal cannula Acute leukocytosis, recovered Recent hospitalization for UTI/sepsis, treated Altered mental status, recovered COPD , inactive and stable Diastolic CHF with EF 55% to 60% Severe osteoarthritis with recent history of neck pain and weakness in the arms, status post C2 to T2 decompression fusion postoperative pain Hypertension Hyperlipidemia History of osteoarthritis Hypothyroidism History of GERD History of hiatal hernia History of right breast cancer status post mastectomy in 2000 Plan: The patient was seen and evaluated Labs and medications reviewed Continue diuretics for possible aspiration Titrate down the FiO2 as tolerated Increase her activity as tolerated Plan is for subacute rehab at discharge We will continue to follow I have personally seen and examined the patient, performed the documentation and the assessment and plan as written. Number of minutes spent on the visit: 10.
--- NOTE | 2023-01-08 14:56 | P.CNOR ---
History of Present Illness - [facility] Consult date: 01/08/23 Requesting physician: Sulaiman E Sheet Consult reason: other (known to your service) History of present illness: Patient is a 73-year-old female who presented to the emergency department on 01/04/2023 for evaluation of shortness of breath as well as weakness and elevated HR. 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 Orthopedics was consulted due to recent history of spine surgery. Patient does have C2 to T2 decompression fusion performed on 12/17/[address] Butt. Patient was seen at bedside this afternoon lying semirecumbent position with soft cervical collar in place. Patient says she did see Dr. Butt about 1 week ago in office for her first postop visit. Patient says recovery has been going well in regards to neck surgery. Patient says she did go to rehab after surgery and had a fever and did come into the hos pital with urinary tract infection. Patient has been back at rehab since then and is now in hospital due to recent admission and diagnosed with pneumonia. Patient has no complaints of her neck at this time. Patient states while at rehab staff did put dressings over incision. Patient does mention some mid back pain. Patient says she has not been able to cough. Patient denies any significant trauma/falls. Patient does not complain of any significant issues in her bilateral upper extremities. Patient says she is still having some shaking of her upper extremities and she does have an appointment with a neurologist for this. Patient denies any other orthopedic complaints at this time. Patient says she is not having any bowel/bladder issues. Patient denies change in vision, loss of/bladder control, nausea, vomiting. Past Medical History Past Medical History: Cancer, GERD/Reflux, Hyperlipidemia, Hypertension, Musculoskeletal Disorder, Osteoarthritis (OA), Renal Disease Additional Past Medical History / Comment(s): Right breast cancer, back pain - steroid injections, hiatal hernia - not repaired. stage 3 vulva cancer-seeing oncologist in [facility].-surg. could possibly be postponed, gets SOB w/exertion, stage 3 kidney disease. History of Any Multi-Drug Resistant Organisms: None Reported Past Surgical History: Back Surgery, Breast Surgery, Joint Replacement, Tonsillectomy, Tubal Ligation Additional Past Surgical History / Comment(s): Right breast mastectomy 2000, artificial vance. thumb joint (3 surgeries), left hand surgery, EGD 2010. back injections for pain, left cataract removed, C2 to T2 fusion 12/17/2022 Past Anesthesia/Blood Transfusion Reactions: Postoperative Nausea & Vomiting (PONV) Additional Past Anesthesia/Blood Transfusion Reaction / Comm: only happened once years ago Past Psychological History: Depression Additional Psychological History / Comment(s): depressed due to back issue Smoking Status: Former smoker Past Alcohol Use History: Rare Additional Past Alcohol Use History / Comment(s): quit smoking 4 yrs. ago, smoked 20-30 yrs., 1ppd or more Past Drug Use History: None Reported Additional Drug Use History / Comment(s): occasional use - Past Family History Mother Family Medical History: Cancer Additional Family Medical History / Comment(s): Stomach cancer Sister(s) Family Medical History: Cancer Additional Family Medical History / Comment(s): Lung cancer mets to brain Brother(s) Family Medical History: Cancer Additional Family Medical History / Comment(s): multiple cancers Medications and Allergies Home Medications Medication Instructions Recorded Confirmed Type Aspirin 81 mg PO DAILY@0800 05/01/22 01/04/23 History Atorvastatin [Lipitor] 20 mg PO DAILY@1630 05/01/22 01/04/23 History Ferrous Sulfate [Feosol] 325 mg PO DAILY@0800 05/01/22 01/04/23 History Fluticasone/Umeclidin/Vilanter 1 puff INHALATION RT-DAILY@0800 05/01/22 01/04/23 History [Trelegy Ellipta 100-62.5-25] Famotidine [Pepcid] 40 mg PO BID@0800,1700 09/04/22 01/04/23 History Albuterol Inhaler [Ventolin Hfa 1 - 2 puff INHALATION RT-Q6H PRN 10/31/22 01/04/23 History Inhaler] Metoprolol Succinate (ER) [Toprol 25 mg PO DAILY@1630 10/31/22 01/04/23 History XL] calcitrioL [Calcitriol] 0.25 mcg PO HERRERA@0800 10/31/22 01/04/23 History Loratadine [Claritin] 10 mg PO DAILY@0800 12/12/22 01/04/23 History Cyclobenzaprine [Flexeril] 5 mg PO TID PRN #40 tablet 12/20/22 01/04/23 Rx Cholecalciferol [Vitamin D3 (25 50 mcg PO DAILY@0800 12/21/22 01/04/23 History Mcg = 1000 Iu)] Magnesium Hydroxide [Milk of 7,200 mg PO DAILY PRN 12/21/22 01/04/23 History Magnesia Concentrate] Na Phos,M-B/Na Phos,Di-Ba [Fleet 133 ml RECTAL DAILY PRN 12/21/22 01/04/23 History Adult] Sennosides/Docusate Sodium [Senna 1 tab PO BID@0800,1700 12/21/22 01/04/23 History Plus 8.6-50 mg Tablet] bisacodyL [Dulcolax] 10 mg RECTAL DAILY PRN 12/21/22 01/04/23 History HYDROcodone/APAP 7.5-325MG [[place] 1 tab PO Q4HR PRN #4 tab 12/25/22 01/04/23 Rx 7.5-325] Acetaminophen [Tylenol Arthritis] 650 mg PO Q4H PRN 01/04/23 01/04/23 History Budesonide [Pulmicort] 1 mg INHALATION RT-DAILY@0600 01/04/23 01/04/23 History Depo-Medrol 80mg 80 mg IM ONETIME 01/04/23 01/04/23 History Gabapentin 300 mg PO TID@0800,1400,2100 01/04/23 01/04/23 History Ipratropium-Albuterol Nebulize 3 ml INHALATION RT-Q6H PRN 01/04/23 01/04/23 History [Duoneb 0.5 mg-3 mg/3 ml Soln] Ipratropium-Albuterol Nebulize 3 ml INHALATION RT-QID 01/04/23 01/04/23 History [Duoneb 0.5 mg-3 mg/3 ml Soln] polyethylene glycoL 3350 [Miralax] 17 gm PO DAILY@0800 01/04/23 01/04/23 History predniSONE See Taper PO DIRECTED 01/04/23 01/04/23 History Allergies Allergy/AdvReac Type Severity Reaction Status Date / Time No Known Allergies Allergy Verified 01/04/23 17:07 Physical Examination Inspection: Soft cervical collar in place. optifoam dressings in place over posterior cervical spine. Negative for any drainage from incision. Incision appears to be healing well at this time. Negative for fluctuance/purulence. Sensation: Equal, symmetric, bilaterally intact throughout the upper and lower extremities Palpation: Positive for mild tenderness patient over the posterior cervical line were incision is as well as in mid back at midline Range of motion: Patient has full range of motion throughout bilateral upper and lower extremities on exam Motor: 4/5 in all major motor groups in bilateral upper extremities and lower extremities Neurovascular: Radial pulse intact, 2+ bilaterally. Cap refill under 3 seconds in digits of upper extremities Special tests: Negative Homans part. Negative Josette bilaterally Results - Labs Labs: H & H 01/04/23 01/07/23 Range/Units 16:10 05:05 Hgb 10.1 L 9.8 L (11.4-16.0) gm/dL Hct 30.5 L 32.4 L (34.0-46.0) % Coagulation 01/04/23 Range/Units 20:29 INR 0.9 (<1.2) Result Diagrams: 01/07/23 05:05 01/07/23 05:05 Assessment and Plan Assessment: 1. History of recent C2 to T2 decompression and fusion Plan: 1. History of recent C2 to T2 decompression and fusion - patient stable at bedside this morning with hard cervical collar in place. Incision appears to be healing well at this time. At this time we're not recommending any orthopedic intervention. We do recommend patient to continue to wear a soft cervical collar at all times. Patient may weight-bear as tolerated with walker as necessary. Pain medication as needed. Patient is stable from an orthopedic standpoint for discharge. At this time orthopedics is signing off. Please do not hesitate to contact us for any further questions. We do recommend patient to continue postop follow-up appointments in office with Dr. Butt. 2. Appreciate medical and pulmonology management 3. Pain management - [place]; Tylenol; Flexeril; gabapentin 4. GI prophylaxis - MiraLAX; senna 5. DVT prophylaxis - aspirin 6. PT/OT - weightbearing as tolerated with soft c-collar on all times 7. Encourage incentive spirometer use 8. Appreciate consult Time with Patient: Less than 30
[2023-01-08] MEDS: METOPROLOL SUCCINATE (ER) 25 MG TAB.ER.24H PO SCH (15:44)
[2023-01-08] MEDS: ATORVASTATIN 20 MG TAB PO SCH (15:44)
[2023-01-08] MEDS: CYCLOBENZAPRINE 5 MG TAB PO PRN (16:15)
[2023-01-09] MEDS: SODIUM CHLORIDE 0.9% 1,000 ML IV SCH (03:33)
[2023-01-09] MEDS: IPRATROPIUM-ALBUTEROL 3 ML NEB INHALATION SCH ×5 (08:44→19:25)
[2023-01-09] MEDS: SYMBICORT 80-4.5 MCG INHALER INHALATION SCH ×2 (08:44→19:25)
[2023-01-09] MEDS: guaiFENesin 600 MG TABLET.ER PO SCH ×2 (09:42→20:18)
[2023-01-09] MEDS: LORATADINE 10 MG TAB PO SCH (09:42)
[2023-01-09] MEDS: ASPIRIN 81 MG PO SCH (09:42)
[2023-01-09] MEDS: GABAPENTIN 300 MG CAP PO SCH ×3 (09:43→20:18)
[2023-01-09] MEDS: FERROUS SULFATE 325 MG TAB PO SCH (09:43)
[2023-01-09] MEDS: CHOLECALCIFEROL 25 MCG (1000 IU) TABLET PO SCH (09:43)
[2023-01-09] MEDS: FAMOTIDINE 20 MG TAB PO SCH ×2 (09:43→16:53)
[2023-01-09] MEDS: PIPERACILLIN-TAZOBACTAM 3.375 GM in SODIUM CHLORIDE 0.9% 100 ML IVPB SCH (09:44)
[2023-01-09] MEDS: CYCLOBENZAPRINE 5 MG TAB PO PRN ×2 (09:49→18:40)
[2023-01-09] MEDS: polyethylene glycoL 3350 17 GM POWD.PACK PO SCH (10:14)
[2023-01-09] MEDS: SENNOSIDES-DOCUSATE SODIUM 1 EACH TAB PO SCH ×2 (10:14→16:53)
--- NOTE | 2023-01-09 10:30 | XR ---
EXAMINATION TYPE: XR chest 1V portable DATE OF EXAM: 01/09/2023 10:25 AM COMPARISON: Chest radiographs from 01/05/2023 TECHNIQUE: XR chest 1V portable Portable AP radiograph of the chest. CLINICAL INDICATION:Female, 73 years old with history of Pneumonia; FINDINGS: Lungs/Pleura: Blunting of the right costophrenic angle. No pneumothorax. No focal consolidation. Decr eased right basilar patchy airspace opacities from prior exam. Pulmonary vascularity: Unremarkable. Heart/mediastinum: Cardiomediastinal silhouette is unremarkable. Musculoskeletal: No acute osseous pathology. Cervical fusion hardware demonstrated. IMPRESSION: Background COPD with small right pleural effusion and decreased right basilar airspace opacity.
--- NOTE | 2023-01-09 13:39 | P.PN ---
Subjective Progress Note Date: 01/09/23 This is a 73-year-old female patient was hospitalized for shortness of breath and pneumonia. The patient presented emergency department with increasing dyspnea and tachycardia. In fact, the patient was sent over for evaluation of pulmonary embolism. CT antigram of the chest was done and the patient was found to have a small right-sided pleural effusion with compressive atelectasis. Underlying pneumonia cannot be completely excluded. Noted the patient has had several hospitalizations. Initially, the patient had a cervical decompression and fusion for a cervical spine stenosis and the patient was asked blood between and 12/20/2022 and the patient was discharged to rehab. Subsequently she was admitted for Urine checked infection. She was given IV antibiotics and she was discharged. At that time, the patient was hospitalized for UTI and altered mentation. MRI of the brain was done and it was negative. Following her discharge, the patient was readmitted again for shortness of breath. She is currently on 2 L of oxygen by nasal cannula. White cycles of 16.3. BUN is at 22 with a creatinine of 0.7. Sodium was at 138. Potassium level is at 5. Hemoglobin is at 10.1. The patient was started on Rocephin and Zithromax. EKG showed sinus tachycardia without any acute ST segment abnormalities. No reported aspiration. No pleurisy. No hemoptysis. She is currently on oxygen and she is on 4 L to maintain a saturation above 90%. The current pulse ox is 98%. On today's evaluation of 01/06/2023, the patient is a stable on 40 of Oxymizer nasal cannula. She is receiving a combination of Zosyn and Zithromax regarding the right lower lobe pneumonia. To my surprise, the pro calcitonin level was low 0.04. Nevertheless, the presentation is typical for right lower lobe pneumonia with a small parapneumonic effusion. She remains on IV fluids at 100 mL an hour of normal saline. She still awaiting a soft collar. Legionella urine antigen was negative. No other new complaints otherwise for now. The patient is seen today 01/07/2023 in follow-up on the regular medical floor. She is currently sitting up in a chair at the bedside. Awake and alert in no acute distress. She is maintaining O2 saturations in the 90s on 3 L/m per nasal cannula. C-collar is in place. Sputum culture reveals no growth. White count 7.4. Hemoglobin 9.8. MCV 101.3. Platelets 507. Sodium 144. Potassium 4.1. Bicarb 36. BUN 20. Creatinine 1.0. Glucose 86. Pro calcitonin was 0.04. Legionella ruled out. Currently on Zosyn. The patient is seen today 01/08/2023 in follow-up on the regular medical floor. She is currently resting comfortably in bed. She is maintaining good O2 saturations in the 90s on 3 L/m per nasal cannula. Her pro calcitonin was 0.04 however there is still some concern regarding aspiration based on her right lower lobe infiltrate. She remains on Zosyn for now. Patient and she is continued on DuoNeb inhalations, Symbicort, Mucinex. Sputum cultures revealed no growth. The patient is seen today 01/09/2023 in follow-up on the regular medical floor. She is currently sitting up in bed. Awake and alert in no acute distress. She is maintaining O2 saturations in the 90s on 2 L/m per nasal cannula. Follow-up chest x-ray today reveals background COPD with a small right pleural effusion and decreased right basilar airspace opacity. Sputum culture revealed no growth. She remains on bronchodilators. Antibiotics in the form of Zosyn. Objective - Vital Signs Vital signs: Vital Signs Temp 98.5 F 01/09/23 07:17 Pulse 76 01/09/23 13:17 Resp 16 01/09/23 07:17 BP 101/66 01/09/23 07:17 Pulse Ox 99 01/09/23 07:17 FiO2 Intake & Output 01/08/23 01/09/23 01/09/23 18:59 06:59 18:59 Intake Total 120 Balance 120 Intake: Intake, IV Titration 120 Amount Sodium Chloride 0.9% 1, 120 000 ml @ 10 mls/hr IV . Q24H [facility] Rx#:[id number] Other: # Voids 2 3 - Exam GENERAL EXAM: Alert, 73-year-old female, resting in bed, on 2 L nasal cannula, comfortable in no apparent distress. HEAD: Normocephalic. EYES: Normal reaction of pupils, equal size. NOSE: Clear with pink turbinates. THROAT: C-collar in place. No erythema or exudates. NECK: No masses, no JVD. CHEST: No chest wall deformity. LUNGS: Equal air entry with crackles in the right lung base. CVS: S1 and S2 normal with no audible murmur, regular rhythm. ABDOMEN: No hepatosplenomegaly, normal bowel sounds, no guarding or rigidity. SPINE: Dressing dry and intact. No scoliosis or deformity SKIN: No rashes CENTRAL NERVOUS SYSTEM: No focal deficits, tone is normal in all 4 extremities. EXTREMITIES: There is 1+ peripheral edema. No clubbing, no cyanosis. Peripheral pulses are intact. - Labs CBC & Chem 7: 01/07/23 05:05 01/07/23 05:05 Assessment and Plan Assessment: Right lower lobe pneumonia with a small effusion, likely parapneumonic. Consider possibility of a hospital-acquired pneumonia. Consider aspiration. Patient has been hospitalized on 2 separate occasions, initially for a cervical spine surgery/decompression/laminectomy and subsequently she was hospitalized for underlying urinary tract infection. As such, hospital-acquired pneumonia cannot be completely excluded. Currently on Zosyn. Pro calcitonin negative at 0.04. Follow-up chest x-ray showing improvement and near complete resolution. Acute hypoxic respiratory failure currently on 2 L of oxygen by nasal cannula Acute leukocytosis, recovered Recent hospitalization for UTI/sepsis, treated Altered mental status, recovered COPD , inactive and stable Diastolic CHF with EF 55% to 60% Severe osteoarthritis with recent history of neck pain and weakness in the arms, status post C2 to T2 decompression fusion postoperative pain Hypertension Hyperlipidemia History of osteoarthritis Hypothyroidism History of GERD History of hiatal hernia History of right breast cancer status post mastectomy in 2000 Plan: The patient was seen and evaluated Chest x-ray and medications reviewed Zosyn transitioned to Augmentin Titrate down the FiO2 as tolerated Increase her activity as tolerated Plan is for home with home care I have personally seen and examined the patient, performed the documentation and the assessment and plan as written. Number of minutes spent on the visit: 10.
[2023-01-09] MEDS: METOPROLOL SUCCINATE (ER) 25 MG TAB.ER.24H PO SCH (16:53)
[2023-01-09] MEDS: ATORVASTATIN 20 MG TAB PO SCH (16:53)
[2023-01-09] MEDS: AMOXIC-POT CLAV 875-125MG 1 EACH TAB PO SCH (20:18)
[2023-01-09] MEDS: HYDROcodone/APAP 7.5-325MG 1 EACH TAB PO PRN (20:20)
[2023-01-10] MEDS: SODIUM CHLORIDE 0.9% 1,000 ML IV SCH (03:01)
[2023-01-10] MEDS: HYDROcodone/APAP 7.5-325MG 1 EACH TAB PO PRN (06:22)
--- NOTE | 2023-01-10 06:32 | P.PN ---
Subjective Progress Note Date: 01/09/23 This is a pleasant 73 years old female with past medical history of GERD/Reflux, Hyperlipidemia, Hypertension, Osteoarthritis , Right breast cancer, status post mastectomy in 2000 back pain - steroid injections, hiatal hernia - not repaired. stage 3 vulva cancer-seeing oncologist in [facility].-surg. stage 3 kidney disease. Patient was recently in the hospital and 12/22-12/25 for acute urinary tract infection abscess. Also she had MRI of the brain which was negative for infarct. The previously on 12/17-12/20 she was in the hospital for her cervical stenosis status post compression and fusion with Dr. Butt , she wants to see Dr. Butt last Saturday and he checked her alice and tolerating everything okay. Since surgery also is receiving compressor mechanic and yesterday she was going to see Dr. Pham for follow-up. And Dr. Rios the patient has been tachycardic, she does not know how high was her heart rate so he referred her to the hospital. As there was a concerns about PE. Patient says that she's been having dyspnea for the last few days but no chest pain no coughing and she does not use oxygen at home. She has history of COPD and she follow up with cylinder batcher Dr. Dempsey. She denies GI urinary symptoms. She has mild headache from her next surgery and currently she has soft collar in place. No dizziness or new weakness or numbness. She is known to have weakness in both upper extremities more on the right side since before the surgery to her cervical spine. Also patient complaining from right leg swelling but no pain. Echo from 12/22/2022: Ejection fraction 55-60% Vitas looks stable and patient is afebrile. Oxygen on the presentation was 88 on room air, currently saturating 97% on 2 L oxygen nasal cannula Labs showing leukocytosis of 16.3, hemoglobin 10.1. D-dimer is 2.9. INR 0.9. Creatinine 0.7 and potassium 5. Trace of BMP is unremarkable. Lactic acid came back to normal. Liver enzymes not elevated. Troponin is negative. ProBNP 2620. EKG showing sinus tachycardia at [address]-T changes CT of the chest: No acute pulmonary embolism. Bilateral pleural effusion with moderate on the right and small on the left with adjacent compressive atelectasis. Consolidation on the right more than the left suggesting of infectious/inflammatory process such as pneumonia. Moderate bilateral emphysematous changes. Patient already started on Zithromax and ceftriaxone 01/06/2023 Patient states that her breathing is mildly better, cough better when she has chest pain with coughing only, she is currently saturating 95% on 4 L oxygen via nasal cannula She remains on Zosyn. Chest x-ray from yesterday showed mild interval improvement DC IV Lasix, continue with normal saline 100 mL per hour Her pain in her surgical site is the same when she saw Dr. Chauhan'son last time, soft collar is in place 01/07/2023 Patient still has exertional dyspnea. No much coughing or chest pain. She is on 3 L oxygen via nasal cannula Her pain at the surgical site looks the same and she has follow-up appointment with Dr. Butt in 3 wk as per patient Leukocytosis resolved She remains on Zosyn. iv fl is discontinued 01/08/2023 Patient sitting in chair, with mild tachypnea. No other specific complaints. She is on 3 L oxygen off in his cannula saturating more than 95%. No diarrhea no other complaint. No labs from today. Patient remains on Zosyn. 01/09/2023 Patient is seen in follow-up today being followed by orthopedics along with pulmonary maintained on IV antibiotics being transitioned over to oral antibiotics. Follow-up chest x-ray today shows some mild improvement in aeration. Patient is continued on 3 L via nasal cannula and will discuss further if requiring home oxygen with case management. Plan is to return home with home care. Patient is currently afebrile denies worsening shortness of breath and tolerating diet with no reported nausea or vomiting. Will follow-up with repeat labs in the a.m. Possible discharge planning in the next 24-48 hours. Review of systems: Constitutional: No reports of fatigue, fever, or chills Cardiovascular: No reports of chest pain or palpitations Respiratory: No reports of worsening shortness of breath or cough GI: No reports of nausea, vomiting, or diarrhea : No reports of dysuria or retention Neurovascular: No reports of weakness or numbness All medications have been reviewed physical exam: Gen: This is a 73-year-old female who is awake, alert and oriented 3, well- developed, well-nourished, obese HEENT: Head is atraumatic, normocephalic. Pupils equal, round. Sclerae is anicteric. NECK: Supple. No JVD. No lymphadenopathy. No thyromegaly. LUNGS: chest sounds diminished bilaterally with no wheezes , some scattered rhonchi. No intercostal retractions. HEART: Regular rate and rhythm. No murmur. ABDOMEN: Soft. Bowel sounds are present. No masses. No tenderness. EXTREMITIES: No pedal edema. No calf tenderness. NEUROLOGICAL: Patient is awake, alert and oriented x3. Cranial nerves 2 through 12 are grossly intact. assessment: Right lower lobe pneumonia, suspicious for hospital acquired pneumonia Bilateral pleural effusion, more on the right. Secondary to above Acute hypoxic respiratory failure secondary to COPD and pneumonia Mild COPD exacerbation Mild acute diastolic CHF with EF 55% to 60% Severe osteoarthritis with recent history of neck pain and weakness in the arms, status post C2 to T2 decompression fusion postoperative pain Hypertension Hyperlipidemia History of osteoarthritis Hypothyroidism History of GERD History of hiatal hernia History of right breast cancer status post mastectomy in 2000 Chronic kidney disease stage III Plan: Continue with pulmonary following and being transitioned to oral Augmentin from Zosyn Encouraged increased activity as tolerated Wean FI02 as tolerated and will discuss with case management about home 02 Chest xray today shows some improvement Ortho would like patient to follow up outpatient Possible discharge in 24-48 hours The impression and plan of care has been dictated by Brenda Damian, nurse practitioner as directed. Dr. Graciela MD I have performed a history and examination and MDM of this patient, discussed the same with the dictator, and agree with the dictator's assessment and plan as written ,documented as a scribe. Based on total visit time, I have performed more than 50% of the visit. Any additional findings or plans will be noted. Objective - Vital Signs Vital signs: Vital Signs Temp 98.6 F 01/09/23 23:38 Pulse 76 01/09/23 23:38 Resp 18 01/09/23 23:38 BP 100/58 01/09/23 23:38 Pulse Ox 99 01/09/23 23:38 FiO2 Intake & Output 01/09/23 01/09/23 01/10/23 06:59 18:59 06:59 Intake Total 120 500 Balance 120 500 Intake: Intake, IV Titration 120 Amount Sodium Chloride 0.9% 1, 120 000 ml @ 10 mls/hr IV . Q24H [facility] Rx#:[id number] Oral 500 Other: # Voids 3 2 2 - Labs CBC & Chem 7: 01/07/23 05:05 01/07/23 05:05
[2023-01-10 07:26] LABS: Basophils % (A) 1 %; Eosinophils # (A) 0.5 k/uL (0-0.7); Eosinophils % (A) 7 %; HCT 32.8 % (34.0-46.0); Hypochromasia Marked; Lymphocytes # (A) 1.3 k/uL (1.0-4.8); Lymphocytes % (A) 20 %; MCH 31.2 pg (25.0-35.0); MCHC 30.7 g/dL (31.0-37.0); MCV 101.7 fL (80.0-100.0); Macrocytosis Slight; Mean Platelet Volume 8.2; Monocytes # (A) 0.4 k/uL (0-1.0); Monocytes % (A) 6 %; Neutrophils # (A) 4.5 k/uL (1.3-7.7); Neutrophils % (A) 65 %; Platelet Count 412 k/uL (150-450); RBC 3.22 m/uL (3.80-5.40); RDW 14.7 % (11.5-15.5); WBC 6.8 k/uL (3.8-10.6)
[2023-01-10 07:57] LABS: African American GFR (CKD) 68 (>60 ml/min/1.73 sqM); Anion Gap 5 mmol/L; Blood Urea Nitrogen 21 mg/dL (7-17); Calcium 8.7 mg/dL (8.4-10.2); Carbon Dioxide 29 mmol/L (22-30); Chloride 105 mmol/L (98-107); Glucose 81 mg/dL (74-99); Non-African American GFR(CKD) 59 (>60 ml/min/1.73 sqM); Potassium 5.4 mmol/L (3.5-5.1); Sodium 139 mmol/L (137-145)
[2023-01-10 08:04] VITALS: BP 95/50; RESP 17; TEMP 98.4
[2023-01-10] MEDS: SYMBICORT 80-4.5 MCG INHALER INHALATION SCH (08:26)
[2023-01-10] MEDS: IPRATROPIUM-ALBUTEROL 3 ML NEB INHALATION SCH ×2 (08:26→11:36)
[2023-01-10] MEDS: LORATADINE 10 MG TAB PO SCH (09:26)
[2023-01-10] MEDS: SENNOSIDES-DOCUSATE SODIUM 1 EACH TAB PO SCH (09:26)
[2023-01-10] MEDS: AMOXIC-POT CLAV 875-125MG 1 EACH TAB PO SCH (09:26)
[2023-01-10] MEDS: GABAPENTIN 300 MG CAP PO SCH ×2 (09:26→14:49)
[2023-01-10] MEDS: FAMOTIDINE 20 MG TAB PO SCH (09:27)
[2023-01-10] MEDS: CHOLECALCIFEROL 25 MCG (1000 IU) TABLET PO SCH (09:27)
[2023-01-10] MEDS: ASPIRIN 81 MG PO SCH (09:27)
[2023-01-10] MEDS: guaiFENesin 600 MG TABLET.ER PO SCH (09:28)
[2023-01-10] MEDS: polyethylene glycoL 3350 17 GM POWD.PACK PO SCH (09:40)
[2023-01-10] MEDS: FERROUS SULFATE 325 MG TAB PO SCH (10:00)
[2023-01-10] MEDS ORDERED: FERROUS SULFATE 325 MG TAB PO SCH (11:00)
[2023-01-10] MEDS: CYCLOBENZAPRINE 5 MG TAB PO PRN (11:23)
--- NOTE | 2023-01-10 11:47 | P.EN ---
Patient will require a nebulizer on discharge as she is receiving DuoNeb treatments 4 times a day and as needed to manage her COPD.
[2023-01-10 11:51] VITALS: PULSE 68
[2023-01-10 13:26] VITALS: BMI 30.8
--- NOTE | 2023-01-10 13:44 | P.PN ---
Subjective Progress Note Date: 01/10/23 This is a 73-year-old female patient was hospitalized for shortness of breath and pneumonia. The patient presented emergency department with increasing dyspnea and tachycardia. In fact, the patient was sent over for evaluation of pulmonary embolism. CT antigram of the chest was done and the patient was found to have a small right-sided pleural effusion with compressive atelectasis. Underlying pneumonia cannot be completely excluded. Noted the patient has had several hospitalizations. Initially, the patient had a cervical decompression and fusion for a cervical spine stenosis and the patient was asked blood between and 12/20/2022 and the patient was discharged to rehab. Subsequently she was admitted for Urine checked infection. She was given IV antibiotics and she was discharged. At that time, the patient was hospitalized for UTI and altered mentation. MRI of the brain was done and it was negative. Following her discharge, the patient was readmitted again for shortness of breath. She is currently on 2 L of oxygen by nasal cannula. White cycles of 16.3. BUN is at 22 with a creatinine of 0.7. Sodium was at 138. Potassium level is at 5. Hemoglobin is at 10.1. The patient was started on Rocephin and Zithromax. EKG showed sinus tachycardia without any acute ST segment abnormalities. No reported aspiration. No pleurisy. No hemoptysis. She is currently on oxygen and she is on 4 L to maintain a saturation above 90%. The current pulse ox is 98%. On today's evaluation of 01/06/2023, the patient is a stable on 40 of Oxymizer nasal cannula. She is receiving a combination of Zosyn and Zithromax regarding the right lower lobe pneumonia. To my surprise, the pro calcitonin level was low 0.04. Nevertheless, the presentation is typical for right lower lobe pneumonia with a small parapneumonic effusion. She remains on IV fluids at 100 mL an hour of normal saline. She still awaiting a soft collar. Legionella urine antigen was negative. No other new complaints otherwise for now. The patient is seen today 01/07/2023 in follow-up on the regular medical floor. She is currently sitting up in a chair at the bedside. Awake and alert in no acute distress. She is maintaining O2 saturations in the 90s on 3 L/m per nasal cannula. C-collar is in place. Sputum culture reveals no growth. White count 7.4. Hemoglobin 9.8. MCV 101.3. Platelets 507. Sodium 144. Potassium 4.1. Bicarb 36. BUN 20. Creatinine 1.0. Glucose 86. Pro calcitonin was 0.04. Legionella ruled out. Currently on Zosyn. The patient is seen today 01/08/2023 in follow-up on the regular medical floor. She is currently resting comfortably in bed. She is maintaining good O2 saturations in the 90s on 3 L/m per nasal cannula. Her pro calcitonin was 0.04 however there is still some concern regarding aspiration based on her right lower lobe infiltrate. She remains on Zosyn for now. Patient and she is continued on DuoNeb inhalations, Symbicort, Mucinex. Sputum cultures revealed no growth. The patient is seen today 01/09/2023 in follow-up on the regular medical floor. She is currently sitting up in bed. Awake and alert in no acute distress. She is maintaining O2 saturations in the 90s on 2 L/m per nasal cannula. Follow-up chest x-ray today reveals background COPD with a small right pleural effusion and decreased right basilar airspace opacity. Sputum culture revealed no growth. She remains on bronchodilators. Antibiotics in the form of Zosyn. The patient is seen today 01/10/2003 in follow-up on the regular medical floor. She is currently sitting up in a chair. Awake and alert in no acute distress. Maintaining O2 saturations in the mid 90s on 2 L/m per nasal cannula. She's been afebrile. Hemodynamically stable. Sputum culture revealed no growth. White count 6.8. Hemoglobin 10.0. Sodium 139. Potassium 5.4. Bicarb 29. BUN 21. Creatinine 0.97. Glucose 81. She remains on DuoNeb inhalations, Symbicort, antibiotics in the form of Augmentin and Mucinex. Objective - Vital Signs Vital signs: Vital Signs Temp 98.4 F 01/10/23 07:14 Pulse 68 01/10/23 11:46 Resp 17 01/10/23 08:45 BP 95/50 01/10/23 07:14 Pulse Ox 96 01/10/23 08:29 FiO2 Intake & Output 01/09/23 01/10/23 01/10/23 18:59 06:59 18:59 Intake Total 500 238 Balance 500 238 Weight 71.668 kg Intake: Oral 500 238 Other: Voiding Method Toilet # Voids 2 2 - Exam GENERAL EXAM: Alert, pleasant 73-year-old female, up in a chair, on 2 L nasal cannula, comfortable in no apparent distress. HEAD: Normocephalic. EYES: Normal reaction of pupils, equal size. NOSE: Clear with pink turbinates. THROAT: C-collar in place. No erythema or exudates. NECK: No masses, no JVD. CHEST: No chest wall deformity. LUNGS: Equal air entry with crackles in the right lung base. CVS: S1 and S2 normal with no audible murmur, regular rhythm. ABDOMEN: No hepatosplenomegaly, normal bowel sounds, no guarding or rigidity. SPINE: Dressing dry and intact. No scoliosis or deformity SKIN: No rashes CENTRAL NERVOUS SYSTEM: No focal deficits, tone is normal in all 4 extremities. EXTREMITIES: There is 1+ peripheral edema. No clubbing, no cyanosis. Peripheral pulses are intact. - Labs CBC & Chem 7: 01/10/23 06:15 01/10/23 06:15 Labs: Abnormal Lab Results - Last 24 Hours (Table) 01/10/23 01/10/23 Range/Units 06:15 06:15 RBC 3.22 L (3.80-5.40) m/uL Hgb 10.0 L (11.4-16.0) gm/dL Hct 32.8 L (34.0-46.0) % MCV 101.7 H (80.0-100.0) fL MCHC 30.7 L (31.0-37.0) g/dL Potassium 5.4 H (3.5-5.1) mmol/L BUN 21 H (7-17) mg/dL Assessment and Plan Assessment: Right lower lobe pneumonia with a small effusion, likely parapneumonic. Consider possibility of a hospital-acquired pneumonia. Consider aspiration. Patient has been hospitalized on 2 separate occasions, initially for a cervical spine surgery/decompression/laminectomy and subsequently she was hospitalized for underlying urinary tract infection. As such, hospital-acquired pneumonia cannot be completely excluded. Currently on Zosyn. Pro calcitonin negative at 0.04. Follow-up chest x-ray showing improvement and near complete resolution. Acute hypoxic respiratory failure currently on 2 L of oxygen by nasal cannula Acute leukocytosis, recovered Recent hospitalization for UTI/sepsis, treated Altered mental status, recovered COPD , inactive and stable Diastolic CHF with EF 55% to 60% Severe osteoarthritis with recent history of neck pain and weakness in the arms, status post C2 to T2 decompression fusion postoperative pain Hypertension Hyperlipidemia History of osteoarthritis Hypothyroidism History of GERD History of hiatal hernia History of right breast cancer status post mastectomy in 2000 Plan: The patient was seen and evaluated Labs and medications reviewed Continued on bronchodilators and Augmentin Titrate down the FiO2 as tolerated Increase her activity as tolerated Plan is for home with home care I have personally seen and examined the patient, performed the documentation and the assessment and plan as written. Number of minutes spent on the visit: 10.
--- NOTE | 2023-01-13 06:33 | P.DS ---
Providers Date of admission: 01/04/23 22:04 Expected date of discharge: 01/10/23 Attending physician: Damaso Santiago Consults: 01/05/23 08:13 Consult Physician Routine Consulting Provider: Zev Agarwal Consult Reason/Comments: sob, known to your service Do you want consulting provider notified?: Yes, Notify in am 01/08/23 11:49 Consult Physician Urgent Consulting Provider: Ravin Butt Consult Reason/Comments: known to your service Do you want consulting provider notified?: Yes Primary care physician: Booker Ochoa Hospital Course: Final diagnosis Right lower lobe pneumonia, suspicious for hospital acquired pneumonia Bilateral pleural effusion, more on the right. Secondary to above Acute hypoxic respiratory failure secondary to COPD and pneumonia, improved on room air Mild COPD exacerbation Mild acute diastolic CHF with EF 55% to 60% Severe osteoarthritis with recent history of neck pain and weakness in the arms, status post C2 to T2 decompression fusion postoperative pain Hypertension Hyperlipidemia History of osteoarthritis Hypothyroidism History of GERD History of hiatal hernia History of right breast cancer status post mastectomy in 2000 Chronic kidney disease stage III Discharge disposition Patient is being discharged in a stable condition with guarded prognosis to home . Patient will follow-up with Dr. Ochoa in the outpatient setting upon discharge. Patient is to continue on oral Augmentin and close outpatient follow-up with orthopedics as well as pulmonary as scheduled. Total time taken is greater than 35 minutes. Hospital course This is a 73-year-old female who was recently admitted with concerns of pneumonia from ECF. Patient had had recent hospitalization underwent C2 to T2 decompression fusion and was seen and evaluated by orthopedics recommending continuing with scheduled outpatient appointment no further surgical intervention needed at this time. Patient did have acute hypoxic respiratory failure requiring oxygen and has been weaned off. Patient being followed by pulmonary and will continue on DuoNeb treatments and close outpatient follow-up. Patient had been requiring oxygen and home O2 was tested and patient did not qualify for oxygen on discharge. Patient is on room air maintaining oxygen saturations above 90%. Patient will be going home and having home care arranged. Patient has been cleared by consultations for discharge today. Please refer to other consultation notes for further HPI. Currently no reports of chest pain, shortness of breath, or palpitations. Patient is afebrile. No reports of nausea or vomiting and patient is tolerating diet. Patient will be discharged home today. Physical exam: Gen: This is a 73-year-old female who is awake, alert and oriented 3, well-dev eloped, well-nourished, obese HEENT: Head is atraumatic, normocephalic. Pupils equal, round. Sclerae is anicteric. NECK: Supple. No JVD. No lymphadenopathy. No thyromegaly. LUNGS: Clear to auscultation. No wheezes or rhonchi. No intercostal retractions. HEART: Regular rate and rhythm. No murmur. ABDOMEN: Soft. Bowel sounds are present. No masses. No tenderness. EXTREMITIES: No pedal edema. No calf tenderness. NEUROLOGICAL: Patient is awake, alert and oriented x3. Cranial nerves 2 through 12 are grossly intact. Please refer to medication reconciliation sheet for a list of medications. The impression and plan of care has been dictated by Brenda Damian, Nurse Practitioner as directed. Dr. Graciela MD I have performed a history and examination and MDM of this patient, discussed the same with the dictator, and agree with the dictator's assessment and plan as written ,documented as a scribe. Based on total visit time, I have performed more than 50% of the visit. Patient Condition at Discharge: Fair Plan - Discharge Summary New Discharge Prescriptions: New Amoxic-Pot Clav 875-125Mg [Augmentin 875-125] 1 each PO Q12HR 7 Days #14 tab guaiFENesin [Mucinex] 1,200 mg PO BID 7 Days #14 tab Continue Ferrous Sulfate [Feosol] 325 mg PO DAILY@0800 Aspirin 81 mg PO DAILY@0800 Fluticasone/Umeclidin/Vilanter [Trelegy Ellipta 100-62.5-25] 1 puff INHALATION RT-DAILY@0800 Metoprolol Succinate (ER) [Toprol XL] 25 mg PO DAILY@1630 Albuterol Inhaler [Ventolin Hfa Inhaler] 1 - 2 puff INHALATION RT-Q6H PRN PRN Reason: Shortness Of Breath Loratadine [Claritin] 10 mg PO DAILY@0800 bisacodyL [Dulcolax] 10 mg RECTAL DAILY PRN PRN Reason: Constipation Sennosides/Docusate Sodium [Senna Plus 8.6-50 mg Tablet] 1 tab PO BID@0800,1700 Acetaminophen [Tylenol Arthritis] 650 mg PO Q4H PRN PRN Reason: Pain Budesonide [Pulmicort] 1 mg INHALATION RT-DAILY@0600 polyethylene glycoL 3350 [Miralax] 17 gm PO DAILY@0800 HYDROcodone/APAP 7.5-325MG [Kelliher 7.5-325] 1 tab PO Q4HR PRN #12 tab PRN Reason: Pain Atorvastatin [Lipitor] 20 mg PO DAILY@1630 Famotidine [Pepcid] 40 mg PO BID@0800,1700 calcitrioL [Calcitriol] 0.25 mcg PO HERRERA@0800 Cyclobenzaprine [Flexeril] 5 mg PO TID PRN #40 tablet PRN Reason: Muscle Spasm Magnesium Hydroxide [Milk of Magnesia Concentrate] 7,200 mg PO DAILY PRN PRN Reason: Constipation Na Phos,M-B/Na Phos,Di-Ba [Fleet Adult] 133 ml RECTAL DAILY PRN PRN Reason: Constipation Cholecalciferol [Vitamin D3 (25 Mcg = 1000 Iu)] 50 mcg PO DAILY@0800 Ipratropium-Albuterol Nebulize [Duoneb 0.5 mg-3 mg/3 ml Soln] 3 ml INHALATION RT-Q6H PRN PRN Reason: Shortness Of Breath Ipratropium-Albuterol Nebulize [Duoneb 0.5 mg-3 mg/3 ml Soln] 3 ml INHALATION RT-QID 30 Days #120 each Changed Gabapentin 300 mg PO TID@0800,1400,2100 #18 cap Discontinued predniSONE See Taper PO DIRECTED Depo-Medrol 80mg 80 mg IM ONETIME Discharge Medication List Aspirin 81 mg PO DAILY@0800 05/01/22 [History] Atorvastatin [Lipitor] 20 mg PO DAILY@1630 05/01/22 [History] Ferrous Sulfate [Feosol] 325 mg PO DAILY@0800 05/01/22 [History] Fluticasone/Umeclidin/Vilanter [Trelegy Ellipta 100-62.5-25] 1 puff INHALATION RT-DAILY@0800 05/01/22 [History] Famotidine [Pepcid] 40 mg PO BID@0800,1700 09/04/22 [History] Albuterol Inhaler [Ventolin Hfa Inhaler] 1 - 2 puff INHALATION RT-Q6H PRN 10/31/22 [History] Metoprolol Succinate (ER) [Toprol XL] 25 mg PO DAILY@1630 10/31/22 [History] calcitrioL [Calcitriol] 0.25 mcg PO HERRERA@0800 10/31/22 [History] Loratadine [Claritin] 10 mg PO DAILY@0800 12/12/22 [History] Cyclobenzaprine [Flexeril] 5 mg PO TID PRN #40 tablet 12/20/22 [Rx] Cholecalciferol [Vitamin D3 (25 Mcg = 1000 Iu)] 50 mcg PO DAILY@0800 12/21/22 [History] Magnesium Hydroxide [Milk of Magnesia Concentrate] 7,200 mg PO DAILY PRN 12/21/22 [History] Na Phos,M-B/Na Phos,Di-Ba [Fleet Adult] 133 ml RECTAL DAILY PRN 12/21/22 [History] Sennosides/Docusate Sodium [Senna Plus 8.6-50 mg Tablet] 1 tab PO BID@0800,1700 12/21/22 [History] bisacodyL [Dulcolax] 10 mg RECTAL DAILY PRN 12/21/22 [History] Acetaminophen [Tylenol Arthritis] 650 mg PO Q4H PRN 01/04/23 [History] Budesonide [Pulmicort] 1 mg INHALATION RT-DAILY@0600 01/04/23 [History] Ipratropium-Albuterol Nebulize [Duoneb 0.5 mg-3 mg/3 ml Soln] 3 ml INHALATION RT-Q6H PRN 01/04/23 [History] polyethylene glycoL 3350 [Miralax] 17 gm PO DAILY@0800 01/04/23 [History] Amoxic-Pot Clav 875-125Mg [Augmentin 875-125] 1 each PO Q12HR 7 Days #14 tab 01/10/23 [Rx] Gabapentin 300 mg PO TID@0800,1400,2100 #18 cap 01/10/23 [Rx] HYDROcodone/APAP 7.5-325MG [Kelliher 7.5-325] 1 tab PO Q4HR PRN #12 tab 01/10/23 [Rx] Ipratropium-Albuterol Nebulize [Duoneb 0.5 mg-3 mg/3 ml Soln] 3 ml INHALATION RT-QID 30 Days #120 each 01/10/23 [Rx] guaiFENesin [Mucinex] 1,200 mg PO BID 7 Days #14 tab 01/10/23 [Rx] Follow up Appointment(s)/Referral(s): Cameron Dempsey DO [Doctor of Osteopathic Medicine] - 1 Week Booker Ochoa DO [Primary Care Provider] - 01/22/23 10:30 am Ravin Butt DO [Doctor of Osteopathic Medicine] - 01/28/23 1:30 pm [facility] Visiting Nurse, [NON-STAFF] - 1-2 Days ([facility] will call you to schedule your in home nursing, physical therapy, and occupational therapy visits. ) Patient Instructions/Handouts: Pneumonia (DC) Activity/Diet/Wound Care/Special Instructions: Activity Limited until follow-up Follow-up with primary care provider on discharge Follow-up with orthopedics outpatient as scheduled Follow-up with pulmonary outpatient in 1-2 weeks Discharge Disposition: HOME WITH HOME HEALTH SERVICES
== END 2023-01-10 14:22 | disposition home health service (06) | DRG 193 ==
LOC: EC 14:56 → 4SSUR 22:04
PROVIDERS: ADMIT Hospitalist; ATTEND Hospitalist
DX: J18.9 Pneumonia, unspecified organism (principal); I50.31 Acute diastolic (congestive) heart failure; J96.01 Acute respiratory failure with hypoxia; I13.0 Hypertensive heart and chronic kidney disease with heart failure and stage 1 through stage 4 chronic kidney disease, or unspecified chronic kidney disease; J44.0 Chronic obstructive pulmonary disease with (acute) lower respiratory infection; J44.1 Chronic obstructive pulmonary disease with (acute) exacerbation; J91.8 Pleural effusion in other conditions classified elsewhere; N18.30 Chronic kidney disease, stage 3 unspecified; C51.9 Malignant neoplasm of vulva, unspecified; M19.90 Unspecified osteoarthritis, unspecified site; E03.9 Hypothyroidism, unspecified; K21.9 Gastro-esophageal reflux disease without esophagitis; E78.5 Hyperlipidemia, unspecified; F41.9 Anxiety disorder, unspecified; K44.9 Diaphragmatic hernia without obstruction or gangrene; M54.9 Dorsalgia, unspecified; M54.2 Cervicalgia; Y95 Nosocomial condition; Z79.82 Long term (current) use of aspirin; Z79.51 Long term (current) use of inhaled steroids; Z87.891 Personal history of nicotine dependence; Z98.1 Arthrodesis status; Z79.899 Other long term (current) drug therapy; Z85.3 Personal history of malignant neoplasm of breast; Z90.11 Acquired absence of right breast and nipple
CPT/HCPCS: 36415; 71045; 71275; 80048; 80053; 83605; 83735; 83880; 84145; 84484; 85025; 85379; 85610; 85730; 87070; 87205; 87449; 93005; 93970; 94640; 94667; 94668; 94760; 96360; 96361; 99285

== ENCOUNTER → 2023-02-21 | Outpatient (CLI) | payer MEDICARE, OTHER ==
--- NOTE | 2023-02-24 09:12 | PE ---
EXAMINATION TYPE: PET CT fusion skull to thigh DATE OF EXAM: 02/21/2023 CLINICAL INDICATION:Female, 73 years old with history of R91.8 ABNORMAL FINDINGS; TECHNIQUE: Following the intravenous administration of 11.47 mCi of F-18 FDG, whole body images are performed from the skull base to the midthigh. Images are reviewed on the computer in the coronal, axial, and sagittal planes. Reconstructed rotating images are created on independent workstation and reviewed on the computer. A non-contrast CT is performed in conjunction with the PET scan. Glucose level 86 mg/dL CT DLP: 444 mGycm, Automated exposure control for dose reduction was used. COMPARISON: CT 01/22/2023, PET/CT None, FINDINGS: Mediastinal SUV mean is 2.4. Hepatic parenchyma SUV mean is 3.0. SKULL BASE AND NECK: No suspicious radiotracer activity. Suspected postsurgical changes with uptake within the posterior neck in the surgical bed max SUV 13.7. CHEST, MEDIASTINUM, AND HILAR REGION: No suspicious radiotracer activity. The bilateral areas within the lower lobes superior segments have less dense appearance on today's ex am and suggest infectious/inflammatory and/or scarring etiology. This could be on the right 2.0 and o n the left 1.4 cm. ABDOMEN AND PELVIS: No suspicious radiotracer activity. MUSCULOSKELETAL STRUCTURES: No suspicious radiotracer activity. OTHER CT: Post surgical changes to the neck. Atherosclerosis of the carotid bifurcations. Coronary ar anabeal atherosclerosis as well as aortic valve leaflet calcifications are present. The right breast is surgically absent. IMPRESSION: No suspicious radiotracer activity. Areas within the lungs felt to correlate with infectious/inflamma tory process versus atelectasis and/or scarring on prior CT. No suspicious uptake.
== END | disposition home or self-care (01) ==
LOC: RADPETMAIN 12:30
PROVIDERS: ATTEND Internal Medicine Critical Care Medicine
DX: R91.8 Other nonspecific abnormal finding of lung field (principal); E11.9 Type 2 diabetes mellitus without complications
CPT/HCPCS: 78815; A9552

== ENCOUNTER → 2023-06-21 | Outpatient (CLI) | payer MEDICARE, OTHER ==
--- NOTE | 2023-06-21 10:07 | XR ---
EXAMINATION TYPE: XR ribs RT w pa chest xray DATE OF EXAM: 06/21/2023 COMPARISON: NONE HISTORY: Pain TECHNIQUE: Single view of the chest 4 views of the ribs are submitted. FINDINGS: The lungs are clear. No Evidence for pneumothorax. No evidence for focal contusion. Medi astinal structures are midline. Evaluation of the ribs fails to demonstrate evidence for displaced r ib fracture or secondary sign of rib fracture. Chronic deformity of several right-sided ribs compatib le with remote rib fractures. IMPRESSION: No acute displaced fracture seen.
== END | disposition home or self-care (01) ==
LOC: RADXRMAIN 09:19
PROVIDERS: ATTEND Family Medicine
DX: R07.89 Other chest pain (principal)

== ENCOUNTER → 2023-09-06 | Outpatient (CLI) | payer MEDICARE | END | disposition home or self-care (01) | LOC: LABWHC1 10:30 | PROVIDERS: ATTEND Obstetrics & Gynecology | DX: Z01.812 Encounter for preprocedural laboratory examination (principal); I10 Essential (primary) hypertension; N81.4 Uterovaginal prolapse, unspecified; N39.3 Stress incontinence (female) (male) ==

== ENCOUNTER → 2023-09-09 | Outpatient (CLI) | payer MEDICARE | END | disposition home or self-care (01) | LOC: LABPAT 10:27 | PROVIDERS: ATTEND Obstetrics & Gynecology | DX: Z01.812 Encounter for preprocedural laboratory examination (principal); N81.4 Uterovaginal prolapse, unspecified; N39.3 Stress incontinence (female) (male) | CPT/HCPCS: 36415; 86850; 86900; 86901 ==

== ENCOUNTER 2023-09-19 08:13 | Day surgery (SDC) | payer MEDICARE, OTHER ==
--- NOTE | 2023-09-11 13:20 | P.HPOB ---
History of Present Illness H&P Date: 09/11/23 Chief Complaint: Pelvic organ prolapse Ms. Reyes is a 73 year old with pelvic organ prolapse who presents for surgical management. This has been present and progressively worsening over the past few years. She feels there is a bulge the size of a golf ball protruding from the vagina. She also complains of stress urinary incontinence and vaginal spotting from the prolapsed tissue rubbing against her pads. The symptoms are accentuated by standing, lifting, straining, coughing, sneezing, and lifting heavy objects. Past Medical History Past Medical History: Cancer, GERD/Reflux, Hyperlipidemia, Hypertension, Musculoskeletal Disorder, Osteoarthritis (OA), Renal Disease Additional Past Medical History / Comment(s): Right breast cancer, back pain - steroid injections, hiatal hernia - not repaired. stage 3 vulva cancer-[place] [facility]. could possibly be postponed, gets SOB w/exertion, stage 3 kidney disease. History of Any Multi-Drug Resistant Organisms: None Reported Past Surgical History: Back Surgery, Breast Surgery, Joint Replacement, Tonsillectomy, Tubal Ligation Additional Past Surgical History / Comment(s): Right breast mastectomy 2000, artificial vance. thumb joint (3 surgeries), left hand surgery, EGD 2010. back injections for pain, left cataract removed, C2 to T2 fusion 12/17/2022 Past Anesthesia/Blood Transfusion Reactions: Postoperative Nausea & Vomiting (PONV) Additional Past Anesthesia/Blood Transfusion Reaction / Comment(s): only happened once years ago Past Psychological History: Depression Smoking Status: Former smoker Past Alcohol Use History: Rare Past Drug Use History: Marijuana - Past Family History Mother Family Medical History: Cancer Additional Family Medical History / Comment(s): Stomach cancer Sister(s) Family Medical History: Cancer Additional Family Medical History / Comment(s): Lung cancer mets to brain Brother(s) Family Medical History: Cancer Additional Family Medical History / Comment(s): multiple cancers Medications and Allergies Home Medications Medication Instructions Recorded Confirmed Type Aspirin 81 mg PO HS 05/01/22 01/22/23 History Atorvastatin [Lipitor] 20 mg PO HS 05/01/22 01/22/23 History Fluticasone/Umeclidin/Vilanter 1 puff INHALATION RT-HS 05/01/22 01/22/23 History [Trelegy Ellipta 100-62.5-25] Albuterol Inhaler [Ventolin Hfa 1 - 2 puff INHALATION RT-Q6H PRN 10/31/22 01/22/23 History Inhaler] Metoprolol Succinate (ER) [Toprol 25 mg PO HS 10/31/22 01/22/23 History XL] calcitrioL 0.25 mcg PO HERRERA@0800 10/31/22 01/22/23 History Cholecalciferol [Vitamin D3 (25 50 mcg PO HS 12/21/22 01/22/23 History Mcg = 1000 Iu)] Denosumab [Prolia] 60 mg SQ Q180D 01/22/23 01/22/23 History Ferrous Sulfate [Iron (65 MG 325 mg PO HS 01/22/23 01/22/23 History Elemental)] Fluticasone Nasal [place] [Flonase 1 - 2 spray EA NOSTRIL DAILY PRN 01/22/23 01/22/23 History Nasal [place]] Gabapentin [Neurontin] 100 mg PO TID 01/22/23 01/22/23 History Pantoprazole [Protonix] 40 mg PO AC-BRKFST #30 tab 01/23/23 Rx Allergies Allergy/AdvReac Type Severity Reaction Status Date / Time No Known Allergies Allergy Verified 01/22/23 15:34 Exam Focused physical exam performed. On pelvic eam there is a grade 3-4 uterovaginal prolapse with a grade 2-3 cystocele noted. Post-void residual is obtain with straight catheter for 5cc. Uterus is non-enlarged, non-tender, mobile. Assessment and Plan Assessment: 73 year old with Grade 3 uterovaginal prolapse, grade 2 cystocele, and ABHIJIT presenting for surgical management with Total Vaginal Hysterectomy, Bilateral Salpingoophorectomy, Anterior repair, TVT Midurethral Sling, and Cystoscopy; possible KODY. Plan: Risks, benefits, and alternatives to surgery are discussed with the patient including risk of bleeding, infection, damage to surrounding structures including ureters/bladder/bowels, uterine perforation, and post-operative urinary retention. The patient understands these risks and desires to proceed with surgery as discussed. Time with Patient: Less than 30
[2023-09-16 11:49] VITALS: BMI 28.8
[~2023-09-19 08:13] MED LIST changes: -ACETAMINOPHEN TAB 500 MG TAB PO PRN; -GABAPENTIN 300 MG CAP PO PRN; +HYDROmorphone 0.5 MG/0.5 ML SYRINGE IVP PRN; +LIDOCAINE 1% (10MG/ML) FOR IV START INTRADERMA PRN; -ONDANSETRON 4 MG/2 ML VIAL IVP PRN; -TRANEXAMIC 1,000 MG/100ML-NACL 1,000 MG in SALINE 1 100ML.BAG IVPB PRN; +fentaNYL (PF) 50 MCG/ML 2 ML AMP IVP PRN
[2023-09-19] MEDS: SODIUM CHLORIDE 0.9% 1,000 ML BAG IV STA (09:03)
[2023-09-19] MEDS: ONDANSETRON 4 MG/2 ML VIAL IVP ONE (09:09)
[2023-09-19] MEDS: DEXAMETHASONE SOD PHOSPHATE 4 MG/ML 1 ML VIAL IV ONE (09:09)
[2023-09-19] MEDS: IV FLUID CONTINUATION 1,000 ML IV ONE ×2 (09:17→15:22)
[2023-09-19] MEDS: MIDAZOLAM 2 MG/2 ML VIAL IV PRN (09:30)
--- NOTE | 2023-09-19 09:39 | P.ANPRN ---
Procedure Note - Anesthesia - Epidural/Spinal Spinal Time Out Performed: Yes Date of Procedure: 09/19/23 Procedure Start Time: :29 Procedure Stop Time: :34 Location of Patient: PreOp Indication: Acute Post-Operative Pain, Analgesia, Requested by Surgeon Sedation Type: Sedate with meaningful contact maintained Preparation: Sterile Prep Position: Sitting Needle Guage: 25 Narrative: Intrathecal Duramorph 0.3mg. AttemptX1 Blood Aspirated: No Pain Paresthesia on Injection Noted: No Events: Uneventful and Well Tolerated
[2023-09-19] MEDS ORDERED: NEOSTIGMINE 1 MG/ML 10 ML VIAL ONE (10:16)
[2023-09-19] MEDS ORDERED: ePHEDrine 50 MG/ML 1 ML VIAL ONE (10:16)
[2023-09-19] MEDS ORDERED: MIDAZOLAM 2 MG/2 ML VIAL ONE (10:16)
[2023-09-19] MEDS ORDERED: fentaNYL (PF) 50 MCG/ML 2 ML AMP ONE (10:16)
[2023-09-19] MEDS ORDERED: ROCURONIUM 10 MG/ML (5 ML VIAL) IV ONE (10:16)
[2023-09-19] MEDS ORDERED: PROPOFOL 10 MG/ML 20 ML VIAL IV ONE (10:16)
[2023-09-19] MEDS ORDERED: GLYCOPYRROLATE 0.2 MG/ML 2 ML VIAL ONE (10:16)
[2023-09-19] MEDS ORDERED: SUCCINYLCHOLINE CHLORIDE 200 MG/10 ML VIAL IV ONE (10:16)
[2023-09-19] MEDS ORDERED: LIDOCAINE 1% INJ 10MG/ML (20 ML MDV) ONE (10:16)
[2023-09-19] MEDS: ESTRADIOL 0.1 MG/GM VAGINAL CREAM 42.5 GM TUBE VAGINAL ONE (10:49)
[2023-09-19] MEDS: VASOPRESSIN 20 UNIT/ML 1 ML VIAL IM ONE (10:50)
[2023-09-19] MEDS: GENTAMICIN 40 MG/ML 2 ML VIAL IRRIGATION ONE (10:50)
[2023-09-19] MEDS: LACTATED RINGERS 1,000 ML IV ONE (11:35)
[2023-09-19] MEDS: VASOPRESSIN 20 UNIT in SODIUM CHLORIDE 0.9% 60 ML IV ONE (12:04)
[2023-09-19] MEDS ORDERED: SIMETHICONE 80 MG CHEWABLE PO PRN (12:20)
--- NOTE | 2023-09-19 12:20 | P.OP ---
Date of Procedure: 09/19/23 Preoperative Diagnosis: 1. Grade 3 Uterovaginal Prolapse 2. Grade 2 Cystocele 3. Stress Urinary Incontinence Postoperative Diagnosis: same Procedure(s) Performed: Total Vaginal Hysterectomy, Right Salpingectomy, Anterior Repair, TVT Midurethral Sling, and Cystoscopy Implants: [employer] Advantage Fit TVT Sling Anesthesia: KEN Surgeon: Heather Damon Certified Pest Control Technician #1: Mathieu Parra Estimated Blood Loss (ml): 50 IV fluids (ml): 1,000 Urine output (ml): 200 Pathology: other (uterus, cervix, right fallopian tube) Condition: stable Disposition: floor Indications for Procedure: 73 year old with Grade 3 uterovaginal prolapse, grade 2 cystocele, and ABHIJIT presenting for surgical management with Total Vaginal Hysterectomy, Bilateral Salpingoophorectomy, Anterior repair, TVT Midurethral Sling, and Cystoscopy; possible KODY. Risks, benefits, and alternatives to surgery are discussed with the patient including risk of bleeding, infection, damage to surrounding structures including ureters/bladder/bowels, uterine perforation, and post-operative urinary retention. The patient understands these risks and desires to proceed with surgery as discussed. Operative Findings: Grade 3 uterovaginal prolapse, grade 2 cystocele. Adnexa high in the pelvis, not possible to safely perform BSO. Bilateral ureteral jets seen on cystoscopy. Bladder perforations bilateral with sling that were removed and replaced with good positioning. These will heal with expectant management. No other bladder trauma appreciated from hysterectomy. Description of Procedure: Prior to the beginning of the procedure the team paused to verify the patient's identity, as well as the procedure to be performed and the correct side/site. All equipment required was ready and available. The patient was positioned appropriately. Patient was cleaned and draped and legs were placed in lithotomy position using Marino stirrups. Razo catheter was placed to drain the bladder. A weighted speculum was placed in the posterior vaginal vault. The cervix was grasped with a double-tooth tenaculum. Pitressin was injected circumstantially around the cervix. With downward traction, a circumferential incision was made along the vaginal mucosa overlying the reflection. This allowed dissection and entrance into the posterior cul-de-sac. An 0-Vicryl suture was placed to tag the posterior peritoneum. At this time, the uterosacral ligaments were visualized. These were clamped and ligated with 0-Vicryl suture. The uterosacral ligaments were held bilaterally. The cervicovesical space was then created by both blunt and sharp dissection allowing the cardinal ligaments to be visualized. These were clamped and ligated with 0-Vicryl suture as well. Once in the cervicovesical space the uterosacral-cardinal ligament complex was completely ligated with 0-Vicryl suture. The uterine arteries were clamped and ligated with 0-Vicryl suture. The dutch clamps were moved sequentially upward on the uterus until a small adnexal pedicle remained. The anterior cul-de-sac was now entered with electrocautery. The uterine specimen was delivered and sent for pathology. Bilateral adnexal pedicles were doubly ligated first with a transfixing 0-Vicryl suture and then reinforced with a free 0-Vicryl tie in the usual fashion. The right fallopian tube was able to be isolated, was clamped with a Raeann clamp, and ligated with a [id number] suture. The large weighted speculum was removed and replaced with the small weighted speculum. A modified Villarreal Culdopl asty was performed with the uterosacral ligaments held by pieces of 0-Vicryl. The vaginal cuff inferior to the level of the Villarreal Culdoplasty was closed with 0-Vicryl sutures in a [id number] fashion. One kjvpmz-[id number] suture was then placed superior to the level of the Villarreal Culdoplasty. Attention was then turned to the anterior vaginal wall. Two Allis Clamps were used to grasp the vaginal mucoas and Pitressin was injected inferior to the vaginal epithelium as a means for hydro-dissection. A vertical midline incision was given from under the urethra to the level of the cuff. The underlying endopelvic fascia and cystocele was then dissected away from the vaginal epithelium using Metzenbaum scissors and allis clamps for retraction. The dissection was carried out to the lateral pelvic side wall on either side. A purse-string with 2-0 Vicryl was placed to approximate the endopelvic fascia over the cystocele, thus reducing it. Excess vaginal musosa was trimmed and the remaining vaginal mucosa was closed with 2-0 Vicryl suture. A Razo catheter was then placed into the bladder with clear urine noted. Attention was then turned to the TVT part of the procedure. Two sites were ma rked on the anterior abdominal wall with a marking pen, one 1 fingerbreadth to the left and the other 1 fingerbreadth to the right of the midline, just above the pubic bone.Two sites were marked on the anterior abdominal wall with a marking pen, one 1 fingerbreadth to the left and the other 1 fingerbreadth to the right of the midline, just above the pubic bone. Attention was now turned to the vaginal field where a 18-[place] Razo catheter was already present, and the urine was drained. Retractors were used for visualization. The anterior vaginal wall over the location of the mid urethra was then injected with 1% lidocaine with epinephrine in the mid portion of the vagina and the lateral aspects heading to the inferior surface of the pubic bone bilaterally. Two Allis clamps were then placed approximately 2 cm apart with the mid portion of the Allis clamps corresponding to the mid portion of the urethra as determined by palpation of the Razo within the patient's urethra. A scalpel was then used to incise between the 2 Allis clamps, and Metzenbaum scissors were used to dissect the vaginal mucosa off the urethra heading to the inferior surface of the pubic bone bilaterally. The [employer] Advantage Fit TVT trocar coupled to the plastic introducer sheath was now placed through the right sided anterior vaginal wall channel, and the trocar was rotated through the right retropubic space with careful attention being paid to stay beneath and behind the pubic bone as it rotated through the space up to the previously made tamara on the right anterior abdominal wall. The TVT trocar was uncoupled from the introducer sheath and the sheath was tagged and left in place. The TVT trocar was now placed into the second introducer sheath and positioned within the left anterior vaginal wall channel and rotated through the left retropubic space with careful attention being paid to stay beneath and behind the pubic bone as it rotated through this site up to the previously made tamara on the left anterior abdominal wall. 70-degree cystourethroscope was used and bilateral perforations of the TVT trocar were noted. The trocars were removed, and the process of driving the TVT trocar was repeated bilaterally. Again, the cystoscope was used to confirm that there was no trocar placement trauma to the bladder from either side, and no trauma to the urethra. Bilateral ureteral jets were visualized. Therefore, the bladder was drained, and the mesh was brought through the abdominal wall site. The mesh was brought to sit underneath of the urethra without any tensioning at all as determined by a hemostat used as a spacer between the urethra and the sling. The hemostat as a spacer was used to stabilize the position of the mesh as plastic sheaths were removed through the abdominal wall site. The skin wounds were closed with the use of skin glue after trimming the mesh. The vaginal wound was closed with a running stitch of 2-0 Vicryl. 1-inch vaginal packing coated with Estrace was used to pack the vagina at the end of the case as a precautionary measure. Hemostasis was noted to be excellent throughout, and final sponge, instrument, and needle count was noted to be correct x2. The patient was moved back to the preoperative holding area in stable condition having tolerated the procedure well. A physician financial sales assistant was utilized for the entire procedure due to the need for tissue retraction, dissection of vital structures, prevention and management of blood loss, and reduction in overall operative and anesthesia time as is the standard of care.
[2023-09-19] MEDS: ALBUMIN HUMAN 5% 250 ML in EMPTY BAG 1 BAG IVPB STA (14:21)
[2023-09-19] MEDS: LORazepam 2 MG/ML INJ IV STA (14:30)
[2023-09-19] MEDS: LACTATED RINGERS 1,000 ML IV SCH (17:10)
[2023-09-19] MEDS: LORazepam 2 MG/ML INJ IM STA (18:32)
[2023-09-19] MEDS: KETOROLAC 15 MG/ML 1 ML VIAL IVP STA (20:49)
[2023-09-19] MEDS: FAMOTIDINE 20 MG TAB PO SCH (20:50)
[2023-09-19] MEDS: ATORVASTATIN 20 MG TAB PO SCH (20:50)
[2023-09-19] MEDS: GABAPENTIN 100 MG CAP PO SCH (20:50)
[2023-09-20] MEDS: LACTATED RINGERS 1,000 ML IV SCH (02:35)
[2023-09-20] MEDS: LACTATED RINGERS 1,000 ML BAG IV STA (02:35)
[2023-09-20] MEDS: ONDANSETRON 4 MG/2 ML VIAL IVP STA ×2 (02:41→10:39)
[2023-09-20] MEDS: diphenhydrAMINE 50 MG/ML 1 ML VIAL IVP STA (03:42)
--- NOTE | 2023-09-20 06:46 | P.PN ---
Progress Note - Text 09/20/23 629am 73-year-old female status post hysterectomy. Patient received Duramorph for postop pain control,. Patient had low temperature in the recovery room and was treated for it and she was also treated for low blood pressure with albumin. Patient is normothermic today but her urine output is low and has been treated with fluid bolus by the surgical team. She has a VAS of 5-6 and can be treated with IV or oral pain meds if needed.
[2023-09-20] MEDS ORDERED: ACETAMINOPHEN TAB 325 MG TAB PO PRN ×2 (08:29→12:21)
[2023-09-20] MEDS: METOPROLOL SUCCINATE (ER) 25 MG TAB.ER.24H PO SCH (09:11)
[2023-09-20] MEDS: MELOXICAM 7.5 MG TAB PO PRN (09:15)
[2023-09-20] MEDS: CYCLOBENZAPRINE 5 MG TAB PO SCH (09:15)
[2023-09-20 09:42] LABS: Basophils # (A) 0.04 X 10*3/uL (0.00-0.10); Basophils % (A) 0.3 %; Eosinophils # (A) 0.01 X 10*3/uL (0.04-0.35); Eosinophils % (A) 0.1 %; HCT 31.8 % (37.2-46.3); HGB 9.6 g/dL (12.0-15.0); Lymphocytes # (A) 1.14 X 10*3/uL (0.90-5.00); Lymphocytes % (A) 8.7 %; MCH 30.6 pg (27.0-32.0); MCHC 30.2 g/dL (32.0-37.0); MCV 101.3 FL (80.0-97.0); Mean Platelet Volume 11.5 FL (9.5-12.2); Monocytes # (A) 0.85 X 10*3/uL (0.20-1.00); Monocytes % (A) 6.5 %; NRBC Per 100 WBC 0 X 10*3/uL (0.00-0.01); Neutrophils # (A) 11.04 X 10*3/uL (1.80-7.70); Neutrophils % (A) 83.9 %; Platelet Count 204 X 10*3/uL (140-440); RBC 3.14 X 10*6/uL (4.10-5.20); RDW 15.2 % (11.5-14.5); WBC 13.14 X 10*3/uL (4.50-10.00)
--- NOTE | 2023-09-20 09:46 | P.PN ---
Subjective Progress Note Date: 09/20/23 Principal diagnosis: s/p total vaginal hysterectomy, anterior repair, TVT Midurethral sling, cystoscopy The patient did okay overnight. She had several episodes of vomiting. She also became hypotensive and oliguric, which improved with a fluid bolus an 100mL maintenance fluids. She is tolerating PO this morning, but is still suffering from reflux. She also complains of severe itchiness from the spinal anesthesia. Fluid output is adequate this morning. Pain is 6/10 but she hasn't had medication for pain in several hours, just received tylenol. She is using her incentive spirometer. She is being weaned from 2L of oxygen. Objective - Vital Signs Vital signs: Vital Signs Temp 98.5 F 09/20/23 08:00 Pulse 64 09/20/23 08:00 Resp 17 09/20/23 08:00 BP 93/57 09/20/23 08:00 Pulse Ox 96 09/20/23 08:00 FiO2 Intake & Output 09/19/23 09/20/23 09/20/23 18:59 06:59 18:59 Intake Total 2178 Output Total 500 125 Balance 1678 -125 Weight 64.7 kg Intake: IV 2178 Output: Urine 450 125 Estimated Blood Loss 50 Other: Voiding Method Indwelling Catheter - Exam Focused physical exam is performed. breathing is non-labored, patient is conversing normally. Abdomen soft, appropriately tender. Urine in barboza catheter is clear yellow. Extremities are non-edematous and non-tender. - Labs CBC & Chem 7: 09/20/23 05:33 Labs: Abnormal Lab Results - Last 24 Hours (Table) 09/20/23 Range/Units 05:33 WBC 13.14 H (4.50-10.00) X 10*3/uL RBC 3.14 L (4.10-5.20) X 10*6/uL Hgb 9.6 L (12.0-15.0) g/dL Hct 31.8 L (37.2-46.3) % MCV 101.3 H (80.0-97.0) FL MCHC 30.2 L (32.0-37.0) g/dL RDW 15.2 H (11.5-14.5) % Immature Gran # 0.06 H (0.00-0.04) X 10*3/uL Neutrophils # 11.04 H (1.80-7.70) X 10*3/uL Eosinophils # 0.01 L (0.04-0.35) X 10*3/uL Assessment and Plan Assessment: 73 year old with Grade 3 uterovaginal prolapse, grade 2 cystocele, and ABHIJIT now POD#1 s/p total vaginal hysterectomy, anterior repair, TVT Midurethral sling, cystoscopy Plan: Continue to monitor, anticipate discharge home this afternoon if voiding normally and continuing to tolerate PO.
[2023-09-20] MEDS: diphenhydrAMINE 25 MG CAP PO STA (10:39)
[2023-09-20] MEDS: FERROUS SULFATE 325 MG TAB PO SCH (11:45)
[2023-09-20] MEDS: IBUPROFEN 600 MG TAB PO PRN (21:35)
[2023-09-21 02:02] VITALS: RESP 18
[2023-09-21 08:00] VITALS: BP 102/61; PULSE 78; TEMP 97.6
--- NOTE | 2023-09-21 10:08 | P.DS ---
Providers Date of admission: 09/19/2023 Expected date of discharge: 09/21/23 Attending physician: Heather Damon MD Primary care physician: [facility] Course: Ms. Reyes is a 73 year old who is now POD#2 s/p TVH, right salpingectomy, anterior repair, TVT Midurethral Sling, and Cystoscopy. Her postoperative course was complicated by nausea and vomiting, as well as some hypotension after surgery. This was resolved with antiemetics and IV fluids. The patient requested a second night in the hospital yesterday because she was still feeling lightheaded with ambulation. This morning she reports feeling much better. Pain is well controlled, she is ambulating without difficulty, she is tolerating PO without nausea or vomiting. She has not had vaginal bleeding. She is urinating without difficulty and has a normal post-void residual. She is passing flatus. She desires discharge home this morning. Postoperative restrictions were reviewed with the patient including no lifting heavier than 15 pounds for 4 weeks and nothing in the vagina including intercourse for 6 weeks. She plans to use [id number] Tylenol arthritis as needed for pain. She is also encouraged to use Motrin [id number] as needed for pain during the first few days of her postoperative course. All questions are answered at this time. She will follow-up in the office in 2 weeks. Assessment: 73 year old POD#2 s/p TVH, LS, anterior repair, TVT, Cysto Patient Condition at Discharge: Good Plan - Discharge Summary Discharge Rx Participant: No New Discharge Prescriptions: No Action Aspirin 81 mg PO DAILY Fluticasone/Umeclidin/Vilanter [Trelegy Ellipta 100-62.5-25] 1 puff INHALATION DAILY Metoprolol Succinate (ER) [Toprol XL] 25 mg PO DAILY Albuterol Inhaler [Ventolin Hfa Inhaler] 1 - 2 puff INHALATION RT-Q6H PRN PRN Reason: Shortness Of Breath Cyclobenzaprine [Flexeril] 5 mg PO Q7D Famotidine [Pepcid] 40 mg PO BID Atorvastatin [Lipitor] 20 mg PO HS Cholecalciferol [Vitamin D3 (25 Mcg = 1000 Iu)] 50 mcg PO DAILY Gabapentin [Neurontin] 100 mg PO TID Ferrous Sulfate [Iron (65 MG Elemental)] 325 mg PO DAILY Celecoxib [CeleBREX] 200 mg PO DIRECTED Famotidine [Pepcid] 40 mg PO BID Discharge Medication List Aspirin 81 mg PO DAILY 05/01/22 [History] Atorvastatin [Lipitor] 20 mg PO HS 05/01/22 [History] Fluticasone/Umeclidin/Vilanter [Trelegy Ellipta 100-62.5-25] 1 puff INHALATION DAILY 05/01/22 [History] Albuterol Inhaler [Ventolin Hfa Inhaler] 1 - 2 puff INHALATION RT-Q6H PRN 10/31/22 [History] Metoprolol Succinate (ER) [Toprol XL] 25 mg PO DAILY 10/31/22 [History] Cholecalciferol [Vitamin D3 (25 Mcg = 1000 Iu)] 50 mcg PO DAILY 12/21/22 [History] Ferrous Sulfate [Iron (65 MG Elemental)] 325 mg PO DAILY 01/22/23 [History] Gabapentin [Neurontin] 100 mg PO TID 01/22/23 [History] Celecoxib [CeleBREX] 200 mg PO DIRECTED 09/16/23 [History] Cyclobenzaprine [Flexeril] 5 mg PO Q7D 09/16/23 [History] Famotidine [Pepcid] 40 mg PO BID 09/16/23 [History] Famotidine [Pepcid] 40 mg PO BID 09/16/23 [History] Follow up Appointment(s)/Referral(s): Heather Damon MD [STAFF PHYSICIAN] - 2 Weeks Activity/Diet/Wound Care/Special Instructions: Postoperative Instructions 1. No heavy lifting or straining (exercising) until after 6 week checkup. 2. Do not resume sexual relations for 6 weeks or longer if uncomfortable. 3. Keep abdominal incision clean and dry: You may wear a dressing if more comfortable. 4. Keep any areas repaired with stitches clean and dry. 5. Call the office, , within the next week to make appointment for your 2 week checkup 6. Report any of the following occurrences to the doctor promptly: a. Heavy, excessive bleeding b. Chills, fever c. Burning or frequency of urination d. Pain or redness around the incisions Discharge Disposition: HOME SELF-CARE
== END 2023-09-21 11:06 | disposition home or self-care (01) ==
LOC: OR 08:13 → 4FBP 12:51 → 4SSUR 15:20 → OR 09-21 11:06
PROVIDERS: ATTEND Obstetrics & Gynecology
DX: N81.11 Cystocele, midline (principal); N39.3 Stress incontinence (female) (male); N72 Inflammatory disease of cervix uteri; N84.0 Polyp of corpus uteri; E78.5 Hyperlipidemia, unspecified; M19.90 Unspecified osteoarthritis, unspecified site; K21.9 Gastro-esophageal reflux disease without esophagitis; I12.9 Hypertensive chronic kidney disease with stage 1 through stage 4 chronic kidney disease, or unspecified chronic kidney disease; Z85.3 Personal history of malignant neoplasm of breast; Z80.1 Family history of malignant neoplasm of trachea, bronchus and lung; Z90.89 Acquired absence of other organs; Z98.51 Tubal ligation status; Z98.890 Other specified postprocedural states; Z87.891 Personal history of nicotine dependence; Z86.59 Personal history of other mental and behavioral disorders; Z79.899 Other long term (current) drug therapy; Z79.83 Long term (current) use of bisphosphonates; Z79.52 Long term (current) use of systemic steroids; Z79.891 Long term (current) use of opiate analgesic
CPT/HCPCS: 88305; 85025; 58262; 57288; 57240; C1771; P9045; J2250; J2060; J1200; J1580; J1100; J0690; J2405 ×2; J1885

== ENCOUNTER 2024-02-13 22:55 | Inpatient (IN) | payer MEDICARE, OTHER ==
--- NOTE | 2024-02-14 00:42 | ED ---
Fall HPI - General Chief Complaint: Fall Stated Complaint: Fall Time Seen by Provider: 02/13/24 23:02 Source: patient, EMS Mode of arrival: EMS - History of Present Illness Initial Comments: Patient is a 74-year-old woman here to have evaluation after she fell at home and then was too weak to get up. Patient's daughter accompanies the patient and states that she had similar episode to this and was found to have pneumonia and sepsis. The patient does acknowledge that she has had a bit of cough going on for the past 1 to 2 days and that she has been feeling weaker than usual. She states that she was at home and her legs gave out and she fell. She states that she may have twisted her left ankle. There is pain to the lateral aspect. She also complains of hitting her left shoulder. She denies pain to the head or neck. No chest pain, back pain or abdominal pain. No dyspnea. Cough is mostly nonproductive though occasional yellow sputum. She has not noted fevers. MD Complaint: fall Onset/Timin -: hour(s) Fall From: standing When Fall Occurred: 1 hour FOURTH MATE Fall Witnessed: yes, by family Place Fall Occurred: home Loss of Consciousness: none Prolonged Down Time?: no Symptoms Prior to Fall: other (Weakness) Location - Extremities: Left: Shoulder, Ankle Severity: moderate Quality: aching Context: tripped/slipped Associated Symptoms: weakness - Related Data Home Medications Medication Instructions Recorded Confirmed Aspirin 81 mg PO DAILY 05/01/22 02/14/24 Atorvastatin [Lipitor] 20 mg PO HS 05/01/22 02/14/24 Albuterol Inhaler [Ventolin Hfa 2 puff INHALATION RT-Q6H PRN 10/31/22 02/14/24 Inhaler] Metoprolol Succinate (ER) [Toprol 25 mg PO DAILY 10/31/22 02/14/24 XL] Ferrous Sulfate [Iron (65 MG 325 mg PO HS 01/22/23 02/14/24 Elemental)] Gabapentin [Neurontin] 100 mg PO TID 01/22/23 02/14/24 Famotidine [Pepcid] 40 mg PO BID 09/16/23 02/14/24 Albuterol Sulfate [Accuneb] 0.63 mg INHALATION RT-QID PRN 02/14/24 02/14/24 Denosumab [Prolia] 60 mg SQ Q180D 02/14/24 02/14/24 Fluticasone/Umeclidin/Vilanter 1 puff INHALATION RT-DAILY 02/14/24 02/14/24 [Trelegy Ellipta 200-62.5-25] Oxybutynin ER [Ditropan XL] 10 mg PO DAILY 02/14/24 02/14/24 Previous Rx's Medication Instructions Recorded Cholecalciferol [Vitamin D3 (25 50 mcg PO DAILY #60 tab 02/19/24 Mcg = 1000 Iu)] Furosemide [Lasix] 40 mg PO DAILY #30 tablet 02/19/24 cefuroxime axetiL [Ceftin] 500 mg PO BID 7 Days #14 tab 02/19/24 Allergies Allergy/AdvReac Type Severity Reaction Status Date / Time No Known Allergies Allergy Verified 02/14/24 07:14 Review of Systems ROS Statement: Those systems with pertinent positive or pertinent negative responses have been documented in the HPI. ROS Other: All systems not noted in ROS Statement are negative. Constitutional: Reports: weakness. Denies: fever, chills Eyes: Denies: vision change ENT: Denies: congestion Respiratory: Reports: cough. Denies: dyspnea, wheezes Cardiovascular: Denies: chest pain, palpitations, edema, syncope Gastrointestinal: Denies: abdominal pain, nausea, vomiting, diarrhea, melena, hematochezia Genitourinary: Denies: dysuria, hematuria Musculoskeletal: Denies: back pain Skin: Denies: rash Neurological: Denies: headache, weakness, numbness, confusion Past Medical History Past Medical History: Cancer, GERD/Reflux, Hyperlipidemia, Hypertension, Musculoskeletal Disorder, Osteoarthritis (OA), Renal Disease Additional Past Medical History / Comment(s): Right breast cancer, back pain - steroid injections, hiatal hernia - not repaired. stage 3 vulva cancer-seeing oncologist in [facility].-surg. could possibly be postponed, gets SOB w/exertion, stage 3 kidney disease. History of Any Multi-Drug Resistant Organisms: None Reported Past Surgical History: Back Surgery, Breast Surgery, Joint Replacement, Tonsillectomy, Tubal Ligation Additional Past Surgical History / Comment(s): Right breast mastectomy 2000, artificial vance. thumb joint (3 surgeries), left hand surgery, EGD 2010. back injections for pain, left cataract removed, C2 to T2 fusion 12/17/2022 Past Anesthesia/Blood Transfusion Reactions: Postoperative Nausea & Vomiting (PONV) Additional Past Anesthesia/Blood Transfusion Reaction / Comment(s): only happened once years ago. Past Psychological History: Depression Smoking Status: Former smoker Past Alcohol Use History: Rare Past Drug Use History: Marijuana - Past Family History Mother Family Medical History: Cancer Additional Family Medical History / Comment(s): Stomach cancer Sister(s) Family Medical History: Cancer Additional Family Medical History / Comment(s): Lung cancer mets to brain Brother(s) Family Medical History: Cancer Additional Family Medical History / Comment(s): multiple cancers General Exam Limitations: no limitations General appearance: alert, in no apparent distress Head exam: Present: atraumatic, normocephalic Eye exam: Present: normal appearance, EOMI. Absent: scleral icterus, conjunctival injection, nystagmus ENT exam: Present: mucous membranes dry Neck exam: Present: normal inspection, full ROM. Absent: tenderness Respiratory exam: Present: normal lung sounds bilaterally. Absent: respiratory distress, wheezes, rales, rhonchi, stridor, chest wall tenderness, accessory muscle use Cardiovascular Exam: Present: regular rate, normal rhythm, normal heart sounds. Absent: systolic murmur, diastolic murmur, rubs, gallop GI/Abdominal exam: Present: soft. Absent: distended, tenderness, guarding, rebound, rigid, mass, pulsatile mass Extremities exam: Present: normal inspection, normal capillary refill. Absent: pedal edema, calf tenderness Back exam: Present: normal inspection. Absent: CVA tenderness (R), CVA tenderness (L) Neurological exam: Present: alert, oriented X3, CN II-XII intact. Absent: motor sensory deficit Skin exam: Present: warm, dry, intact, normal color. Absent: rash Course Vital Signs 02/13/24 02/14/24 02/14/24 22:56 01:29 04:25 Temperature 98.7 F Pulse Rate 76 82 62 Respiratory 18 18 16 Rate Blood Pressure 150/100 130/72 100/50 O2 Sat by Pulse 95 96 96 Oximetry 02/14/24 06:02 Temperature Pulse Rate 68 Respiratory 16 Rate Blood Pressure 97/46 O2 Sat by Pulse 96 Oximetry Medical Decision Making - Medical Decision Making Patient is 74-year-old woman here for generalized weakness with ground-level fall. The patient does have urinary tract infection. She is started on fluid bolus antibiotics. The patient had x-ray of the humerus that I interpreted as negative for fracture/dislocation. The patient had ankle x-ray that I interpreted as negative for acute fracture or dislocation. The patient had chest x-ray that I interpreted as negative for acute infiltrate, pneumothorax, congestive heart failure Was pt. sent in by a medical professional or institution (, PA, POWERHOUSE MECHANIC SUPERVISOR, urgent care, hospital, or fdc...) When possible be specific @ -[No] Did you speak to anyone other than the patient for history (EMS, parent, family, police, friend...)? What history was obtained from this source @ -[No] Did you review nursing and triage notes (agree or disagree)? Why? @ -[I reviewed and agree with nursing and triage notes] Were old charts reviewed (outside hosp., previous admission, EMS record, old EKG, old radiological studies, urgent care reports/EKG's, fdc records)? Report findings @ -[No old charts were reviewed] Differential Diagnosis (chest pain, altered mental status, abdominal pain women, abdominal pain men, vaginal bleeding, weakness, fever, dyspnea, syncope, headache, dizziness, GI bleed, back pain, seizure, CVA, palpatations, mental health, musculoskeletal)? @ -[Differential Weakness: Hypoglycemia, shock, sepsis, hyponatremia, anemia, infection, DE, ETOH, adverse medicine reaction, overdose, stroke, this is not meant to be an all-inclusive list. EKG interpreted by me (3pts min.). @ -[I interpreted as above] X-rays interpreted by me (1pt min.). @ -[I interpreted as above CT interpreted by me (1pt min.). @ -[None done] U/S interpreted by me (1pt. min.). @ -[None done] What testing was considered but not performed or refused? (CT, X-rays, U/S, labs)? Why? @ -[None] What meds were considered but not given or refused? Why? @ -[None] Did you discuss the management of the patient with other professionals (professionals i.e. , PA, POWERHOUSE MECHANIC SUPERVISOR, lab, RT, psych nurse, social media job titles, window trimmer apprentice, teacher, logistics officer, classification case manager)? Give summary @ -[Case discussed with admitting physician and treatment recommendations are incorporated Was smoking cessation discussed for >3mins.? @ -[No] Was critical care preformed (if so, how long)? @ -[No] Were there social determinants of health that impacted care today? How? (Homelessness, low income, unemployed, alcoholism, drug addiction, transportation, low edu. Level, literacy, decrease access to med. care, usp, rehab)? @ -[No] Was there de-escalation of care discussed even if they declined (Discuss DNR or withdrawal of care, Hospice)? DNR status @ -[No] What co-morbidities impacted this encounter? (DM, HTN, Smoking, COPD, CAD, Cancer, CVA, ARF, Chemo, Hep., AIDS, mental health diagnosis, sleep apnea, m orbid obesity)? @ -[None] Was patient admitted / discharged? Hospital course, mention meds given and route, prescriptions, significant lab abnormalities, going to OR and other pertinent info. @ -[Patient is 74-year-old woman presenting after ground-level fall due to generalized weakness. Patient does appear to have urinary tract infection and is started on fluids, antibiotics and will be admitted to have further treatment Undiagnosed new problem with uncertain prognosis? @ -[No] Drug Therapy requiring intensive monitoring for toxicity (Heparin, Nitro, Insulin, Cardizem)? @ -[No] Were any procedures done? @ -[No] Diagnosis/symptom? @ -[Acute fall injury Acute arm contusion Acute ankle sprain Acute urinary tract infection Generalized weakness and debility Acute, or Chronic, or Acute on Chronic? @ -[Acute Uncomplicated (without systemic symptoms) or Complicated (systemic symptoms)? @ -[Complicated by generalized weakness Side effects of treatment? @ -[No] Exacerbation, Progression, or Severe Exacerbation? @ -[No] Poses a threat to life or bodily function? How? (Chest pain, USA, DE, pneumonia, PE, COPD, DKA, ARF, appy, cholecystitis, CVA, Diverticulitis, Homicidal, Suicidal, threat to staff... and all critical care pts) @ -[Low risk - Lab Data Result diagrams: 02/19/24 04:38 02/19/24 04:38 Lab Results 02/14/24 02/14/24 02/14/24 Range/Units 00:21 00:21 00:23 WBC (3.8-10.6) k/uL RBC (3.80-5.40) m/uL Hgb (11.4-16.0) gm/dL Hct (34.0-46.0) % MCV (80.0-100.0) fL MCH (25.0-35.0) pg MCHC (31.0-37.0) g/dL RDW (11.5-15.5) % Plt Count (150-450) k/uL MPV Neutrophils % % Lymphocytes % % Monocytes % % Eosinophils % % Basophils % % Neutrophils # (1.3-7.7) k/uL Lymphocytes # (1.0-4.8) k/uL Monocytes # (0-1.0) k/uL Eosinophils # (0-0.7) k/uL Basophils # (0-0.2) k/uL Hypochromasia PT (10.0-12.5) sec INR (<1.2) APTT (22.0-30.0) sec Sodium 141 (137-145) mmol/L Potassium 4.4 (3.5-5.1) mmol/L Chloride 108 H (98-107) mmol/L Carbon Dioxide 31 H (22-30) mmol/L Anion Gap 2 mmol/L BUN 37 H (7-17) mg/dL Creatinine 1.28 H (0.52-1.04) mg/dL Est GFR (CKD-EPI)AfAm 49 (>60 ml/min/1.73 sqM) Est GFR (CKD-EPI)NonAf 42 (>60 ml/min/1.73 sqM) Glucose 100 H (74-99) mg/dL Plasma Lactic Acid Robson (0.7-2.0) mmol/L Calcium 10.5 H (8.4-10.2) mg/dL Magnesium 1.5 L (1.6-2.3) mg/dL Total Bilirubin 0.8 (0.2-1.3) mg/dL AST 23 (14-36) U/L ALT 11 (4-34) U/L Alkaline Phosphatase 61 (38-126) U/L Troponin I <0.012 (0.000-0.034) ng/mL Total Protein 6.9 (6.3-8.2) g/dL Albumin 3.9 (3.5-5.0) g/dL TSH 0.213 L (0.465-4.680) mIU/L Urine Color Urine Appearance (Clear) Urine pH (5.0-8.0) Ur Specific [place] (1.001-1.035) Urine Protein (Negative) Urine Glucose (UA) (Negative) Urine Ketones (Negative) Urine Blood (Negative) Urine Nitrite (Negative) Urine Bilirubin (Negative) Urine Urobilinogen (<2.0) mg/dL Ur Leukocyte Esterase (Negative) Urine RBC (0-5) /hpf Urine WBC (0-5) /hpf Urine WBC Clumps (None) /hpf Ur Squamous Epith Cells (0-4) /hpf Calcium Oxalate Crystal (None) /hpf Urine Bacteria (None) /hpf Hyaline Casts (0-2) /lpf Urine Mucus (None) /hpf Influenza Type A (PCR) Not Detected (Not Detectd) Influenza Type B (PCR) Not Detected (Not Detectd) Urine Legionella Ag (Negative) RSV (PCR) Not Detected (Not Detectd) SARS-CoV-2 (PCR) Not Detected (Not Detectd) 02/14/24 02/14/24 02/14/24 Range/Units 01:00 01:00 01:30 WBC 12.5 H (3.8-10.6) k/uL RBC 3.72 L (3.80-5.40) m/uL Hgb 11.6 (11.4-16.0) gm/dL Hct 36.5 (34.0-46.0) % MCV 97.9 (80.0-100.0) fL MCH 31.1 (25.0-35.0) pg MCHC 31.7 (31.0-37.0) g/dL RDW 14.0 (11.5-15.5) % Plt Count 239 (150-450) k/uL MPV 8.2 Neutrophils % 83 % Lymphocytes % 9 % Monocytes % 5 % Eosinophils % 2 % Basophils % 0 % Neutrophils # 10.4 H (1.3-7.7) k/uL Lymphocytes # 1.1 (1.0-4.8) k/uL Monocytes # 0.6 (0-1.0) k/uL Eosinophils # 0.2 (0-0.7) k/uL Basophils # 0.0 (0-0.2) k/uL Hypochromasia Slight PT (10.0-12.5) sec INR (<1.2) APTT (22.0-30.0) sec Sodium (137-145) mmol/L Potassium (3.5-5.1) mmol/L Chloride (98-107) mmol/L Carbon Dioxide (22-30) mmol/L Anion Gap mmol/L BUN (7-17) mg/dL Creatinine (0.52-1.04) mg/dL Est GFR (CKD-EPI)AfAm (>60 ml/min/1.73 sqM) Est GFR (CKD-EPI)NonAf (>60 ml/min/1.73 sqM) Glucose (74-99) mg/dL Plasma Lactic Acid Robson (0.7-2.0) mmol/L Calcium (8.4-10.2) mg/dL Magnesium (1.6-2.3) mg/dL Total Bilirubin (0.2-1.3) mg/dL AST (14-36) U/L ALT (4-34) U/L Alkaline Phosphatase (38-126) U/L Troponin I (0.000-0.034) ng/mL Total Protein (6.3-8.2) g/dL Albumin (3.5-5.0) g/dL TSH (0.465-4.680) mIU/L Urine Color Colorless Urine Appearance Cloudy H (Clear) Urine pH 5.5 (5.0-8.0) Ur Specific [place] 1.012 (1.001-1.035) Urine Protein Trace H (Negative) Urine Glucose (UA) Negative (Negative) Urine Ketones Negative (Negative) Urine Blood Negative (Negative) Urine Nitrite Negative (Negative) Urine Bilirubin Negative (Negative) Urine Urobilinogen <2.0 (<2.0) mg/dL Ur Leukocyte Esterase Large H (Negative) Urine RBC 1 (0-5) /hpf Urine WBC >182 H (0-5) /hpf Urine WBC Clumps Occasional H (None) /hpf Ur Squamous Epith Cells 1 (0-4) /hpf Calcium Oxalate Crystal Rare H (None) /hpf Urine Bacteria Many H (None) /hpf Hyaline Casts 3 H (0-2) /lpf Urine Mucus Rare H (None) /hpf Influenza Type A (PCR) (Not Detectd) Influenza Type B (PCR) (Not Detectd) Urine Legionella Ag Negative (Negative) RSV (PCR) (Not Detectd) SARS-CoV-2 (PCR) (Not Detectd) 02/14/24 02/14/24 Range/Units 01:30 01:30 WBC (3.8-10.6) k/uL RBC (3.80-5.40) m/uL Hgb (11.4-16.0) gm/dL Hct (34.0-46.0) % MCV (80.0-100.0) fL MCH (25.0-35.0) pg MCHC (31.0-37.0) g/dL RDW (11.5-15.5) % Plt Count (150-450) k/uL MPV Neutrophils % % Lymphocytes % % Monocytes % % Eosinophils % % Basophils % % Neutrophils # (1.3-7.7) k/uL Lymphocytes # (1.0-4.8) k/uL Monocytes # (0-1.0) k/uL Eosinophils # (0-0.7) k/uL Basophils # (0-0.2) k/uL Hypochromasia PT 10.3 (10.0-12.5) sec INR 0.9 (<1.2) APTT 22.3 (22.0-30.0) sec Sodium (137-145) mmol/L Potassium (3.5-5.1) mmol/L Chloride (98-107) mmol/L Carbon Dioxide (22-30) mmol/L Anion Gap mmol/L BUN (7-17) mg/dL Creatinine (0.52-1.04) mg/dL Est GFR (CKD-EPI)AfAm (>60 ml/min/1.73 sqM) Est GFR (CKD-EPI)NonAf (>60 ml/min/1.73 sqM) Glucose (74-99) mg/dL Plasma Lactic Acid Robson 0.9 (0.7-2.0) mmol/L Calcium (8.4-10.2) mg/dL Magnesium (1.6-2.3) mg/dL Total Bilirubin (0.2-1.3) mg/dL AST (14-36) U/L ALT (4-34) U/L Alkaline Phosphatase (38-126) U/L Troponin I (0.000-0.034) ng/mL Total Protein (6.3-8.2) g/dL Albumin (3.5-5.0) g/dL TSH (0.465-4.680) mIU/L Urine Color Urine Appearance (Clear) Urine pH (5.0-8.0) Ur Specific [place] (1.001-1.035) Urine Protein (Negative) Urine Glucose (UA) (Negative) Urine Ketones (Negative) Urine Blood (Negative) Urine Nitrite (Negative) Urine Bilirubin (Negative) Urine Urobilinogen (<2.0) mg/dL Ur Leukocyte Esterase (Negative) Urine RBC (0-5) /hpf Urine WBC (0-5) /hpf Urine WBC Clumps (None) /hpf Ur Squamous Epith Cells (0-4) /hpf Calcium Oxalate Crystal (None) /hpf Urine Bacteria (None) /hpf Hyaline Casts (0-2) /lpf Urine Mucus (None) /hpf Influenza Type A (PCR) (Not Detectd) Influenza Type B (PCR) (Not Detectd) Urine Legionella Ag (Negative) RSV (PCR) (Not Detectd) SARS-CoV-2 (PCR) (Not Detectd) - EKG Data -: EKG Interpreted by Me EKG shows normal: sinus rhythm (With occasional PVC), intervals (Normal), QRS co mplexes (Low voltage QRS complex. Incomplete right bundle branch block.), ST-T waves (T inversions V1 through 3, present on previous ECG) Rate: normal (79 bpm) Disposition Clinical Impression: Fall, UTI (urinary tract infection) Narrative: Possible Pneumonia. Disposition: ADMITTED IP TO THIS HOSP Condition: Fair
[2024-02-14] MEDS: Acetaminophen-Codeine 300-30mg TAB PO STA (01:25)
[2024-02-14 01:31] LABS: ALT 11 U/L (4-34); AST 23 U/L (14-36); African American GFR (CKD) 49 (>60 ml/min/1.73 sqM); Albumin 3.9 g/dL (3.5-5.0); Alkaline Phosphatase 61 U/L (38-126); Anion Gap 2 mmol/L; Blood Urea Nitrogen 37 mg/dL (7-17); Calcium 10.5 mg/dL (8.4-10.2); Carbon Dioxide 31 mmol/L (22-30); Chloride 108 mmol/L (98-107); Glucose 100 mg/dL (74-99); Magnesium 1.5 mg/dL (1.6-2.3); Non-African American GFR(CKD) 42 (>60 ml/min/1.73 sqM); Sodium 141 mmol/L (137-145); Total Bilirubin 0.8 mg/dL (0.2-1.3); Total Protein 6.9 g/dL (6.3-8.2)
[2024-02-14 01:35] LABS: Appearance,Urine Cloudy (Clear); Bacteria,Urine Many /hpf; Bilirubin,Urine Negative (Negative); Blood,Urine Negative (Negative); Calcium Oxalate Crystals,Urine Rare /hpf; Color,Urine Colorless; Glucose,Urine (UA) Negative (Negative); Hyaline Casts,Urine 3 /lpf (0-2); Ketones,Urine Negative (Negative); Leukocyte Esterase,Urine Large (Negative); Mucus,Urine Rare /hpf; Nitrite,Urine Negative (Negative); PH, Urine 5.5 (5.0-8.0); Protein,Urine Trace (Negative); RBC,Urine 1 /hpf (0-5); Specific Gravity,Urine 1.012 (1.001-1.035); Squamous Epithelial Cell,Urine 1 /hpf (0-4); Urobilinogen,Urine <2.0 mg/dL (<2.0); WBC,Urine >182 /hpf (0-5)
[2024-02-14 01:35] LABS: Potassium 4.4 mmol/L (3.5-5.1)
[2024-02-14 01:45] LABS: Basophils % (A) 0 %; Eosinophils # (A) 0.2 k/uL (0-0.7); Eosinophils % (A) 2 %; HCT 36.5 % (34.0-46.0); HGB 11.6 gm/dL (11.4-16.0); Hypochromasia Slight; Lymphocytes # (A) 1.1 k/uL (1.0-4.8); Lymphocytes % (A) 9 %; MCH 31.1 pg (25.0-35.0); MCHC 31.7 g/dL (31.0-37.0); MCV 97.9 fL (80.0-100.0); Mean Platelet Volume 8.2; Monocytes # (A) 0.6 k/uL (0-1.0); Monocytes % (A) 5 %; Neutrophils # (A) 10.4 k/uL (1.3-7.7); Neutrophils % (A) 83 %; Platelet Count 239 k/uL (150-450); RBC 3.72 m/uL (3.80-5.40); WBC 12.5 k/uL (3.8-10.6)
[2024-02-14 02:07] LABS: INR 0.9 (<1.2); Partial Thromboplastin Time 22.3 sec (22.0-30.0); Prothrombin Time 10.3 sec (10.0-12.5)
--- NOTE | 2024-02-14 02:17 | XR ---
EXAM: XR Left Ankle Complete, 3 or More Views CLINICAL HISTORY: ITS.REASON XR Reason: fall injury TECHNIQUE: Frontal, lateral and oblique views of the left ankle. COMPARISON: No relevant prior studies available. FINDINGS: Bones/joints: No acute fracture. No dislocation. Soft tissues: Unremarkable. IMPRESSION: No acute osseous abnormalities.
--- NOTE | 2024-02-14 02:18 | XR ---
EXAM: XR Chest, 2 Views CLINICAL HISTORY: ITS.REASON XR Reason: Weakness TECHNIQUE: Frontal and lateral views of the chest. COMPARISON: No relevant prior studies available. FINDINGS: Lungs: Heterogeneous right lower lobe opacity Pleural space: No effusion. Heart: No cardiomegaly. Bones/joints: No acute findings. IMPRESSION: Heterogeneous right lower lobe opacity
--- NOTE | 2024-02-14 02:18 | XR ---
EXAM: XR Left Humerus, 2 or More Views CLINICAL HISTORY: ITS.REASON XR Reason: fall injury TECHNIQUE: Frontal and lateral views of the left humerus. COMPARISON: No relevant prior studies available. FINDINGS: Bones/joints: No acute fracture. No dislocation. Soft tissues: Unremarkable. IMPRESSION: No acute osseous abnormalities.
[2024-02-14] MEDS: AZITHROMYCIN 500 MG TAB PO SCH (04:35)
[2024-02-14] MEDS: SODIUM CHLORIDE 0.9% 1,000 ML IV SCH (04:36)
[2024-02-14] MEDS: MAGNESIUM SULFATE-D5W PMX 1 GM in DEXTROSE/WATER 1 100ML.BAG IVPB ONE (04:36)
[2024-02-14] MEDS ORDERED: SYMBICORT 80-4.5 MCG INHALER INHALATION SCH (08:00)
[2024-02-14] MEDS: SYMBICORT 160-4.5 MCG INHALER INHALATION SCH (08:33)
[2024-02-14] MEDS: IPRATROPIUM 0.5 MG/2.5 ML NEBU INHALATION SCH (08:33)
[2024-02-14] MEDS: GABAPENTIN 100 MG CAP PO SCH (09:00)
[2024-02-14] MEDS: ASPIRIN 81 MG PO SCH (09:00)
[2024-02-14] MEDS: CHOLECALCIFEROL 25 MCG (1000 IU) TABLET PO SCH (09:01)
[2024-02-14] MEDS: METOPROLOL SUCCINATE (ER) 25 MG TAB.ER.24H PO SCH (09:01)
[2024-02-14] MEDS ORDERED: ALBUTEROL SULFATE 0.63 MG/3 ML INHALATION PRN (09:58)
[2024-02-14] MEDS: FAMOTIDINE 20 MG TAB PO SCH (11:03)
[2024-02-14] MEDS: OXYBUTYNIN 10 MG TAB.ER.24 PO SCH (11:03)
[2024-02-14] MEDS: ONDANSETRON 4 MG/2 ML VIAL IVP PRN (11:08)
[2024-02-14 16:12] LABS: Glucose,Whole Blood 64 mg/dL (70-110)
[2024-02-14] MEDS: SODIUM CHLORIDE 0.9% 500 ML 500 ML IV ONE (16:13)
[2024-02-14 16:17] LABS: Glucose,Whole Blood 133 mg/dL (70-110)
[2024-02-14] MEDS: SODIUM CHLORIDE 0.9% 1,000 ML IV ONE ×2 (16:30→21:00)
[2024-02-14] MEDS: ALBUTEROL NEBULIZED 2.5 MG/3 ML INHALATION PRN (16:33)
[2024-02-14 17:06] LABS: Glucose,Whole Blood 78 mg/dL (70-110)
[2024-02-14 20:22] LABS: Glucose,Whole Blood 117 mg/dL (70-110)
--- NOTE | 2024-02-14 22:03 | CT ---
EXAMINATION TYPE: CT brain wo con CT DLP: 1168.4 mGycm, Automated exposure control for dose reduction was used. DATE OF EXAM: 02/14/2024 9:54 PM COMPARISON: MRI brain 12/24/2022. CLINICAL INDICATION:Female, 74 years old with history of Fall prior to admission, Fall prior to admis darrius. TECHNIQUE: Brain: Axial CT images of the brain were obtained with coronal and sagittal reformats created and rev iewed. Contrast used: None. Oral contrast used: None. FINDINGS: Brain: Extra-axial spaces: No abnormal extra-axial fluid collections. Ventricular system: Dilatation in proportion to cerebral atrophy. Cerebral parenchyma: Cerebral atrophy. No acute intraparenchymal hemorrhage or mass effect. The hoover -white junction is well differentiated. Scattered hypoattenuating areas are seen within the white mat ter. Small lacunar injury in the left basal ganglia. Cerebellum: Unremarkable. Mass effect: No evidence of midline shift. Intracranial vasculature: unremarkable Soft tissues: Normal. Calvarium/osseous structures: No depressed skull fracture. Paranasal sinuses and mastoid air cells: Mild scattered paranasal sinus disease. Visualized orbits: Left aphakia IMPRESSION: 1. No acute intracranial process. 2. 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 [facility], , 02/14/2024 10:01 PM
[2024-02-14] MEDS: ATORVASTATIN 20 MG TAB PO SCH (23:40)
[2024-02-14] MEDS: FERROUS SULFATE 325 MG TAB PO SCH (23:40)
[2024-02-15 02:40] LABS: Glucose,Whole Blood 86 mg/dL (70-110)
--- NOTE | 2024-02-15 07:26 | XR ---
2 view chest HISTORY: Pneumonia COMPARISON: 02/14/2024 TECHNIQUE: PA and lateral views chest obtained. FINDINGS: There are mild stable interstitial changes in the lung bases possibly reflecting mild interstitial sc arring or fibrosis. There is no airspace consolidation. There is blunting of the costophrenic angles on the lateral view which could represent mild chronic changes are tiny effusions. The heart size is normal pulmonary vasculature is not congested. There are postsurgical changes of ce rvical fusion and mild osteopenia. IMPRESSION: 1. Mild interstitial changes in the lung bases which possibly reflect mild chronic interstitial scarr ing or fibrosis. 2. Cannot exclude tiny effusions as described above. 3. Heart and pulmonary vasculature normal. 4.No airspace consolidation. [facility], , 02/15/2024 7:24 AM
[2024-02-15] MEDS ORDERED: NON FORMULARY DRUG (Fluticasone/Umeclidin/Vilanter [Trelegy Ellipta 200-62.5-25] 1 EACH Bl INHALATION SCH (08:00)
[2024-02-15 08:01] LABS: Glucose,Whole Blood 97 mg/dL (70-110)
[2024-02-15] MEDS: ACETAMINOPHEN TAB 500 MG TAB PO PRN (08:58)
[2024-02-15 11:34] LABS: Basophils % (A) 0 %; Eosinophils # (A) 0.2 k/uL (0-0.7); Eosinophils % (A) 2 %; HCT 28.4 % (34.0-46.0); Hypochromasia Moderate; Lymphocytes % (A) 8 %; MCH 31.6 pg (25.0-35.0); MCHC 31.5 g/dL (31.0-37.0); MCV 100.1 fL (80.0-100.0); Macrocytosis Slight; Mean Platelet Volume 8.6; Monocytes # (A) 0.8 k/uL (0-1.0); Monocytes % (A) 7 %; Neutrophils # (A) 9.9 k/uL (1.3-7.7); Neutrophils % (A) 82 %; Platelet Count 188 k/uL (150-450); RBC 2.84 m/uL (3.80-5.40); RDW 14.2 % (11.5-15.5); WBC 12.1 k/uL (3.8-10.6)
[2024-02-15 11:43] LABS: African American GFR (CKD) 56 (>60 ml/min/1.73 sqM); Anion Gap 1 mmol/L; Blood Urea Nitrogen 27 mg/dL (7-17); Calcium 8.3 mg/dL (8.4-10.2); Carbon Dioxide 28 mmol/L (22-30); Chloride 108 mmol/L (98-107); Glucose 103 mg/dL (74-99); Non-African American GFR(CKD) 48 (>60 ml/min/1.73 sqM); Potassium 4.1 mmol/L (3.5-5.1); Sodium 137 mmol/L (137-145)
[2024-02-15 14:48] LABS: Glucose,Whole Blood 106 mg/dL (70-110)
[2024-02-15 20:26] LABS: Glucose,Whole Blood 74 mg/dL (70-110)
[2024-02-16 01:33] LABS: Glucose,Whole Blood 92 mg/dL (70-110)
[2024-02-16 08:04] LABS: Glucose,Whole Blood 104 mg/dL (70-110)
[2024-02-16 09:25] LABS: Basophils # (A) 0.05 X 10*3/uL (0.00-0.10); Basophils % (A) 0.4 %; Eosinophils # (A) 0.28 X 10*3/uL (0.04-0.35); Eosinophils % (A) 2.1 %; HCT 30.9 % (37.2-46.3); HGB 9.3 g/dL (12.0-15.0); Lymphocytes # (A) 1.19 X 10*3/uL (0.90-5.00); Lymphocytes % (A) 8.9 %; MCH 30.7 pg (27.0-32.0); MCHC 30.1 g/dL (32.0-37.0); Mean Platelet Volume 11.6 FL (9.5-12.2); NRBC Per 100 WBC 0 X 10*3/uL (0.00-0.01); Neutrophils # (A) 11.05 X 10*3/uL (1.80-7.70); Neutrophils % (A) 82.1 %; Platelet Count 207 X 10*3/uL (140-440); RBC 3.03 X 10*6/uL (4.10-5.20); RDW 14.1 % (11.5-14.5); WBC 13.44 X 10*3/uL (4.50-10.00)
[2024-02-16] MEDS: FAMOTIDINE 20 MG TAB PO SCH (09:34)
[2024-02-16 10:44] LABS: Carbon Dioxide 24.1 mmol/L (21.6-31.8); Chloride 108 mmol/L (96-109); Glucose 98 mg/dL (70-110); Potassium 4.5 mmol/L (3.5-5.5); Sodium 142 mmol/L (135-145)
[2024-02-16 10:45] LABS: Calcium 8.2 mg/dL (8.7-10.3)
[2024-02-16 14:09] LABS: Glucose,Whole Blood 147 mg/dL (70-110)
--- NOTE | 2024-02-16 16:48 | US ---
EXAMINATION TYPE: US venous doppler duplex LE BI DATE OF EXAM: 02/16/2024 4:33 PM COMPARISON: 01/05/23 CLINICAL INDICATION: Female, 74 years old with history of leg pain/Rule out DVT; [facility] [place] [facility] [place] [facility] and landed on her knees. Pain at her knees. No hx of DVT, Pain TECHNIQUE: The lower extremity deep venous system is examined utilizing real time linear array sonog earle with graded compression, color doppler sonography, and spectral doppler. SIDE PERFORMED: Bilateral FINDINGS: VESSELS IMAGED: Common Femoral Vein Deep Femoral Vein Greater Saphenous Vein * Femoral Vein Popliteal Vein Small Saphenous Vein * Proximal Calf Veins Right Leg: No evidence for DVT, Color Doppler imaging shows patency of the vessels. Spectral wavefor ms are within normal limits. Left Leg: No evidence for DVT, Color Doppler imaging shows patency of the vessels. Spectral waveform s are within normal limits. IMPRESSION: No ultrasound evidence for deep venous thrombosis. [facility], , 02/16/2024 4:45 PM
--- NOTE | 2024-02-16 16:56 | P.HPIM ---
History of Present Illness H&P Date: 02/14/24 Chief Complaint: Weakness/fall 74-year-old female patient, history of hypertension, hyperlipidemia, osteoarthritis, gastroesophageal reflux disease, here to have evaluation after she fell at home and then was too weak to get up. Patient's daughter accompanies the patient and states that she had similar episode to this and was found to have pneumonia and sepsis. The patient does acknowledge that she has had a bit of cough going on for the past 1 to 2 days and that she has been feeling weaker than usual. She states that she was at home and her legs gave out and she fell. She states that she may have twisted her left ankle. There is pain to the lateral aspect. She also complains of hitting her left shoulder. She denies pain to the head or neck. No chest pain, back pain or abdominal pain. No dyspnea. Cough is mostly nonproductive though occasional yellow sp utum. She has not noted fevers. Blood work completed in ED reveals a WBC of 12.5, hemoglobin of 11.6 and platelet count of 239, sodium 141, potassium 4.4, BUNs/creatinine of 37/1.28 and blood glucose of 100, troponin less than 0.012, TSH low at 0.213, UA is positive for large leukocyte Estrace, bacteria and WBCs, lactic acid of 0.9 Chest x-ray, ankle x-ray and CT of the brain are unremarkable Review of Systems REVIEW OF SYSTEMS: CONSTITUTIONAL: No fever, no malaise, no fatigue. HEENT: No recent visual problems or hearing problems. Denied any sore throat. CARDIOVASCULAR: No chest pain, orthopnea, PND, no palpitations, no syncope. PULMONARY: No shortness of breath, no cough, no hemoptysis. GASTROINTESTINAL: No diarrhea, no nausea, no vomiting, no abdominal pain. NEUROLOGICAL: No headaches, no weakness, no numbness. HEMATOLOGICAL: Denies any bleeding or petechiae. GENITOURINARY: Denies any burning micturition, frequency, or urgency. MUSCULOSKELETAL/RHEUMATOLOGICAL: Denies any joint pain, swelling, or any muscle pain. ENDOCRINE: Denies any polyuria or polydipsia. The rest of the 14-point review of systems is negative. Past Medical History Past Medical History: Cancer, GERD/Reflux, Hyperlipidemia, Hypertension, Musculoskeletal Disorder, Osteoarthritis (OA), Renal Disease Additional Past Medical History / Comment(s): Right breast cancer, back pain - steroid injections, hiatal hernia - not repaired. 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 -seeing oncologist in [facility]surg. could possibly be postponed, gets SOB w/exertion, stage 3 kidney disease. History of Any Multi-Drug Resistant Organisms: None Reported Past Surgical History: Back Surgery, Breast Surgery, Joint Replacement, Tonsillectomy, Tubal Ligation Additional Past Surgical History / Comment(s): Right breast mastectomy 2000, ar tificial vance. thumb joint (3 surgeries), left hand surgery, EGD 2010. back injections for pain, left cataract removed, C2 to T2 fusion 12/17/2022 Past Anesthesia/Blood Transfusion Reactions: Postoperative Nausea & Vomiting (PONV) Additional Past Anesthesia/Blood Transfusion Reaction / Comment(s): only happened once years ago. Past Psychological History: Depression Additional Psychological History / Comment(s): depressed due to back issue. Smoking Status: Former smoker Past Alcohol Use History: Rare Additional Past Alcohol Use History / Comment(s): quit smoking 6 yrs. ago, smoked 20-30 yrs., 1ppd or more Past Drug Use History: Marijuana Additional Drug Use History / Comment(s): occasional use - Past Family History Mother Family Medical History: Cancer Additional Family Medical History / Comment(s): Stomach cancer Sister(s) Family Medical History: Cancer Additional Family Medical History / Comment(s): Lung cancer mets to brain Brother(s) Family Medical History: Cancer Additional Family Medical History / Comment(s): multiple cancers Medications and Allergies Home Medications Medication Instructions Recorded Confirmed Type Aspirin 81 mg PO DAILY 05/01/22 02/14/24 History Atorvastatin [Lipitor] 20 mg PO HS 05/01/22 02/14/24 History Albuterol Inhaler [Ventolin Hfa 2 puff INHALATION RT-Q6H PRN 10/31/22 02/14/24 History Inhaler] Metoprolol Succinate (ER) [Toprol 25 mg PO DAILY 10/31/22 02/14/24 History XL] Ferrous Sulfate [Iron (65 MG 325 mg PO HS 01/22/23 02/14/24 History Elemental)] Gabapentin [Neurontin] 100 mg PO TID 01/22/23 02/14/24 History Celecoxib [CeleBREX] 200 mg PO DAILY 09/16/23 02/14/24 History Famotidine [Pepcid] 40 mg PO BID 09/16/23 02/14/24 History Albuterol Sulfate [Accuneb] 0.63 mg INHALATION RT-QID PRN 02/14/24 02/14/24 History Denosumab [Prolia] 60 mg SQ Q180D 02/14/24 02/14/24 History Fluticasone/Umeclidin/Vilanter 1 puff INHALATION RT-DAILY 02/14/24 02/14/24 History [Trelegy Ellipta 200-62.5-25] Furosemide [Lasix] 20 mg PO DAILY 02/14/24 02/14/24 History Oxybutynin ER [Ditropan XL] 10 mg PO DAILY 02/14/24 02/14/24 History Allergies Allergy/AdvReac Type Severity Reaction Status Date / Time No Known Allergies Allergy Verified 02/14/24 07:14 Physical Exam Vitals: Vital Signs Temp Pulse Pulse Resp BP BP Pulse Ox 02/14/24 08:42 84 02/14/24 08:36 95 02/14/24 08:33 83 02/14/24 07:51 97.7 F 54 L 18 104/52 95 02/14/24 06:02 68 16 97/46 96 02/14/24 04:25 62 16 100/50 96 02/14/24 01:29 82 18 130/72 96 02/13/24 22:56 98.7 F 76 18 150/100 95 Intake and Output 02/13/24 02/14/24 02/14/24 22:59 06:59 14:59 Intake Total 580 Balance 580 Intake: Oral 580 Other: Weight 63.503 kg 63.503 kg General appearance: alert, in no apparent distress Head exam: Present: atraumatic, normocephalic Eye exam: Present: normal appearance, EOMI. Absent: scleral icterus, conjunctival injection, nystagmus ENT exam: Present: mucous membranes dry Neck exam: Present: normal inspection, full ROM. Absent: tenderness Respiratory exam: Present: normal lung sounds bilaterally. Absent: respiratory distress, wheezes, rales, rhonchi, stridor, chest wall tenderness, accessory muscle use Cardiovascular Exam: Present: regular rate, normal rhythm, normal heart sounds. Absent: systolic murmur, diastolic murmur, rubs, gallop GI/Abdominal exam: Present: soft. Absent: distended, tenderness, guarding, rebound, rigid, mass, pulsatile mass Extremities exam: Present: normal inspection, normal capillary refill. Absent: pedal edema, calf tenderness Back exam: Present: normal inspection. Absent: CVA tenderness (R), CVA tenderness (L) Neurological exam: Present: alert, oriented X3, CN II-XII intact. Absent: motor sensory deficit Skin exam: Present: warm, dry, intact, normal color. Absent: rash Results CBC & Chem 7: 02/16/24 03:00 02/16/24 03:00 Labs: Abnormal Lab Results - Last 24 Hours (Table) 02/14/24 02/14/24 02/14/24 Range/Units 00:21 01:00 01:30 WBC 12.5 H (3.8-10.6) k/uL RBC 3.72 L (3.80-5.40) m/uL Neutrophils # 10.4 H (1.3-7.7) k/uL Chloride 108 H (98-107) mmol/L Carbon Dioxide 31 H (22-30) mmol/L BUN 37 H (7-17) mg/dL Creatinine 1.28 H (0.52-1.04) mg/dL Glucose 100 H (74-99) mg/dL Calcium 10.5 H (8.4-10.2) mg/dL Magnesium 1.5 L (1.6-2.3) mg/dL TSH 0.213 L (0.465-4.680) mIU/L Urine Appearance Cloudy H (Clear) Urine Protein Trace H (Negative) Ur Leukocyte Esterase Large H (Negative) Urine WBC >182 H (0-5) /hpf Urine WBC Clumps Occasional H (None) /hpf Calcium Oxalate Crystal Rare H (None) /hpf Urine Bacteria Many H (None) /hpf Hyaline Casts 3 H (0-2) /lpf Urine Mucus Rare H (None) /hpf Thrombosis Risk Factor Assmnt - Choose All That Apply Each Risk Factor Represents 2 Points: Age 61-74 years Thrombosis Risk Factor Assessment Total Risk Factor Score: 2 Thrombosis Risk Factor Assessment Level: Low Risk Assessment and Plan Assessment: 1. UTI; patient has been placed on IV Rocephin 1 g daily; blood cultures and urine culture are obtained and pending; will adjust antibiotic therapy once cultures are available; monitor CBC, CRP and procalcitonin 2. Falls/debility; patient had x-ray of the chest and ankle along with CT of the head completed which have been unremarkable -We will consult PT/OT for further evaluation 3. Pain/swelling both lower extremities; rule out DVT; will order bilateral lower extremity venous Doppler 4. LASHAWN; BUN/creatinine elevated at 37/1.28 upon presentation to ED; we will start patient on IV fluid hydration; monitor strict RADHA's, daily weights, renal function electrolytes; avoid nephrotoxins and hypotension 5. Hyperlipidemia; Lipitor 20 mg daily 6. COPD/asthma; not in exacerbation; continue with home inhaler therapy 7. Hypertension; metoprolol 25 mg daily 8. Urinary incontinence/overactive bladder; Ditropan XL 10 mg daily DVT prophylaxis; SCDs CODE STATUS; full code
--- NOTE | 2024-02-16 16:59 | P.PN ---
Subjective Progress Note Date: 02/15/24 74-year-old female patient, history of hypertension, hyperlipidemia, osteoarthritis, gastroesophageal reflux disease, here to have evaluation after she fell at home and then was too weak to get up. Patient's daughter accompanies the patient and states that she had similar episode to this and was found to have pneumonia and sepsis. The patient does acknowledge that she has had a bit of cough going on for the past 1 to 2 days and that she has been feeling weaker than usual. She states that she was at home and her legs gave out and she fell. She states that she may have twisted her left ankle. There is pain to the lateral aspect. She also complains of hitting her left shoulder. She denies pain to the head or neck. No chest pain, back pain or abdominal pain. No dyspnea. Cough is mostly nonproductive though occasional yellow sputum. She has not noted fevers. Blood work completed in ED reveals a WBC of 12.5, hemoglobin of 11.6 and platelet count of 239, sodium 141, potassium 4.4, BUNs/creatinine of 37/1.28 and blood glucose of 100, troponin less than 0.012, TSH low at 0.213, UA is positive for large leukocyte Estrace, bacteria and WBCs, lactic acid of 0.9 Chest x-ray, ankle x-ray and CT of the brain are unremarkable Objective - Vital Signs Vital signs: Vital Signs Temp 98.6 F 02/15/24 01:59 Pulse 80 02/15/24 01:59 Resp 16 02/15/24 01:59 BP 102/61 02/15/24 01:59 Pulse Ox 95 02/15/24 01:59 FiO2 Intake & Output 02/14/24 02/15/24 02/15/24 18:59 06:59 18:59 Intake Total 580 Balance 580 Weight 63.503 kg Intake: Oral 580 Other: Voiding Method Bedside Commode Bedside Commode # Voids 2 3 - Exam General appearance: alert, in no apparent distress Head exam: Present: atraumatic, normocephalic Eye exam: Present: normal appearance, EOMI. Absent: scleral icterus, conjunctival injection, nystagmus ENT exam: Present: mucous membranes dry Neck exam: Present: normal inspection, full ROM. Absent: tenderness Respiratory exam: Present: normal lung sounds bilaterally. Absent: respiratory distress, wheezes, rales, rhonchi, stridor, chest wall tenderness, accessory muscle use Cardiovascular Exam: Present: regular rate, normal rhythm, normal heart sounds. Absent: systolic murmur, diastolic murmur, rubs, gallop GI/Abdominal exam: Present: soft. Absent: distended, tenderness, guarding, rebound, rigid, mass, pulsatile mass Extremities exam: Present: normal inspection, normal capillary refill. Absent: pedal edema, calf tenderness Back exam: Present: normal inspection. Absent: CVA tenderness (R), CVA tenderness (L) Neurological exam: Present: alert, oriented X3, CN II-XII intact. Absent: motor sensory deficit Skin exam: Present: warm, dry, intact, normal color. Absent: rash - Labs CBC & Chem 7: 02/16/24 03:00 02/16/24 03:00 Labs: Abnormal Lab Results - Last 24 Hours (Table) 02/14/24 02/14/24 02/14/24 Range/Units 15:56 16:16 20:21 POC Glucose (mg/dL) 64 L 133 H 117 H (70-110) mg/dL Microbiology - Last 24 Hours (Table) 02/14/24 01:00 Urine Culture - Preliminary Urine,Clean Catch Gram Neg Bacilli Assessment and Plan Assessment: 1. UTI; patient has been placed on IV Rocephin 1 g daily; blood cultures and urine culture are obtained and pending; will adjust antibiotic therapy once cultures are available; monitor CBC, CRP and procalcitonin 2. Falls/debility; patient had x-ray of the chest and ankle along with CT of th e head completed which have been unremarkable -We will consult PT/OT for further evaluation 3. Pain/swelling both lower extremities; rule out DVT; will order bilateral lower extremity venous Doppler 4. LASHAWN; BUN/creatinine elevated at 37/1.28 upon presentation to ED; we will start patient on IV fluid hydration; monitor strict RADHA's, daily weights, renal function electrolytes; avoid nephrotoxins and hypotension 5. Hyperlipidemia; Lipitor 20 mg daily 6. COPD/asthma; not in exacerbation; continue with home inhaler therapy 7. Hypertension; metoprolol 25 mg daily 8. Urinary incontinence/overactive bladder; Ditropan XL 10 mg daily DVT prophylaxis; SCDs CODE STATUS; full code
--- NOTE | 2024-02-16 17:03 | P.PN ---
Subjective Progress Note Date: 02/16/24 74-year-old female patient, history of hypertension, hyperlipidemia, osteoarthritis, gastroesophageal reflux disease, here to have evaluation after she fell at home and then was too weak to get up. Patient's daughter accompanies the patient and states that she had similar episode to this and was found to have pneumonia and sepsis. The patient does acknowledge that she has had a bit of cough going on for the past 1 to 2 days and that she has been feeling weaker than usual. She states that she was at home and her legs gave out and she fell. She states that she may have twisted her left ankle. There is pain to the lateral aspect. She also complains of hitting her left shoulder. She denies pain to the head or neck. No chest pain, back pain or abdominal pain. No dyspnea. Cough is mostly nonproductive though occasional yellow sputum. She has not noted fevers. Blood work completed in ED reveals a WBC of 12.5, hemoglobin of 11.6 and platelet count of 239, sodium 141, potassium 4.4, BUNs/creatinine of 37/1.28 and blood glucose of 100, troponin less than 0.012, TSH low at 0.213, UA is positive for large leukocyte Estrace, bacteria and WBCs, lactic acid of 0.9 Chest x-ray, ankle x-ray and CT of the brain are unremarkable 24-hour interval change 02/16/2024 Patient is seen and evaluated resting in bed; denies any complaint of chest pain or shortness of breath; continues to complain of pain in the ankle; Tylenol helps; Doppler ultrasound both lower extremity results discussed with patient Vital signs are reviewed and remained stable Lab review shows white blood count slightly trending up to 13.4 from 12.1 yesterday; hemoglobin of 9.3 and platelet count of 207, sodium 142, potassium 4.5, BUNs/creatinine of 18/1.0 Urine culture results resulted and reveals Klebsiella pneumonia which is pansensitive; patient is currently on IV ceftriaxone Blood culture obtained upon admission reveals gram-positive cocci in clusters with organism being Staphylococcus pettenkoferi; will consult ID for further recommendations on antibiotic therapy Objective - Vital Signs Vital signs: Vital Signs Temp 99.3 F 02/16/24 08:06 Pulse 88 02/16/24 08:21 Resp 18 02/16/24 08:06 BP 124/66 02/16/24 08:06 Pulse Ox 91 L 02/16/24 08:06 FiO2 Intake & Output 02/15/24 02/16/24 02/16/24 18:59 06:59 18:59 Intake Total 1200 Balance 1200 Intake: Intake, IV Titration 1200 Amount Sodium Chloride 0.9% 1, 1150 000 ml @ 100 mls/hr IV . Q10H LUIS E Rx#:[id number] cefTRIAXone 2 gm In 50 Sodium Chloride 0.9% 50 ml @ 100 mls/hr IVPB Q24H LUIS E Rx#:[id number] Other: Voiding Method Bedside Commode Bedside Commode Incontinent # Voids 3 1 - Exam General appearance: alert, in no apparent distress Head exam: Present: atraumatic, normocephalic Eye exam: Present: normal appearance, EOMI. Absent: scleral icterus, conjunctival injection, nystagmus ENT exam: Present: mucous membranes dry Neck exam: Present: normal inspection, full ROM. Absent: tenderness Respiratory exam: Present: normal lung sounds bilaterally. Absent: respiratory distress, wheezes, rales, rhonchi, stridor, chest wall tenderness, accessory muscle use Cardiovascular Exam: Present: regular rate, normal rhythm, normal heart sounds. Absent: systolic murmur, diastolic murmur, rubs, gallop GI/Abdominal exam: Present: soft. Absent: distended, tenderness, guarding, rebound, rigid, mass, pulsatile mass Extremities exam: Present: normal inspection, normal capillary refill. Absent: pedal edema, calf tenderness Back exam: Present: normal inspection. Absent: CVA tenderness (R), CVA tende rness (L) Neurological exam: Present: alert, oriented X3, CN II-XII intact. Absent: motor sensory deficit Skin exam: Present: warm, dry, intact, normal color. Absent: rash - Labs CBC & Chem 7: 02/16/24 03:00 02/16/24 03:00 Labs: Abnormal Lab Results - Last 24 Hours (Table) 02/16/24 02/16/24 Range/Units 03:00 03:00 WBC 13.44 H (4.50-10.00) X 10*3/uL RBC 3.03 L (4.10-5.20) X 10*6/uL Hgb 9.3 L (12.0-15.0) g/dL Hct 30.9 L (37.2-46.3) % MCV 102.0 H (80.0-97.0) FL MCHC 30.1 L (32.0-37.0) g/dL Immature Gran # 0.07 H (0.00-0.04) X 10*3/uL Neutrophils # 11.05 H (1.80-7.70) X 10*3/uL Calcium 8.2 L (8.7-10.3) mg/dL Microbiology - Last 24 Hours (Table) 02/14/24 01:57 Blood Culture Gram Stain - Preliminary Blood Blood Culture - Preliminary Staphlyococcus [email or web address] Molecular ID 02/14/24 01:00 Urine Culture - Preliminary Urine,Clean Catch Gram Neg Bacilli Assessment and Plan Assessment: 1. UTI; patient has been placed on IV Rocephin 1 g daily; blood cultures and ur ine culture are obtained and pending; will adjust antibiotic therapy once cultures are available; monitor CBC, CRP and procalcitonin 2. Falls/debility; patient had x-ray of the chest and ankle along with CT of the head completed which have been unremarkable -We will consult PT/OT for further evaluation 3. Pain/swelling both lower extremities; rule out DVT; will order bilateral lower extremity venous Doppler 4. LASHAWN; BUN/creatinine elevated at 37/1.28 upon presentation to ED; we will start patient on IV fluid hydration; monitor strict RADHA's, daily weights, renal function electrolytes; avoid nephrotoxins and hypotension 5. Hyperlipidemia; Lipitor 20 mg daily 6. COPD/asthma; not in exacerbation; continue with home inhaler therapy 7. Hypertension; metoprolol 25 mg daily 8. Urinary incontinence/overactive bladder; Ditropan XL 10 mg daily DVT prophylaxis; SCDs CODE STATUS; full code
[2024-02-16 20:13] LABS: Glucose,Whole Blood 90 mg/dL (70-110)
[2024-02-16] MEDS: FERROUS SULFATE 325 MG TAB PO ONE (21:26)
--- NOTE | 2024-02-16 23:17 | P.CONS ---
History of Present Illness - Reason for Consult Consult date: 02/16/24 Bacteremia Requesting physician: Chemo Munguia - Chief Complaint Weakness and fall x few days - History of Present Illness Patient is a 74-year-old female with a past medical history significant for hypertension hyperlipidemia osteoarthritis reflux breast cancer presenting to the hospital 2 days ago after apparently the patient did have a fall at home and the patient was very weak to get up patient has been complaining of pain to the left ankle and the left shoulder area from the fall patient denies hitting her head or losing any consciousness patient on p resentation to the hospital was afebrile however she did spike a fever of 100 F yesterday morning and around 1 AM this morning patient was the patient was nontachycardic hypotensive or hypoxic patient did have a white count of 12.5 which is up to 13.4 today BUN and creatinine was mildly elevated subsequently improved liver enzymes are normal urine has been positive influenza RSV COVID testing negative patient did have a chest x-ray heterogeneous right lower lobe opacity lower extremity Doppler negative for DVT humerus x-ray did not show any fracture urine is growing gram-negative blood culture positive for Streptococcus patient is currently being treated with ceftriaxone infectious disease was consulted today because of positive blood culture Review of Systems Positive point and negatives has been mentioned in the HPI, complete review of systems was performed and all other systems are negative Past Medical History Past Medical History: Cancer, GERD/Reflux, Hyperlipidemia, Hypertension, Musculoskeletal Disorder, Osteoarthritis (OA), Renal Disease Additional Past Medical History / Comment(s): Right breast cancer, back pain - steroid injections, hiatal hernia - not repaired. 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 -seeing oncologist in [facility].-surg. could possibly be postponed, gets SOB w/exertion, stage 3 kidney disease. History of Any Multi-Drug Resistant Organisms: None Reported Past Surgical History: Back Surgery, Breast Surgery, Joint Replacement, Tonsillectomy, Tubal Ligation Additional Past Surgical History / Comment(s): Right breast mastectomy 2000, artificial vance. thumb joint (3 surgeries), left hand surgery, EGD 2010. back injections for pain, left cataract removed, C2 to T2 fusion 12/17/2022 Past Anesthesia/Blood Transfusion Reactions: Postoperative Nausea & Vomiting (PONV) Additional Past Anesthesia/Blood Transfusion Reaction / Comm: only happened once years ago. Past Psychological History: Depression Additional Psychological History / Comment(s): depressed due to back issue. Smoking Status: Former smoker Past Alcohol Use History: Rare Additional Past Alcohol Use History / Comment(s): quit smoking 6 yrs. ago, smoked 20-30 yrs., 1ppd or more Past Drug Use History: Marijuana Additional Drug Use History / Comment(s): occasional use - Past Family History Mother Family Medical History: Cancer Additional Family Medical History / Comment(s): Stomach cancer Sister(s) Family Medical History: Cancer Additional Family Medical History / Comment(s): Lung cancer mets to brain Brother(s) Family Medical History: Cancer Additional Family Medical History / Comment(s): multiple cancers Medications and Allergies Home Medications Medication Instructions Recorded Confirmed Type Aspirin 81 mg PO DAILY 05/01/22 02/14/24 History Atorvastatin [Lipitor] 20 mg PO HS 05/01/22 02/14/24 History Albuterol Inhaler [Ventolin Hfa 2 puff INHALATION RT-Q6H PRN 10/31/22 02/14/24 History Inhaler] Metoprolol Succinate (ER) [Toprol 25 mg PO DAILY 10/31/22 02/14/24 History XL] Ferrous Sulfate [Iron (65 MG 325 mg PO HS 01/22/23 02/14/24 History Elemental)] Gabapentin [Neurontin] 100 mg PO TID 01/22/23 02/14/24 History Celecoxib [CeleBREX] 200 mg PO DAILY 09/16/23 02/14/24 History Famotidine [Pepcid] 40 mg PO BID 09/16/23 02/14/24 History Albuterol Sulfate [Accuneb] 0.63 mg INHALATION RT-QID PRN 02/14/24 02/14/24 History Denosumab [Prolia] 60 mg SQ Q180D 02/14/24 02/14/24 History Fluticasone/Umeclidin/Vilanter 1 puff INHALATION RT-DAILY 02/14/24 02/14/24 History [Trelegy Ellipta 200-62.5-25] Furosemide [Lasix] 20 mg PO DAILY 02/14/24 02/14/24 History Oxybutynin ER [Ditropan XL] 10 mg PO DAILY 02/14/24 02/14/24 History Allergies Allergy/AdvReac Type Severity Reaction Status Date / Time No Known Allergies Allergy Verified 02/14/24 07:14 Physical Exam Vitals: Vital Signs Temp Pulse Pulse Resp BP BP Pulse Ox 02/16/24 15:53 68 02/16/24 15:42 72 02/16/24 13:29 98.9 F 68 20 95/63 99 02/16/24 12:35 84 02/16/24 12:21 84 02/16/24 08:21 88 02/16/24 08:07 88 02/16/24 08:06 99.3 F 87 18 124/66 91 L 02/16/24 01:21 100 F H 102 H 16 113/64 92 L 02/15/24 21:10 74 02/15/24 20:58 70 02/15/24 20:00 99.7 F H 70 16 122/63 97 Intake and Output 02/16/24 02/16/24 02/16/24 06:59 14:59 22:59 Other: Voiding Method Bedside Commode Incontinent # Voids 3 1 # Bowel Movements 1 GENERAL DESCRIPTION: Elderly female lying in bed, no distress. No tachypnea or accessory muscle of respiration use. HEENT: Shows Pallor , no scleral icterus. Oral mucous membrane is dry. NECK: Trachea central, no thyromegaly. LUNGS: Unlabored breathing. Decreased breath sound at the base HEART: S1, S2, regular rate and rhythm. No loud murmur ABDOMEN: Soft, no tenderness , guarding or rigidity, no organomegaly EXTREMITIES: No edema of feet. SKIN: No rash, no masses palpable. NEUROLOGICAL: The patient is awake, alert, oriented x3, mood and affect normal. Results CBC & Chem 7: 02/16/24 03:00 02/16/24 03:00 Labs: Abnormal Lab Results - Last 24 Hours (Table) 02/16/24 02/16/24 02/16/24 Range/Units 03:00 03:00 14:07 WBC 13.44 H (4.50-10.00) X 10*3/uL RBC 3.03 L (4.10-5.20) X 10*6/uL Hgb 9.3 L (12.0-15.0) g/dL Hct 30.9 L (37.2-46.3) % MCV 102.0 H (80.0-97.0) FL MCHC 30.1 L (32.0-37.0) g/dL Immature Gran # 0.07 H (0.00-0.04) X 10*3/uL Neutrophils # 11.05 H (1.80-7.70) X 10*3/uL POC Glucose (mg/dL) 147 H (70-110) mg/dL Calcium 8.2 L (8.7-10.3) mg/dL Microbiology - Last 24 Hours (Table) 02/14/24 01:00 Urine Culture - Final Urine,Clean Catch Klebsiella pneumoniae 02/14/24 01:57 Blood Culture Gram Stain - Preliminary Blood Blood Culture - Preliminary Staphlyococcus pettenkoferi Molecular ID Assessment and Plan (1) Positive blood culture Current Visit: Yes Status: Acute Code(s): R78.81 - BACTEREMIA SNOMED Code (s): 770125799 (2) Leukocytosis Current Visit: Yes Status: Acute Code(s): D72.829 - ELEVATED WHITE BLOOD CELL COUNT, UNSPECIFIED SNOMED Code(s): 722787628 (3) UTI (urinary tract infection) Current Visit: Yes Status: Acute Code(s): N39.0 - URINARY TRACT INFECTION, SITE NOT SPECIFIED SNOMED Code(s): 79373645 Plan: 1patient with positive blood culture with a Staphylococcus species that is not Staph aureus in this patient with no clinical disease to go along with a more likely skin contamination no need for vancomycin blood cultures has been repeated to document clearance 2-patient did have a weakness with a fall did have elevated white count significantly positive UA a component of UTI from gram-negative pathogen urine culture currently pending 3-patient also have a heterogeneous opacities with a right lower lobe will benefit from a CT for better evaluation 4continue with Rocephin 2 g daily while waiting for the urine culture to finalize We will follow on clinical condition and cultures to further adjust medication if needed Thank you for this consultation we will follow the patient along with you Dictation was produced using [employer] dictation software. please excuse any grammatical, word or spelling errors. Time with Patient: Greater than 30
[2024-02-17 02:00] LABS: Glucose,Whole Blood 112 mg/dL (70-110)
[2024-02-17 08:11] LABS: Glucose,Whole Blood 92 mg/dL (70-110)
[2024-02-17 08:42] LABS: BUN/Creat Ratio 14.11 Ratio (12.00-20.00); Blood Urea Nitrogen 12.7 mg/dL (9.0-27.0); Calcium 8.2 mg/dL (8.7-10.3); Chloride 109 mmol/L (96-109); Glucose 106 mg/dL (70-110); Potassium 3.9 mmol/L (3.5-5.5); Sodium 143 mmol/L (135-145)
[2024-02-17 08:56] LABS: Basophils # (A) 0.04 X 10*3/uL (0.00-0.10); Basophils % (A) 0.3 %; Eosinophils # (A) 0.27 X 10*3/uL (0.04-0.35); Eosinophils % (A) 2.2 %; HGB 8.9 g/dL (12.0-15.0); Lymphocytes # (A) 1.07 X 10*3/uL (0.90-5.00); Lymphocytes % (A) 8.6 %; MCH 30.2 pg (27.0-32.0); MCHC 29.7 g/dL (32.0-37.0); MCV 101.7 FL (80.0-97.0); Monocytes % (A) 7.3 %; NRBC Per 100 WBC 0 X 10*3/uL (0.00-0.01); Neutrophils # (A) 10.02 X 10*3/uL (1.80-7.70); Platelet Count 237 X 10*3/uL (140-440); RBC 2.95 X 10*6/uL (4.10-5.20); RDW 13.9 % (11.5-14.5); WBC 12.38 X 10*3/uL (4.50-10.00)
[2024-02-17 14:01] LABS: Glucose,Whole Blood 215 mg/dL (70-110)
--- NOTE | 2024-02-17 14:02 | P.PN ---
Subjective 74-year-old female patient, history of hypertension, hyperlipidemia, osteoarthritis, gastroesophageal reflux disease, here to have evaluation after she fell at home and then was too weak to get up. Patient's daughter accompanies the patient and states that she had similar episode to this and was found to have pneumonia and sepsis. The patient does acknowledge that she has had a bit of cough going on for the past 1 to 2 days and that she has been feeling weaker than usual. She states that she was at home and her legs gave out and she fell. She states that she may have twisted her left ankle. There is pain to the lateral aspect. She also complains of hitting her left shoulder. She denies pain to the head or neck. No chest pain, back pain or abdominal pain. No dyspnea. Cough is mostly nonproductive though occasional yellow sputum. She has not noted fevers. Blood work completed in ED reveals a WBC of 12.5, hemoglobin of 11.6 and platelet count of 239, sodium 141, potassium 4.4, BUNs/creatinine of 37/1.28 and blood glucose of 100, troponin less than 0.012, TSH low at 0.213, UA is positive for large leukocyte Estrace, bacteria and WBCs, lactic acid of 0.9 Chest x-ray, ankle x-ray and CT of the brain are unremarkable 24-hour interval change 02/16/2024 Patient is seen and evaluated resting in bed; denies any complaint of chest pain or shortness of breath; continues to complain of pain in the ankle; Tylenol helps; Doppler ultrasound both lower extremity results discussed with patient Vital signs are reviewed and remained stable Lab review shows white blood count slightly trending up to 13.4 from 12.1 yesterday; hemoglobin of 9.3 and platelet count of 207, sodium 142, potassium 4.5, BUNs/creatinine of 18/1.0 Urine culture results resulted and reveals Klebsiella pneumonia which is pansensitive; patient is currently on IV ceftriaxone Blood culture obtained upon admission reveals gram-positive cocci in clusters with organism being Staphylococcus pettenkoferi; will consult ID for further recommendations on antibiotic therapy 02/16 patient states she came to the hospital because she fell at home without syncope, she fell on both knees and she is complaining from pain there with some left shoulder pain but there is no limitation of movement. Patient today is awake and alert No urinary symptoms She has constant cough. Chest x-ray showing right lower lobe opacity, CT of the chest is recommended by ID team, will discuss with ID team for further care At home patient is on 2 L/min since last admission Her kidney function improved and patient tolerates diet well so we are going to hold her IV fluid as her kidney function improved Patient has been complaining from some dry mouth and sore throat therefore we are going to check viral swab Review of systems CONSTITUTIONAL: No fever, no malaise, no fatigue. HEENT: No recent visual problems or hearing problems. Denied any sore throat. GASTROINTESTINAL: No diarrhea, no nausea, no vomiting, no abdominal pain. Normoactive bowel sounds. NEUROLOGICAL: No headaches, no weakness, no numbness. HEMATOLOGICAL: Denies any bleeding or petechiae. GENITOURINARY: Denies any burning micturition, frequency, or urgency. MUSCULOSKELETAL/RHEUMATOLOGICAL: Denies any joint pain, swelling, or any muscle pain. Active Medications Generic Name Dose Route Start Last Admin Trade Name Freq PRN Reason Stop Dose Admin Acetaminophen 1,000 mg 02/14/24 09:59 02/17/24 01:35 Acetaminophen Tab 500 Mg Tab PO 1,000 mg Q6HR PRN Administration Fever and/ or Pain Albuterol Sulfate 2.5 mg 02/14/24 02:50 02/17/24 01:52 Albuterol Nebulized 2.5 Mg/3 Ml INHALATION 2.5 mg RT-Q6H PRN Administration Shortness Of Breath Aspirin 81 mg 02/14/24 09:00 02/17/24 08:45 Aspirin 81 Mg PO 81 mg DAILY LUIS E Administration Atorvastatin Calcium 20 mg 02/14/24 21:00 02/16/24 21:16 Atorvastatin 20 Mg Tab PO 20 mg HS LUIS E Administration Budesonide/Formoterol Fumarate 2 puff 02/14/24 08:00 02/17/24 09:22 Symbicort 160-4.5 Mcg Inhaler INHALATION 2 puff RT-BID LUIS E Administration Cholecalciferol 50 mcg 02/14/24 09:00 02/17/24 08:45 Cholecalciferol 25 Mcg (1000 Iu) Tablet PO 50 mcg DAILY LUIS E Administration Famotidine 40 mg 02/16/24 09:00 02/17/24 08:45 Famotidine 20 Mg Tab PO 40 mg DAILY LUIS E Administration Ferrous Sulfate 325 mg 02/14/24 21:00 02/15/24 23:51 Ferrous Sulfate 325 Mg Tab PO 325 mg HS LUIS E Administration Gabapentin 100 mg 02/14/24 09:00 02/17/24 08:45 Gabapentin 100 Mg Cap PO 100 mg TID LUIS E Administration Ceftriaxone Sodium 2 gm/ 50 mls @ 100 mls/hr 02/14/24 23:00 02/16/24 22:53 Sodium Chloride IVPB 02/17/24 23:29 100 mls/hr Q24H LUIS E Administration Protocol Ipratropium [place] 0.5 mg 02/14/24 08:00 02/17/24 12:26 Ipratropium 0.5 Mg/2.5 Ml Nebu INHALATION 0.5 mg RT-QID LUIS E Administration Metoprolol Succinate 25 mg 02/14/24 09:00 02/17/24 08:45 Metoprolol Succinate (Er) 25 Mg Tab.Er.24h PO 25 mg DAILY LUIS E Administration Ondansetron HCl 4 mg 02/14/24 09:58 02/14/24 11:08 Ondansetron 4 Mg/2 Ml Vial IVP 4 mg Q6HR PRN Administration Nausea And Vomiting Oxybutynin Chloride 10 mg 02/14/24 10:00 02/17/24 08:46 Oxybutynin 10 Mg Tab.Er.24 PO 10 mg DAILY LUIS E Administration Objective - Vital Signs Vital signs: Vital Signs Temp 98.9 F 02/17/24 12:09 Pulse 84 02/17/24 12:38 Resp 20 02/17/24 12:09 BP 132/67 02/17/24 12:09 Pulse Ox 94 L 02/17/24 12:09 FiO2 Intake & Output 02/16/24 02/17/24 02/17/24 18:59 06:59 18:59 Intake Total 1080 120 Output Total 550 Balance 1080 -430 Intake: Oral 1080 120 Output: Urine 550 Other: Voiding Method Bedside Commode Bedside Commode Incontinent Incontinent # Voids 3 1 # Bowel Movements 1 1 1 - Exam GENERAL: The patient is alert and oriented x3, not in any acute distress. Well developed, well nourished. -HEENT: Pupils are round and equally reacting to light. EOMI. No scleral icterus. No conjunctival pallor. Normocephalic, atraumatic. No pharyngeal erythema. No thyromegaly. Dry pharynx CARDIOVASCULAR: S1 and S2 present. No murmurs, rubs, or gallops. PULMONARY: Chest is clear to auscultation, no wheezing , no crackles. ABDOMEN: Soft, nontender, nondistended, normoactive bowel sounds. No palpable organomegaly. MUSCULOSKELETAL: No joint swelling or deformity. EXTREMITIES: No cyanosis, clubbing, or pedal edema. NEUROLOGICAL: Gross neurological examination did not reveal any focal deficits. SKIN: No rashes. no petechiae. - Labs CBC & Chem 7: 02/17/24 05:32 02/17/24 05:32 Labs: Abnormal Lab Results - Last 24 Hours (Table) 02/16/24 02/17/24 02/17/24 Range/Units 14:07 01:59 05:32 WBC (4.50-10.00) X 10*3/uL RBC (4.10-5.20) X 10*6/uL Hgb (12.0-15.0) g/dL Hct (37.2-46.3) % MCV (80.0-97.0) FL MCHC (32.0-37.0) g/dL Immature Gran # (0.00-0.04) X 10*3/uL Neutrophils # (1.80-7.70) X 10*3/uL POC Glucose (mg/dL) 147 H 112 H (70-110) mg/dL Calcium 8.2 L (8.7-10.3) mg/dL 02/17/24 Range/Units 05:32 WBC 12.38 H (4.50-10.00) X 10*3/uL RBC 2.95 L (4.10-5.20) X 10*6/uL Hgb 8.9 L (12.0-15.0) g/dL Hct 30.0 L (37.2-46.3) % MCV 101.7 H (80.0-97.0) FL MCHC 29.7 L (32.0-37.0) g/dL Immature Gran # 0.08 H (0.00-0.04) X 10*3/uL Neutrophils # 10.02 H (1.80-7.70) X 10*3/uL POC Glucose (mg/dL) (70-110) mg/dL Calcium (8.7-10.3) mg/dL Microbiology - Last 24 Hours (Table) 02/15/24 10:50 Gram Stain - Preliminary Sputum Sputum Culture - Preliminary [place] albicans 02/14/24 01:57 Blood Culture Gram Stain - Final Blood Blood Culture - Final Staphlyococcus isaiferi Molecular ID 02/14/24 01:00 Urine Culture - Final Urine,Clean Catch Klebsiella pneumoniae Assessment and Plan Assessment: 1. UTI; patient has been placed on IV Rocephin 1 g daily; blood cultures and urine culture are obtained and pending; will adjust antibiotic therapy once cultures are available; monitor CBC, CRP and procalcitonin 2. Falls/debility; patient had x-ray of the chest and ankle along with CT of the head completed which have been unremarkable -We will consult PT/OT for further evaluation: They recommended subacute rehab, drug abuse social worker consulted 3. Pain/swelling both lower extremities; ruled out DVT with negative ultrasound of the lower extremities 4. LASHAWN; BUN/creatinine elevated at 37/1.28 upon presentation to ED; we will start patient on IV fluid hydration; monitor strict RADHA's, daily weights, renal function electrolytes; avoid nephrotoxins and hypotension. Creatinine improved 5. Hyperlipidemia; Lipitor 20 mg daily 6. COPD/asthma; not in exacerbation; continue with home inhaler therapy 7. Hypertension; metoprolol 25 mg daily. 8. Urinary incontinence/overactive bladder; Ditropan XL 10 mg daily 9. Right lower lobe pulmonary opacity with coughing. ID team recommended CT of the thorax DVT prophylaxis; SCDs CODE STATUS; full code
[2024-02-17] MEDS: guaiFENesin-DM 100-10MG/5ML 10 ML CUP PO PRN (19:18)
--- NOTE | 2024-02-18 07:56 | P.PN ---
Subjective Progress Note Date: 02/17/24 Principal diagnosis: Reason for follow-up is UTI and positive blood culture Patient is a 74-year-old female with a past medical history significant for hypertension hyperlipidemia osteoarthritis reflux breast cancer presenting to the hospital after pending to be did have a fall at home was complaining of very weak she did have a positive UA elevated white count rigoberto rning for symptomatic UTI also blood culture positive for Staphylococcus species. On today's evaluation that is 02/17/2024, patient did have a low-grade fever of 100.88 2 AM patient has been complaining of feeling weak no energy and has not been complaining of pain to bilateral knee area has the patient did have a fall in hospital no nausea no vomiting no abdominal pain or diarrhea. Patient white count is down to 12.38 creatinine 0.9 urine with a Klebsiella sensitive to ceftriaxone Objective - Vital Signs Vital signs: Vital Signs Temp 97.2 F L 02/17/24 07:12 Pulse 76 02/17/24 09:37 Resp 20 02/17/24 07:12 BP 114/66 02/17/24 07:12 Pulse Ox 96 02/17/24 07:12 FiO2 Intake & Output 02/16/24 02/17/24 02/17/24 18:59 06:59 18:59 Intake Total 1080 120 Output Total 550 Balance 1080 -430 Intake: Oral 1080 120 Output: Urine 550 Other: Voiding Method Bedside Commode Bedside Commode Incontinent Incontinent # Voids 3 1 # Bowel Movements 1 1 1 - Exam GENERAL DESCRIPTION: An elderly female lying in bed in no distress RESPIRATORY SYSTEM: Unlabored breathing , decreased breath sounds at bases HEART: S1 S2 regular rate and rhythm , ABDOMEN: Soft , no tenderness EXTREMITIES: No edema feet - Labs CBC & Chem 7: 02/17/24 05:32 02/17/24 05:32 Labs: Abnormal Lab Results - Last 24 Hours (Table) 02/16/24 02/17/24 02/17/24 Range/Units 14:07 01:59 05:32 WBC (4.50-10.00) X 10*3/uL RBC (4.10-5.20) X 10*6/uL Hgb (12.0-15.0) g/dL Hct (37.2-46.3) % MCV (80.0-97.0) FL MCHC (32.0-37.0) g/dL Immature Gran # (0.00-0.04) X 10*3/uL Neutrophils # (1.80-7.70) X 10*3/uL POC Glucose (mg/dL) 147 H 112 H (70-110) mg/dL Calcium 8.2 L (8.7-10.3) mg/dL 02/17/24 Range/Units 05:32 WBC 12.38 H (4.50-10.00) X 10*3/uL RBC 2.95 L (4.10-5.20) X 10*6/uL Hgb 8.9 L (12.0-15.0) g/dL Hct 30.0 L (37.2-46.3) % MCV 101.7 H (80.0-97.0) FL MCHC 29.7 L (32.0-37.0) g/dL Immature Gran # 0.08 H (0.00-0.04) X 10*3/uL Neutrophils # 10.02 H (1.80-7.70) X 10*3/uL POC Glucose (mg/dL) (70-110) mg/dL Calcium (8.7-10.3) mg/dL Microbiology - Last 24 Hours (Table) 02/14/24 01:00 Urine Culture - Final Urine,Clean Catch Klebsiella pneumoniae 02/14/24 01:57 Blood Culture Gram Stain - Preliminary Blood Blood Culture - Preliminary Staphlyococcus pettenkoferi Molecular ID Assessment and Plan (1) Positive blood culture Current Visit: Yes Status: Acute Code(s): R78.81 - BACTEREMIA SNOMED Code(s): 958663063 (2) Leukocytosis Current Visit: Yes Status: Acute Code(s): D72.829 - ELEVATED WHITE BLOOD CELL COUNT, UNSPECIFIED SNOMED Code(s): 617080801 (3) UTI (urinary tract infection) Current Visit: Yes Status: Acute Code(s): N39.0 - URINARY TRACT INFECTION, SITE NOT SPECIFIED SNOMED Code(s): 99921811 Plan: 1patient with positive blood culture with a Staphylococcus species that is not Staph aureus in this patient with no clinical disease to go along with a more likely skin contamination no need for vancomycin blood cultures has been repeated to document clearance 2-patient did have a weakness with a fall did have elevated white count significantly positive UA a component of UTI, urine culture have been finalized with Klebsiella that is sensitive to ceftriaxone 3-patient also have a heterogeneous opacities with a right lower lobe will benefit from a CT for better evaluation 4patient to continue with Rocephin 2 g daily and monitor clinical course closely Dictation was produced using [employer] dictation software. please excuse any grammatical, word or spelling errors. Time with Patient: Less than 30
--- NOTE | 2024-02-18 12:37 | XR ---
EXAMINATION TYPE: XR chest 2V DATE OF EXAM: 02/18/2024 11:41 AM COMPARISON: 02/15/2024 CLINICAL INDICATION: Female, 74 years old with history of follow-up chest xray, TECHNIQUE: XR chest 2V view(s) obtained. FINDINGS: The heart size is normal. The pulmonary vasculature is normal. Bibasilar infiltrates are present. Correlate for atelectasis. Small effusions may be present posterio rly.. Surgical changes in the lower cervical spine is evident IMPRESSION: 1. Basilar infiltrates and/or small pleural effusions. [facility], , 02/18/2024 12:35 PM
--- NOTE | 2024-02-18 14:13 | P.PN ---
Subjective Progress Note Date: 02/18/24 Principal diagnosis: Reason for follow-up is UTI and positive blood culture Patient is a 74-year-old female with a past medical history significant for hypertension hyperlipidemia osteoarthritis reflux breast cancer presenting to the hospital after pending to be did have a fall at home was complaining of very weak she did have a positive UA elevated white count rigoberto rning for symptomatic UTI also blood culture positive for Staphylococcus species. On today's evaluation that is 02/18/2024, Patient is afebrile this morning patient is currently on a 2 L nasal cannula oxygen however complaining of more shortness of breath today denies any chest pain he did have a cough not bring up any sputum no nausea no vomiting no abdominal pain or diarrhea. Patient white count is down to 12.38 creatinine 0.9 blood culture been negative so far Objective - Vital Signs Vital signs: Vital Signs Temp 99.0 F 02/18/24 13:08 Pulse 82 02/18/24 13:08 Resp 18 02/18/24 13:08 BP 160/70 02/18/24 13:08 Pulse Ox 96 02/18/24 13:08 FiO2 Intake & Output 02/17/24 02/18/24 02/18/24 18:59 06:59 18:59 Intake Total 240 Output Total 250 Balance -10 Intake: Oral 240 Output: Urine 250 Other: Voiding Method Bedside Commode Bedside Commode Incontinent Diaper # Voids 1 # Bowel Movements 1 - Exam GENERAL DESCRIPTION: An elderly female lying in bed in no distress RESPIRATORY SYSTEM: Unlabored breathing , decreased breath sounds at bases HEART: S1 S2 regular rate and rhythm , ABDOMEN: Soft , no tenderness EXTREMITIES: No edema feet - Labs CBC & Chem 7: 02/17/24 05:32 02/17/24 05:32 Labs: Microbiology - Last 24 Hours (Table) 02/15/24 10:50 Gram Stain - Preliminary Sputum Sputum Culture - Preliminary Shoshana albicans Gram Neg Bacilli 02/16/24 12:52 Blood Culture - Preliminary Blood 02/14/24 01:57 Blood Culture Gram Stain - Final Blood Blood Culture - Final Staphlyococcus pettenkoferi Molecular ID Assessment and Plan (1) Positive blood culture Current Visit: Yes Status: Acute Code(s): R78.81 - BACTEREMIA SNOMED Code(s): 361002281 (2) Leukocytosis Current Visit: Yes Status: Acute Code(s): D72.829 - ELEVATED WHITE BLOOD CELL COUNT, UNSPECIFIED SNOMED Code(s): 185923285 (3) UTI (urinary tract infection) Current Visit: Yes Status: Acute Code(s): N39.0 - URINARY TRACT INFECTION, SITE NOT SPECIFIED SNOMED Code(s): 05809238 Plan: 1patient with positive blood culture with a Staphylococcus species that is not Staph aureus in this patient with no clinical disease to go along with a more likely skin contamination no need for vancomycin blood cultures has been repeated to document clearance 2-patient did have a weakness with a fall did have elevated white count significantly positive UA a component of UTI, urine culture have been finalized with Klebsiella that is sensitive to ceftriaxone 3-patient also have a heterogeneous opacities with a right lower lobe with repeat chest x-ray this afternoon showing bibasilar infiltrate demonstrating worsening effusion 4patient to continue with Rocephin 2 g daily we will check a procalcitonin level Dictation was produced using [employer] dictation software. please excuse any grammatical, word or spelling errors. Time with Patient: Less than 30
[2024-02-18] MEDS: FUROSEMIDE 10 MG/ML 2 ML VIAL IV ONE (22:54)
--- NOTE | 2024-02-18 22:57 | P.PN ---
Subjective 74-year-old female patient, history of hypertension, hyperlipidemia, osteoarthritis, gastroesophageal reflux disease, here to have evaluation after she fell at home and then was too weak to get up. Patient's daughter accompanies the patient and states that she had similar episode to this and was found to have pneumonia and sepsis. The patient does acknowledge that she has had a bit of cough going on for the past 1 to 2 days and that she has been feeling weaker than usual. She states that she was at home and her legs gave out and she fell. She states that she may have twisted her left ankle. There is pain to the lateral aspect. She also complains of hitting her left shoulder. She denies pain to the head or neck. No chest pain, back pain or abdominal pain. No dyspnea. Cough is mostly nonproductive though occasional yellow sputum. She has not noted fevers. Blood work completed in ED reveals a WBC of 12.5, hemoglobin of 11.6 and platelet count of 239, sodium 141, potassium 4.4, BUNs/creatinine of 37/1.28 and blood glucose of 100, troponin less than 0.012, TSH low at 0.213, UA is positive for large leukocyte Estrace, bacteria and WBCs, lactic acid of 0.9 Chest x-ray, ankle x-ray and CT of the brain are unremarkable 24-hour interval change 02/16/2024 Patient is seen and evaluated resting in bed; denies any complaint of chest pain or shortness of breath; continues to complain of pain in the ankle; Tylenol helps; Doppler ultrasound both lower extremity results discussed with patient Vital signs are reviewed and remained stable Lab review shows white blood count slightly trending up to 13.4 from 12.1 yesterday; hemoglobin of 9.3 and platelet count of 207, sodium 142, potassium 4.5, BUNs/creatinine of 18/1.0 Urine culture results resulted and reveals Klebsiella pneumonia which is pansensitive; patient is currently on IV ceftriaxone Blood culture obtained upon admission reveals gram-positive cocci in clusters with organism being Staphylococcus pettenkoferi; will consult ID for further recommendations on antibiotic therapy 02/16 patient states she came to the hospital because she fell at home without syncope, she fell on both knees and she is complaining from pain there with some left shoulder pain but there is no limitation of movement. Patient today is awake and alert No urinary symptoms She has constant cough. Chest x-ray showing right lower lobe opacity, CT of the chest is recommended by ID team, will discuss with ID team for further care At home patient is on 2 L/min since last admission Her kidney function improved and patient tolerates diet well so we are going to hold her IV fluid as her kidney function improved Patient has been complaining from some dry mouth and sore throat therefore we are going to check viral swab 02/17 pt presents with ams secondary to uti and lashawn, she was on lasix 20 mg daily and celebrex moderate dose at 20 mg , both held on admissison and was given normal saline at 100 ml per hours currently NS is discontinued creatinine is improved down to 0.9 mentation is improved so well give small dose of lasix 20 mg iv x1 cxr showing bilateral basal opacity , procalcitonin is normal , felt pna is less likely , she is still on recoephin for uti though secondary to sensitive klebsiella we will dc celebrex now and on discharge Possible discharge in 24 to 48 hours Objective - Vital Signs Vital signs: Vital Signs Temp 98.9 F 02/18/24 18:53 Pulse 79 02/18/24 18:53 Resp 17 02/18/24 18:53 BP 119/56 02/18/24 18:53 Pulse Ox 93 L 02/18/24 18:53 FiO2 Intake & Output 02/18/24 02/18/24 02/19/24 06:59 18:59 06:59 Intake Total 240 1080 Output Total 250 Balance -10 1080 Intake: Oral 240 1080 Output: Urine 250 Other: Voiding Method Bedside Commode Bedside Commode Bedside Commode Incontinent Diaper Diaper # Voids 4 1 # Bowel Movements 1 - Exam GENERAL: The patient is alert and oriented x3, not in any acute distress. Well developed, well nourished. -HEENT: Pupils are round and equally reacting to light. EOMI. No scleral icterus. No conjunctival pallor. Normocephalic, atraumatic. No pharyngeal erythema. No thyromegaly. Dry pharynx CARDIOVASCULAR: S1 and S2 present. No murmurs, rubs, or gallops. PULMONARY: Chest is clear to auscultation, no wheezing , no crackles. ABDOMEN: Soft, nontender, nondistended, normoactive bowel sounds. No palpable organomegaly. MUSCULOSKELETAL: No joint swelling or deformity. EXTREMITIES: No cyanosis, clubbing, or pedal edema. NEUROLOGICAL: Gross neurological examination did not reveal any focal deficits. SKIN: No rashes. no petechiae. - Labs CBC & Chem 7: 02/17/24 05:32 02/17/24 05:32 Labs: Microbiology - Last 24 Hours (Table) 02/15/24 10:50 Gram Stain - Preliminary Sputum Sputum Culture - Preliminary Shoshana albicans Gram Neg Bacilli 02/16/24 12:52 Blood Culture - Preliminary Blood Assessment and Plan Assessment: 1. UTI; patient has been placed on IV Rocephin 1 g daily; blood cultures and urine culture are obtained and pending; will adjust antibiotic therapy once cultures are available; monitor CBC, CRP and procalcitonin 2. Falls/debility; patient had x-ray of the chest and ankle along with CT of the head completed which have been unremarkable -We will consult PT/OT for further evaluation: They recommended subacute rehab, social staff worker consulted 3. Pain/swelling both lower extremities; ruled out DVT with negative ultrasound of the lower extremities 4. LASHAWN; BUN/creatinine elevated at 37/1.28 upon presentation to ED; we will start patient on IV fluid hydration; monitor strict RADHA's, daily weights, renal function electrolytes; avoid nephrotoxins and hypotension. Creatinine improved 5. Hyperlipidemia; Lipitor 20 mg daily 6. COPD/asthma; not in exacerbation; continue with home inhaler therapy 7. Hypertension; metoprolol 25 mg daily. 8. Urinary incontinence/overactive bladder; Ditropan XL 10 mg daily 9. Right lower lobe pulmonary opacity with coughing. ID team recommended CT of the thorax DVT prophylaxis; SCDs CODE STATUS; full code
[2024-02-18] MEDS: HEPARIN SODIUM,PORCINE 5,000 UNIT/ML 1 ML VIAL SQ SCH (23:00)
[2024-02-19] MEDS: FUROSEMIDE 20 MG TAB PO STA (07:14)
[2024-02-19 07:34] VITALS: RESP 20
[2024-02-19 09:32] LABS: NT-Pro-B-Type Natriuretic Pept 3052 pg/mL (0-125)
[2024-02-19 10:27] LABS: Basophils # (A) 0.07 X 10*3/uL (0.00-0.10); Basophils % (A) 0.8 %; Eosinophils # (A) 0.44 X 10*3/uL (0.04-0.35); Eosinophils % (A) 4.9 %; HCT 31.4 % (37.2-46.3); HGB 9.8 g/dL (12.0-15.0); Lymphocytes # (A) 1.07 X 10*3/uL (0.90-5.00); Lymphocytes % (A) 11.9 %; MCH 30.1 pg (27.0-32.0); MCHC 31.2 g/dL (32.0-37.0); MCV 96.3 FL (80.0-97.0); Mean Platelet Volume 11.4 FL (9.5-12.2); Monocytes # (A) 0.58 X 10*3/uL (0.20-1.00); Monocytes % (A) 6.4 %; NRBC Per 100 WBC 0 X 10*3/uL (0.00-0.01); Neutrophils # (A) 6.81 X 10*3/uL (1.80-7.70); Neutrophils % (A) 75.4 %; Platelet Count 294 X 10*3/uL (140-440); RBC 3.26 X 10*6/uL (4.10-5.20); RDW 13.6 % (11.5-14.5); WBC 9.02 X 10*3/uL (4.50-10.00)
[2024-02-19 12:28] VITALS: BP 119/56; TEMP 99.2
[2024-02-19 15:26] LABS: BUN/Creat Ratio 9.11 Ratio (12.00-20.00); Blood Urea Nitrogen 8.2 mg/dL (9.0-27.0); Calcium 8.9 mg/dL (8.7-10.3); Carbon Dioxide 26.2 mmol/L (21.6-31.8); Chloride 102 mmol/L (96-109); Glucose 91 mg/dL (70-110); Potassium 3.5 mmol/L (3.5-5.5); Sodium 145 mmol/L (135-145)
[2024-02-19 15:42] VITALS: PULSE 70
--- NOTE | 2024-02-19 23:25 | P.DS ---
Providers Date of admission: 02/14/24 02:50 Attending physician: Damaso Santiago Consults: 02/16/24 12:17 Consult Physician Routine Consulting Provider: Dot Rdz Consult Reason/Comments: Bacteremia Do you want consulting provider notified?: Yes Primary care physician: Booker Ochoa [facility] Course: Diagnoses: 1. UTI; improved and patient discharged on antibiotic 2. Bilateral pulmonary infiltrates secondary to pulmonary vascular congestion and acute on chronic diastolic CHF. Responding to diuretic therapy. Pneumonia was felt less likely, however patient was discharged on antibiotic 3. Falls/debility; patient had x-ray of the chest and ankle along with CT of the head completed which have been unremarkable 4. LASHAWN; BUN/creatinine, thought secondary to dehydration, hypotension and Sarah ebrex which was discontinued upon discharge. Resolved and creatinine back to baseline upon discharge 5. Hyperlipidemia; Lipitor 20 mg daily 6. COPD/asthma; not in exacerbation; continue with home inhaler therapy 7. Hypertension; metoprolol 25 mg daily. 8. Urinary incontinence/overactive bladder; Ditropan XL 10 mg daily 9. Right lower lobe pulmonary opacity with coughing. ID team recommended CT of the thorax 10. Pain/swelling both lower extremities; ruled out DVT with negative ultrasound of the lower extremities Hospital course: 74-year-old female patient, history of hypertension, hyperlipidemia, osteoarthritis, gastroesophageal reflux disease, here to have evaluation after she fell at home and then was too weak to get up. Patient's daughter accompanies the patient and states that she had similar episode to this and was found to have pneumonia and sepsis. The patient does acknowledge that she has had a bit of cough going on for the past 1 to 2 days and that she has been feeling weaker than usual. She states that she was at home and her legs gave out and she fell. She states that she may have twisted her left ankle. There is pain to the lateral aspect. She also complains of hitting her left shoulder. She denies pain to the head or neck. No chest pain, back pain or abdominal pain. No dyspnea. Cough is mostly nonproductive though occasional yellow sputu m. She has not noted fevers. On admission patient was dehydrated and received IV fluid with normal saline 100 mL/h Also she was found to have UTI. Pneumonia also was suspected although felt less likely. She was treated with ceftriaxone and she showed interval improvement Today she feels much better. Yesterday we will give her one-time dose of IV Lasix 20 mg, she made good bowel movement and this morning she feels better Patient with no dyspnea or exertional dyspnea. Patient denies any other new GI or symptom. Patient eager to go home today. Patient was cleared for discharge by infectious disease team, they are recommending discharge her on Ceftin x 7 days. Prescription is provided. Problems and management plan were discussed with the patient and he verbalized understanding and acceptance Patient was found stable and can be discharged home in guarded prognosis however he needs follow-up as an outpatient. Patient was instructed to follow up with PCP within one week and patient agrees Patient was instructed to follow-up with her audio production instructor Dr. Pham as an outpatient and she agrees to call and make appointment after discharge. Patient's was instructed to follow-up with her propagator laborer Dr. Briones as an outpatient Of note patient is planning to go to [facility] this coming week. Patient was instructed to follow-up with her PCP and audio production instructor prior to travel and she agrees Physical exam Gen: patient is a AAOx3, no distress CVS: S1-S2, RRR, no murmur Lungs: B/L CTA, no wheezing Abdomen: soft, no distention, no tenderness, positive bowel sounds Extremity: no leg edema or induration Time spent more than 35 minutes Patient Condition at Discharge: Fair Plan - Discharge Summary Discharge Rx Participant: No New Discharge Prescriptions: New Furosemide [Lasix] 40 mg PO DAILY #30 tablet Cholecalciferol [Vitamin D3 (25 Mcg = 1000 Iu)] 50 mcg PO DAILY #60 tab cefuroxime axetiL [Ceftin] 500 mg PO BID 7 Days #14 tab Continue Aspirin 81 mg PO DAILY Metoprolol Succinate (ER) [Toprol XL] 25 mg PO DAILY Albuterol Inhaler [Ventolin Hfa Inhaler] 2 puff INHALATION RT-Q6H PRN PRN Reason: Shortness Of Breath Oxybutynin ER [Ditropan XL] 10 mg PO DAILY Albuterol Sulfate [Accuneb] 0.63 mg INHALATION RT-QID PRN PRN Reason: Shortness Of Breath Atorvastatin [Lipitor] 20 mg PO HS Gabapentin [Neurontin] 100 mg PO TID Ferrous Sulfate [Iron (65 MG Elemental)] 325 mg PO HS Famotidine [Pepcid] 40 mg PO BID Denosumab [Prolia] 60 mg SQ Q180D Fluticasone/Umeclidin/Vilanter [Trelegy Ellipta 200-62.5-25] 1 puff INHALATION RT-DAILY Discontinued Celecoxib [CeleBREX] 200 mg PO DAILY Furosemide [Lasix] 20 mg PO DAILY Discharge Medication List Aspirin 81 mg PO DAILY 05/01/22 [History] Atorvastatin [Lipitor] 20 mg PO HS 05/01/22 [History] Albuterol Inhaler [Ventolin Hfa Inhaler] 2 puff INHALATION RT-Q6H PRN 10/31/22 [History] Metoprolol Succinate (ER) [Toprol XL] 25 mg PO DAILY 10/31/22 [History] Ferrous Sulfate [Iron (65 MG Elemental)] 325 mg PO HS 01/22/23 [History] Gabapentin [Neurontin] 100 mg PO TID 01/22/23 [History] Famotidine [Pepcid] 40 mg PO BID 09/16/23 [History] Albuterol Sulfate [Accuneb] 0.63 mg INHALATION RT-QID PRN 02/14/24 [History] Denosumab [Prolia] 60 mg SQ Q180D 02/14/24 [History] Fluticasone/Umeclidin/Vilanter [Trelegy Ellipta 200-62.5-25] 1 puff INHALATION RT-DAILY 02/14/24 [History] Oxybutynin ER [Ditropan XL] 10 mg PO DAILY 02/14/24 [History] Cholecalciferol [Vitamin D3 (25 Mcg = 1000 Iu)] 50 mcg PO DAILY #60 tab 02/19/24 [Rx] Furosemide [Lasix] 40 mg PO DAILY #30 tablet 02/19/24 [Rx] cefuroxime axetiL [Ceftin] 500 mg PO BID 7 Days #14 tab 02/19/24 [Rx] Follow up Appointment(s)/Referral(s): [facility],Home Care [NON-STAFF] - Pawan Hernandez MD [STAFF PHYSICIAN] - 05/14/24 1:30 pm () Booker Ochoa DO [Primary Care Provider] - 02/24/24 10:00 am Ha Bianchi DO [STAFF PHYSICIAN] - 04/06/24 10:40 am Patient Instructions/Handouts: Cefuroxime (By mouth), Furosemide (By mouth), Cholecalciferol (By mouth), Urinary Tract Infection in Women (DC) Activity/Diet/Wound Care/Special Instructions: Heart healthy diet Activity is restricted until you see your doctor Discharge/Stand Alone Forms: Who Do I Call?, [facility] Home Discharge Disposition: HOME WITH HOME HEALTH SERVICES
--- NOTE | 2024-02-20 14:23 | P.PN ---
Subjective Progress Note Date: 02/19/24 Principal diagnosis: Reason for follow-up is UTI and positive blood culture Patient is a 74-year-old female with a past medical history significant for hypertension hyperlipidemia osteoarthritis reflux breast cancer presenting to the hospital after pending to be did have a fall at home was complaining of very weak she did have a positive UA elevated white count rigoberto rning for symptomatic UTI also blood culture positive for Staphylococcus species. On today's evaluation that is 02/19/2024,the patient denies any fever or any chills, patient is breathing comfortably on 2 L nasal cannula oxygen, the patient denies chest pain shortness of breath and no worsening cough, patient denies abdominal pain, no nausea vomiting or diarrhea. Patient white count is 9.02, creatinine 0.9 procalcitonin came back at 0.09 influenza RSV COVID testing negative blood culture repeat has been negative Objective - Vital Signs Vital signs: Vital Signs Temp 98.6 F 02/19/24 07:18 Pulse 70 02/19/24 08:12 Resp 20 02/19/24 07:18 BP 125/69 02/19/24 07:18 Pulse Ox 94 L 02/19/24 07:18 FiO2 Intake & Output 02/18/24 02/19/24 02/19/24 18:59 06:59 18:59 Intake Total 1080 Balance 1080 Intake: Oral 1080 Other: Voiding Method Bedside Commode Bedside Commode Diaper Diaper # Voids 4 2 1 # Bowel Movements 1 1 - Exam GENERAL DESCRIPTION: An elderly female lying in bed in no distress RESPIRATORY SYSTEM: Unlabored breathing , decreased breath sounds at bases HEART: S1 S2 regular rate and rhythm , ABDOMEN: Soft , no tenderness EXTREMITIES: No edema feet - Labs CBC & Chem 7: 02/19/24 04:38 02/19/24 04:38 Labs: Abnormal Lab Results - Last 24 Hours (Table) 02/19/24 Range/Units 04:38 NT-Pro-B Natriuret Pep 3052 H (0-125) pg/mL Microbiology - Last 24 Hours (Table) 02/16/24 12:52 Blood Culture - Preliminary Blood 02/15/24 10:50 Gram Stain - Preliminary Sputum Sputum Culture - Preliminary Shoshana albicans Gram Neg Bacilli Assessment and Plan (1) Positive blood culture Status: Acute Code(s): R78.81 - BACTEREMIA SNOMED Code(s): 551716481 (2) Leukocytosis Status: Acute Code(s): D72.829 - ELEVATED WHITE BLOOD CELL COUNT, UNSPECIFIED SNOMED Code(s): 255663447 (3) UTI (urinary tract infection) Status: Acute Code(s): N39.0 - URINARY TRACT INFECTION, SITE NOT SPECIFIED SNOMED Code(s): 85514045 Plan: 1patient with positive blood culture with a Staphylococcus species that is not Staph aureus in this patient with no clinical disease to go along with a more likely skin contamination no need for vancomycin blood cultures has been repeated to document clearance 2-patient did have a weakness with a fall did have elevated white count signif icantly positive UA a component of UTI, urine culture have been finalized with Klebsiella that is sensitive to ceftriaxone 3-patient also have a heterogeneous opacities with a right lower lobe with re peat chest x-ray this afternoon showing bibasilar infiltrate, patient however did have a normal procalcitonin we will make pneumonia to be less likely 4patient white count has normalized and has shown clinical improvement on Rocephin & recommend finishing therapy with oral Ceftin discussed with admitting physician working on discharge Dictation was produced using [employer] dictation software. please excuse any grammatical, word or spelling errors. Time with Patient: Less than 30
== END 2024-02-19 15:53 | disposition home health service (06) | DRG 689 ==
LOC: EC 22:55 → 5NMEDONC 02-14 02:50
PROVIDERS: ADMIT Hospitalist; ATTEND Hospitalist
DX: N39.0 Urinary tract infection, site not specified (principal); I50.33 Acute on chronic diastolic (congestive) heart failure; N17.9 Acute kidney failure, unspecified; N32.81 Overactive bladder; R32 Unspecified urinary incontinence; Z11.52 Encounter for screening for COVID-19; E78.5 Hyperlipidemia, unspecified; F32.A Depression, unspecified; W18.30XA Fall on same level, unspecified, initial encounter; I11.0 Hypertensive heart disease with heart failure; Y92.009 Unspecified place in unspecified non-institutional (private) residence as the place of occurrence of the external cause; E86.0 Dehydration; B96.1 Klebsiella pneumoniae [K. pneumoniae] as the cause of diseases classified elsewhere; I95.9 Hypotension, unspecified; R29.6 Repeated falls; J44.9 Chronic obstructive pulmonary disease, unspecified; M79.89 Other specified soft tissue disorders; Z79.1 Long term (current) use of non-steroidal anti-inflammatories (NSAID); Z79.82 Long term (current) use of aspirin; Z79.899 Other long term (current) drug therapy; Z85.3 Personal history of malignant neoplasm of breast; Z90.11 Acquired absence of right breast and nipple; Z80.1 Family history of malignant neoplasm of trachea, bronchus and lung; Z87.891 Personal history of nicotine dependence; M19.90 Unspecified osteoarthritis, unspecified site; K21.9 Gastro-esophageal reflux disease without esophagitis
CPT/HCPCS: 36415; 70450; 71046; 80048; 80053; 81001; 83605; 83735; 83880; 84145; 84443; 84484; 85025; 85610; 85730; 87040; 87070; 87077; 87086; 87186; 87205; 87449; 87636; 93005; 93970; 94640; 94760

== ENCOUNTER → 2024-08-10 | Outpatient (CLI) | payer MEDICARE, OTHER ==
[2024-08-10 15:10] LABS: Basophils # (A) 0.09 X 10*3/uL (0.00-0.10); Eosinophils # (A) 0.22 X 10*3/uL (0.04-0.35); Eosinophils % (A) 2.5 %; HCT 40.5 % (37.2-46.3); HGB 12.2 g/dL (12.0-15.0); Lymphocytes # (A) 1.56 X 10*3/uL (0.90-5.00); Lymphocytes % (A) 18.1 %; MCHC 30.1 g/dL (32.0-37.0); MCV 102.8 FL (80.0-97.0); Mean Platelet Volume 11.3 FL (9.5-12.2); Monocytes # (A) 0.59 X 10*3/uL (0.20-1.00); Monocytes % (A) 6.8 %; NRBC Per 100 WBC 0 X 10*3/uL (0.00-0.01); Neutrophils # (A) 6.12 X 10*3/uL (1.80-7.70); Platelet Count 304 X 10*3/uL (140-440); RBC 3.94 X 10*6/uL (4.10-5.20); RDW 14.8 % (11.5-14.5); WBC 8.63 X 10*3/uL (4.50-10.00)
[2024-08-10 15:26] LABS: BUN/Creat Ratio 14.89 Ratio (12.00-20.00); Blood Urea Nitrogen 28.3 mg/dL (9.0-27.0); Calcium 9.2 mg/dL (8.7-10.3); Carbon Dioxide 23.2 mmol/L (21.6-31.8); Chloride 104 mmol/L (96-109); Glucose 64 mg/dL (70-110); Potassium 4.4 mmol/L (3.5-5.5); Sodium 140 mmol/L (135-145)
[2024-08-10 16:10] LABS: Appearance,Urine Turbid (Clear); Bilirubin,Urine Moderate (Negative); Blood,Urine Negative (Negative); Color,Urine Dark Yellow (Yellow); Ketones,Urine Trace (Negative); Nitrite,Urine Negative (Negative); Specific Gravity,Urine 1.023 (1.001-1.030)
[2024-08-10 16:47] LABS: Bacteria,Urine Trace (None Seen); Uric Acid Crystals,Urine Present
== END | disposition home or self-care (01) ==
LOC: LABWHC1 10:14
PROVIDERS: ATTEND Urology
DX: Z01.818 Encounter for other preprocedural examination (principal)
CPT/HCPCS: 36415; 80048; 81001; 85025; 87086; 93005

== ENCOUNTER 2024-09-09 09:31 | Day surgery (SDC) | payer MEDICARE, OTHER ==
[~2024-09-09 09:31] MED LIST changes: +ALPRAZolam 0.25 MG TAB PO PRN; +ALPRAZolam 0.5 MG TAB PO PRN; -HYDROmorphone 0.5 MG/0.5 ML SYRINGE IVP PRN; -LIDOCAINE 1% (10MG/ML) FOR IV START INTRADERMA PRN; +NITROGLYCERIN SL TABS 0.4 MG TAB SUBLINGUAL PRN; -fentaNYL (PF) 50 MCG/ML 2 ML AMP IVP PRN
[2024-09-09] MEDS: IV FLUID CONTINUATION 1,000 ML IV ONE (10:14)
[2024-09-09] MEDS: ATORVASTATIN 80 MG TAB PO STA (10:24)
[2024-09-09] MEDS: SODIUM CHLORIDE 0.9% 1,000 ML in EMPTY BAG 1 BAG IV SCH (10:24)
[2024-09-09] MEDS: ASPIRIN 325 MG TAB PO STA (10:25)
[2024-09-09 10:31] VITALS: RESP 16; TEMP 98
[2024-09-09 10:52] LABS: African American GFR (CKD) 51 (>60 ml/min/1.73 sqM); Anion Gap 12 mmol/L; Blood Urea Nitrogen 32 mg/dL (7-17); Calcium 9.0 mg/dL (8.4-10.2); Carbon Dioxide 24 mmol/L (22-30); Chloride 106 mmol/L (98-107); Glucose 96 mg/dL (74-99); Non-African American GFR(CKD) 44 (>60 ml/min/1.73 sqM); Potassium 4.0 mmol/L (3.5-5.1); Sodium 142 mmol/L (137-145)
[2024-09-09] MEDS: fentaNYL (PF) 50 MCG/ML 2 ML AMP IVP ONE (12:09)
[2024-09-09] MEDS: LIDOCAINE 1% INJ 10MG/ML (20 ML MDV) SQ ONE ×2 (12:09→12:10)
[2024-09-09] MEDS: MIDAZOLAM 2 MG/2 ML VIAL IVP ONE (12:09)
[2024-09-09] MEDS: VERAPAMIL 2.5 MG/ML 2 ML AMP INTRAARTER ONE (12:10)
[2024-09-09] MEDS: HEPARIN SODIUM 1,000 UN/ML (10ML VL) IVP ONE (12:16)
[2024-09-09] MEDS: HEPARIN SODIUM,PORCINE 10,000 UNIT in SODIUM CHLORIDE 0.9% 1,000 ML IRRIGATION PRN (12:20)
[2024-09-09] MEDS: HEPARIN SODIUM,PORCINE (1 ML) 2,500 UNIT in SODIUM CHLORIDE 0.9% 250 ML IRRIGATION PRN (12:20)
[2024-09-09] MEDS: IOPAMIDOL-370 100ML BTL INJ ONE (12:21)
[2024-09-09] MEDS ORDERED: RX INFO: IV CONTRAST WAS GIVEN 1 EACH MISC MISCELLANE PRN (12:26)
[2024-09-09] MEDS: SODIUM CHLORIDE 0.9% 1,000 ML IV SCH (12:40)
[2024-09-09] MEDS: ACETAMINOPHEN TAB 325 MG TAB PO STA (13:36)
--- NOTE | 2024-09-09 15:17 | P.PCN ---
Date of Procedure: 09/09/24 Operative Findings: CARDIAC CATHETERIZATION PERFORMING PHYSICIAN: Pawan Hernandez MD, RPVI PROCEDURE PERFORMED: 1. Selective right and left coronary angiogram 2. Left heart catheterization 3. Ultrasound-guided access of the right radial artery INDICATION: Symptomatic 75-year-old female patient with abnormal stress test COMPLICATION: None APPROACH: Right ulnar artery LEVEL OF SEDATION: Moderate with a sedation length of 10 minutes PROCEDURE DESCRIPTION: After obtaining an informed consent, the patient was brought to cardiac offset label rewinder. Local anesthesia was performed using lidocaine subcutaneously. The right ulnar artery was cannulated using Seldinger technique, under ultrasound guidance, the guidewire passed easily, following that we advanced a 5-Cymraes sheath dilator assembly, the wire and dilator were removed and sheath was flushed. Following that, 2 mg of verapamil along with 5000 unit heparin were given. Selective right and left coronary angiogram using a 5-Cymraes JR4 and JL 3.5 catheters. The procedure was completed there was no complication. SELECTIVE CORONARY ANGIOGRAM: The right coronary artery: Large caliber vessel and a dominant vessel appears to be angiographically normal Left main: Is angiographically normal The left circumflex: Large caliber vessel nondominant vessel with no evidence of high-grade stenosis The left anterior descending artery: Is angiographically normal CONCLUSION: 1. Normal coronary angiogram POSTPROCEDURE MANAGEMENT: Medical treatment
[2024-09-09 16:23] VITALS: BP 102/40; PULSE 67
== END 2024-09-09 15:59 | disposition home or self-care (01) ==
LOC: CATHCVL 09:31
PROVIDERS: ATTEND Internal Medicine Interventional Cardiology
DX: R94.39 Abnormal result of other cardiovascular function study (principal); R94.31 Abnormal electrocardiogram [ECG] [EKG]; I10 Essential (primary) hypertension; E78.5 Hyperlipidemia, unspecified; Z87.09 Personal history of other diseases of the respiratory system; Z87.891 Personal history of nicotine dependence; Z79.82 Long term (current) use of aspirin; Z79.899 Other long term (current) drug therapy
CPT/HCPCS: 99152; 93454; 80048; C1769 ×2; C1894; J2250; J1644 ×3; J2003; J3010; Q9967; 93458

== ENCOUNTER 2024-09-13 12:42 | Emergency (ER) | payer MEDICARE, OTHER ==
[2024-09-13 13:28] LABS: Basophils # (A) 0.06 10*3/uL (0.00-0.10); Basophils % (A) 0.5 %; Eosinophils # (A) 0.26 10*3/uL (0.04-0.35); Eosinophils % (A) 2.3 %; HCT 35.2 % (37.2-46.3); HGB 11.2 g/dL (12.0-15.0); Lymphocytes # (A) 1.58 10*3/uL (0.90-5.00); Lymphocytes % (A) 13.8 %; MCH 32.2 pg (27.0-32.0); MCHC 31.8 g/dL (32.0-37.0); MCV 101.1 fL (80.0-97.0); Monocytes # (A) 0.71 10*3/uL (0.20-1.00); Monocytes % (A) 6.2 %; Neutrophils # (A) 8.72 10*3/uL (1.80-7.70); Neutrophils % (A) 76.4 %; Platelet Count 328 10*3/uL (140-440); RBC 3.48 10*6/uL (4.10-5.20); RDW 14.3 % (11.5-14.5); WBC 11.42 10*3/uL (4.50-10.00)
--- NOTE | 2024-09-13 13:28 | ED ---
General Adult HPI - General Chief complaint: Shortness of Breath Stated complaint: SOB Time Seen by Provider: 09/13/24 12:49 Source: patient, RN notes reviewed, old records reviewed Mode of arrival: wheelchair Limitations: no limitations - History of Present Illness Initial comments: 74-year-old female presents for evaluation of cough and dyspnea. Patient has history of COPD. She had recent heart cath which showed normal coronary arteries earlier this week. She states that she has had approximately 1 week history of productive cough. No fever. No central chest pain. - Related Data Home Medications Medication Instructions Recorded Confirmed Aspirin 81 mg PO DAILY 05/01/22 09/09/24 Atorvastatin [Lipitor] 40 mg PO HS 05/01/22 09/09/24 Metoprolol Succinate (ER) [Toprol 25 mg PO DAILY 10/31/22 09/09/24 XL] Ferrous Sulfate [Iron (65 MG 325 mg PO HS 01/22/23 09/09/24 Elemental)] Famotidine [Pepcid] 40 mg PO BID 09/16/23 09/09/24 Denosumab [Prolia] 60 mg SQ Q180D 02/14/24 09/08/24 Fluticasone/Umeclidin/Vilanter 1 puff INHALATION RT-DAILY 02/14/24 09/09/24 [Trelegy Ellipta 200-62.5-25] Midodrine HCl 5 mg PO TID 09/08/24 09/09/24 Previous Rx's Medication Instructions Recorded Cholecalciferol [Vitamin D3 (25 50 mcg PO DAILY #60 tab 02/19/24 Mcg = 1000 Iu)] Azithromycin [Zithromax Z Pack] 1 tab PO DIRECTED #6 tab 09/13/24 predniSONE 50 mg PO DAILY #5 tab 09/13/24 Allergies Allergy/AdvReac Type Severity Reaction Status Date / Time No Known Allergies Allergy Verified 09/13/24 12:47 Review of Systems ROS Statement: Those systems with pertinent positive or pertinent negative responses have been documented in the HPI. ROS Other: All systems not noted in ROS Statement are negative. Past Medical History Past Medical History: Cancer, COPD, GERD/Reflux, Hyperlipidemia, Hypertension, Musculoskeletal Disorder, Osteoarthritis (OA), Renal Disease Additional Past Medical History / Comment(s): Recent positive stress test. Right breast cancer, back pain - steroid injections, hiatal hernia - not repaired. stage 3 vulva cancer-last treatment a year ago. could possibly be postponed, Stage 3 kidney disease-follows up w/ Income Auditor Dr. Bianchi. Bladder/incontinence issues-wears thin cesar-pad. Past hospitalization for sepsis after hysterectomy. History of Any Multi-Drug Resistant Organisms: None Reported Past Surgical History: Breast Surgery, Hysterectomy, Joint Replacement, Tonsillectomy, Tubal Ligation Additional Past Surgical History / Comment(s): Right breast mastectomy 2000, art ificial vance. thumb joint (3 surgeries), left and right hand surgery, EGD 2010. back injections for pain, left cataract removed, C2 to T2 fusion 12/17/2022, bladder sling a year ago, laser cancer tx 2023 Past Anesthesia/Blood Transfusion Reactions: Motion Sickness, Postoperative Nausea & Vomiting (PONV) Additional Past Anesthesia/Blood Transfusion Reaction / Comment(s): PONV after hysterectomy. Past Psychological History: No Psychological Hx Reported Smoking Status: Former smoker Past Alcohol Use History: None Reported Past Drug Use History: Marijuana - Past Family History Mother Family Medical History: Cancer Additional Family Medical History / Comment(s): Stomach cancer Sister(s) Family Medical History: Cancer Additional Family Medical History / Comment(s): Lung cancer mets to brain Brother(s) Family Medical History: Cancer Additional Family Medical History / Comment(s): 2 brothers w/ multiple cancers General Exam Limitations: no limitations General appearance: alert, in no apparent distress Head exam: Present: atraumatic, normocephalic Eye exam: Present: normal appearance, PERRL Neck exam: Present: normal inspection. Absent: tenderness, meningismus Respiratory exam: Present: wheezes, rhonchi, decreased breath sounds Cardiovascular Exam: Present: regular rate, normal rhythm GI/Abdominal exam: Present: soft. Absent: distended, tenderness, guarding Neurological exam: Present: alert, oriented X3, CN II-XII intact. Absent: motor sensory deficit Skin exam: Present: warm, dry, intact Course Vital Signs 09/13/24 12:43 Temperature 97.5 F L Pulse Rate 102 H Respiratory 20 Rate Blood Pressure 149/75 O2 Sat by Pulse 95 Oximetry Medical Decision Making - Medical Decision Making Was pt. sent in by a medical professional or institution (, PA, HIGHWAY MAINTENANCE TECHNICIAN, urgent care, hospital, or longterm...) When possible be specific @ -No Did you speak to anyone other than the patient for history (EMS, parent, family, police, friend...)? What history was obtained from this source @ -No Did you review nursing and triage notes (agree or disagree)? Why? @ -I reviewed and agree with nursing and triage notes Were old charts reviewed (outside hosp., previous admission, EMS record, old EKG, old radiological studies, urgent care reports/EKG's, longterm records)? Report findings @ -No old charts were reviewed Differential Dyspnea: Coronary syndrome, arrhythmia, tamponade, asthma, COPD, pulmonary embolism, pneumonia, pneumothorax, pulmonary effusion, anaphylaxis, diabetic ketoacidosis, flailed chest, pulmonary contusion, diaphragmatic rupture, anemia, neuromuscular, this is not meant to be an all-inclusive list. EKG interpreted by me (3pts min.). @ -Sinus rhythm rate of 90, T wave inversion and ST segment depression in V2 V3 no ST segment elevation, MO interval 137, QRS duration 88, QTc 392 X-rays interpreted by me (1pt min.). @ -[Chest x-ray is negative for consolidative pneumonia or pneumothorax. CT interpreted by me (1pt min.). @ -None done U/S interpreted by me (1pt. min.). @ -None done What testing was considered but not performed or refused? (CT, X-rays, U/S, labs)? Why? @ -None What meds were considered but not given or refused? Why? @ -None Did you discuss the management of the patient with other professionals (professionals i.e. , PA, HIGHWAY MAINTENANCE TECHNICIAN, lab, RT, psych nurse, delinquency prevention social worker, technology instructor, teacher, sailing officer, dependency case manager)? Give summary @ -No Was smoking cessation discussed for >3mins.? @ -No Was critical care preformed (if so, how long)? @ -No Were there social determinants of health that impacted care today? How? (Homelessness, low income, unemployed, alcoholism, drug addiction, transportation, low edu. Level, literacy, decrease access to med. care, prison, rehab)? @ -No Was there de-escalation of care discussed even if they declined (Discuss DNR or withdrawal of care, Hospice)? DNR status @ -No What co-morbidities impacted this encounter? (DM, HTN, Smoking, COPD, CAD, Cancer, CVA, ARF, Chemo, Hep., AIDS, mental health diagnosis, sleep apnea, morbid obesity)? @ -COPD Was patient admitted / discharged? Hospital course, prescriptions, significant lab abnormalities, going to OR and other pertinent info. @ 74-year-old female history of COPD presenting with increased cough and dyspnea. Patient has wheezing and rhonchi on auscultation. She has oxygen as needed at home and has been using it the past several days. Patient had heart catheterization within the last week which showed normal coronary arteries. She has no chest pain. No lower extremity pain or swelling. No fever. Chest x- ray is clear without consolidative pneumonia. She has a normal CBC, normal CMP, negative BNP, negative viral panel. Patient started on steroids and antibiotics in the emergency department she will follow-up with her manager of compensation. Undiagnosed new problem with uncertain prognosis? @ -No Drug Therapy requiring intensive monitoring for toxicity (Heparin, Nitro, Insulin, Cardizem)? @ -No Were any procedures done? @ -No Diagnosis/symptom? @ -[COPD exacerbation Acute, or Chronic, or Acute on Chronic? @Acute on chronic Uncomplicated (without systemic symptoms) or Complicated (systemic symptoms)? @ -Default Side effects of treatment? @ -No Exacerbation, Progression, or Severe Exacerbation? @ -No Poses a threat to life or bodily function? How? (Chest pain, USA, MD, pneumonia, PE, COPD, DKA, ARF, appy, cholecystitis, CVA, Diverticulitis, Homicidal, Suicidal, threat to staff... and all critical care pts) @ -Yes, COPD, low risk at this time - Lab Data Result diagrams: 09/13/24 13:07 09/13/24 13:16 Lab Results 09/13/24 09/13/24 09/13/24 Range/Units 13:07 13:16 13:16 WBC 11.42 H (4.50-10.00) 10*3/uL RBC 3.48 L (4.10-5.20) 10*6/uL Hgb 11.2 L (12.0-15.0) g/dL Hct 35.2 L (37.2-46.3) % MCV 101.1 H (80.0-97.0) fL MCH 32.2 H (27.0-32.0) pg MCHC 31.8 L (32.0-37.0) g/dL Plt Count 328 (140-440) 10*3/uL MPV 10.6 (9.5-12.2) fL Immature Gran % (Auto) 0.8 % Neutrophils % 76.4 % Lymphocytes % 13.8 % Monocytes % 6.2 % Eosinophils % 2.3 % Basophils % 0.5 % Immature Gran # 0.09 H (0.00-0.04) 10*3/uL Neutrophils # 8.72 H (1.80-7.70) 10*3/uL Lymphocytes # 1.58 (0.90-5.00) 10*3/uL Monocytes # 0.71 (0.20-1.00) 10*3/uL Eosinophils # 0.26 (0.04-0.35) 10*3/uL Basophils # 0.06 (0.00-0.10) 10*3/uL Sodium 143 (137-145) mmol/L Potassium 3.9 (3.5-5.1) mmol/L Chloride 111 H (98-107) mmol/L Carbon Dioxide 22 (22-30) mmol/L Anion Gap 10 mmol/L BUN 21 H (7-17) mg/dL Creatinine 0.89 (0.52-1.04) mg/dL Est GFR (CKD-EPI)AfAm 75 (>60 ml/min/1.73 sqM) Est GFR (CKD-EPI)NonAf 65 (>60 ml/min/1.73 sqM) Glucose 103 H (74-99) mg/dL Calcium 9.5 (8.4-10.2) mg/dL Total Bilirubin 0.4 (0.2-1.3) mg/dL AST 20 (14-36) U/L ALT 11 (4-34) U/L Alkaline Phosphatase 83 (38-126) U/L NT-Pro-B Natriuret Pep 341 pg/mL Total Protein 6.4 (6.3-8.2) g/dL Albumin 3.6 (3.5-5.0) g/dL Influenza Type A (PCR) Not Detected (Not Detectd) Influenza Type B (PCR) Not Detected (Not Detectd) RSV (PCR) Not Detected (Not Detectd) SARS-CoV-2 (PCR) Not Detected (Not Detectd) Disposition Clinical Impression: Acute exacerbation of chronic obstructive pulmonary disease Disposition: HOME SELF-CARE Condition: Stable Instructions (If sedation given, give patient instructions): COPD (Chronic Obstructive Pulmonary Disease) (ED) Prescriptions: predniSONE 50 mg PO DAILY #5 tab Azithromycin [Zithromax Z Pack] 1 tab PO DIRECTED #6 tab Is patient prescribed a controlled substance at d/c from ED?: No Referrals: Booker Ochoa DO [Primary Care Provider] - 1-2 days Time of Disposition: 14:38
[2024-09-13 13:46] LABS: ALT 11 U/L (4-34); AST 20 U/L (14-36); African American GFR (CKD) 75 (>60 ml/min/1.73 sqM); Albumin 3.6 g/dL (3.5-5.0); Alkaline Phosphatase 83 U/L (38-126); Anion Gap 10 mmol/L; Blood Urea Nitrogen 21 mg/dL (7-17); Calcium 9.5 mg/dL (8.4-10.2); Carbon Dioxide 22 mmol/L (22-30); Chloride 111 mmol/L (98-107); Glucose 103 mg/dL (74-99); Non-African American GFR(CKD) 65 (>60 ml/min/1.73 sqM); Potassium 3.9 mmol/L (3.5-5.1); Sodium 143 mmol/L (137-145); Total Protein 6.4 g/dL (6.3-8.2)
--- NOTE | 2024-09-13 13:52 | XR ---
EXAMINATION TYPE: XR chest 2V DATE OF EXAM: 09/13/2024 1:33 PM COMPARISON: Chest radiographs from 02/18/2024. CLINICAL INDICATION: Female, 74 years old with history of cough; [facility] TECHNIQUE: XR chest 2V Frontal and lateral views of the chest. FINDINGS: Lungs/Pleura: There is flattening of the diaphragm with increased lucency of the lungs. No evidence o f pneumothorax, pleural effusion or focal consolidation. Pulmonary vascularity: Unremarkable. Heart/mediastinum: Cardiomediastinal silhouette is unremarkable. Musculoskeletal: No acute osseous pathology. There is fixation hardware in the lower cervical spine. IMPRESSION: 1. No acute cardiopulmonary disease process. 2. COPD changes. [facility], , 09/13/2024 1:50 PM
[2024-09-13 13:53] LABS: NT-Pro-B-Type Natriuretic Pept 341 pg/mL
[2024-09-13 14:13] LABS: RSV Not Detected (Not Detectd)
[2024-09-13] MEDS: cefTRIAXone IN SWFI 1,000 MG/10 ML SYRINGE IVP STA (14:45)
[2024-09-13] MEDS: methylPREDNISolone SOD SUCCI 125 MG/2 ML VIAL IV STA (14:48)
[2024-09-13 14:54] VITALS: BP 119/80; RESP 19; TEMP 98.2
[2024-09-13] MEDS: ALBUTEROL NEBULIZED 2.5 MG/3 ML INHALATION STA (15:22)
[2024-09-13] MEDS: IPRATROPIUM-ALBUTEROL 3 ML NEB INHALATION STA (15:22)
[2024-09-13 15:39] VITALS: PULSE 80
== END 2024-09-13 15:42 | disposition home or self-care (01) ==
LOC: EC 12:42
DX: J44.1 Chronic obstructive pulmonary disease with (acute) exacerbation (principal); Z87.891 Personal history of nicotine dependence
CPT/HCPCS: 36415; 94640; 93005; 83880; 80053; 85025; 87636; 71046; 99285; 96374; 96375; J0696; J2919